=== PATIENT | female | born 1955 | race African-American/Black ===

== ENCOUNTER 2018-02-18 18:00 | Inpatient (IN) | payer MEDICARE ==
[~2018-02-18] VITALS: Ht 160 cm; Wt 59.5 kg
[~2018-02-18 18:00] MED LIST: ASPI-482 PO; CARV3.122 PO; FLUT1DIS3 IH; FURO20TA3 PO; LISI-338 PO; MAGN71.5 PO; METO25TA4 PO; POTA10TA12 PO; PROAIR HFA8.5 GM; PROAIR HFA8.5 GM IH; TAMS0.4C2 PO
--- NOTE | 2018-02-18 18:17 | PHYS DOC ---
Past Medical History Past Medical History: CHF, COPD, Hypertension, Other Additional Past Medical Histor: EMPHYSEMA, Past Surgical History: Tonsillectomy Alcohol Use: Occasionally Drug Use: None Adult General Chief Complaint Chief Complaint: WEAKNESS/GENERALIZED HPI HPI Patient is a 62 year old female who presents with generalized weakness. She is a poor historian. Patient has had progressive swelling or lower extremity is for the past 2 months limiting her ambulation. She states she's been confined to sitting in a wheelchair in a car last 2 days. She hasn't been mobile out of a car last 2 days has been sitting in her feces and urine. She denies any pain shortness breath or fevers. She drove herself to the ED. Review of Systems Review of Systems Constitutional: Denies fever or chills Eyes: Denies change in visual acuity, redness, or eye pain HENT: Denies nasal congestion or sore throat Respiratory: Denies cough or shortness of breath Cardiovascular: Denies CP or palpitations GI: Denies abdominal pain, nausea, vomiting, bloody stools or diarrhea : Denies dysuria or hematuria Musculoskeletal: Denies back pain or joint pain Integument: Denies rash, with complaints of sacral and perineal "sores" Neurologic: Denies headache, focal weakness or sensory changes. With generalized weakness Endocrine: Denies polyuria or polydipsia All other systems were reviewed and found to be within normal limits, except as documented in this note. Allergies Allergies Allergies Coded Allergies Type Severity Reaction Last Updated Verified naproxen Allergy Intermediate 05/11/15 Yes Physical Exam Physical Exam Constitutional: Well developed, well nourished, no acute distress, non-toxic appearance. Disheveled soiled with urine and feces. HENT: Normocephalic, atraumatic, bilateral external ears normal, oropharynx moist, no oral exudates, nose normal. Eyes: PERRLA, EOMI, conjunctiva normal, no discharge. Neck: Normal range of motion, no tenderness, supple, no stridor. Cardiovascular:Heart rate regular rhythm, no murmur Lungs & Thorax: Bilateral breath sounds with rales at the bases bilaterally Abdomen: Bowel sounds normal, soft, no tenderness, no masses, no pulsatile masses. Skin: Warm, dry, no erythema, no rash. [] Multiple stage III decubitus on her perineum and bilateral buttocks Back: No tenderness, no CVA tenderness. Extremities: No tenderness, no cyanosis, no clubbing, ROM intact, no edema. Neurologic: Alert and oriented X 3, normal motor function, normal sensory function, no focal deficits noted. Psychologic: Affect depressed, mood depressed. Current Patient Data Vital Signs Vital Signs Date Time Temp Pulse Resp B/P (MAP) Pulse Ox O2 Delivery O2 Flow Rate FiO2 02/18/18 21:30 96 18 91 02/18/18 18:00 98.7 124/58 (80) Room Air 98.7 Lab Values Laboratory Tests Test 02/18/18 18:30 02/18/18 20:20 02/18/18 21:30 Urine Collection Type U cath Urine Color Aspen Urine Clarity Clear Urine pH 7.0 Urine Specific [place] 1.015 Urine Protein Negative mg/dL (NEG-TRACE) Urine Glucose (UA) Negative mg/dL (NEG) Urine Ketones (Stick) Trace mg/dL (NEG) Urine Blood Negative (NEG) Urine Nitrite Negative (NEG) Urine Bilirubin Small (NEG) Urine Urobilinogen Dipstick >=8.0 mg/dL (0.2 mg/dL) Urine Leukocyte Esterase Negative (NEG) Urine RBC Occ /HPF (0-2) Urine WBC Occ /HPF (0-4) Urine Transitional Epithelial Cells Few /LPF Urine Bacteria 0 /HPF (0-FEW) Urine Hyaline Casts Occasional /HPF Urine Mucus Slight /LPF Urine Opiates Screen Neg (NEG) Urine Methadone Screen Neg (NEG) Urine Barbiturates Neg (NEG) Urine Phencyclidine Screen Neg (NEG) Urine Amphetamine/Methamphetamine Neg (NEG) Urine Benzodiazepines Screen Neg (NEG) Urine Cocaine Screen Neg (NEG) Urine Cannabinoids Screen Neg (NEG) Urine Ethyl Alcohol Pos (NEG) White Blood Count 5.9 x10^3/uL (4.0-11.0) Red Blood Count 2.55 x10^6/uL (3.50-5.40) L Hemoglobin 4.9 g/dL (12.0-15.5) *L Hematocrit 16.8 % (36.0-47.0) *L Mean Corpuscular Volume 66 fL (79-100) L Mean Corpuscular Hemoglobin 19 pg (25-35) L Mean Corpuscular Hemoglobin Concent 29 g/dL (31-37) L Red Cell Distribution Width 20.0 % (11.5-14.5) H Platelet Count 333 x10^3/uL (140-400) Neutrophils (%) (Auto) 80 % (31-73) H Lymphocytes (%) (Auto) 8 % (24-48) L Monocytes (%) (Auto) 11 % (0-9) H Eosinophils (%) (Auto) 1 % (0-3) Basophils (%) (Auto) 1 % (0-3) Neutrophils # (Auto) 4.7 x10^3uL (1.8-7.7) Lymphocytes # (Auto) 0.4 x10^3/uL (1.0-4.8) L Monocytes # (Auto) 0.7 x10^3/uL (0.0-1.1) Eosinophils # (Auto) 0.0 x10^3/uL (0.0-0.7) Basophils # (Auto) 0.0 x10^3/uL (0.0-0.2) Hypersegmented Neutrophils Present Platelet Estimate Adequate (ADEQUATE) Polychromasia Slight Hypochromasia Mod Poikilocytosis Slight Anisocytosis Mod Microcytosis Marked Macrocytosis Slight Spherocytes Occ Target Cells Few Ovalocytes Occ Stomatocytes Occ Rouleaux Present Prothrombin Time 16.6 SEC (11.7-14.0) H Prothrombin Time INR 1.4 (0.8-1.1) H PTT 34 SEC (24-38) D-Dimer (Reba) 1.92 ug/mlFEU (0.00-0.50) H Sodium Level 130 mmol/L (136-145) L Potassium Level 3.4 mmol/L (3.5-5.1) L Chloride Level 92 mmol/L (98-107) L Carbon Dioxide Level 31 mmol/L (21-32) Anion Gap 7 (6-14) Blood Urea Nitrogen 3 mg/dL (7-20) L Creatinine 0.5 mg/dL (0.6-1.0) L Estimated GFR (Cockcroft-Gault) 151.8 BUN/Creatinine Ratio 6 (6-20) Glucose Level 95 mg/dL (70-99) Lactic Acid Level 2.2 mmol/L (0.4-2.0) H Calcium Level 7.5 mg/dL (8.5-10.1) L Magnesium Level 1.6 mg/dL (1.8-2.4) L Total Bilirubin 1.7 mg/dL (0.2-1.0) H Aspartate Amino Transferase (AST) 22 U/L (15-37) Alanine Aminotransferase (ALT) 11 U/L (14-59) L Alkaline Phosphatase 92 U/L (46-116) Troponin I Quantitative < 0.017 ng/mL (0.000-0.055) AT-Bao-P-Type Natriuretic Peptide 446 pg/mL (0-124) H Total Protein 6.2 g/dL (6.4-8.2) L Albumin 1.6 g/dL (3.4-5.0) L Albumin/Globulin Ratio 0.3 (1.0-1.7) L Lipase 117 U/L (73-393) Ethyl Alcohol Level 16 mg/dL (0-10) H Stool Occult Blood Positive (NEG) Laboratory Tests 02/18/18 20:20 Laboratory Tests 02/18/18 20:20 EKG EKG ECG 19:13 NSR @ 98 with prolonged QT, low voltage in limb leads and non specific ST-T wave changes. Radiology/Procedures Radiology/Procedures [facility] [address] [place], [place] [id number] IMAGING REPORT Signed PATIENT: ALMA DELIA ARIAS ACCOUNT: [id number] : 1955 LOCATION: [address] [place] [address] AGE: 62 SEX: F EXAM STATUS: ADM IN ORD. PHYSICIAN: MARISABEL CHAUDHARY MD REASON: weakness PROCEDURE: CHEST AP ONLY EXAM: CHEST 1 VIEW. HISTORY: Weakness, hypoxia. COMPARISON: 09/18/2015. FINDINGS: A frontal view of the chest is obtained. Hyperinflation is consistent with chronic obstructive pulmonary disease. There are trace bilateral pleural effusions. There is no pneumothorax or pleural effusion. The heart is mildly enlarged. IMPRESSION: 1. Chronic obstructive pulmonary disease. Mild cardiomegaly. Trace bilateral pleural effusions. Electronically signed by: Francisco Chavez MD (02/18/2018 11:57 PM) [facility] DICTATED and SIGNED BY: DAVID CHAVEZ MD DATE: 02/18/18 3401 [facility] [address] [place] [address] IMAGING REPORT Signed PATIENT: ALMA DELIA ARIAS ACCOUNT: [id number] : 1955 LOCATION: [address] [place] [address] AGE: 62 SEX: F EXAM STATUS: ADM IN ORD. PHYSICIAN: MARISABEL CHAUDHARY MD REASON: hypoxemia PROCEDURE: CT ANGIOGRAPHY CHEST EXAM: CT ANGIOGRAPHY OF THE CHEST WITH AND WITHOUT INTRAVENOUS CONTRAST. HISTORY: Hypoxia. TECHNIQUE: Computed tomographic angiography of the chest was performed before and after the intravenous administration of 75 mL Omnipaque 300. 3-D maximum intensity projections were also performed. COMPARISON: None. FINDINGS: Images of the upper abdomen reveal no acute abnormality. Bone windows reveal no suspicious lesions. No pulmonary emboli are identified. There is no aortic dissection or aneurysm. There are no pathologically enlarged mediastinal or axillary lymph nodes. There are small bilateral pleural effusions with associated atelectasis. There is no pericardial effusion. The heart is at least mildly enlarged in a predominantly right-sided pattern. There is moderate centrilobular emphysema. The left lower lobe bronchi are mostly filled with debris. More diffuse bronchial wall thickening is consistent with acute or chronic bronchitis. IMPRESSION: 1. No pulmonary embolism. 2. Moderate centrilobular emphysema, possibly with superimposed mild pulmonary edema. Small bilateral pleural effusions. Body wall edema. 3. Debris throughout the left lower lobe bronchi. Correlate for aspiration or uncleared secretions. 4. Mild cardiomegaly in a predominantly right-sided pattern. *One or more of the following individualized dose reduction techniques were utilized for this examination: 1. Automated exposure control. 2. Adjustment of the mA and/or kV according to patient size. 3. Use of iterative reconstruction technique. Electronically signed by: Francisco Chavez MD (02/18/2018 11:56 PM) [facility] DICTATED and SIGNED BY: DAVID CHAVEZ MD DATE: 02/18/182346 [facility] [address] [place] [address] IMAGING REPORT Signed PATIENT: ALMA DELIA ARIAS ACCOUNT: [id number] : 1955 LOCATION: [address] [place] [address] AGE: 62 SEX: F EXAM STATUS: ADM IN ORD. PHYSICIAN: MARISABEL CHAUDHARY MD REASON: LE edema, positive D-dimer PROCEDURE: VENOUS LOWER EXT BILATERAL EXAM: Bilateral lower extremity venous Doppler. HISTORY: Bilateral lower extremity pain/swelling. Elevated d-dimer. COMPARISON: None. FINDINGS: Grayscale and Doppler analysis of the both lower extremity deep venous systems was performed with graded compression and augmentation. The common femoral, greater saphenous, superficial femoral, popliteal and calf veins were assessed. There is no evidence of deep venous thrombosis. A left inguinal lymph node measures 1.6 x 1.1 cm. Another measures 2.3 x 1.5 x 0.5 cm. Another on the right measures 2.0 x 1.4 cm. These have fatty derian. Subcutaneous edema is noted. IMPRESSION: 1. No evidence of deep venous thrombosis. 2. Prominent bilateral inguinal lymph nodes are likely reactive. Correlate for lower extremity inflammation. Electronically signed by: Francisco Chavez MD (02/18/2018 11:31 PM) [facility] DICTATED and SIGNED BY: DAVID CHAVEZ MD DATE: 02/18/18 9071 Course & Med Decision Making Course & Med Decision Making Pertinent Labs and Imaging studies reviewed. (See chart for details) Emergency Department Course Patient presents with bilateral LE edema and fatigue DDx- CHF, DVT, liver failure, renal failure, PE Patient was hypoxemic in the ED, necessitating NC O2 supplementation. ECG and troponin showed no evidence of ACS. D-dimer elevated. CTA chest showed no PE with bilateral effusions. Labs remarkable for severe anemia, hypokalemia, elevated BNP. Stool heme positive. Type and cross match sent. PRBC blood transfusion ordered. Patient given Lasix for probable CHF. Protonix given for heme positive stool with severe anemia. 21:[address] Garcia who agrees with admission 22:[address] Birch electroneurodiagnostic technician who will consult on the patient Dr. Varghese GI consultations [place] Disclaimer Dragon Disclaimer This electronic medical record was generated, in whole or in part, using a voice recognition dictation system. Departure Departure Impression: Primary Impression: Severe anemia Additional Impressions: Heme positive stool Hyponatremia Sacral decubitus ulcer, stage III Hypoxemia Edema CHF (congestive heart failure) Failure to thrive in adult Disposition: 09 ADMITTED INPATIENT Admitting Physician: Simona Garcia Condition: STABLE Referrals: FRANCISCO MANCIA MD (PCP) Critical Care Note Total Time (mins): 30 Comments Critical care time spent correcting the patient's severe anemia with packed RBC blood transfusion Problems: (1) Severe anemia (2) Sacral decubitus ulcer, stage III (3) Heme positive stool (4) Hyponatremia (5) Edema (6) Hypoxemia Critical Care Time Critical care time was 30 minutes exclusive of procedures. Problem Qualifiers (1) Edema: Edema type: unspecified Qualified Codes: R60.9 - Edema, unspecified Additional Impressions: Edema Edema type: unspecified Qualified Codes: R60.9 - Edema, unspecified MARISABEL CHAUDHARY MD Feb 18, 2018 18:17
[2018-02-18 18:49] LABS: BILIRUBIN,URINE SMALL (NEG); CLARITY,URINE CLEAR; COLOR,URINE AMBER; NITRITE,URINE NEGATIVE (NEG); PROTEIN,URINE NEGATIVE (NEG-TRACE); UROBILINOGEN,URINE >=8.0 mg/dL (0.2 mg/dL)
[2018-02-18 18:57] LABS: BARBITURATES NEG (NEG); BENZODIAZEPINES NEG (NEG); CANNABINOIDS NEG (NEG); COCAINE NEG (NEG); METHADONE NEG (NEG); OPIATES NEG (NEG); PHENCYCLIDINE NEG (NEG)
[2018-02-18 18:58] LABS: AMPHETAMINE/METHAMPHETAMINE NEG (NEG)
[2018-02-18 19:09] LABS: BACTERIA,URINE 0 /HPF (0-FEW); HYALINE CASTS, URINE OCCASIONAL /HPF; RBC,URINE OCC /HPF (0-2); WBC,URINE OCC /HPF (0-4)
[2018-02-18 20:35] LABS: BASO % 1 % (0-3); EOS % 1 % (0-3); LYMPH # 0.4 x10^3/uL (1.0-4.8); LYMPH % 8 % (24-48); MEAN CORPUSCULAR HEMOGLOBIN 19 pg (25-35); MEAN CORPUSCULAR HGB CONC 29 g/dL (31-37); MEAN CORPUSCULAR VOLUME 66 fL (79-100); MONO # 0.7 x10^3/uL (0.0-1.1); MONO % 11 % (0-9); NEUT # 4.7 x10^3uL (1.8-7.7); NEUT % 80 % (31-73); PLATELET COUNT 333 x10^3/uL (140-400); RED BLOOD COUNT 2.55 x10^6/uL (3.50-5.40); WHITE BLOOD COUNT 5.9 x10^3/uL (4.0-11.0)
[2018-02-18 20:45] LABS: HEMATOCRIT 16.8 % (36.0-47.0); HEMOGLOBIN 4.9 g/dL (12.0-15.5)
[2018-02-18 20:48] LABS: CALCIUM 7.5 mg/dL (8.5-10.1); CREATININE 0.5 mg/dL (0.6-1.0); GFR 151.8; POTASSIUM 3.4 mmol/L (3.5-5.1)
--- NOTE | 2018-02-18 20:49 | EKG ---
[facility] [address] [place] [address] Test Date: 2018-02-18 Test Time: 19:13:31 Pat Name: ALMA DELIA ARIAS Department: Room: Gender: F Commercial Collections Specialist: : 1955 Requested By: MARISABEL CHAUDHARY Order Number: [id number] Reading MD: Lamine Cartagena MD Measurements Intervals [place] Rate: 98 P: 14 CT: 106 QRS: 51 QRSD: 88 T: 127 QT: 380 QTc: 487 Interpretive Statements SINUS RHYTHM Electronically Signed On 02-23-2018 8:27:23 CDT by Lamine Cartagena MD
[2018-02-18 20:53] LABS: ALBUMIN 1.6 g/dL (3.4-5.0); ALBUMIN/GLOBULIN RATIO 0.3 (1.0-1.7); MAGNESIUM 1.6 mg/dL (1.8-2.4); TOTAL BILIRUBIN 1.7 mg/dL (0.2-1.0); TOTAL PROTEIN 6.2 g/dL (6.4-8.2)
[2018-02-18 20:56] LABS: PROTHROMBIN TIME PATIENT 16.6 SEC (11.7-14.0)
[2018-02-18 21:36] LABS: PLT ESTIMATE ADEQUATE (ADEQUATE)
[2018-02-18 21:37] LABS: MICROCYTOSIS MARKED; TARGET CELLS FEW
[2018-02-18 21:38] LABS: OVALOCYTES OCC; ROULEAUX PRESENT; STOMATOCYTES OCC
[2018-02-18 21:39] LABS: HYPERSEGS PRESENT; HYPOCHROMIA MOD; POLYCHROMASIA SLIGHT
[2018-02-18 21:40] LABS: ANISOCYTOSIS MOD; POIKILOCYTOSIS SLIGHT; SPHEROCYTES OCC
[2018-02-18 22:09] LABS: BASE EXCESS ABG 7 mmol/L (-3-3); HCO3 ABG 31 mmol/L (21-28); PCO2 ABG 45 mmHg (35-46); PO2 ABG 96 mmHg (65-108); SAT O2 ABG 97 % (92-99)
[2018-02-18 22:24] LABS: BASE EXCESS ABG 8 mmol/L (-3-3); HCO3 ABG 33 mmol/L (21-28); PCO2 ABG 49 mmHg (35-46); SAT O2 ABG 76 % (92-99)
[2018-02-18 22:28] LABS: PO2 ABG 43 mmHg (65-108)
[2018-02-18] MEDS ORDERED: CONTRAST GIVEN. MC PRN (22:30)
[2018-02-18] MEDS ORDERED: IOHEXOL 300 MG/ML 100ML VIAL. IV ONE (23:00)
--- NOTE | 2018-02-18 23:34 | RAD ---
EXAM: Bilateral lower extremity venous Doppler. HISTORY: Bilateral lower extremity pain/swelling. Elevated d-dimer. COMPARISON: None. FINDINGS: Grayscale and Doppler analysis of the both lower extremity deep venous systems was performed with graded compression and augmentation. The common femoral, greater saphenous, superficial femoral, popliteal and calf veins were assessed. There is no evidence of deep venous thrombosis. A left inguinal lymph node measures 1.6 x 1.1 cm. Another measures 2.3 x 1.5 x 0.5 cm. Another on the right measures 2.0 x 1.4 cm. These have fatty derian. Subcutaneous edema is noted. IMPRESSION: 1. No evidence of deep venous thrombosis. 2. Prominent bilateral inguinal lymph nodes are likely reactive. Correlate for lower extremity inflammation. Electronically signed by: Francisco Chavez MD (02/18/2018 11:31 PM) [facility]
--- NOTE | 2018-02-18 23:58 | RAD ---
EXAM: CT ANGIOGRAPHY OF THE CHEST WITH AND WITHOUT INTRAVENOUS CONTRAST. HISTORY: Hypoxia. TECHNIQUE: Computed tomographic angiography of the chest was performed before and after the intravenous administration of 75 mL Omnipaque 300. 3-D maximum intensity projections were also performed. COMPARISON: None. FINDINGS: Images of the upper abdomen reveal no acute abnormality. Bone windows reveal no suspicious lesions. No pulmonary emboli are identified. There is no aortic dissection or aneurysm. There are no pathologically enlarged mediastinal or axillary lymph nodes. There are small bilateral pleural effusions with associated atelectasis. There is no pericardial effusion. The heart is at least mildly enlarged in a predominantly right-sided pattern. There is moderate centrilobular emphysema. The left lower lobe bronchi are mostly filled with debris. More diffuse bronchial wall thickening is consistent with acute or chronic bronchitis. IMPRESSION: 1. No pulmonary embolism. 2. Moderate centrilobular emphysema, possibly with superimposed mild pulmonary edema. Small bilateral pleural effusions. Body wall edema. 3. Debris throughout the left lower lobe bronchi. Correlate for aspiration or uncleared secretions. 4. Mild cardiomegaly in a predominantly right-sided pattern. *One or more of the following individualized dose reduction techniques were utilized for this examination: 1. Automated exposure control. 2. Adjustment of the mA and/or kV according to patient size. 3. Use of iterative reconstruction technique. Electronically signed by: Francisco Chavez MD (02/18/2018 11:56 PM) [facility]
[2018-02-19] VITALS (21 sets, daily range): BP systolic 94–133; BP diastolic 44–69
--- NOTE | 2018-02-19 | RAD ---
EXAM: CHEST 1 VIEW. HISTORY: Weakness, hypoxia. COMPARISON: 09/18/2015. FINDINGS: A frontal view of the chest is obtained. Hyperinflation is consistent with chronic obstructive pulmonary disease. There are trace bilateral pleural effusions. There is no pneumothorax or pleural effusion. The heart is mildly enlarged. IMPRESSION: 1. Chronic obstructive pulmonary disease. Mild cardiomegaly. Trace bilateral pleural effusions. Electronically signed by: Francisco Chavez MD (02/18/2018 11:57 PM) [facility]
[2018-02-19] MEDS ORDERED: FUROSEMIDE 20 MG/2 ML VIAL. IVP ONE (01:30)
[2018-02-19] MEDS ORDERED: FUROSEMIDE 40 MG/4 ML VIAL. IVP ONE (01:30)
[2018-02-19 02:56] LABS: FECAL OB PT POSITIVE (NEG)
[2018-02-19] MEDS ORDERED: PANTOPRAZOLE IV PUSH 40 MG VIAL. IVP ONE (08:30)
[2018-02-19] MEDS ORDERED: IV NORMAL SALINE 1000ML BAG 1,000 ML IV SCH (08:45)
--- NOTE | 2018-02-19 08:49 | PDOC2 ---
GI CONSULT Reason For Consult: Anemia, heme positive stool HPI: HPI: 62 y/o female evaluated in ER for weakness. Apparently sat in her car for two days in urine in feces, then drove herself here. Labs significant for Hgb 4.9, MCV 66, fecal occult positive, INR 1.4, bili 1.7, +alcohol. Has transfused 1 unit pRBCs, has not had labs repeated. Received IV PPI x 1 and has been kept NPO. She denies obvious bleeding including hematemesis, hematochezia, or melena. Has had diarrhea x 2 weeks. RN says no stools here. She denies n/v, reflux, dysphagia, and abd pain. I asked if she had been eating - "it depends on what' s going on that day," but mentions she's very hungry now. Has probably lost weight. Denies use of NSAIDs or ASA (though ASA listed in chart). Thinks maybe had a colonoscopy long ago that was normal. No recollection of EGD. No GB, liver, or pancreas history. PMH: PMH: per chart - HTN, COPD, allergic rhinitis, tonsillectomy FH: Family History: Other (difficult to obtain) Social History: Smoke: <1 pack per day ALCOHOL: other (+ on screen, can't quantify) Drugs: None ROS: Difficult to obtain - per HPI. Vitals: Vitals: Vital Signs Date Time Temp Pulse Resp B/P (MAP) Pulse Ox O2 Delivery O2 Flow Rate FiO2 02/19/18 07:15 97.7 76 16 118/61 (80) 100 Nasal Cannula 4.0 97.7 Labs: Labs: Laboratory Tests Test 02/18/18 18:30 02/18/18 20:20 02/18/18 21:30 02/18/18 22:05 Urine Collection Type U cath Urine Color Aspen Urine Clarity Clear Urine pH 7.0 Urine Specific [place] 1.015 Urine Protein Negative mg/dL (NEG-TRACE) Urine Glucose (UA) Negative mg/dL (NEG) Urine Ketones (Stick) Trace mg/dL (NEG) Urine Blood Negative (NEG) Urine Nitrite Negative (NEG) Urine Bilirubin Small (NEG) Urine Urobilinogen Dipstick >=8.0 mg/dL (0.2 mg/dL) Urine Leukocyte Esterase Negative (NEG) Urine RBC Occ /HPF (0-2) Urine WBC Occ /HPF (0-4) Urine Transitional Epithelial Cells Few /LPF Urine Bacteria 0 /HPF (0-FEW) Urine Hyaline Casts Occasional /HPF Urine Mucus Slight /LPF Urine Opiates Screen Neg (NEG) Urine Methadone Screen Neg (NEG) Urine Barbiturates Neg (NEG) Urine Phencyclidine Screen Neg (NEG) Urine Amphetamine/Methamphetamine Neg (NEG) Urine Benzodiazepines Screen Neg (NEG) Urine Cocaine Screen Neg (NEG) Urine Cannabinoids Screen Neg (NEG) Urine Ethyl Alcohol Pos (NEG) White Blood Count 5.9 x10^3/uL (4.0-11.0) Red Blood Count 2.55 x10^6/uL (3.50-5.40) Hemoglobin 4.9 g/dL (12.0-15.5) Hematocrit 16.8 % (36.0-47.0) Mean Corpuscular Volume 66 fL (79-100) Mean Corpuscular Hemoglobin 19 pg (25-35) Mean Corpuscular Hemoglobin Concent 29 g/dL (31-37) Red Cell Distribution Width 20.0 % (11.5-14.5) Platelet Count 333 x10^3/uL (140-400) Neutrophils (%) (Auto) 80 % (31-73) Lymphocytes (%) (Auto) 8 % (24-48) Monocytes (%) (Auto) 11 % (0-9) Eosinophils (%) (Auto) 1 % (0-3) Basophils (%) (Auto) 1 % (0-3) Neutrophils # (Auto) 4.7 x10^3uL (1.8-7.7) Lymphocytes # (Auto) 0.4 x10^3/uL (1.0-4.8) Monocytes # (Auto) 0.7 x10^3/uL (0.0-1.1) Eosinophils # (Auto) 0.0 x10^3/uL (0.0-0.7) Basophils # (Auto) 0.0 x10^3/uL (0.0-0.2) Hypersegmented Neutrophils Present Platelet Estimate Adequate (ADEQUATE) Polychromasia Slight Hypochromasia Mod Poikilocytosis Slight Anisocytosis Mod Microcytosis Marked Macrocytosis Slight Spherocytes Occ Target Cells Few Ovalocytes Occ Stomatocytes Occ Rouleau Present Prothrombin Time 16.6 SEC (11.7-14.0) Prothromb Time International Ratio 1.4 (0.8-1.1) Activated Partial Thromboplast Time 34 SEC (24-38) D-Dimer (Reba) 1.92 ug/mlFEU (0.00-0.50) Sodium Level 130 mmol/L (136-145) Potassium Level 3.4 mmol/L (3.5-5.1) Chloride Level 92 mmol/L (98-107) Carbon Dioxide Level 31 mmol/L (21-32) Anion Gap 7 (6-14) Blood Urea Nitrogen 3 mg/dL (7-20) Creatinine 0.5 mg/dL (0.6-1.0) Estimated GFR (Cockcroft-Gault) 151.8 BUN/Creatinine Ratio 6 (6-20) Glucose Level 95 mg/dL (70-99) Lactic Acid Level 2.2 mmol/L (0.4-2.0) Calcium Level 7.5 mg/dL (8.5-10.1) Magnesium Level 1.6 mg/dL (1.8-2.4) Total Bilirubin 1.7 mg/dL (0.2-1.0) Aspartate Amino Transf (AST/SGOT) 22 U/L (15-37) Alanine Aminotransferase (ALT/SGPT) 11 U/L (14-59) Alkaline Phosphatase 92 U/L (46-116) Troponin I Quantitative < 0.017 ng/mL (0.000-0.055) JY-Wyf-T-Type Natriuretic Peptide 446 pg/mL (0-124) Total Protein 6.2 g/dL (6.4-8.2) Albumin 1.6 g/dL (3.4-5.0) Albumin/Globulin Ratio 0.3 (1.0-1.7) Lipase 117 U/L (73-393) Ethyl Alcohol Level 16 mg/dL (0-10) Stool Occult Blood Positive (NEG) O2 Saturation 97 % (92-99) Arterial Blood pH 7.46 (7.35-7.45) Arterial Blood pCO2 at Patient Temp 45 mmHg (35-46) Arterial Blood pO2 at Patient Temp 96 mmHg (65-108) Arterial Blood HCO3 31 mmol/L (21-28) Arterial Blood Base Excess 7 mmol/L (-3-3) FiO2 32.0 Test 02/18/18 22:22 O2 Saturation 76 % (92-99) Arterial Blood pH 7.45 (7.35-7.45) Arterial Blood pCO2 at Patient Temp 49 mmHg (35-46) Arterial Blood pO2 at Patient Temp 43 mmHg (65-108) Arterial Blood HCO3 33 mmol/L (21-28) Arterial Blood Base Excess 8 mmol/L (-3-3) FiO2 21.0 Allergies: Coded Allergies: naproxen (Verified Allergy, Intermediate, 05/11/15) Medications: Current Medications Medications (Trade) Dose Ordered Sig/Nu Route PRN Reason Start Time Stop Time Status Last Admin Dose Admin Iohexol (Omnipaque 300 Mg/ml) 75 ml 1X ONCE IV 02/18/18 23:00 02/18/18 23:01 DC 02/18/18 23:00 Furosemide (Lasix) 20 mg 1X ONCE IVP 02/19/18 01:30 02/19/18 01:31 DC 02/19/18 05:51 Imaging: Imaging: Chest CTA IMPRESSION: 1. No pulmonary embolism. 2. Moderate centrilobular emphysema, possibly with superimposed mild pulmonary edema. Small bilateral pleural effusions. Body wall edema. 3. Debris throughout the left lower lobe bronchi. Correlate for aspiration or uncleared secretions. 4. Mild cardiomegaly in a predominantly right-sided pattern. LE US IMPRESSION: 1. No evidence of deep venous thrombosis. 2. Prominent bilateral inguinal lymph nodes are likely reactive. Correlate for lower extremity inflammation. CXR IMPRESSION: 1. Chronic obstructive pulmonary disease. Mild cardiomegaly. Trace bilateral pleural effusions. PE: GEN: NAD - remains laying on left side making exam difficult HEENT: Atraumatic - keeps eyes closed LUNGS: diminished anteriorly, NC HEART: RRR ABD: NABS, S/ND/NT EXTREMITY: No edema SKIN: No rashes, no jaundice NEURO/PSYCH: awake and alert, answers questions appropriately A/P: A/P: Weakness, +alcohol Profound anemia - microcytic, fecal occult positive - new compared to past labs in [id number] Diarrhea - prior to admission CRC screen - unclear Sacral decub Hyponatremia, hypokalemia, hypomagnesemia, elevated D-dimer - no PE or DVT on imaging, defer these to primary -- Reviewed w/ Dr. Varghese: Continue NPO for EGD this afternoon - r/o UGI source. Suspect will need more blood - transfuse another unit and monitor. Recheck hemogram now - can't see this has been ordered to recheck after transfusion. Has no IV fluids - verbal order to RN to start NS 100/her, then defer management to primary. Received IV PPI this morning - would continue. BIANCA FONSECA Feb 19, 2018 08:49
[2018-02-19 09:00] LABS: CALCIUM 7.5 mg/dL (8.5-10.1); CREATININE 0.5 mg/dL (0.6-1.0); GFR 151.8; POTASSIUM 3.1 mmol/L (3.5-5.1)
[2018-02-19 09:18] LABS: HEMATOCRIT 21.4 % (36.0-47.0); RED BLOOD COUNT 2.97 x10^6/uL (3.50-5.40); RED CELL DISTRIBUTION WIDTH 22.5 % (11.5-14.5); WHITE BLOOD COUNT 5.3 x10^3/uL (4.0-11.0)
[2018-02-19 09:28] LABS: HEMOGLOBIN 6.3 g/dL (12.0-15.5)
[2018-02-19] MEDS: PANTOPRAZOLE IV PUSH 40 MG VIAL. IVP SCH (11:30)
--- NOTE | 2018-02-19 11:40 | HP ---
ADMIT DATE: 02/18/2018 CHIEF COMPLAINT: Weakness. HISTORY OF PRESENT ILLNESS: The patient is a pleasant 62-year-old female who apparently has been sitting in a car for the past couple of days. She is covered in feces and urine. Apparently, she could not get out of the car. She has been immobile, just too weak. I discussed the case with the ER physician. She has failure to thrive. She is also noted to be severe anemic with a hemoglobin of 4. She has decubitus ulcers. She is guaiac positive in her stool, hyponatremia, edematous and hypoxic. We are admitting the patient for extensive medical evaluation. PAST MEDICAL HISTORY: COPD, CHF, hypertension, tonsillectomy. ALLERGIES: NAPROXEN. FAMILY HISTORY: Coronary artery disease. SOCIAL HISTORY: She smokes and drinks. I think she has been living in her car. MEDICATIONS: Reviewed, please refer to the MRAD. REVIEW OF SYSTEMS: Unable to obtain. The patient is too weak. PHYSICAL EXAMINATION: VITAL SIGNS: Temperature afebrile, pulse 80, respirations 16, blood pressure 110/58.. GENERAL: She is sleeping on her left side. She barely awakens. HEART: Distant S1, S2. LUNGS: Diminished. ABDOMEN: Soft. EXTREMITIES: 1+ edema. ENDOCRINE: No thyromegaly. LYMPHATICS: No cervical nodes. HEMATOPOIETIC: No bruising. LABORATORY DATA: White count is 5, hemoglobin 4.9, platelets 333. Electrolytes: Sodium 130, potassium 3.4, chloride 92, bicarbonate 31, BUN is 3, creatinine is 0.5, glucose 89. Chest x-ray: COPD with cardiomegaly and trace effusions. Lower extremity Dopplers negative for DVTs. She does have some lymphadenopathy, likely reactive. CT of the chest, no pulmonary emboli were noted. She does have emphysema and pulmonary edema and effusions and body wall edema, probable aspiration pneumonia, cardiomegaly. ASSESSMENT AND PLAN: Failure to thrive with severe anemia, probable congestive heart failure, possible aspiration pneumonia, severe electrolyte disturbance, severe anemia. The patient has been admitted. We have transfused her. We have given her a total of 3 units. Consult Hematology/Oncology. Consult Pulmonary. Consult Cardiology and GI. Consult, Dr. Sridhar Mehta, Podiatry as her toenails are extremely infected and long. Frequent labs, home meds, IV procalamine. PROGNOSIS: Extremely guarded at best. CHADWICK COTTRELL DO DR: VANESSA/jaelyn JOB#: [id number] / [id number]
--- NOTE | 2018-02-19 17:20 | PDOC ---
PULMONARY PROGRESS NOTES Vitals Vital Signs Date Time Temp Pulse Resp B/P (MAP) Pulse Ox O2 Delivery O2 Flow Rate FiO2 02/19/18 17:10 98.9 98 16 125/69 98.9 02/19/18 10:53 99 Nasal Cannula 4.0 Labs Laboratory Tests Test 02/18/18 18:30 02/18/18 20:20 02/18/18 21:30 02/18/18 22:05 Urine Collection Type U cath Urine Color Aspen Urine Clarity Clear Urine pH 7.0 Urine Specific [place] 1.015 Urine Protein Negative mg/dL (NEG-TRACE) Urine Glucose (UA) Negative mg/dL (NEG) Urine Ketones (Stick) Trace mg/dL (NEG) Urine Blood Negative (NEG) Urine Nitrite Negative (NEG) Urine Bilirubin Small (NEG) Urine Urobilinogen Dipstick >=8.0 mg/dL (0.2 mg/dL) Urine Leukocyte Esterase Negative (NEG) Urine RBC Occ /HPF (0-2) Urine WBC Occ /HPF (0-4) Urine Transitional Epithelial Cells Few /LPF Urine Bacteria 0 /HPF (0-FEW) Urine Hyaline Casts Occasional /HPF Urine Mucus Slight /LPF Urine Opiates Screen Neg (NEG) Urine Methadone Screen Neg (NEG) Urine Barbiturates Neg (NEG) Urine Phencyclidine Screen Neg (NEG) Urine Amphetamine/Methamphetamine Neg (NEG) Urine Benzodiazepines Screen Neg (NEG) Urine Cocaine Screen Neg (NEG) Urine Cannabinoids Screen Neg (NEG) Urine Ethyl Alcohol Pos (NEG) White Blood Count 5.9 x10^3/uL (4.0-11.0) Red Blood Count 2.55 x10^6/uL (3.50-5.40) Hemoglobin 4.9 g/dL (12.0-15.5) Hematocrit 16.8 % (36.0-47.0) Mean Corpuscular Volume 66 fL (79-100) Mean Corpuscular Hemoglobin 19 pg (25-35) Mean Corpuscular Hemoglobin Concent 29 g/dL (31-37) Red Cell Distribution Width 20.0 % (11.5-14.5) Platelet Count 333 x10^3/uL (140-400) Neutrophils (%) (Auto) 80 % (31-73) Lymphocytes (%) (Auto) 8 % (24-48) Monocytes (%) (Auto) 11 % (0-9) Eosinophils (%) (Auto) 1 % (0-3) Basophils (%) (Auto) 1 % (0-3) Neutrophils # (Auto) 4.7 x10^3uL (1.8-7.7) Lymphocytes # (Auto) 0.4 x10^3/uL (1.0-4.8) Monocytes # (Auto) 0.7 x10^3/uL (0.0-1.1) Eosinophils # (Auto) 0.0 x10^3/uL (0.0-0.7) Basophils # (Auto) 0.0 x10^3/uL (0.0-0.2) Hypersegmented Neutrophils Present Platelet Estimate Adequate (ADEQUATE) Polychromasia Slight Hypochromasia Mod Poikilocytosis Slight Anisocytosis Mod Microcytosis Marked Macrocytosis Slight Spherocytes Occ Target Cells Few Ovalocytes Occ Stomatocytes Occ Rouleau Present Prothrombin Time 16.6 SEC (11.7-14.0) Prothromb Time International Ratio 1.4 (0.8-1.1) Activated Partial Thromboplast Time 34 SEC (24-38) D-Dimer (Reba) 1.92 ug/mlFEU (0.00-0.50) Sodium Level 130 mmol/L (136-145) Potassium Level 3.4 mmol/L (3.5-5.1) Chloride Level 92 mmol/L (98-107) Carbon Dioxide Level 31 mmol/L (21-32) Anion Gap 7 (6-14) Blood Urea Nitrogen 3 mg/dL (7-20) Creatinine 0.5 mg/dL (0.6-1.0) Estimated GFR (Cockcroft-Gault) 151.8 BUN/Creatinine Ratio 6 (6-20) Glucose Level 95 mg/dL (70-99) Lactic Acid Level 2.2 mmol/L (0.4-2.0) Calcium Level 7.5 mg/dL (8.5-10.1) Magnesium Level 1.6 mg/dL (1.8-2.4) Total Bilirubin 1.7 mg/dL (0.2-1.0) Aspartate Amino Transf (AST/SGOT) 22 U/L (15-37) Alanine Aminotransferase (ALT/SGPT) 11 U/L (14-59) Alkaline Phosphatase 92 U/L (46-116) Troponin I Quantitative < 0.017 ng/mL (0.000-0.055) MI-Voz-G-Type Natriuretic Peptide 446 pg/mL (0-124) Total Protein 6.2 g/dL (6.4-8.2) Albumin 1.6 g/dL (3.4-5.0) Albumin/Globulin Ratio 0.3 (1.0-1.7) Lipase 117 U/L (73-393) Ethyl Alcohol Level 16 mg/dL (0-10) Stool Occult Blood Positive (NEG) O2 Saturation 97 % (92-99) Arterial Blood pH 7.46 (7.35-7.45) Arterial Blood pCO2 at Patient Temp 45 mmHg (35-46) Arterial Blood pO2 at Patient Temp 96 mmHg (65-108) Arterial Blood HCO3 31 mmol/L (21-28) Arterial Blood Base Excess 7 mmol/L (-3-3) FiO2 32.0 Test 02/18/18 22:22 02/19/18 08:25 O2 Saturation 76 % (92-99) Arterial Blood pH 7.45 (7.35-7.45) Arterial Blood pCO2 at Patient Temp 49 mmHg (35-46) Arterial Blood pO2 at Patient Temp 43 mmHg (65-108) Arterial Blood HCO3 33 mmol/L (21-28) Arterial Blood Base Excess 8 mmol/L (-3-3) FiO2 21.0 White Blood Count 5.3 x10^3/uL (4.0-11.0) Red Blood Count 2.97 x10^6/uL (3.50-5.40) Hemoglobin 6.3 g/dL (12.0-15.5) Hematocrit 21.4 % (36.0-47.0) Mean Corpuscular Volume 72 fL (79-100) Mean Corpuscular Hemoglobin 21 pg (25-35) Mean Corpuscular Hemoglobin Concent 30 g/dL (31-37) Red Cell Distribution Width 22.5 % (11.5-14.5) Platelet Count 294 x10^3/uL (140-400) Sodium Level 132 mmol/L (136-145) Potassium Level 3.1 mmol/L (3.5-5.1) Chloride Level 93 mmol/L (98-107) Carbon Dioxide Level 34 mmol/L (21-32) Anion Gap 5 (6-14) Blood Urea Nitrogen 3 mg/dL (7-20) Creatinine 0.5 mg/dL (0.6-1.0) Estimated GFR (Cockcroft-Gault) 151.8 Glucose Level 89 mg/dL (70-99) Calcium Level 7.5 mg/dL (8.5-10.1) Laboratory Tests Test 02/18/18 18:30 02/18/18 20:20 02/18/18 21:30 02/18/18 22:05 Urine Collection Type U cath Urine Color Aspen Urine Clarity Clear Urine pH 7.0 Urine Specific [place] 1.015 Urine Protein Negative mg/dL (NEG-TRACE) Urine Glucose (UA) Negative mg/dL (NEG) Urine Ketones (Stick) Trace mg/dL (NEG) Urine Blood Negative (NEG) Urine Nitrite Negative (NEG) Urine Bilirubin Small (NEG) Urine Urobilinogen Dipstick >=8.0 mg/dL (0.2 mg/dL) Urine Leukocyte Esterase Negative (NEG) Urine RBC Occ /HPF (0-2) Urine WBC Occ /HPF (0-4) Urine Transitional Epithelial Cells Few /LPF Urine Bacteria 0 /HPF (0-FEW) Urine Hyaline Casts Occasional /HPF Urine Mucus Slight /LPF Urine Opiates Screen Neg (NEG) Urine Methadone Screen Neg (NEG) Urine Barbiturates Neg (NEG) Urine Phencyclidine Screen Neg (NEG) Urine Amphetamine/Methamphetamine Neg (NEG) Urine Benzodiazepines Screen Neg (NEG) Urine Cocaine Screen Neg (NEG) Urine Cannabinoids Screen Neg (NEG) Urine Ethyl Alcohol Pos (NEG) White Blood Count 5.9 x10^3/uL (4.0-11.0) Red Blood Count 2.55 x10^6/uL (3.50-5.40) Hemoglobin 4.9 g/dL (12.0-15.5) Hematocrit 16.8 % (36.0-47.0) Mean Corpuscular Volume 66 fL (79-100) Mean Corpuscular Hemoglobin 19 pg (25-35) Mean Corpuscular Hemoglobin Concent 29 g/dL (31-37) Red Cell Distribution Width 20.0 % (11.5-14.5) Platelet Count 333 x10^3/uL (140-400) Neutrophils (%) (Auto) 80 % (31-73) Lymphocytes (%) (Auto) 8 % (24-48) Monocytes (%) (Auto) 11 % (0-9) Eosinophils (%) (Auto) 1 % (0-3) Basophils (%) (Auto) 1 % (0-3) Neutrophils # (Auto) 4.7 x10^3uL (1.8-7.7) Lymphocytes # (Auto) 0.4 x10^3/uL (1.0-4.8) Monocytes # (Auto) 0.7 x10^3/uL (0.0-1.1) Eosinophils # (Auto) 0.0 x10^3/uL (0.0-0.7) Basophils # (Auto) 0.0 x10^3/uL (0.0-0.2) Hypersegmented Neutrophils Present Platelet Estimate Adequate (ADEQUATE) Polychromasia Slight Hypochromasia Mod Poikilocytosis Slight Anisocytosis Mod Microcytosis Marked Macrocytosis Slight Spherocytes Occ Target Cells Few Ovalocytes Occ Stomatocytes Occ Rouleau Present Prothrombin Time 16.6 SEC (11.7-14.0) Prothromb Time International Ratio 1.4 (0.8-1.1) Activated Partial Thromboplast Time 34 SEC (24-38) D-Dimer (Reba) 1.92 ug/mlFEU (0.00-0.50) Sodium Level 130 mmol/L (136-145) Potassium Level 3.4 mmol/L (3.5-5.1) Chloride Level 92 mmol/L (98-107) Carbon Dioxide Level 31 mmol/L (21-32) Anion Gap 7 (6-14) Blood Urea Nitrogen 3 mg/dL (7-20) Creatinine 0.5 mg/dL (0.6-1.0) Estimated GFR (Cockcroft-Gault) 151.8 BUN/Creatinine Ratio 6 (6-20) Glucose Level 95 mg/dL (70-99) Lactic Acid Level 2.2 mmol/L (0.4-2.0) Calcium Level 7.5 mg/dL (8.5-10.1) Magnesium Level 1.6 mg/dL (1.8-2.4) Total Bilirubin 1.7 mg/dL (0.2-1.0) Aspartate Amino Transf (AST/SGOT) 22 U/L (15-37) Alanine Aminotransferase (ALT/SGPT) 11 U/L (14-59) Alkaline Phosphatase 92 U/L (46-116) Troponin I Quantitative < 0.017 ng/mL (0.000-0.055) NW-Ylv-I-Type Natriuretic Peptide 446 pg/mL (0-124) Total Protein 6.2 g/dL (6.4-8.2) Albumin 1.6 g/dL (3.4-5.0) Albumin/Globulin Ratio 0.3 (1.0-1.7) Lipase 117 U/L (73-393) Ethyl Alcohol Level 16 mg/dL (0-10) Stool Occult Blood Positive (NEG) O2 Saturation 97 % (92-99) Arterial Blood pH 7.46 (7.35-7.45) Arterial Blood pCO2 at Patient Temp 45 mmHg (35-46) Arterial Blood pO2 at Patient Temp 96 mmHg (65-108) Arterial Blood HCO3 31 mmol/L (21-28) Arterial Blood Base Excess 7 mmol/L (-3-3) FiO2 32.0 Test 02/18/18 22:22 02/19/18 08:25 O2 Saturation 76 % (92-99) Arterial Blood pH 7.45 (7.35-7.45) Arterial Blood pCO2 at Patient Temp 49 mmHg (35-46) Arterial Blood pO2 at Patient Temp 43 mmHg (65-108) Arterial Blood HCO3 33 mmol/L (21-28) Arterial Blood Base Excess 8 mmol/L (-3-3) FiO2 21.0 White Blood Count 5.3 x10^3/uL (4.0-11.0) Red Blood Count 2.97 x10^6/uL (3.50-5.40) Hemoglobin 6.3 g/dL (12.0-15.5) Hematocrit 21.4 % (36.0-47.0) Mean Corpuscular Volume 72 fL (79-100) Mean Corpuscular Hemoglobin 21 pg (25-35) Mean Corpuscular Hemoglobin Concent 30 g/dL (31-37) Red Cell Distribution Width 22.5 % (11.5-14.5) Platelet Count 294 x10^3/uL (140-400) Sodium Level 132 mmol/L (136-145) Potassium Level 3.1 mmol/L (3.5-5.1) Chloride Level 93 mmol/L (98-107) Carbon Dioxide Level 34 mmol/L (21-32) Anion Gap 5 (6-14) Blood Urea Nitrogen 3 mg/dL (7-20) Creatinine 0.5 mg/dL (0.6-1.0) Estimated GFR (Cockcroft-Gault) 151.8 Glucose Level 89 mg/dL (70-99) Calcium Level 7.5 mg/dL (8.5-10.1) Medications Active Scripts Medications Dose Route/Sig Max Daily Dose Days Date Category Carvedilol 3.125 Mg Tablet 1 Tab PO BID 09/21/14 Reported Tamsulosin Hcl 0.4 Mg Cap.er.24h 1 Cap PO DAILY 09/21/14 Reported Advair 250-50 Diskus (Fluticasone/Salmeterol) 1 Each Disk.w.dev 1 Puff IH BID 09/13/14 Reported Potassium Chloride 10 Meq Capsule.er 1 Cap PO DAILY 09/13/14 Reported Furosemide 20 Mg Tablet 20 Mg PO DAILY 09/13/14 Reported Slow-Mag (Magnesium Chloride) 71.5 Mg Tablet. 71.5 Mg PO BID 09/13/14 Reported Proair Hfa Inhaler (Albuterol Sulfate) 8.5 Gm Hfa.aer.ad 8.5 Puff IH PRN Q4-6HRS 09/13/14 Reported Aspir 81 (Aspirin) 81 Mg Tablet. 1 Tab PO DAILY 09/13/14 Reported Lisinopril 5 Mg Tablet 5 Mg PO DAILY 09/13/14 Reported Impression . dictated not need for bronch at this time PING Melo MD Feb 19, 2018 17:20
[2018-02-19] MEDS ORDERED: ALBUTEROL SULFATE 2.5 MG/3 ML NEBU. NEB PRN (17:30)
[2018-02-19] MEDS: AMINO AC 3%/ELECTROLYTE/GLYCER 1,000 ML IV SCH ×2 (18:16→22:52)
[2018-02-19] MEDS: methylPREDNISolone SOD SUCC PF 125 MG/2 ML VIAL. IV SCH (18:16)
[2018-02-19] MEDS: ALBUTEROL SULFATE 2.5 MG/3 ML NEBU. NEB SCH (20:13)
[2018-02-19] MEDS ORDERED: ACETAMINOPHEN 325 MG TABLET. PO PRN (22:45)
--- NOTE | 2018-02-19 23:09 | CONS ---
DATE OF CONSULTATION: 02/19/2018 ATTENDING PHYSICIAN: Dr. Simona Garcia. REASON FOR CONSULTATION: The patient seen in pulmonary consultation at the request of Dr. Garcia for abnormal CT chest. HISTORY OF PRESENT ILLNESS: The patient was admitted through the Emergency Room. Apparently, she was found sitting in a chair in the car. She had some feces and urine all over her. She was a poor historian, was admitted. Part of her workup included CT angiogram. I reviewed the CT. There is no evidence of pulmonary emboli. There is emphysema, bilateral small effusions and there is some debris in the left lower lobe bronchus. The patient is currently awake, alert, following commands. Denies hemoptysis. No fever or chills. She did smoke. She normally sees Dr. Jake Rubi. I have not seen him for quite some time. He is retired. PAST MEDICAL HISTORY: CHF, COPD, emphysema, hypertension. PAST SURGICAL HISTORY: None. REVIEW OF SYSTEMS: As indicated above, otherwise, a 10-point system was reviewed and negative. No fever or chills. No hemoptysis. No headaches, diplopia or blurred vision. CURRENT MEDICATIONS: List was reviewed. SOCIAL HISTORY: She smokes, denies any excessive alcohol intake. PHYSICAL EXAMINATION: VITAL SIGNS: Stable. O2 saturation was greater than 92%, currently on 4 liters. HEENT: Eyes, the sclerae were nonicteric. NECK: Jugular venous distention was not elevated. No lymphadenopathy. CHEST: Full expansion. LUNGS: Adequate airway flow with no wheezes. CARDIOVASCULAR: Regular rate and rhythm with S1, S2, no S3. ABDOMEN: Soft, nontender, nondistended. EXTREMITIES: No clubbing, cyanosis or edema. LABORATORY DATA: White count was normal. Hemoglobin and hematocrit were markedly decreased at 4.9, repeat was 6.3. She is currently undergoing transfusion. Arterial blood gas; pH of 7.45, PaCO2 of 49, pO2 of 43 on room air. On 32%, pO2 was 96. Electrolytes were deranged. BUN was normal. Creatinine was normal. Albumin was markedly low at 1.6. Occult stool was positive. Alcohol was elevated at 16. UA was noted. IMPRESSION: 1. Progressive dyspnea, multifactorial secondary to underlying chronic obstructive pulmonary disease and severe anemia. 2. Acute exacerbation of chronic obstructive pulmonary disease. 3. Abnormal CT revealing debris. CT of the chest revealing debris in the left lower lobe. Suspect mucus. 4. Severe emphysema. 5. Severe protein malnutrition, present upon admission. 6. Positive occult stool. 7. Acute respiratory failure secondary to above. PLAN: 1. Continue current support with oxygen supplementation. 2. Nebulized treatments. 3. Steroids. 4. Follow GI input. 5. The patient instructed on the importance of discontinuing tobacco use. 6. Dietary consultation for severe protein malnutrition. 7. Transfuse to maintain hemoglobin close to 7 g/dL. 8. No need for bronchoscopy at this time. I do appreciate the privilege in sharing this patient's care. PING WALL MD DR: EWA/jaelyn JOB#: [id number] / [id number]
[2018-02-20] VITALS (10 sets, daily range): BP systolic 111–157; BP diastolic 62–91
[2018-02-20] MEDS: ALBUTEROL SULFATE 2.5 MG/3 ML NEBU. NEB SCH ×4 (08:00→19:44)
[2018-02-20 08:09] LABS: BASO % 0 % (0-3); EOS % 0 % (0-3); HEMATOCRIT 33.9 % (36.0-47.0); LYMPH # 0.5 x10^3/uL (1.0-4.8); LYMPH % 8 % (24-48); MEAN CORPUSCULAR HEMOGLOBIN 25 pg (25-35); MEAN CORPUSCULAR HGB CONC 32 g/dL (31-37); MEAN CORPUSCULAR VOLUME 79 fL (79-100); MONO # 0.6 x10^3/uL (0.0-1.1); MONO % 10 % (0-9); NEUT # 5.2 x10^3uL (1.8-7.7); NEUT % 82 % (31-73); PLATELET COUNT 239 x10^3/uL (140-400); RED BLOOD COUNT 4.31 x10^6/uL (3.50-5.40); RED CELL DISTRIBUTION WIDTH 22.7 % (11.5-14.5); WHITE BLOOD COUNT 6.4 x10^3/uL (4.0-11.0)
[2018-02-20 08:13] LABS: HEMOGLOBIN 10.8 g/dL (12.0-15.5)
[2018-02-20 08:34] LABS: CALCIUM 7.6 mg/dL (8.5-10.1); CREATININE 0.6 mg/dL (0.6-1.0); POTASSIUM 3.1 mmol/L (3.5-5.1)
[2018-02-20] MEDS: PANTOPRAZOLE IV PUSH 40 MG VIAL. IVP SCH (08:38)
[2018-02-20] MEDS: methylPREDNISolone SOD SUCC PF 125 MG/2 ML VIAL. IV SCH ×2 (08:40→20:32)
--- NOTE | 2018-02-20 11:07 | PDOC ---
PROGRESS NOTES Chief Complaint Chief Complaint B/L Small effusions Debris in LLL Bronchus Anemia CHF Failure to Thrive in adult History of Present Illness History of Present Illness PT seen and examine Pt states she does "not feel good", and that she admission story is incorrect, however she refused to clarify Dw/ RN Vitals Vitals Vital Signs Date Time Temp Pulse Resp B/P (MAP) Pulse Ox O2 Delivery O2 Flow Rate FiO2 02/20/18 09:28 74 Room Air 02/20/18 07:00 98.2 98 18 125/72 (89) 98.2 02/20/18 03:00 3.0 Physical Exam Physical Exam pt has dry skin B/L UE and LE General: Alert, Oriented X3 Heart: Regular rate, No murmurs Lungs: Crackles Abdomen: No tenderness, No masses Extremities: No clubbing, No cyanosis Skin: No significant lesion, Other Labs LABS Laboratory Tests Test 02/20/18 07:05 02/20/18 07:48 White Blood Count 6.4 x10^3/uL (4.0-11.0) Red Blood Count 4.31 x10^6/uL (3.50-5.40) Hemoglobin 10.8 g/dL (12.0-15.5) Hematocrit 33.9 % (36.0-47.0) Mean Corpuscular Volume 79 fL (79-100) Mean Corpuscular Hemoglobin 25 pg (25-35) Mean Corpuscular Hemoglobin Concent 32 g/dL (31-37) Red Cell Distribution Width 22.7 % (11.5-14.5) Platelet Count 239 x10^3/uL (140-400) Neutrophils (%) (Auto) 82 % (31-73) Lymphocytes (%) (Auto) 8 % (24-48) Monocytes (%) (Auto) 10 % (0-9) Eosinophils (%) (Auto) 0 % (0-3) Basophils (%) (Auto) 0 % (0-3) Neutrophils # (Auto) 5.2 x10^3uL (1.8-7.7) Lymphocytes # (Auto) 0.5 x10^3/uL (1.0-4.8) Monocytes # (Auto) 0.6 x10^3/uL (0.0-1.1) Eosinophils # (Auto) 0.0 x10^3/uL (0.0-0.7) Basophils # (Auto) 0.0 x10^3/uL (0.0-0.2) Sodium Level 133 mmol/L (136-145) Potassium Level 3.1 mmol/L (3.5-5.1) Chloride Level 94 mmol/L (98-107) Carbon Dioxide Level 33 mmol/L (21-32) Anion Gap 6 (6-14) Blood Urea Nitrogen 5 mg/dL (7-20) Creatinine 0.6 mg/dL (0.6-1.0) Estimated GFR (Cockcroft-Gault) 123.0 Glucose Level 160 mg/dL (70-99) Calcium Level 7.6 mg/dL (8.5-10.1) Review of Systems Review of Systems CO cold CO hunger Assessment and Plan Assessmemt and Plan Problems Medical Problems: (1) CHF (congestive heart failure) Status: Acute (2) Edema Status: Acute (3) Failure to thrive in adult Status: Acute (4) Heme positive stool Status: Acute (5) Hyponatremia Status: Acute (6) Hypoxemia Status: Acute (7) Sacral decubitus ulcer, stage III Status: Acute (8) Severe anemia Status: Acute B/L Small effusions Debris in LLL Bronchus Anemia CHF Failure to Thrive in adult PLan: ProcalAmine F/U podiatry appreciate GI input PT/OT Labs Home Meds Follow Hgb Comment Review of Relevant I have reviewed the following items yao (where applicable) has been applied. Labs Laboratory Tests Test 02/18/18 18:30 02/18/18 20:20 02/18/18 21:30 02/18/18 22:05 Urine Collection Type U cath Urine Color [place] Urine Clarity Clear Urine pH 7.0 Urine Specific [place] 1.015 Urine Protein Negative mg/dL (NEG-TRACE) Urine Glucose (UA) Negative mg/dL (NEG) Urine Ketones (Stick) Trace mg/dL (NEG) Urine Blood Negative (NEG) Urine Nitrite Negative (NEG) Urine Bilirubin Small (NEG) Urine Urobilinogen Dipstick >=8.0 mg/dL (0.2 mg/dL) Urine Leukocyte Esterase Negative (NEG) Urine RBC Occ /HPF (0-2) Urine WBC Occ /HPF (0-4) Urine Transitional Epithelial Cells Few /LPF Urine Bacteria 0 /HPF (0-FEW) Urine Hyaline Casts Occasional /HPF Urine Mucus Slight /LPF Urine Opiates Screen Neg (NEG) Urine Methadone Screen Neg (NEG) Urine Barbiturates Neg (NEG) Urine Phencyclidine Screen Neg (NEG) Urine Amphetamine/Methamphetamine Neg (NEG) Urine Benzodiazepines Screen Neg (NEG) Urine Cocaine Screen Neg (NEG) Urine Cannabinoids Screen Neg (NEG) Urine Ethyl Alcohol Pos (NEG) White Blood Count 5.9 x10^3/uL (4.0-11.0) Red Blood Count 2.55 x10^6/uL (3.50-5.40) Hemoglobin 4.9 g/dL (12.0-15.5) Hematocrit 16.8 % (36.0-47.0) Mean Corpuscular Volume 66 fL (79-100) Mean Corpuscular Hemoglobin 19 pg (25-35) Mean Corpuscular Hemoglobin Concent 29 g/dL (31-37) Red Cell Distribution Width 20.0 % (11.5-14.5) Platelet Count 333 x10^3/uL (140-400) Neutrophils (%) (Auto) 80 % (31-73) Lymphocytes (%) (Auto) 8 % (24-48) Monocytes (%) (Auto) 11 % (0-9) Eosinophils (%) (Auto) 1 % (0-3) Basophils (%) (Auto) 1 % (0-3) Neutrophils # (Auto) 4.7 x10^3uL (1.8-7.7) Lymphocytes # (Auto) 0.4 x10^3/uL (1.0-4.8) Monocytes # (Auto) 0.7 x10^3/uL (0.0-1.1) Eosinophils # (Auto) 0.0 x10^3/uL (0.0-0.7) Basophils # (Auto) 0.0 x10^3/uL (0.0-0.2) Hypersegmented Neutrophils Present Platelet Estimate Adequate (ADEQUATE) Polychromasia Slight Hypochromasia Mod Poikilocytosis Slight Anisocytosis Mod Microcytosis Marked Macrocytosis Slight Spherocytes Occ Target Cells Few Ovalocytes Occ Stomatocytes Occ Rouleau Present Prothrombin Time 16.6 SEC (11.7-14.0) Prothromb Time International Ratio 1.4 (0.8-1.1) Activated Partial Thromboplast Time 34 SEC (24-38) D-Dimer (Reba) 1.92 ug/mlFEU (0.00-0.50) Sodium Level 130 mmol/L (136-145) Potassium Level 3.4 mmol/L (3.5-5.1) Chloride Level 92 mmol/L (98-107) Carbon Dioxide Level 31 mmol/L (21-32) Anion Gap 7 (6-14) Blood Urea Nitrogen 3 mg/dL (7-20) Creatinine 0.5 mg/dL (0.6-1.0) Estimated GFR (Cockcroft-Gault) 151.8 BUN/Creatinine Ratio 6 (6-20) Glucose Level 95 mg/dL (70-99) Lactic Acid Level 2.2 mmol/L (0.4-2.0) Calcium Level 7.5 mg/dL (8.5-10.1) Magnesium Level 1.6 mg/dL (1.8-2.4) Total Bilirubin 1.7 mg/dL (0.2-1.0) Aspartate Amino Transf (AST/SGOT) 22 U/L (15-37) Alanine Aminotransferase (ALT/SGPT) 11 U/L (14-59) Alkaline Phosphatase 92 U/L (46-116) Troponin I Quantitative < 0.017 ng/mL (0.000-0.055) NV-Seh-Q-Type Natriuretic Peptide 446 pg/mL (0-124) Total Protein 6.2 g/dL (6.4-8.2) Albumin 1.6 g/dL (3.4-5.0) Albumin/Globulin Ratio 0.3 (1.0-1.7) Lipase 117 U/L (73-393) Ethyl Alcohol Level 16 mg/dL (0-10) Stool Occult Blood Positive (NEG) O2 Saturation 97 % (92-99) Arterial Blood pH 7.46 (7.35-7.45) Arterial Blood pCO2 at Patient Temp 45 mmHg (35-46) Arterial Blood pO2 at Patient Temp 96 mmHg (65-108) Arterial Blood HCO3 31 mmol/L (21-28) Arterial Blood Base Excess 7 mmol/L (-3-3) FiO2 32.0 Test 02/18/18 22:22 02/19/18 08:25 02/20/18 07:05 02/20/18 07:48 O2 Saturation 76 % (92-99) Arterial Blood pH 7.45 (7.35-7.45) Arterial Blood pCO2 at Patient Temp 49 mmHg (35-46) Arterial Blood pO2 at Patient Temp 43 mmHg (65-108) Arterial Blood HCO3 33 mmol/L (21-28) Arterial Blood Base Excess 8 mmol/L (-3-3) FiO2 21.0 White Blood Count 5.3 x10^3/uL (4.0-11.0) 6.4 x10^3/uL (4.0-11.0) Red Blood Count 2.97 x10^6/uL (3.50-5.40) 4.31 x10^6/uL (3.50-5.40) Hemoglobin 6.3 g/dL (12.0-15.5) 10.8 g/dL (12.0-15.5) Hematocrit 21.4 % (36.0-47.0) 33.9 % (36.0-47.0) Mean Corpuscular Volume 72 fL (79-100) 79 fL (79-100) Mean Corpuscular Hemoglobin 21 pg (25-35) 25 pg (25-35) Mean Corpuscular Hemoglobin Concent 30 g/dL (31-37) 32 g/dL (31-37) Red Cell Distribution Width 22.5 % (11.5-14.5) 22.7 % (11.5-14.5) Platelet Count 294 x10^3/uL (140-400) 239 x10^3/uL (140-400) Sodium Level 132 mmol/L (136-145) 133 mmol/L (136-145) Potassium Level 3.1 mmol/L (3.5-5.1) 3.1 mmol/L (3.5-5.1) Chloride Level 93 mmol/L (98-107) 94 mmol/L (98-107) Carbon Dioxide Level 34 mmol/L (21-32) 33 mmol/L (21-32) Anion Gap 5 (6-14) 6 (6-14) Blood Urea Nitrogen 3 mg/dL (7-20) 5 mg/dL (7-20) Creatinine 0.5 mg/dL (0.6-1.0) 0.6 mg/dL (0.6-1.0) Estimated GFR (Cockcroft-Gault) 151.8 123.0 Glucose Level 89 mg/dL (70-99) 160 mg/dL (70-99) Calcium Level 7.5 mg/dL (8.5-10.1) 7.6 mg/dL (8.5-10.1) Neutrophils (%) (Auto) 82 % (31-73) Lymphocytes (%) (Auto) 8 % (24-48) Monocytes (%) (Auto) 10 % (0-9) Eosinophils (%) (Auto) 0 % (0-3) Basophils (%) (Auto) 0 % (0-3) Neutrophils # (Auto) 5.2 x10^3uL (1.8-7.7) Lymphocytes # (Auto) 0.5 x10^3/uL (1.0-4.8) Monocytes # (Auto) 0.6 x10^3/uL (0.0-1.1) Eosinophils # (Auto) 0.0 x10^3/uL (0.0-0.7) Basophils # (Auto) 0.0 x10^3/uL (0.0-0.2) Laboratory Tests Test 02/20/18 07:05 02/20/18 07:48 White Blood Count 6.4 x10^3/uL (4.0-11.0) Red Blood Count 4.31 x10^6/uL (3.50-5.40) Hemoglobin 10.8 g/dL (12.0-15.5) Hematocrit 33.9 % (36.0-47.0) Mean Corpuscular Volume 79 fL (79-100) Mean Corpuscular Hemoglobin 25 pg (25-35) Mean Corpuscular Hemoglobin Concent 32 g/dL (31-37) Red Cell Distribution Width 22.7 % (11.5-14.5) Platelet Count 239 x10^3/uL (140-400) Neutrophils (%) (Auto) 82 % (31-73) Lymphocytes (%) (Auto) 8 % (24-48) Monocytes (%) (Auto) 10 % (0-9) Eosinophils (%) (Auto) 0 % (0-3) Basophils (%) (Auto) 0 % (0-3) Neutrophils # (Auto) 5.2 x10^3uL (1.8-7.7) Lymphocytes # (Auto) 0.5 x10^3/uL (1.0-4.8) Monocytes # (Auto) 0.6 x10^3/uL (0.0-1.1) Eosinophils # (Auto) 0.0 x10^3/uL (0.0-0.7) Basophils # (Auto) 0.0 x10^3/uL (0.0-0.2) Sodium Level 133 mmol/L (136-145) Potassium Level 3.1 mmol/L (3.5-5.1) Chloride Level 94 mmol/L (98-107) Carbon Dioxide Level 33 mmol/L (21-32) Anion Gap 6 (6-14) Blood Urea Nitrogen 5 mg/dL (7-20) Creatinine 0.6 mg/dL (0.6-1.0) Estimated GFR (Cockcroft-Gault) 123.0 Glucose Level 160 mg/dL (70-99) Calcium Level 7.6 mg/dL (8.5-10.1) Microbiology 02/18/18 Blood Culture - Preliminary, Resulted NO GROWTH AFTER 1 DAY Medications Current Medications Iohexol (Omnipaque 300 Mg/ml) 75 ml 1X ONCE IV Last administered on at 23:00; Start 02/18/18 at 23:00; Stop 02/18/18 at 23:01; Status DC Info (CONTRAST GIVEN -- Rx MONITORING) 1 each PRN DAILY PRN MC SEE COMMENTS; Start 02/18/18 at 22:30; Stop 02/20/18 at 22:29 Furosemide (Lasix) 20 mg 1X ONCE IVP ; Start 02/19/18 at 01:30; Stop at 01:30; Status DC Furosemide (Lasix) 20 mg 1X ONCE IVP Last administered on 02/19/18at 05:51; Start 02/19/18 at 01:30; Stop 02/19/18 at 01:31; Status DC Influenza Virus Vaccine (Afluria Trivalent [id number] Syringe) 0.5 ml ONCE ONCE VAX IM Last administered on 02/19/18at 09:35; Start 02/19/18 at 09:00; Stop 02/19/18 at 09:01; Status DC Pantoprazole Sodium (PROTONIX VIAL for IV PUSH) 40 mg 1X ONCE IVP Last administered on 02/19/18 09:33; Start 02/19/18 at 08:30; Stop 02/19/18 at 08 :32; Status DC Sodium Chloride 1,000 ml @ 100 mls/hr Q10H IV ; Start 02/19/18 at 08:45; Stop 02/19/18 at 09:41; Status DC Pantoprazole Sodium (PROTONIX VIAL for IV PUSH) 40 mg DAILYAC IVP Last administered on 02/20/18 08:38; Start 02/19/18 at 11:30 Amino Acids/ Glycerin/ Electrolytes 1,000 ml @ 75 mls/hr [id number] IV Last administered on 02/19/18 22:52; Start 02/19/18 at 09:45 Albuterol Sulfate (Ventolin Neb Soln) 2.5 mg RTQID NEB Last administered on 04/28at 08:00; Start 02/19/18 at 20:00 Albuterol Sulfate (Ventolin Neb Soln) 2.5 mg PRN Q2HR PRN NEB DYSPNEA; Start 02/19/18 at 17:30 Methylprednisolone Sodium Succinate (SOLU-Medrol 125MG VIAL) 60 mg BID IV Last administered on 02/20/18at 08:40; Start 02/19/18 at 18:00 Acetaminophen (Tylenol) 650 mg PRN Q6HRS PRN PO FEVER Last administered on 22:52; Start 02/19/18 at 22:45 Active Scripts Active Reported Carvedilol 3.125 Mg Tablet 1 Tab PO BID Tamsulosin Hcl 0.4 Mg Cap.er.24h 1 Cap PO DAILY Advair 250-50 Diskus (Fluticasone/Salmeterol) 1 Each Disk.w.dev 1 Puff IH BID Potassium Chloride 10 Meq Capsule.er 1 Cap PO DAILY Furosemide 20 Mg Tablet 20 Mg PO DAILY Slow-Mag (Magnesium Chloride) 71.5 Mg Tablet. 71.5 Mg PO BID Proair Hfa Inhaler (Albuterol Sulfate) 8.5 Gm Hfa.aer.ad 8.5 Puff IH PRN Q4- 6HRS Aspir 81 (Aspirin) 81 Mg Tablet. 1 Tab PO DAILY Lisinopril 5 Mg Tablet 5 Mg PO DAILY Vitals/I & O Vital Sign - Last 24 Hours 02/19/18 02/19/18 02/19/18 02/19/18 11:50 12:50 13:50 14:15 Temp 98.2 98.0 98.6 98.4 98.2 98.0 98.6 98.4 Pulse 94 91 91 91 Resp 12 16 18 B/P (MAP) 121/60 121/65 119/64 118/65 02/19/18 02/19/18 02/19/18 02/19/18 14:53 15:10 15:10 16:10 Temp 98.7 98.7 98.7 98.5 98.7 98.7 98.7 98.5 Pulse 84 88 88 94 Resp 16 18 B/P (MAP) 124/57 120/63 120/63 (82) 117/60 Pulse Ox 96 O2 Delivery Nasal Cannula O2 Flow Rate 3.0 02/19/18 02/19/18 02/19/18 02/19/18 17:10 18:10 19:00 20:00 Temp 98.9 98.8 98.1 98.9 98.8 98.1 Pulse 98 101 103 Resp 17 B/P (MAP) 125/69 115/62 110/56 (74) Pulse Ox 93 O2 Delivery Nasal Cannula Nasal Cannula O2 Flow Rate 3.0 4.0 02/19/18 02/19/18 02/20/18 02/20/18 20:17 23:00 00:56 01:16 Temp 101.5 97.7 97.9 101.5 97.7 97.9 Pulse 89 87 86 Resp 16 B/P (MAP) 133/68 (89) 137/71 129/68 Pulse Ox 94 95 O2 Delivery Nasal Cannula Nasal Cannula O2 Flow Rate 4.0 3.0 02/20/18 02/20/18 02/20/18 02/20/18 02:14 03:00 03:15 04:46 Temp 98.1 98.1 97.7 98.1 98.1 98.1 97.7 98.1 Pulse 80 80 95 94 Resp 18 17 B/P (MAP) 120/66 120/66 (84) 131/68 130/70 Pulse Ox 96 O2 Delivery Nasal Cannula O2 Flow Rate 3.0 02/20/18 02/20/18 02/20/18 07:00 08:00 09:28 Temp 98.2 98.2 Pulse 98 Resp 18 B/P (MAP) 125/72 (89) Pulse Ox 69 74 O2 Delivery 3L Room Air Room Air Intake and Output 02/19/18 02/19/18 02/20/18 15:00 23:00 07:00 Intake Total 1050 ml 1135 ml 986 ml Output Total 1000 ml Balance 50 ml 1135 ml 986 ml CHADWICK COTTRELL III DO Feb 20, 2018 11:07
--- NOTE | 2018-02-20 11:10 | PDOC ---
PULMONARY PROGRESS NOTES Subjective PT MORE AWAKE STATES SHE HAS A HOME TO GO BACK TO Vitals Vital Signs Date Time Temp Pulse Resp B/P (MAP) Pulse Ox O2 Delivery O2 Flow Rate FiO2 02/20/18 09:28 74 Room Air 02/20/18 07:00 98.2 98 18 125/72 (89) 98.2 02/20/18 03:00 3.0 ROS: No Nausea, No Chest Pain, No Increase Cough Lungs: Crackles Cardiovascular: S1, S2 Abdomen: Soft, Non-tender Neuro Exam: Alert Extremities: No Edema Skin: Warm Labs Laboratory Tests Test 02/18/18 18:30 02/18/18 20:20 02/18/18 21:30 02/18/18 22:05 Urine Collection Type U cath Urine Color [place] Urine Clarity Clear Urine pH 7.0 Urine Specific [place] 1.015 Urine Protein Negative mg/dL (NEG-TRACE) Urine Glucose (UA) Negative mg/dL (NEG) Urine Ketones (Stick) Trace mg/dL (NEG) Urine Blood Negative (NEG) Urine Nitrite Negative (NEG) Urine Bilirubin Small (NEG) Urine Urobilinogen Dipstick >=8.0 mg/dL (0.2 mg/dL) Urine Leukocyte Esterase Negative (NEG) Urine RBC Occ /HPF (0-2) Urine WBC Occ /HPF (0-4) Urine Transitional Epithelial Cells Few /LPF Urine Bacteria 0 /HPF (0-FEW) Urine Hyaline Casts Occasional /HPF Urine Mucus Slight /LPF Urine Opiates Screen Neg (NEG) Urine Methadone Screen Neg (NEG) Urine Barbiturates Neg (NEG) Urine Phencyclidine Screen Neg (NEG) Urine Amphetamine/Methamphetamine Neg (NEG) Urine Benzodiazepines Screen Neg (NEG) Urine Cocaine Screen Neg (NEG) Urine Cannabinoids Screen Neg (NEG) Urine Ethyl Alcohol Pos (NEG) White Blood Count 5.9 x10^3/uL (4.0-11.0) Red Blood Count 2.55 x10^6/uL (3.50-5.40) Hemoglobin 4.9 g/dL (12.0-15.5) Hematocrit 16.8 % (36.0-47.0) Mean Corpuscular Volume 66 fL (79-100) Mean Corpuscular Hemoglobin 19 pg (25-35) Mean Corpuscular Hemoglobin Concent 29 g/dL (31-37) Red Cell Distribution Width 20.0 % (11.5-14.5) Platelet Count 333 x10^3/uL (140-400) Neutrophils (%) (Auto) 80 % (31-73) Lymphocytes (%) (Auto) 8 % (24-48) Monocytes (%) (Auto) 11 % (0-9) Eosinophils (%) (Auto) 1 % (0-3) Basophils (%) (Auto) 1 % (0-3) Neutrophils # (Auto) 4.7 x10^3uL (1.8-7.7) Lymphocytes # (Auto) 0.4 x10^3/uL (1.0-4.8) Monocytes # (Auto) 0.7 x10^3/uL (0.0-1.1) Eosinophils # (Auto) 0.0 x10^3/uL (0.0-0.7) Basophils # (Auto) 0.0 x10^3/uL (0.0-0.2) Hypersegmented Neutrophils Present Platelet Estimate Adequate (ADEQUATE) Polychromasia Slight Hypochromasia Mod Poikilocytosis Slight Anisocytosis Mod Microcytosis Marked Macrocytosis Slight Spherocytes Occ Target Cells Few Ovalocytes Occ Stomatocytes Occ Rouleau Present Prothrombin Time 16.6 SEC (11.7-14.0) Prothromb Time International Ratio 1.4 (0.8-1.1) Activated Partial Thromboplast Time 34 SEC (24-38) D-Dimer (Reba) 1.92 ug/mlFEU (0.00-0.50) Sodium Level 130 mmol/L (136-145) Potassium Level 3.4 mmol/L (3.5-5.1) Chloride Level 92 mmol/L (98-107) Carbon Dioxide Level 31 mmol/L (21-32) Anion Gap 7 (6-14) Blood Urea Nitrogen 3 mg/dL (7-20) Creatinine 0.5 mg/dL (0.6-1.0) Estimated GFR (Cockcroft-Gault) 151.8 BUN/Creatinine Ratio 6 (6-20) Glucose Level 95 mg/dL (70-99) Lactic Acid Level 2.2 mmol/L (0.4-2.0) Calcium Level 7.5 mg/dL (8.5-10.1) Magnesium Level 1.6 mg/dL (1.8-2.4) Total Bilirubin 1.7 mg/dL (0.2-1.0) Aspartate Amino Transf (AST/SGOT) 22 U/L (15-37) Alanine Aminotransferase (ALT/SGPT) 11 U/L (14-59) Alkaline Phosphatase 92 U/L (46-116) Troponin I Quantitative < 0.017 ng/mL (0.000-0.055) PJ-Vlf-W-Type Natriuretic Peptide 446 pg/mL (0-124) Total Protein 6.2 g/dL (6.4-8.2) Albumin 1.6 g/dL (3.4-5.0) Albumin/Globulin Ratio 0.3 (1.0-1.7) Lipase 117 U/L (73-393) Ethyl Alcohol Level 16 mg/dL (0-10) Stool Occult Blood Positive (NEG) O2 Saturation 97 % (92-99) Arterial Blood pH 7.46 (7.35-7.45) Arterial Blood pCO2 at Patient Temp 45 mmHg (35-46) Arterial Blood pO2 at Patient Temp 96 mmHg (65-108) Arterial Blood HCO3 31 mmol/L (21-28) Arterial Blood Base Excess 7 mmol/L (-3-3) FiO2 32.0 Test 02/18/18 22:22 02/19/18 08:25 02/20/18 07:05 02/20/18 07:48 O2 Saturation 76 % (92-99) Arterial Blood pH 7.45 (7.35-7.45) Arterial Blood pCO2 at Patient Temp 49 mmHg (35-46) Arterial Blood pO2 at Patient Temp 43 mmHg (65-108) Arterial Blood HCO3 33 mmol/L (21-28) Arterial Blood Base Excess 8 mmol/L (-3-3) FiO2 21.0 White Blood Count 5.3 x10^3/uL (4.0-11.0) 6.4 x10^3/uL (4.0-11.0) Red Blood Count 2.97 x10^6/uL (3.50-5.40) 4.31 x10^6/uL (3.50-5.40) Hemoglobin 6.3 g/dL (12.0-15.5) 10.8 g/dL (12.0-15.5) Hematocrit 21.4 % (36.0-47.0) 33.9 % (36.0-47.0) Mean Corpuscular Volume 72 fL (79-100) 79 fL (79-100) Mean Corpuscular Hemoglobin 21 pg (25-35) 25 pg (25-35) Mean Corpuscular Hemoglobin Concent 30 g/dL (31-37) 32 g/dL (31-37) Red Cell Distribution Width 22.5 % (11.5-14.5) 22.7 % (11.5-14.5) Platelet Count 294 x10^3/uL (140-400) 239 x10^3/uL (140-400) Sodium Level 132 mmol/L (136-145) 133 mmol/L (136-145) Potassium Level 3.1 mmol/L (3.5-5.1) 3.1 mmol/L (3.5-5.1) Chloride Level 93 mmol/L (98-107) 94 mmol/L (98-107) Carbon Dioxide Level 34 mmol/L (21-32) 33 mmol/L (21-32) Anion Gap 5 (6-14) 6 (6-14) Blood Urea Nitrogen 3 mg/dL (7-20) 5 mg/dL (7-20) Creatinine 0.5 mg/dL (0.6-1.0) 0.6 mg/dL (0.6-1.0) Estimated GFR (Cockcroft-Gault) 151.8 123.0 Glucose Level 89 mg/dL (70-99) 160 mg/dL (70-99) Calcium Level 7.5 mg/dL (8.5-10.1) 7.6 mg/dL (8.5-10.1) Neutrophils (%) (Auto) 82 % (31-73) Lymphocytes (%) (Auto) 8 % (24-48) Monocytes (%) (Auto) 10 % (0-9) Eosinophils (%) (Auto) 0 % (0-3) Basophils (%) (Auto) 0 % (0-3) Neutrophils # (Auto) 5.2 x10^3uL (1.8-7.7) Lymphocytes # (Auto) 0.5 x10^3/uL (1.0-4.8) Monocytes # (Auto) 0.6 x10^3/uL (0.0-1.1) Eosinophils # (Auto) 0.0 x10^3/uL (0.0-0.7) Basophils # (Auto) 0.0 x10^3/uL (0.0-0.2) Laboratory Tests Test 02/20/18 07:05 02/20/18 07:48 White Blood Count 6.4 x10^3/uL (4.0-11.0) Red Blood Count 4.31 x10^6/uL (3.50-5.40) Hemoglobin 10.8 g/dL (12.0-15.5) Hematocrit 33.9 % (36.0-47.0) Mean Corpuscular Volume 79 fL (79-100) Mean Corpuscular Hemoglobin 25 pg (25-35) Mean Corpuscular Hemoglobin Concent 32 g/dL (31-37) Red Cell Distribution Width 22.7 % (11.5-14.5) Platelet Count 239 x10^3/uL (140-400) Neutrophils (%) (Auto) 82 % (31-73) Lymphocytes (%) (Auto) 8 % (24-48) Monocytes (%) (Auto) 10 % (0-9) Eosinophils (%) (Auto) 0 % (0-3) Basophils (%) (Auto) 0 % (0-3) Neutrophils # (Auto) 5.2 x10^3uL (1.8-7.7) Lymphocytes # (Auto) 0.5 x10^3/uL (1.0-4.8) Monocytes # (Auto) 0.6 x10^3/uL (0.0-1.1) Eosinophils # (Auto) 0.0 x10^3/uL (0.0-0.7) Basophils # (Auto) 0.0 x10^3/uL (0.0-0.2) Sodium Level 133 mmol/L (136-145) Potassium Level 3.1 mmol/L (3.5-5.1) Chloride Level 94 mmol/L (98-107) Carbon Dioxide Level 33 mmol/L (21-32) Anion Gap 6 (6-14) Blood Urea Nitrogen 5 mg/dL (7-20) Creatinine 0.6 mg/dL (0.6-1.0) Estimated GFR (Cockcroft-Gault) 123.0 Glucose Level 160 mg/dL (70-99) Calcium Level 7.6 mg/dL (8.5-10.1) Medications Active Scripts Medications Dose Route/Sig Max Daily Dose Days Date Category Carvedilol 3.125 Mg Tablet 1 Tab PO BID 09/21/14 Reported Tamsulosin Hcl 0.4 Mg Cap.er.24h 1 Cap PO DAILY 09/21/14 Reported Advair 250-50 Diskus (Fluticasone/Salmeterol) 1 Each Disk.w.dev 1 Puff IH BID 09/13/14 Reported Potassium Chloride 10 Meq Capsule.er 1 Cap PO DAILY 09/13/14 Reported Furosemide 20 Mg Tablet 20 Mg PO DAILY 09/13/14 Reported Slow-Mag (Magnesium Chloride) 71.5 Mg Tablet. 71.5 Mg PO BID 09/13/14 Reported Proair Hfa Inhaler (Albuterol Sulfate) 8.5 Gm Hfa.aer.ad 8.5 Puff IH PRN Q4-6HRS 09/13/14 Reported Aspir 81 (Aspirin) 81 Mg Tablet. 1 Tab PO DAILY 09/13/14 Reported Lisinopril 5 Mg Tablet 5 Mg PO DAILY 09/13/14 Reported Impression . IMPRESSION: 1. Progressive dyspnea, multifactorial secondary to underlying chronic obstructive pulmonary disease and severe anemia. 2. Acute exacerbation of chronic obstructive pulmonary disease. 3. Abnormal CT revealing debris. CT of the chest revealing debris in the left lower lobe. Suspect mucus. 4. Severe emphysema. 5. Severe protein malnutrition, present upon admission. 6. Positive occult stool. 7. Acute respiratory failure secondary to above. Plan . WILL CONTINUE THE SAME RESP STATUS IS COMPENSATED 1. Continue current support with oxygen supplementation. 2. Nebulized treatments. 3. Steroids. 4. Follow GI input. 5. The patient instructed on the importance of discontinuing tobacco use. 6. Dietary consultation for severe protein malnutrition. 7. Transfuse to maintain hemoglobin close to 7 g/dL. 8. No need for bronchoscopy at this time. PING WALL MD Feb 20, 2018 11:10
[2018-02-20] MEDS ORDERED: IV RINGERS,LACTATED 1000ML 1,000 ML IV SCH (11:15)
[2018-02-20] MEDS ORDERED: POTASSIUM CHLORIDE 20 MEQ TABLET.ER. PO ONE (11:15)
[2018-02-20] MEDS ORDERED: PROPOFOL 20 ML IV ONE (11:51)
[2018-02-20] MEDS ORDERED: LIDOCAINE 2% PF 2ML VIAL. ONE (11:52)
--- NOTE | 2018-02-20 12:02 | PDOC4 ---
Operative Note Operative Note EGD Meds propofol per anesthesia Pre-op dx chronic blood loss anemia Post-op dx non-erosive gastritis Imp Anemia- most likely secondary to Sb/Colon source Rec O/P colonoscopy advance diet ROCHELLE BOYD MD Feb 20, 2018 12:02
[2018-02-20] MEDS: AMINO AC 3%/ELECTROLYTE/GLYCER 1,000 ML IV SCH (12:25)
[2018-02-20] MEDS ORDERED: ALBUTEROL SULFATE IH SCH (15:30)
[2018-02-20] MEDS: FUROSEMIDE 20 MG TABLET PO SCH (16:55)
[2018-02-20] MEDS: CARVEDILOL 3.125 MG TABLET. PO SCH (16:55)
[2018-02-20] MEDS: TAMSULOSIN 0.4 MG CAP.ER.24H. PO SCH (16:55)
[2018-02-20] MEDS: ASPIRIN ENTERIC COATED 81 MG TABLET.DR. PO SCH (16:55)
[2018-02-20] MEDS: LISINOPRIL 5 MG TABLET. PO SCH (16:56)
[2018-02-20] MEDS: BUDESONIDE 0.5 MG/2 ML NEBU. NEB SCH (19:44)
[2018-02-20] MEDS: MAGNESIUM CHLORIDE ER 64 MG TABLET.ER PO SCH (20:31)
[2018-02-21] MEDS: AMINO AC 3%/ELECTROLYTE/GLYCER 1,000 ML IV SCH ×2 (02:54→15:32)
[2018-02-21 03:00] VITALS: BP 125/82
[2018-02-21 07:00] VITALS: BP 125/88
[2018-02-21] MEDS: BUDESONIDE 0.5 MG/2 ML NEBU. NEB SCH ×2 (07:33→18:32)
[2018-02-21] MEDS: ALBUTEROL SULFATE 2.5 MG/3 ML NEBU. NEB SCH ×4 (07:33→18:32)
[2018-02-21 07:49] LABS: BASO % 0 % (0-3); EOS % 0 % (0-3); HEMATOCRIT 37.4 % (36.0-47.0); LYMPH # 0.3 x10^3/uL (1.0-4.8); LYMPH % 3 % (24-48); MEAN CORPUSCULAR HEMOGLOBIN 26 pg (25-35); MEAN CORPUSCULAR HGB CONC 32 g/dL (31-37); MEAN CORPUSCULAR VOLUME 80 fL (79-100); MONO # 0.6 x10^3/uL (0.0-1.1); MONO % 6 % (0-9); NEUT # 9.3 x10^3uL (1.8-7.7); NEUT % 91 % (31-73); PLATELET COUNT 260 x10^3/uL (140-400); RED BLOOD COUNT 4.67 x10^6/uL (3.50-5.40); RED CELL DISTRIBUTION WIDTH 22.7 % (11.5-14.5); WHITE BLOOD COUNT 10.3 x10^3/uL (4.0-11.0)
[2018-02-21] MEDS: POTASSIUM CHLORIDE 10 MEQ TABLET.ER. PO SCH (09:20)
[2018-02-21] MEDS: PANTOPRAZOLE IV PUSH 40 MG VIAL. IVP SCH (09:20)
[2018-02-21] MEDS: methylPREDNISolone SOD SUCC PF 125 MG/2 ML VIAL. IV SCH (09:20)
[2018-02-21] MEDS: CARVEDILOL 3.125 MG TABLET. PO SCH ×2 (09:21→17:25)
[2018-02-21] MEDS: LISINOPRIL 5 MG TABLET. PO SCH (09:21)
[2018-02-21] MEDS: ASPIRIN ENTERIC COATED 81 MG TABLET.DR. PO SCH (09:21)
[2018-02-21] MEDS: FUROSEMIDE 20 MG TABLET PO SCH (09:21)
[2018-02-21] MEDS: TAMSULOSIN 0.4 MG CAP.ER.24H. PO SCH (09:21)
--- NOTE | 2018-02-21 09:27 | PDOC ---
PULMONARY PROGRESS NOTES Subjective feels better, sob better, has cough, no pain Vitals Vital Signs Date Time Temp Pulse Resp B/P (MAP) Pulse Ox O2 Delivery O2 Flow Rate FiO2 02/21/18 09:21 99 125/88 02/21/18 07:35 96 Nasal Cannula 2.0 02/21/18 07:00 98.6 18 98.6 ROS: No Nausea, No Chest Pain, No Increase Cough General: Alert HEENT: Other (nc at perrl ) Lungs: Crackles Cardiovascular: S1, S2 Abdomen: Soft, Non-tender Neuro Exam: Alert Extremities: No Edema Skin: Warm Labs Laboratory Tests Test 02/20/18 07:05 02/20/18 07:48 02/21/18 06:25 White Blood Count 6.4 x10^3/uL (4.0-11.0) 10.3 x10^3/uL (4.0-11.0) Red Blood Count 4.31 x10^6/uL (3.50-5.40) 4.67 x10^6/uL (3.50-5.40) Hemoglobin 10.8 g/dL (12.0-15.5) 12.0 g/dL (12.0-15.5) Hematocrit 33.9 % (36.0-47.0) 37.4 % (36.0-47.0) Mean Corpuscular Volume 79 fL (79-100) 80 fL (79-100) Mean Corpuscular Hemoglobin 25 pg (25-35) 26 pg (25-35) Mean Corpuscular Hemoglobin Concent 32 g/dL (31-37) 32 g/dL (31-37) Red Cell Distribution Width 22.7 % (11.5-14.5) 22.7 % (11.5-14.5) Platelet Count 239 x10^3/uL (140-400) 260 x10^3/uL (140-400) Neutrophils (%) (Auto) 82 % (31-73) 91 % (31-73) Lymphocytes (%) (Auto) 8 % (24-48) 3 % (24-48) Monocytes (%) (Auto) 10 % (0-9) 6 % (0-9) Eosinophils (%) (Auto) 0 % (0-3) 0 % (0-3) Basophils (%) (Auto) 0 % (0-3) 0 % (0-3) Neutrophils # (Auto) 5.2 x10^3uL (1.8-7.7) 9.3 x10^3uL (1.8-7.7) Lymphocytes # (Auto) 0.5 x10^3/uL (1.0-4.8) 0.3 x10^3/uL (1.0-4.8) Monocytes # (Auto) 0.6 x10^3/uL (0.0-1.1) 0.6 x10^3/uL (0.0-1.1) Eosinophils # (Auto) 0.0 x10^3/uL (0.0-0.7) 0.0 x10^3/uL (0.0-0.7) Basophils # (Auto) 0.0 x10^3/uL (0.0-0.2) 0.0 x10^3/uL (0.0-0.2) Sodium Level 133 mmol/L (136-145) Potassium Level 3.1 mmol/L (3.5-5.1) Chloride Level 94 mmol/L (98-107) Carbon Dioxide Level 33 mmol/L (21-32) Anion Gap 6 (6-14) Blood Urea Nitrogen 5 mg/dL (7-20) Creatinine 0.6 mg/dL (0.6-1.0) Estimated GFR (Cockcroft-Gault) 123.0 Glucose Level 160 mg/dL (70-99) Calcium Level 7.6 mg/dL (8.5-10.1) Laboratory Tests Test 02/21/18 06:25 White Blood Count 10.3 x10^3/uL (4.0-11.0) Red Blood Count 4.67 x10^6/uL (3.50-5.40) Hemoglobin 12.0 g/dL (12.0-15.5) Hematocrit 37.4 % (36.0-47.0) Mean Corpuscular Volume 80 fL (79-100) Mean Corpuscular Hemoglobin 26 pg (25-35) Mean Corpuscular Hemoglobin Concent 32 g/dL (31-37) Red Cell Distribution Width 22.7 % (11.5-14.5) Platelet Count 260 x10^3/uL (140-400) Neutrophils (%) (Auto) 91 % (31-73) Lymphocytes (%) (Auto) 3 % (24-48) Monocytes (%) (Auto) 6 % (0-9) Eosinophils (%) (Auto) 0 % (0-3) Basophils (%) (Auto) 0 % (0-3) Neutrophils # (Auto) 9.3 x10^3uL (1.8-7.7) Lymphocytes # (Auto) 0.3 x10^3/uL (1.0-4.8) Monocytes # (Auto) 0.6 x10^3/uL (0.0-1.1) Eosinophils # (Auto) 0.0 x10^3/uL (0.0-0.7) Basophils # (Auto) 0.0 x10^3/uL (0.0-0.2) Medications Active Scripts Medications Dose Route/Sig Max Daily Dose Days Date Category Carvedilol 3.125 Mg Tablet 1 Tab PO BID 09/21/14 Reported Tamsulosin Hcl 0.4 Mg Cap.er.24h 1 Cap PO DAILY 09/21/14 Reported Advair 250-50 Diskus (Fluticasone/Salmeterol) 1 Each Disk.w.dev 1 Puff IH BID 09/13/14 Reported Potassium Chloride 10 Meq Capsule.er 1 Cap PO DAILY 09/13/14 Reported Furosemide 20 Mg Tablet 20 Mg PO DAILY 09/13/14 Reported Slow-Mag (Magnesium Chloride) 71.5 Mg Tablet.dr 71.5 Mg PO BID 09/13/14 Reported Proair Hfa Inhaler (Albuterol Sulfate) 8.5 Gm Hfa.aer.ad 8.5 Puff IH PRN Q4-6HRS 09/13/14 Reported Aspir 81 (Aspirin) 81 Mg Tablet.dr 1 Tab PO DAILY 09/13/14 Reported Lisinopril 5 Mg Tablet 5 Mg PO DAILY 09/13/14 Reported Impression . IMPRESSION: 1. Progressive dyspnea, multifactorial secondary to underlying chronic obstructive pulmonary disease w ae and severe anemia. 2. Acute exacerbation of chronic obstructive pulmonary disease. 3. Abnormal CT revealing debris. CT of the chest revealing debris in the left lower lobe. Suspect mucus. 4. Severe emphysema. 5. Severe protein malnutrition, present upon admission. 6. Positive occult stool. 7. Acute respiratory failure secondary to above. Plan . 1. Continue current support with oxygen supplementation. 2. Nebulized treatments. 3. change solumedrol to 40 bid. 4. Follow GI input. 5. The patient instructed on the importance of discontinuing tobacco use. 6. Dietary consultation for severe protein malnutrition. 7. Transfuse to maintain hemoglobin close to 7 g/dL. 8. No need for bronchoscopy at this time. discussed w pt AUSTEN MARQUEZ MD Feb 21, 2018 09:27
[2018-02-21] MEDS: MAGNESIUM CHLORIDE ER 64 MG TABLET.ER PO SCH ×2 (09:42→20:54)
[2018-02-21 10:42] VITALS: BP 126/79
[2018-02-21 10:51] LABS: % BANDS 5 % (0-9); % LYMPHS 4 % (24-48); % MONOS 5 % (0-10); % SEGS 86 % (35-66)
[2018-02-21 10:53] LABS: ANISOCYTOSIS MOD; HYPOCHROMIA SLIGHT; PLT ESTIMATE ADEQUATE (ADEQUATE); POIKILOCYTOSIS SLIGHT
--- NOTE | 2018-02-21 11:51 | PDOC ---
PROGRESS NOTES Chief Complaint Chief Complaint B/L Small effusions Debris in LLL Bronchus Anemia CHF Failure to Thrive in adult History of Present Illness History of Present Illness PT seen and examine Dw/ RN Diet advanced Vitals Vitals Vital Signs Date Time Temp Pulse Resp B/P (MAP) Pulse Ox O2 Delivery O2 Flow Rate FiO2 02/21/18 10:42 98.1 100 18 126/79 (95) 94 Nasal Cannula 3.0 98.1 Physical Exam Physical Exam pt has dry skin B/L UE and LE General: Alert, Oriented X3 Heart: Regular rate, No murmurs Lungs: Crackles Abdomen: No tenderness, No masses Extremities: No clubbing, No cyanosis Skin: No significant lesion, Other Labs LABS Laboratory Tests Test 02/21/18 06:25 White Blood Count 10.3 x10^3/uL (4.0-11.0) Red Blood Count 4.67 x10^6/uL (3.50-5.40) Hemoglobin 12.0 g/dL (12.0-15.5) Hematocrit 37.4 % (36.0-47.0) Mean Corpuscular Volume 80 fL (79-100) Mean Corpuscular Hemoglobin 26 pg (25-35) Mean Corpuscular Hemoglobin Concent 32 g/dL (31-37) Red Cell Distribution Width 22.7 % (11.5-14.5) Platelet Count 260 x10^3/uL (140-400) Neutrophils (%) (Auto) 91 % (31-73) Lymphocytes (%) (Auto) 3 % (24-48) Monocytes (%) (Auto) 6 % (0-9) Eosinophils (%) (Auto) 0 % (0-3) Basophils (%) (Auto) 0 % (0-3) Neutrophils # (Auto) 9.3 x10^3uL (1.8-7.7) Lymphocytes # (Auto) 0.3 x10^3/uL (1.0-4.8) Monocytes # (Auto) 0.6 x10^3/uL (0.0-1.1) Eosinophils # (Auto) 0.0 x10^3/uL (0.0-0.7) Basophils # (Auto) 0.0 x10^3/uL (0.0-0.2) Segmented Neutrophils % 86 % (35-66) Band Neutrophils % 5 % (0-9) Lymphocytes % 4 % (24-48) Monocytes % 5 % (0-10) Platelet Estimate Adequate (ADEQUATE) Hypochromasia Slight Poikilocytosis Slight Anisocytosis Mod Review of Systems Review of Systems Chills Drowsy Assessment and Plan Assessmemt and Plan Assessment: B/L Small effusions Debris in LLL Bronchus Anemia 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 Labs Laboratory Tests Test 02/20/18 07:05 02/20/18 07:48 02/21/18 06:25 White Blood Count 6.4 x10^3/uL (4.0-11.0) 10.3 x10^3/uL (4.0-11.0) Red Blood Count 4.31 x10^6/uL (3.50-5.40) 4.67 x10^6/uL (3.50-5.40) Hemoglobin 10.8 g/dL (12.0-15.5) 12.0 g/dL (12.0-15.5) Hematocrit 33.9 % (36.0-47.0) 37.4 % (36.0-47.0) Mean Corpuscular Volume 79 fL (79-100) 80 fL (79-100) Mean Corpuscular Hemoglobin 25 pg (25-35) 26 pg (25-35) Mean Corpuscular Hemoglobin Concent 32 g/dL (31-37) 32 g/dL (31-37) Red Cell Distribution Width 22.7 % (11.5-14.5) 22.7 % (11.5-14.5) Platelet Count 239 x10^3/uL (140-400) 260 x10^3/uL (140-400) Neutrophils (%) (Auto) 82 % (31-73) 91 % (31-73) Lymphocytes (%) (Auto) 8 % (24-48) 3 % (24-48) Monocytes (%) (Auto) 10 % (0-9) 6 % (0-9) Eosinophils (%) (Auto) 0 % (0-3) 0 % (0-3) Basophils (%) (Auto) 0 % (0-3) 0 % (0-3) Neutrophils # (Auto) 5.2 x10^3uL (1.8-7.7) 9.3 x10^3uL (1.8-7.7) Lymphocytes # (Auto) 0.5 x10^3/uL (1.0-4.8) 0.3 x10^3/uL (1.0-4.8) Monocytes # (Auto) 0.6 x10^3/uL (0.0-1.1) 0.6 x10^3/uL (0.0-1.1) Eosinophils # (Auto) 0.0 x10^3/uL (0.0-0.7) 0.0 x10^3/uL (0.0-0.7) Basophils # (Auto) 0.0 x10^3/uL (0.0-0.2) 0.0 x10^3/uL (0.0-0.2) Sodium Level 133 mmol/L (136-145) Potassium Level 3.1 mmol/L (3.5-5.1) Chloride Level 94 mmol/L (98-107) Carbon Dioxide Level 33 mmol/L (21-32) Anion Gap 6 (6-14) Blood Urea Nitrogen 5 mg/dL (7-20) Creatinine 0.6 mg/dL (0.6-1.0) Estimated GFR (Cockcroft-Gault) 123.0 Glucose Level 160 mg/dL (70-99) Calcium Level 7.6 mg/dL (8.5-10.1) Segmented Neutrophils % 86 % (35-66) Band Neutrophils % 5 % (0-9) Lymphocytes % 4 % (24-48) Monocytes % 5 % (0-10) Platelet Estimate Adequate (ADEQUATE) Hypochromasia Slight Poikilocytosis Slight Anisocytosis Mod Laboratory Tests Test 02/21/18 06:25 White Blood Count 10.3 x10^3/uL (4.0-11.0) Red Blood Count 4.67 x10^6/uL (3.50-5.40) Hemoglobin 12.0 g/dL (12.0-15.5) Hematocrit 37.4 % (36.0-47.0) Mean Corpuscular Volume 80 fL (79-100) Mean Corpuscular Hemoglobin 26 pg (25-35) Mean Corpuscular Hemoglobin Concent 32 g/dL (31-37) Red Cell Distribution Width 22.7 % (11.5-14.5) Platelet Count 260 x10^3/uL (140-400) Neutrophils (%) (Auto) 91 % (31-73) Lymphocytes (%) (Auto) 3 % (24-48) Monocytes (%) (Auto) 6 % (0-9) Eosinophils (%) (Auto) 0 % (0-3) Basophils (%) (Auto) 0 % (0-3) Neutrophils # (Auto) 9.3 x10^3uL (1.8-7.7) Lymphocytes # (Auto) 0.3 x10^3/uL (1.0-4.8) Monocytes # (Auto) 0.6 x10^3/uL (0.0-1.1) Eosinophils # (Auto) 0.0 x10^3/uL (0.0-0.7) Basophils # (Auto) 0.0 x10^3/uL (0.0-0.2) Segmented Neutrophils % 86 % (35-66) Band Neutrophils % 5 % (0-9) Lymphocytes % 4 % (24-48) Monocytes % 5 % (0-10) Platelet Estimate Adequate (ADEQUATE) Hypochromasia Slight Poikilocytosis Slight Anisocytosis Mod Microbiology 02/18/18 Blood Culture - Preliminary, Resulted NO GROWTH AFTER 2 DAYS Medications Current Medications Iohexol (Omnipaque 300 Mg/ml) 75 ml 1X ONCE IV Last administered on at 23:00; Start 02/18/18 at 23:00; Stop 02/18/18 at 23:01; Status DC Info (CONTRAST GIVEN -- Rx MONITORING) 1 each PRN DAILY PRN MC SEE COMMENTS; Start 02/18/18 at 22:30; Stop 02/20/18 at 22:29; Status DC Furosemide (Lasix) 20 mg 1X ONCE IVP ; Start 02/19/18 at 01:30; Stop at 01:30; Status DC Furosemide (Lasix) 20 mg 1X ONCE IVP Last administered on 02/19/18at 05:51; Start 02/19/18 at 01:30; Stop 02/19/18 at 01:31; Status DC Influenza Virus Vaccine (Afluria Trivalent [id number] Syringe) 0.5 ml ONCE ONCE VAX IM Last administered on 02/19/18at 09:35; Start 02/19/18 at 09:00; Stop 02/19/18 at 09:01; Status DC Pantoprazole Sodium (PROTONIX VIAL for IV PUSH) 40 mg 1X ONCE IVP Last administered on 02/19/18at 09:33; Start 02/19/18 at 08:30; Stop 02/19/18 at 08 :32; Status DC Sodium Chloride 1,000 ml @ 100 mls/hr Q10H IV ; Start 02/19/18 at 08:45; Stop 02/19/18 at 09:41; Status DC Pantoprazole Sodium (PROTONIX VIAL for IV PUSH) 40 mg DAILYAC IVP Last administered on 02/21/18at 09:20; Start 02/19/18 at 11:30 Amino Acids/ Glycerin/ Electrolytes 1,000 ml @ 75 mls/hr [id number] IV Last administered on 02/21/18at 02:54; Start 02/19/18 at 09:45 Albuterol Sulfate (Ventolin Neb Soln) 2.5 mg RTQID NEB Last administered on at 07:33; Start 02/19/18 at 20:00 Albuterol Sulfate (Ventolin Neb Soln) 2.5 mg PRN Q2HR PRN NEB [id number]; Start 02/19/18 at 17:30 Methylprednisolone Sodium Succinate (SOLU-Medrol 125MG VIAL) 60 mg BID IV Last administered on 02/21/18at 09:20; Start 02/19/18 at 18:00; Stop 02/21/18 at 09 :29; Status DC Acetaminophen (Tylenol) 650 mg PRN Q6HRS PRN PO FEVER Last administered on 03/29at 22:52; Start 02/19/18 at 22:45 Potassium Chloride (Klor-Con) 40 meq 1X ONCE PO Last administered on at 11:15; Start 02/20/18 at 11:15; Stop 02/20/18 at 11:16; Status DC Ringer's Solution 1,000 ml @ 75 mls/hr [id number] IV ; Start 02/20/18 at 11:15; Stop 02/20/18 at 19:54; Status DC Propofol 20 ml @ As Directed STK-MED ONCE IV ; Start 02/20/18 at 11:51; Stop 02/20/18 at 11:52; Status DC Lidocaine HCl (Xylocaine-Mpf 2% Vial) 2 ml STK-MED ONCE .ROUTE ; Start at 11:52; Stop 02/20/18 at 11:53; Status DC Vitamin A/Vitamin D (Vitamin A & D Ointment) 1 sarah PRN Q1HR PRN TP SKIN PROTECTION; Start 02/20/18 at 15:00 Aspirin (Ecotrin) 81 mg DAILY PO Last administered on 02/21/18 09:21; Start 02/20/18 at 16:00 Carvedilol (Coreg) 3.125 mg BIDWMEALS PO Last administered on 02/21/18 09:21 ; Start 02/20/18 at 17:00 Furosemide (Lasix) 20 mg DAILY PO Last administered on 02/21/18 09:21; Start 02/20/18 at 16:00 Potassium Chloride (Klor-Con) 10 meq [id number] PO Last administered on at 09:20; Start 02/21/18 at 08:00 Tamsulosin HCl (Flomax) 0.4 mg DAILY PO Last administered on 02/21/18 09:21; Start 02/20/18 at 16:00 Non-Formulary Medication (Albuterol Sulfate (Proair Hfa Inhaler)) 8.5 puff PRN Q4-6HRS IH ; Start 02/20/18 at 15:30; Status UNV Budesonide (Pulmicort) 0.5 mg RTBID NEB Last administered on 02/21/18at 07:33; Start 02/20/18 at 20:00 Lisinopril (Prinivil) 5 mg DAILY PO Last administered on 02/21/18 09:21; Start 02/20/18 at 16:00 Magnesium Chloride (Mag Delay) 64 mg BID PO Last administered on 02/21/18at 09: 42; Start 02/20/18 at 21:00 Methylprednisolone Sodium Succinate (SOLU-Medrol 40MG VIAL) 40 mg BID IV ; Start 02/21/18 at 21:00 Active Scripts Active Reported Carvedilol 3.125 Mg Tablet 1 Tab PO BID Tamsulosin Hcl 0.4 Mg Cap.er.24h 1 Cap PO DAILY Advair 250-50 Diskus (Fluticasone/Salmeterol) 1 Each Disk.w.dev 1 Puff IH BID Potassium Chloride 10 Meq Capsule.er 1 Cap PO DAILY Furosemide 20 Mg Tablet 20 Mg PO DAILY Slow-Mag (Magnesium Chloride) 71.5 Mg Tablet. 71.5 Mg PO BID Proair Hfa Inhaler (Albuterol Sulfate) 8.5 Gm Hfa.aer.ad 8.5 Puff IH PRN Q4- 6HRS Aspir 81 (Aspirin) 81 Mg Tablet. 1 Tab PO DAILY Lisinopril 5 Mg Tablet 5 Mg PO DAILY Vitals/I & O Vital Sign - Last 24 Hours 02/20/18 02/20/18 02/20/18 02/20/18 12:04 12:19 12:34 15:00 Temp 99.0 99.0 99.2 99.0 99.0 99.2 Pulse 95 93 88 101 Resp 16 16 18 B/P (MAP) 139/70 130/69 137/70 111/62 (78) Pulse Ox 93 95 95 94 O2 Delivery Nasal Cannula Nasal Cannula Nasal Cannula Nasal Cannula O2 Flow Rate 4 4 3.0 02/20/18 02/20/18 02/20/18 02/20/18 16:02 16:55 16:56 19:00 Temp 98.1 98.1 Pulse 101 101 104 Resp 18 B/P (MAP) 111/62 111/62 128/75 (92) Pulse Ox 95 91 O2 Delivery Nasal Cannula Nasal Cannula O2 Flow Rate 3.0 3.0 02/20/18 02/20/18 02/20/18 02/21/18 19:46 20:00 23:00 03:00 Temp 98.1 98.8 98.1 98.8 Pulse 104 87 Resp 18 18 B/P (MAP) 157/91 (113) 125/82 (96) Pulse Ox 87 98 96 O2 Delivery Room Air Nasal Cannula Nasal Cannula Nasal Cannula O2 Flow Rate 3.0 3.0 3.0 02/21/18 02/21/18 02/21/18 02/21/18 07:00 07:35 08:00 09:21 Temp 98.6 98.6 Pulse 99 99 Resp 18 B/P (MAP) 125/88 (100) 125/88 Pulse Ox 94 96 O2 Delivery Nasal Cannula Nasal Cannula Nasal Cannula O2 Flow Rate 3.0 2.0 3.0 02/21/18 02/21/18 09:21 10:42 Temp 98.1 98.1 Pulse 99 100 Resp 18 B/P (MAP) 125/88 126/79 (95) Pulse Ox 94 O2 Delivery Nasal Cannula O2 Flow Rate 3.0 Intake and Output 02/20/18 02/20/18 02/21/18 15:00 23:00 07:00 Intake Total 300 ml 300 ml 200 ml Balance 300 ml 300 ml 200 ml CHADWICK COTTRELL III DO Feb 21, 2018 11:51
[2018-02-21 15:15] VITALS: BP 126/79
[2018-02-21] MEDS: VITS A & D/LANOLIN TOPICAL OINTMENT 56GM TUBE. TP PRN (17:58)
[2018-02-21 19:00] VITALS: BP 125/98
[2018-02-21] MEDS: methylPREDNISolone SOD SUCC PF 40 MG/ML VIAL. IV SCH (20:58)
[2018-02-21 22:51] VITALS: BP 129/90
[2018-02-22 03:10] VITALS: BP 133/96
[2018-02-22 07:50] VITALS: BP 145/109
[2018-02-22] MEDS: ALBUTEROL SULFATE 2.5 MG/3 ML NEBU. NEB SCH ×4 (07:59→20:13)
[2018-02-22] MEDS: BUDESONIDE 0.5 MG/2 ML NEBU. NEB SCH ×2 (07:59→20:13)
[2018-02-22] MEDS: POTASSIUM CHLORIDE 10 MEQ TABLET.ER. PO SCH ×2 (08:00→08:06)
[2018-02-22] MEDS: CARVEDILOL 3.125 MG TABLET. PO SCH ×3 (08:00→17:00)
[2018-02-22] MEDS: PANTOPRAZOLE IV PUSH 40 MG VIAL. IVP SCH (08:04)
[2018-02-22] MEDS: MAGNESIUM CHLORIDE ER 64 MG TABLET.ER PO SCH ×3 (08:04→21:00)
[2018-02-22] MEDS: methylPREDNISolone SOD SUCC PF 40 MG/ML VIAL. IV SCH ×2 (08:04→21:24)
[2018-02-22] MEDS: LISINOPRIL 5 MG TABLET. PO SCH ×2 (08:05→09:00)
[2018-02-22] MEDS: FUROSEMIDE 20 MG TABLET PO SCH ×2 (08:06→09:00)
[2018-02-22] MEDS: TAMSULOSIN 0.4 MG CAP.ER.24H. PO SCH ×2 (08:06→09:00)
[2018-02-22] MEDS: AMINO AC 3%/ELECTROLYTE/GLYCER 1,000 ML IV SCH (08:06)
[2018-02-22] MEDS: ASPIRIN ENTERIC COATED 81 MG TABLET.DR. PO SCH ×2 (08:06→09:00)
--- NOTE | 2018-02-22 08:45 | PDOC ---
PULMONARY PROGRESS NOTES Subjective had Ativan, difficult to arise, but says she is ok Vitals Vital Signs Date Time Temp Pulse Resp B/P (MAP) Pulse Ox O2 Delivery O2 Flow Rate FiO2 02/22/18 08:29 Nasal Cannula 2.0 02/22/18 08:06 114 145/109 02/22/18 03:10 98.3 15 93 98.3 ROS: No Nausea, No Chest Pain, No Increase Cough General: Alert, Oriented X4 HEENT: Other (nc at perrl ) Lungs: Crackles Cardiovascular: S1, S2 Abdomen: Soft, Non-tender Neuro Exam: Alert Extremities: No Edema Skin: Warm Labs Laboratory Tests Test 02/21/18 06:25 White Blood Count 10.3 x10^3/uL (4.0-11.0) Red Blood Count 4.67 x10^6/uL (3.50-5.40) Hemoglobin 12.0 g/dL (12.0-15.5) Hematocrit 37.4 % (36.0-47.0) Mean Corpuscular Volume 80 fL (79-100) Mean Corpuscular Hemoglobin 26 pg (25-35) Mean Corpuscular Hemoglobin Concent 32 g/dL (31-37) Red Cell Distribution Width 22.7 % (11.5-14.5) Platelet Count 260 x10^3/uL (140-400) Neutrophils (%) (Auto) 91 % (31-73) Lymphocytes (%) (Auto) 3 % (24-48) Monocytes (%) (Auto) 6 % (0-9) Eosinophils (%) (Auto) 0 % (0-3) Basophils (%) (Auto) 0 % (0-3) Neutrophils # (Auto) 9.3 x10^3uL (1.8-7.7) Lymphocytes # (Auto) 0.3 x10^3/uL (1.0-4.8) Monocytes # (Auto) 0.6 x10^3/uL (0.0-1.1) Eosinophils # (Auto) 0.0 x10^3/uL (0.0-0.7) Basophils # (Auto) 0.0 x10^3/uL (0.0-0.2) Segmented Neutrophils % 86 % (35-66) Band Neutrophils % 5 % (0-9) Lymphocytes % 4 % (24-48) Monocytes % 5 % (0-10) Platelet Estimate Adequate (ADEQUATE) Hypochromasia Slight Poikilocytosis Slight Anisocytosis Mod Medications Active Scripts Medications Dose Route/Sig Max Daily Dose Days Date Category Carvedilol 3.125 Mg Tablet 1 Tab PO BID 09/21/14 Reported Tamsulosin Hcl 0.4 Mg Cap.er.24h 1 Cap PO DAILY 09/21/14 Reported Advair 250-50 Diskus (Fluticasone/Salmeterol) 1 Each Disk.w.dev 1 Puff IH BID 09/13/14 Reported Potassium Chloride 10 Meq Capsule.er 1 Cap PO DAILY 09/13/14 Reported Furosemide 20 Mg Tablet 20 Mg PO DAILY 09/13/14 Reported Slow-Mag (Magnesium Chloride) 71.5 Mg Tablet.dr 71.5 Mg PO BID 09/13/14 Reported Proair Hfa Inhaler (Albuterol Sulfate) 8.5 Gm Hfa.aer.ad 8.5 Puff IH PRN Q4-6HRS 09/13/14 Reported Aspir 81 (Aspirin) 81 Mg Tablet.dr 1 Tab PO DAILY 09/13/14 Reported Lisinopril 5 Mg Tablet 5 Mg PO DAILY 09/13/14 Reported Impression . IMPRESSION: 1. Progressive dyspnea, multifactorial secondary to underlying chronic obstructive pulmonary disease w ae and severe anemia. 2. Acute exacerbation of chronic obstructive pulmonary disease. 3. Abnormal CT revealing debris. CT of the chest revealing debris in the left lower lobe. Suspect mucus. 4. Severe emphysema. 5. Severe protein malnutrition, present upon admission. 6. Positive occult stool. 7. Acute respiratory failure secondary to above. Plan . 1. Continue 02 titration. 2. Nebulized treatments. 3. cont solumedrol 40 bid. 4. Follow GI input. 5. The patient instructed on the importance of discontinuing tobacco use. 6. Dietary consultation for severe protein malnutrition. 7. Transfuse to maintain hemoglobin close to 7 g/dL. 8. No need for bronchoscopy at this time. 9. AVOID OVER SEDATION, discussed w rn discussed w pt AUSTEN MARQUEZ MD Feb 22, 2018 08:45
[2018-02-22 09:32] LABS: BASO % 0 % (0-3); EOS % 0 % (0-3); HEMATOCRIT 36.3 % (36.0-47.0); HEMOGLOBIN 11.7 g/dL (12.0-15.5); LYMPH # 0.3 x10^3/uL (1.0-4.8); LYMPH % 3 % (24-48); MEAN CORPUSCULAR HEMOGLOBIN 26 pg (25-35); MEAN CORPUSCULAR HGB CONC 32 g/dL (31-37); MEAN CORPUSCULAR VOLUME 80 fL (79-100); MONO # 1.5 x10^3/uL (0.0-1.1); MONO % 15 % (0-9); NEUT # 8.1 x10^3uL (1.8-7.7); NEUT % 81 % (31-73); PLATELET COUNT 227 x10^3/uL (140-400); RED BLOOD COUNT 4.52 x10^6/uL (3.50-5.40); RED CELL DISTRIBUTION WIDTH 23.3 % (11.5-14.5)
[2018-02-22 09:47] LABS: ALBUMIN 1.9 g/dL (3.4-5.0); ALBUMIN/GLOBULIN RATIO 0.4 (1.0-1.7); CALCIUM 8.4 mg/dL (8.5-10.1); CREATININE 0.5 mg/dL (0.6-1.0); GFR 151.8; POTASSIUM 4.5 mmol/L (3.5-5.1); TOTAL BILIRUBIN 1.6 mg/dL (0.2-1.0); TOTAL PROTEIN 6.8 g/dL (6.4-8.2)
[2018-02-22 11:23] VITALS: BP 119/74
--- NOTE | 2018-02-22 13:46 | PDOC ---
PROGRESS NOTES Chief Complaint Chief Complaint B/L Small effusions Debris in LLL Bronchus probable aspiration Anemia CHF Failure to Thrive in adult History of Present Illness History of Present Illness PT seen and examine Dw RN Resting w/NAD Vitals Vitals Vital Signs Date Time Temp Pulse Resp B/P (MAP) Pulse Ox O2 Delivery O2 Flow Rate FiO2 02/22/18 12:07 94 Nasal Cannula 4.0 02/22/18 11:23 98.1 85 16 119/74 (89) 98.1 Physical Exam Physical Exam pt has dry skin B/L UE and LE General: Alert, Oriented X3 Heart: Regular rate, No murmurs Lungs: Crackles Abdomen: No tenderness, No masses Extremities: No clubbing, No cyanosis Skin: No significant lesion, Other Labs LABS Laboratory Tests Test 02/22/18 08:50 White Blood Count 10.0 x10^3/uL (4.0-11.0) Red Blood Count 4.52 x10^6/uL (3.50-5.40) Hemoglobin 11.7 g/dL (12.0-15.5) Hematocrit 36.3 % (36.0-47.0) Mean Corpuscular Volume 80 fL (79-100) Mean Corpuscular Hemoglobin 26 pg (25-35) Mean Corpuscular Hemoglobin Concent 32 g/dL (31-37) Red Cell Distribution Width 23.3 % (11.5-14.5) Platelet Count 227 x10^3/uL (140-400) Neutrophils (%) (Auto) 81 % (31-73) Lymphocytes (%) (Auto) 3 % (24-48) Monocytes (%) (Auto) 15 % (0-9) Eosinophils (%) (Auto) 0 % (0-3) Basophils (%) (Auto) 0 % (0-3) Neutrophils # (Auto) 8.1 x10^3uL (1.8-7.7) Lymphocytes # (Auto) 0.3 x10^3/uL (1.0-4.8) Monocytes # (Auto) 1.5 x10^3/uL (0.0-1.1) Eosinophils # (Auto) 0.0 x10^3/uL (0.0-0.7) Basophils # (Auto) 0.0 x10^3/uL (0.0-0.2) Sodium Level 128 mmol/L (136-145) Potassium Level 4.5 mmol/L (3.5-5.1) Chloride Level 91 mmol/L (98-107) Carbon Dioxide Level 35 mmol/L (21-32) Anion Gap 2 (6-14) Blood Urea Nitrogen 12 mg/dL (7-20) Creatinine 0.5 mg/dL (0.6-1.0) Estimated GFR (Cockcroft-Gault) 151.8 BUN/Creatinine Ratio 24 (6-20) Glucose Level 130 mg/dL (70-99) Calcium Level 8.4 mg/dL (8.5-10.1) Total Bilirubin 1.6 mg/dL (0.2-1.0) Aspartate Amino Transf (AST/SGOT) 28 U/L (15-37) Alanine Aminotransferase (ALT/SGPT) 14 U/L (14-59) Alkaline Phosphatase 87 U/L (46-116) Total Protein 6.8 g/dL (6.4-8.2) Albumin 1.9 g/dL (3.4-5.0) Albumin/Globulin Ratio 0.4 (1.0-1.7) Review of Systems Review of Systems Resting NAd Assessment and Plan Assessmemt and Plan Assessment: B/L Small effusions Debris in LLL Bronchus probable aspiration Anemia CHF Failure to Thrive in adult Plan: O2 Duo nebs steroids PT/OT PPN Labs Home meds Comment Review of Relevant I have reviewed the following items yao (where applicable) has been applied. Labs Laboratory Tests Test 02/21/18 06:25 02/22/18 08:50 White Blood Count 10.3 x10^3/uL (4.0-11.0) 10.0 x10^3/uL (4.0-11.0) Red Blood Count 4.67 x10^6/uL (3.50-5.40) 4.52 x10^6/uL (3.50-5.40) Hemoglobin 12.0 g/dL (12.0-15.5) 11.7 g/dL (12.0-15.5) Hematocrit 37.4 % (36.0-47.0) 36.3 % (36.0-47.0) Mean Corpuscular Volume 80 fL (79-100) 80 fL (79-100) Mean Corpuscular Hemoglobin 26 pg (25-35) 26 pg (25-35) Mean Corpuscular Hemoglobin Concent 32 g/dL (31-37) 32 g/dL (31-37) Red Cell Distribution Width 22.7 % (11.5-14.5) 23.3 % (11.5-14.5) Platelet Count 260 x10^3/uL (140-400) 227 x10^3/uL (140-400) Neutrophils (%) (Auto) 91 % (31-73) 81 % (31-73) Lymphocytes (%) (Auto) 3 % (24-48) 3 % (24-48) Monocytes (%) (Auto) 6 % (0-9) 15 % (0-9) Eosinophils (%) (Auto) 0 % (0-3) 0 % (0-3) Basophils (%) (Auto) 0 % (0-3) 0 % (0-3) Neutrophils # (Auto) 9.3 x10^3uL (1.8-7.7) 8.1 x10^3uL (1.8-7.7) Lymphocytes # (Auto) 0.3 x10^3/uL (1.0-4.8) 0.3 x10^3/uL (1.0-4.8) Monocytes # (Auto) 0.6 x10^3/uL (0.0-1.1) 1.5 x10^3/uL (0.0-1.1) Eosinophils # (Auto) 0.0 x10^3/uL (0.0-0.7) 0.0 x10^3/uL (0.0-0.7) Basophils # (Auto) 0.0 x10^3/uL (0.0-0.2) 0.0 x10^3/uL (0.0-0.2) Segmented Neutrophils % 86 % (35-66) Band Neutrophils % 5 % (0-9) Lymphocytes % 4 % (24-48) Monocytes % 5 % (0-10) Platelet Estimate Adequate (ADEQUATE) Hypochromasia Slight Poikilocytosis Slight Anisocytosis Mod Sodium Level 128 mmol/L (136-145) Potassium Level 4.5 mmol/L (3.5-5.1) Chloride Level 91 mmol/L (98-107) Carbon Dioxide Level 35 mmol/L (21-32) Anion Gap 2 (6-14) Blood Urea Nitrogen 12 mg/dL (7-20) Creatinine 0.5 mg/dL (0.6-1.0) Estimated GFR (Cockcroft-Gault) 151.8 BUN/Creatinine Ratio 24 (6-20) Glucose Level 130 mg/dL (70-99) Calcium Level 8.4 mg/dL (8.5-10.1) Total Bilirubin 1.6 mg/dL (0.2-1.0) Aspartate Amino Transf (AST/SGOT) 28 U/L (15-37) Alanine Aminotransferase (ALT/SGPT) 14 U/L (14-59) Alkaline Phosphatase 87 U/L (46-116) Total Protein 6.8 g/dL (6.4-8.2) Albumin 1.9 g/dL (3.4-5.0) Albumin/Globulin Ratio 0.4 (1.0-1.7) Laboratory Tests Test 02/22/18 08:50 White Blood Count 10.0 x10^3/uL (4.0-11.0) Red Blood Count 4.52 x10^6/uL (3.50-5.40) Hemoglobin 11.7 g/dL (12.0-15.5) Hematocrit 36.3 % (36.0-47.0) Mean Corpuscular Volume 80 fL (79-100) Mean Corpuscular Hemoglobin 26 pg (25-35) Mean Corpuscular Hemoglobin Concent 32 g/dL (31-37) Red Cell Distribution Width 23.3 % (11.5-14.5) Platelet Count 227 x10^3/uL (140-400) Neutrophils (%) (Auto) 81 % (31-73) Lymphocytes (%) (Auto) 3 % (24-48) Monocytes (%) (Auto) 15 % (0-9) Eosinophils (%) (Auto) 0 % (0-3) Basophils (%) (Auto) 0 % (0-3) Neutrophils # (Auto) 8.1 x10^3uL (1.8-7.7) Lymphocytes # (Auto) 0.3 x10^3/uL (1.0-4.8) Monocytes # (Auto) 1.5 x10^3/uL (0.0-1.1) Eosinophils # (Auto) 0.0 x10^3/uL (0.0-0.7) Basophils # (Auto) 0.0 x10^3/uL (0.0-0.2) Sodium Level 128 mmol/L (136-145) Potassium Level 4.5 mmol/L (3.5-5.1) Chloride Level 91 mmol/L (98-107) Carbon Dioxide Level 35 mmol/L (21-32) Anion Gap 2 (6-14) Blood Urea Nitrogen 12 mg/dL (7-20) Creatinine 0.5 mg/dL (0.6-1.0) Estimated GFR (Cockcroft-Gault) 151.8 BUN/Creatinine Ratio 24 (6-20) Glucose Level 130 mg/dL (70-99) Calcium Level 8.4 mg/dL (8.5-10.1) Total Bilirubin 1.6 mg/dL (0.2-1.0) Aspartate Amino Transf (AST/SGOT) 28 U/L (15-37) Alanine Aminotransferase (ALT/SGPT) 14 U/L (14-59) Alkaline Phosphatase 87 U/L (46-116) Total Protein 6.8 g/dL (6.4-8.2) Albumin 1.9 g/dL (3.4-5.0) Albumin/Globulin Ratio 0.4 (1.0-1.7) Microbiology 02/18/18 Blood Culture - Preliminary, Resulted NO GROWTH AFTER 3 DAYS Medications Current Medications Iohexol (Omnipaque 300 Mg/ml) 75 ml 1X ONCE IV Last administered on at 23:00; Start 02/18/18 at 23:00; Stop 02/18/18 at 23:01; Status DC Info (CONTRAST GIVEN -- Rx MONITORING) 1 each PRN DAILY PRN MC SEE COMMENTS; Start 02/18/18 at 22:30; Stop 02/20/18 at 22:29; Status DC Furosemide (Lasix) 20 mg 1X ONCE IVP ; Start 02/19/18 at 01:30; Stop at 01:30; Status DC Furosemide (Lasix) 20 mg 1X ONCE IVP Last administered on 02/19/18at 05:51; Start 02/19/18 at 01:30; Stop 02/19/18 at 01:31; Status DC Influenza Virus Vaccine (Afluria Trivalent 3717-2315 Syringe) 0.5 ml ONCE ONCE VAX IM Last administered on 02/19/18at 09:35; Start 02/19/18 at 09:00; Stop 02/19/18 at 09:01; Status DC Pantoprazole Sodium (PROTONIX VIAL for IV PUSH) 40 mg 1X ONCE IVP Last administered on 02/19/18at 09:33; Start 02/19/18 at 08:30; Stop 02/19/18 at 08 :32; Status DC Sodium Chloride 1,000 ml @ 100 mls/hr Q10H IV ; Start 02/19/18 at 08:45; Stop 02/19/18 at 09:41; Status DC Pantoprazole Sodium (PROTONIX VIAL for IV PUSH) 40 mg DAILYAC IVP Last administered on 02/22/18at 08:04; Start 02/19/18 at 11:30 Amino Acids/ Glycerin/ Electrolytes 1,000 ml @ 75 mls/hr [id number] IV Last administered on 02/22/18at 08:06; Start 02/19/18 at 09:45 Albuterol Sulfate (Ventolin Neb Soln) 2.5 mg RTQID NEB Last administered on at 12:00; Start 02/19/18 at 20:00 Albuterol Sulfate (Ventolin Neb Soln) 2.5 mg PRN Q2HR PRN NEB DYSPNEA; Start 02/19/18 at 17:30 Methylprednisolone Sodium Succinate (SOLU-Medrol 125MG VIAL) 60 mg BID IV Last administered on 02/21/18at 09:20; Start 02/19/18 at 18:00; Stop 02/21/18 at 09 :29; Status DC Acetaminophen (Tylenol) 650 mg PRN Q6HRS PRN PO FEVER Last administered on 03/29at 22:52; Start 02/19/18 at 22:45 Potassium Chloride (Klor-Con) 40 meq 1X ONCE PO Last administered on at 11:15; Start 02/20/18 at 11:15; Stop 02/20/18 at 11:16; Status DC Ringer's Solution 1,000 ml @ 75 mls/hr [id number] IV ; Start 02/20/18 at 11:15; Stop 02/20/18 at 19:54; Status DC Propofol 20 ml @ As Directed STK-MED ONCE IV ; Start 02/20/18 at 11:51; Stop 02/20/18 at 11:52; Status DC Lidocaine HCl (Xylocaine-Mpf 2% Vial) 2 ml STK-MED ONCE .ROUTE ; Start at 11:52; Stop 02/20/18 at 11:53; Status DC Vitamin A/Vitamin D (Vitamin A & D Ointment) 1 sarah PRN Q1HR PRN TP SKIN PROTECTION Last administered on 02/21/18 17:58; Start 02/20/18 at 15:00 Aspirin (Ecotrin) 81 mg DAILY PO Last administered on 02/21/18 09:21; Start 02/20/18 at 16:00 Carvedilol (Coreg) 3.125 mg BIDWMEALS PO Last administered on 02/21/18 17:25 ; Start 02/20/18 at 17:00 Furosemide (Lasix) 20 mg DAILY PO Last administered on 02/21/18 09:21; Start 02/20/18 at 16:00 Potassium Chloride (Klor-Con) 10 meq [id number] PO Last administered on 09:20; Start 02/21/18 at 08:00 Tamsulosin HCl (Flomax) 0.4 mg DAILY PO Last administered on 02/21/18at 09:21; Start 02/20/18 at 16:00 Non-Formulary Medication (Albuterol Sulfate (Proair Hfa Inhaler)) 8.5 puff PRN Q4-6HRS IH ; Start 02/20/18 at 15:30; Status UNV Budesonide (Pulmicort) 0.5 mg RTBID NEB Last administered on 02/22/18at 07:59; Start 02/20/18 at 20:00 Lisinopril (Prinivil) 5 mg DAILY PO Last administered on 02/21/18 09:21; Start 02/20/18 at 16:00 Magnesium Chloride (Mag Delay) 64 mg BID PO Last administered on 02/21/18at 20: 54; Start 02/20/18 at 21:00 Methylprednisolone Sodium Succinate (SOLU-Medrol 40MG VIAL) 40 mg BID IV Last administered on 02/22/18at 08:04; Start 02/21/18 at 21:00 Lorazepam (Ativan) 1 mg Q4HRS PRN IV Anxiety Last administered on 02/22/18at 08 :03; Start 02/22/18 at 07:45 Active Scripts Active Reported Carvedilol 3.125 Mg Tablet 1 Tab PO BID Tamsulosin Hcl 0.4 Mg Cap.er.24h 1 Cap PO DAILY Advair 250-50 Diskus (Fluticasone/Salmeterol) 1 Each Disk.w.dev 1 Puff IH BID Potassium Chloride 10 Meq Capsule.er 1 Cap PO DAILY Furosemide 20 Mg Tablet 20 Mg PO DAILY Slow-Mag (Magnesium Chloride) 71.5 Mg Tablet. 71.5 Mg PO BID Proair Hfa Inhaler (Albuterol Sulfate) 8.5 Gm Hfa.aer.ad 8.5 Puff IH PRN Q4- 6HRS Aspir 81 (Aspirin) 81 Mg Tablet. 1 Tab PO DAILY Lisinopril 5 Mg Tablet 5 Mg PO DAILY Vitals/I & O Vital Sign - Last 24 Hours 02/21/18 02/21/18 02/21/18 02/21/18 15:15 15:47 17:25 18:33 Temp 98.4 98.4 Pulse 104 104 Resp 18 B/P (MAP) 126/79 (95) 126/79 Pulse Ox 91 O2 Delivery Nasal Cannula Nasal Cannula Nasal Cannula O2 Flow Rate 3.0 2.0 2.0 02/21/18 02/21/18 02/21/18 02/21/18 18:36 19:00 20:00 22:51 Temp 98.2 98.3 98.2 98.3 Pulse 108 97 Resp 16 16 B/P (MAP) 125/98 (107) 129/90 (103) Pulse Ox 94 91 O2 Delivery Nasal Cannula Nasal Cannula Nasal Cannula Nasal Cannula O2 Flow Rate 2.0 3.0 3.0 3.0 02/22/18 02/22/18 02/22/18 02/22/18 03:10 07:50 08:00 08:28 Temp 98.3 98.1 98.3 98.1 Pulse 99 114 Resp 15 16 B/P (MAP) 133/96 (108) 145/109 (121) Pulse Ox 93 87 O2 Delivery Nasal Cannula Nasal Cannula Nasal Cannula Nasal Cannula O2 Flow Rate 3.0 3.0 4.0 2.0 02/22/18 02/22/18 02/22/18 08:29 11:23 12:07 Temp 98.1 98.1 Pulse 85 Resp 16 B/P (MAP) 119/74 (89) Pulse Ox 97 94 O2 Delivery Nasal Cannula Nasal Cannula Nasal Cannula O2 Flow Rate 2.0 3.0 4.0 Intake and Output 02/21/18 02/21/18 02/22/18 15:00 23:00 07:00 Intake Total 450 ml 50 ml Output Total 550 ml 550 ml Balance -100 ml -500 ml CHADWICK COTTRELL III DO Feb 22, 2018 13:46
[2018-02-22 15:49] VITALS: BP 142/95
[2018-02-22 19:00] VITALS: BP 136/87
--- NOTE | 2018-02-22 21:35 | RAD ---
EXAM: CHEST 1 VIEW History: Line placement COMPARISON: 02/18/2018 TECHNIQUE: Single portable radiograph of the chest FINDINGS: Moderate cardiomegaly. Left-sided cardiac pacer is identified with tip projecting in the SVC/RA junction. Moderate left-sided pleural effusion. Mild small right pleural effusion. Diffuse prominent appearing bilateral interstitial lung markings likely congestive changes similar to prior exam. Bibasilar lung airspace opacities likely atelectasis or consolidation. 1. Left-sided PICC line in place. 2. Moderate congestive changes with bilateral pleural effusions, left greater than right. Bibasilar lung airspace opacities likely atelectasis or consolidation. Electronically signed by: Nino Riggs MD (02/22/2018 9:32 PM) [facility] [place]
[2018-02-22 23:00] VITALS: BP 142/91
[2018-02-23 03:36] VITALS: BP 135/88
[2018-02-23] MEDS: AMINO AC 3%/ELECTROLYTE/GLYCER 1,000 ML IV SCH ×2 (05:02→07:05)
[2018-02-23 05:50] LABS: BASO % 0 % (0-3); EOS % 0 % (0-3); HEMOGLOBIN 10.5 g/dL (12.0-15.5); LYMPH # 0.3 x10^3/uL (1.0-4.8); LYMPH % 4 % (24-48); MEAN CORPUSCULAR HEMOGLOBIN 25 pg (25-35); MEAN CORPUSCULAR HGB CONC 32 g/dL (31-37); MEAN CORPUSCULAR VOLUME 79 fL (79-100); MONO # 0.8 x10^3/uL (0.0-1.1); MONO % 12 % (0-9); NEUT # 5.9 x10^3uL (1.8-7.7); NEUT % 85 % (31-73); PLATELET COUNT 193 x10^3/uL (140-400); RED BLOOD COUNT 4.16 x10^6/uL (3.50-5.40); RED CELL DISTRIBUTION WIDTH 24.9 % (11.5-14.5)
[2018-02-23 06:42] LABS: ALBUMIN 1.6 g/dL (3.4-5.0); ALBUMIN/GLOBULIN RATIO 0.4 (1.0-1.7); CALCIUM 8.1 mg/dL (8.5-10.1); CREATININE 0.5 mg/dL (0.6-1.0); GFR 151.8; POTASSIUM 4.8 mmol/L (3.5-5.1); TOTAL BILIRUBIN 1.3 mg/dL (0.2-1.0); TOTAL PROTEIN 5.9 g/dL (6.4-8.2)
[2018-02-23 07:00] VITALS: BP 147/84
[2018-02-23] MEDS: ALBUTEROL SULFATE 2.5 MG/3 ML NEBU. NEB SCH ×4 (08:00→19:48)
[2018-02-23] MEDS: BUDESONIDE 0.5 MG/2 ML NEBU. NEB SCH ×2 (08:00→19:48)
[2018-02-23] MEDS: LISINOPRIL 5 MG TABLET. PO SCH (09:25)
[2018-02-23] MEDS: PANTOPRAZOLE IV PUSH 40 MG VIAL. IVP SCH (09:25)
[2018-02-23] MEDS: methylPREDNISolone SOD SUCC PF 40 MG/ML VIAL. IV SCH ×2 (09:25→20:20)
[2018-02-23] MEDS: ASPIRIN ENTERIC COATED 81 MG TABLET.DR. PO SCH (09:26)
[2018-02-23] MEDS: POTASSIUM CHLORIDE 10 MEQ TABLET.ER. PO SCH (09:26)
[2018-02-23] MEDS: MAGNESIUM CHLORIDE ER 64 MG TABLET.ER PO SCH ×2 (09:28→20:19)
[2018-02-23] MEDS: FUROSEMIDE 20 MG TABLET PO SCH (09:28)
[2018-02-23] MEDS: TAMSULOSIN 0.4 MG CAP.ER.24H. PO SCH (09:28)
[2018-02-23] MEDS: CARVEDILOL 3.125 MG TABLET. PO SCH ×2 (09:33→17:29)
--- NOTE | 2018-02-23 10:41 | CONS ---
DATE OF CONSULTATION: REASON FOR CONSULTATION: Severe onychomycosis of all nails. REVIEW OF RECORD: This 62-year-old female who was found in a car in very poor hygienic condition. She was too weak. She was anemic and had decubitus ulcers. PAST MEDICAL HISTORY: COPD, congestive heart failure, hypertension, tonsillectomy. ALLERGIES: NAPROXEN. SOCIAL HISTORY: Smokes and drinks, possibly living in a car. PHYSICAL EXAMINATION: DERMAL: Elongated mycotic nails of essentially all toenails except for the left hallux nail which apparently had been traumatically removed, but does not appear to be problematic. Decreased turgor, absence of hair growth. Pedal pulses are diminished. Absent posterior tibial and dorsalis pedis. The only really good one is her left dorsalis pedis is easily defined. NEUROLOGIC: The patient was not responsive to testing, but appears to not respond to sharp instrumentation. MUSCULOSKELETAL: Negative for significant bunion or hammertoe deformities or ulcerations. ASSESSMENT: 1. Clinical evidence of onychomycosis, onychocryptosis, onycholysis. 2. Evidence of diminished vascularity, bilateral lower extremities. PLAN: Debridement of all mycotic nails performed. No hemorrhage incurred. The patient tolerated procedure at bedside. Thank you very much, Dr. Garcia. ANYI DARLING DPM DR: HERMINIO/jaelyn JOB#: [id number] / [id number]
--- NOTE | 2018-02-23 10:46 | PDOC ---
PULMONARY PROGRESS NOTES Subjective pt noted to be coughing with food Vitals Vital Signs Date Time Temp Pulse Resp B/P (MAP) Pulse Ox O2 Delivery O2 Flow Rate FiO2 02/23/18 09:33 97 147/84 02/23/18 08:01 Nasal Cannula 3.0 02/23/18 07:00 98.7 20 95 98.7 ROS: No Nausea, No Chest Pain, No Increase Cough General: Alert, Oriented X4 HEENT: Other (nc at perrl ) Lungs: Other (decrease bs) Cardiovascular: S1, S2 Abdomen: Soft, Non-tender Neuro Exam: Alert Extremities: No Edema Skin: Warm Labs Laboratory Tests Test 02/22/18 08:50 02/23/18 05:39 White Blood Count 10.0 x10^3/uL (4.0-11.0) 7.0 x10^3/uL (4.0-11.0) Red Blood Count 4.52 x10^6/uL (3.50-5.40) 4.16 x10^6/uL (3.50-5.40) Hemoglobin 11.7 g/dL (12.0-15.5) 10.5 g/dL (12.0-15.5) Hematocrit 36.3 % (36.0-47.0) 33.0 % (36.0-47.0) Mean Corpuscular Volume 80 fL (79-100) 79 fL (79-100) Mean Corpuscular Hemoglobin 26 pg (25-35) 25 pg (25-35) Mean Corpuscular Hemoglobin Concent 32 g/dL (31-37) 32 g/dL (31-37) Red Cell Distribution Width 23.3 % (11.5-14.5) 24.9 % (11.5-14.5) Platelet Count 227 x10^3/uL (140-400) 193 x10^3/uL (140-400) Neutrophils (%) (Auto) 81 % (31-73) 85 % (31-73) Lymphocytes (%) (Auto) 3 % (24-48) 4 % (24-48) Monocytes (%) (Auto) 15 % (0-9) 12 % (0-9) Eosinophils (%) (Auto) 0 % (0-3) 0 % (0-3) Basophils (%) (Auto) 0 % (0-3) 0 % (0-3) Neutrophils # (Auto) 8.1 x10^3uL (1.8-7.7) 5.9 x10^3uL (1.8-7.7) Lymphocytes # (Auto) 0.3 x10^3/uL (1.0-4.8) 0.3 x10^3/uL (1.0-4.8) Monocytes # (Auto) 1.5 x10^3/uL (0.0-1.1) 0.8 x10^3/uL (0.0-1.1) Eosinophils # (Auto) 0.0 x10^3/uL (0.0-0.7) 0.0 x10^3/uL (0.0-0.7) Basophils # (Auto) 0.0 x10^3/uL (0.0-0.2) 0.0 x10^3/uL (0.0-0.2) Sodium Level 128 mmol/L (136-145) 129 mmol/L (136-145) Potassium Level 4.5 mmol/L (3.5-5.1) 4.8 mmol/L (3.5-5.1) Chloride Level 91 mmol/L (98-107) 92 mmol/L (98-107) Carbon Dioxide Level 35 mmol/L (21-32) 36 mmol/L (21-32) Anion Gap 2 (6-14) 1 (6-14) Blood Urea Nitrogen 12 mg/dL (7-20) 11 mg/dL (7-20) Creatinine 0.5 mg/dL (0.6-1.0) 0.5 mg/dL (0.6-1.0) Estimated GFR (Cockcroft-Gault) 151.8 151.8 BUN/Creatinine Ratio 24 (6-20) 22 (6-20) Glucose Level 130 mg/dL (70-99) 122 mg/dL (70-99) Calcium Level 8.4 mg/dL (8.5-10.1) 8.1 mg/dL (8.5-10.1) Total Bilirubin 1.6 mg/dL (0.2-1.0) 1.3 mg/dL (0.2-1.0) Aspartate Amino Transf (AST/SGOT) 28 U/L (15-37) 24 U/L (15-37) Alanine Aminotransferase (ALT/SGPT) 14 U/L (14-59) 16 U/L (14-59) Alkaline Phosphatase 87 U/L (46-116) 70 U/L (46-116) Total Protein 6.8 g/dL (6.4-8.2) 5.9 g/dL (6.4-8.2) Albumin 1.9 g/dL (3.4-5.0) 1.6 g/dL (3.4-5.0) Albumin/Globulin Ratio 0.4 (1.0-1.7) 0.4 (1.0-1.7) Laboratory Tests Test 02/23/18 05:39 White Blood Count 7.0 x10^3/uL (4.0-11.0) Red Blood Count 4.16 x10^6/uL (3.50-5.40) Hemoglobin 10.5 g/dL (12.0-15.5) Hematocrit 33.0 % (36.0-47.0) Mean Corpuscular Volume 79 fL (79-100) Mean Corpuscular Hemoglobin 25 pg (25-35) Mean Corpuscular Hemoglobin Concent 32 g/dL (31-37) Red Cell Distribution Width 24.9 % (11.5-14.5) Platelet Count 193 x10^3/uL (140-400) Neutrophils (%) (Auto) 85 % (31-73) Lymphocytes (%) (Auto) 4 % (24-48) Monocytes (%) (Auto) 12 % (0-9) Eosinophils (%) (Auto) 0 % (0-3) Basophils (%) (Auto) 0 % (0-3) Neutrophils # (Auto) 5.9 x10^3uL (1.8-7.7) Lymphocytes # (Auto) 0.3 x10^3/uL (1.0-4.8) Monocytes # (Auto) 0.8 x10^3/uL (0.0-1.1) Eosinophils # (Auto) 0.0 x10^3/uL (0.0-0.7) Basophils # (Auto) 0.0 x10^3/uL (0.0-0.2) Sodium Level 129 mmol/L (136-145) Potassium Level 4.8 mmol/L (3.5-5.1) Chloride Level 92 mmol/L (98-107) Carbon Dioxide Level 36 mmol/L (21-32) Anion Gap 1 (6-14) Blood Urea Nitrogen 11 mg/dL (7-20) Creatinine 0.5 mg/dL (0.6-1.0) Estimated GFR (Cockcroft-Gault) 151.8 BUN/Creatinine Ratio 22 (6-20) Glucose Level 122 mg/dL (70-99) Calcium Level 8.1 mg/dL (8.5-10.1) Total Bilirubin 1.3 mg/dL (0.2-1.0) Aspartate Amino Transf (AST/SGOT) 24 U/L (15-37) Alanine Aminotransferase (ALT/SGPT) 16 U/L (14-59) Alkaline Phosphatase 70 U/L (46-116) Total Protein 5.9 g/dL (6.4-8.2) Albumin 1.6 g/dL (3.4-5.0) Albumin/Globulin Ratio 0.4 (1.0-1.7) Medications Active Scripts Medications Dose Route/Sig Max Daily Dose Days Date Category Carvedilol 3.125 Mg Tablet 1 Tab PO BID 09/21/14 Reported Tamsulosin Hcl 0.4 Mg Cap.er.24h 1 Cap PO DAILY 09/21/14 Reported Advair 250-50 Diskus (Fluticasone/Salmeterol) 1 Each Disk.w.dev 1 Puff IH BID 09/13/14 Reported Potassium Chloride 10 Meq Capsule.er 1 Cap PO DAILY 09/13/14 Reported Furosemide 20 Mg Tablet 20 Mg PO DAILY 09/13/14 Reported Slow-Mag (Magnesium Chloride) 71.5 Mg Tablet.dr 71.5 Mg PO BID 09/13/14 Reported Proair Hfa Inhaler (Albuterol Sulfate) 8.5 Gm Hfa.aer.ad 8.5 Puff IH PRN Q4-6HRS 09/13/14 Reported Aspir 81 (Aspirin) 81 Mg Tablet.dr 1 Tab PO DAILY 09/13/14 Reported Lisinopril 5 Mg Tablet 5 Mg PO DAILY 09/13/14 Reported Impression . IMPRESSION: 1. Progressive dyspnea, multifactorial secondary to underlying chronic obstructive pulmonary disease w ae and severe anemia. 2. Acute exacerbation of chronic obstructive pulmonary disease. 3. Abnormal CT revealing debris. CT of the chest revealing debris in the left lower lobe. Suspect mucus./ LLL pneumonia 4. Severe emphysema. 5. Severe protein malnutrition, present upon admission. 6. Positive occult stool. 7. Acute respiratory failure secondary to above. Plan . 1. Continue 02 titration. 2. Nebulized treatments. 3. taper steroids 4. Follow GI input. 5. speech eval 6. Dietary consultation for severe protein malnutrition. 7. Transfuse prn to maintain hemoglobin close to 7 g/dL. 8. No need for bronchoscopy at this time. 9. AVOID OVER SEDATION 10. add PO abx , christiano w rn/ discussed w RAFAT Kendall MD Feb 23, 2018 10:46
[2018-02-23 11:00] VITALS: BP 127/73
--- NOTE | 2018-02-23 11:55 | PDOC ---
Subjective: Subjective: Says she feels better since admission but "just wants to sleep." Objective: Objective: Reviewed w/ RN - still "out of it," declined to get up with therapy, coughed when eating this morning so ordered swallow eval. Still on IV PPI. 1 stool charted. Vital Signs: Vital Signs Date Time Temp Pulse Resp B/P (MAP) Pulse Ox O2 Delivery O2 Flow Rate FiO2 02/23/18 11:23 98 Nasal Cannula 3.0 02/23/18 09:33 97 147/84 02/23/18 07:00 98.7 20 98.7 Labs: Laboratory Tests Test 02/23/18 05:39 White Blood Count 7.0 x10^3/uL Red Blood Count 4.16 x10^6/uL Hemoglobin 10.5 g/dL Hematocrit 33.0 % Mean Corpuscular Volume 79 fL Mean Corpuscular Hemoglobin 25 pg Mean Corpuscular Hemoglobin Concent 32 g/dL Red Cell Distribution Width 24.9 % Platelet Count 193 x10^3/uL Neutrophils (%) (Auto) 85 % Lymphocytes (%) (Auto) 4 % Monocytes (%) (Auto) 12 % Eosinophils (%) (Auto) 0 % Basophils (%) (Auto) 0 % Neutrophils # (Auto) 5.9 x10^3uL Lymphocytes # (Auto) 0.3 x10^3/uL Monocytes # (Auto) 0.8 x10^3/uL Eosinophils # (Auto) 0.0 x10^3/uL Basophils # (Auto) 0.0 x10^3/uL Sodium Level 129 mmol/L Potassium Level 4.8 mmol/L Chloride Level 92 mmol/L Carbon Dioxide Level 36 mmol/L Anion Gap 1 Blood Urea Nitrogen 11 mg/dL Creatinine 0.5 mg/dL Estimated GFR (Cockcroft-Gault) 151.8 BUN/Creatinine Ratio 22 Glucose Level 122 mg/dL Calcium Level 8.1 mg/dL Total Bilirubin 1.3 mg/dL Aspartate Amino Transf (AST/SGOT) 24 U/L Alanine Aminotransferase (ALT/SGPT) 16 U/L Alkaline Phosphatase 70 U/L Total Protein 5.9 g/dL Albumin 1.6 g/dL Albumin/Globulin Ratio 0.4 Imaging: CXR 02/22 1. Left-sided PICC line in place. 2. Moderate congestive changes with bilateral pleural effusions, left greater than right. Bibasilar lung airspace opacities likely atelectasis or consolidation. EGD 02/20 non-erosive gastritis PE: GEN: NAD, was asleep - breakfast tray ~75% consumed HEENT: briefly opens eyes then closes LUNGS: decreased, NC HEART: RRR ABD: S/ND/NT NEURO/PSYCH: A & O 3, flat, not forthcoming though more talkative compared to when first admitted A/P: Anemia, +fecal occult - Hgb better/stable w/o obvious bleeding, no UGI source on EGD last week Dyspnea/COPD, abnormal chest imaging - pulm following, suspects mucus/pneumonia Hyponatremia +alcohol on admission -- Can stop IV PPI - continue PO as on steroids, etc. Plans for swallow eval. Outpt colonoscopy. BIANCA FONSECA Feb 23, 2018 11:55
[2018-02-23] MEDS: DOXYCYCLINE HYCLATE 100 MG TABLET PO SCH ×2 (13:09→20:19)
[2018-02-23 15:00] VITALS: BP 121/71
[2018-02-23] MEDS ORDERED: IV NORMAL SALINE 1000ML BAG 1,000 ML IV SCH (15:15)
[2018-02-23] MEDS ORDERED: HALOPERIDOL LACTATE 5 MG/ML VIAL. IVP PRN (15:15)
--- NOTE | 2018-02-23 15:15 | PDOC ---
PROGRESS NOTES Chief Complaint Chief Complaint generalized weakness with severe anemia B/L Small effusions Debris in LLL Bronchus probable aspiration Anemia, severe, 2/2 possible lower gib diastolic CHF Failure to Thrive in adult hypomagnesemia severe malnutrition hyponatremia confusion bl leg neurophathy plan: fu with gi, pulm on doxy, duoneb, did EGD non erosive gastritis got 4u PRBC transfusion check anemia level, tsh, vitb12, vitd nutrition consult swallow eval, on dysphagia 2 diet check echo on lasix 20mg daily left pleural effusion dvt, gi xxp PTOT sw check Head CT , neuro consult change PPN to NS History of Present Illness History of Present Illness PT seen and examine Dw RN Resting w/NAD pt looks confused, knows in hosp, but cannot tell me the name and not know the days c/o bl leg pain Vitals Vitals Vital Signs Date Time Temp Pulse Resp B/P (MAP) Pulse Ox O2 Delivery O2 Flow Rate FiO2 02/23/18 11:23 98 Nasal Cannula 3.0 02/23/18 11:00 99.4 80 20 127/73 (91) 99.4 Physical Exam Physical Exam pt has dry skin B/L UE and LE confused bl hands symmetric weak General: Alert, Oriented X3 Heart: Regular rate, No murmurs Lungs: Other (decrease bs) Abdomen: No tenderness, No masses Extremities: No clubbing, No cyanosis Skin: No significant lesion, Other Labs LABS Laboratory Tests Test 02/23/18 05:39 White Blood Count 7.0 x10^3/uL (4.0-11.0) Red Blood Count 4.16 x10^6/uL (3.50-5.40) Hemoglobin 10.5 g/dL (12.0-15.5) Hematocrit 33.0 % (36.0-47.0) Mean Corpuscular Volume 79 fL (79-100) Mean Corpuscular Hemoglobin 25 pg (25-35) Mean Corpuscular Hemoglobin Concent 32 g/dL (31-37) Red Cell Distribution Width 24.9 % (11.5-14.5) Platelet Count 193 x10^3/uL (140-400) Neutrophils (%) (Auto) 85 % (31-73) Lymphocytes (%) (Auto) 4 % (24-48) Monocytes (%) (Auto) 12 % (0-9) Eosinophils (%) (Auto) 0 % (0-3) Basophils (%) (Auto) 0 % (0-3) Neutrophils # (Auto) 5.9 x10^3uL (1.8-7.7) Lymphocytes # (Auto) 0.3 x10^3/uL (1.0-4.8) Monocytes # (Auto) 0.8 x10^3/uL (0.0-1.1) Eosinophils # (Auto) 0.0 x10^3/uL (0.0-0.7) Basophils # (Auto) 0.0 x10^3/uL (0.0-0.2) Sodium Level 129 mmol/L (136-145) Potassium Level 4.8 mmol/L (3.5-5.1) Chloride Level 92 mmol/L (98-107) Carbon Dioxide Level 36 mmol/L (21-32) Anion Gap 1 (6-14) Blood Urea Nitrogen 11 mg/dL (7-20) Creatinine 0.5 mg/dL (0.6-1.0) Estimated GFR (Cockcroft-Gault) 151.8 BUN/Creatinine Ratio 22 (6-20) Glucose Level 122 mg/dL (70-99) Calcium Level 8.1 mg/dL (8.5-10.1) Total Bilirubin 1.3 mg/dL (0.2-1.0) Aspartate Amino Transf (AST/SGOT) 24 U/L (15-37) Alanine Aminotransferase (ALT/SGPT) 16 U/L (14-59) Alkaline Phosphatase 70 U/L (46-116) Total Protein 5.9 g/dL (6.4-8.2) Albumin 1.6 g/dL (3.4-5.0) Albumin/Globulin Ratio 0.4 (1.0-1.7) Assessment and Plan Assessmemt and Plan Problems Medical Problems: (1) CHF (congestive heart failure) Status: Acute (2) Edema Status: Acute (3) Failure to thrive in adult Status: Acute (4) Heme positive stool Status: Acute (5) Hyponatremia Status: Acute (6) Hypoxemia Status: Acute (7) Sacral decubitus ulcer, stage III Status: Acute (8) Severe anemia Status: Acute Comment Review of Relevant I have reviewed the following items yao (where applicable) has been applied. Labs Laboratory Tests Test 02/22/18 08:50 02/23/18 05:39 White Blood Count 10.0 x10^3/uL (4.0-11.0) 7.0 x10^3/uL (4.0-11.0) Red Blood Count 4.52 x10^6/uL (3.50-5.40) 4.16 x10^6/uL (3.50-5.40) Hemoglobin 11.7 g/dL (12.0-15.5) 10.5 g/dL (12.0-15.5) Hematocrit 36.3 % (36.0-47.0) 33.0 % (36.0-47.0) Mean Corpuscular Volume 80 fL (79-100) 79 fL (79-100) Mean Corpuscular Hemoglobin 26 pg (25-35) 25 pg (25-35) Mean Corpuscular Hemoglobin Concent 32 g/dL (31-37) 32 g/dL (31-37) Red Cell Distribution Width 23.3 % (11.5-14.5) 24.9 % (11.5-14.5) Platelet Count 227 x10^3/uL (140-400) 193 x10^3/uL (140-400) Neutrophils (%) (Auto) 81 % (31-73) 85 % (31-73) Lymphocytes (%) (Auto) 3 % (24-48) 4 % (24-48) Monocytes (%) (Auto) 15 % (0-9) 12 % (0-9) Eosinophils (%) (Auto) 0 % (0-3) 0 % (0-3) Basophils (%) (Auto) 0 % (0-3) 0 % (0-3) Neutrophils # (Auto) 8.1 x10^3uL (1.8-7.7) 5.9 x10^3uL (1.8-7.7) Lymphocytes # (Auto) 0.3 x10^3/uL (1.0-4.8) 0.3 x10^3/uL (1.0-4.8) Monocytes # (Auto) 1.5 x10^3/uL (0.0-1.1) 0.8 x10^3/uL (0.0-1.1) Eosinophils # (Auto) 0.0 x10^3/uL (0.0-0.7) 0.0 x10^3/uL (0.0-0.7) Basophils # (Auto) 0.0 x10^3/uL (0.0-0.2) 0.0 x10^3/uL (0.0-0.2) Sodium Level 128 mmol/L (136-145) 129 mmol/L (136-145) Potassium Level 4.5 mmol/L (3.5-5.1) 4.8 mmol/L (3.5-5.1) Chloride Level 91 mmol/L (98-107) 92 mmol/L (98-107) Carbon Dioxide Level 35 mmol/L (21-32) 36 mmol/L (21-32) Anion Gap 2 (6-14) 1 (6-14) Blood Urea Nitrogen 12 mg/dL (7-20) 11 mg/dL (7-20) Creatinine 0.5 mg/dL (0.6-1.0) 0.5 mg/dL (0.6-1.0) Estimated GFR (Cockcroft-Gault) 151.8 151.8 BUN/Creatinine Ratio 24 (6-20) 22 (6-20) Glucose Level 130 mg/dL (70-99) 122 mg/dL (70-99) Calcium Level 8.4 mg/dL (8.5-10.1) 8.1 mg/dL (8.5-10.1) Total Bilirubin 1.6 mg/dL (0.2-1.0) 1.3 mg/dL (0.2-1.0) Aspartate Amino Transf (AST/SGOT) 28 U/L (15-37) 24 U/L (15-37) Alanine Aminotransferase (ALT/SGPT) 14 U/L (14-59) 16 U/L (14-59) Alkaline Phosphatase 87 U/L (46-116) 70 U/L (46-116) Total Protein 6.8 g/dL (6.4-8.2) 5.9 g/dL (6.4-8.2) Albumin 1.9 g/dL (3.4-5.0) 1.6 g/dL (3.4-5.0) Albumin/Globulin Ratio 0.4 (1.0-1.7) 0.4 (1.0-1.7) Laboratory Tests Test 02/23/18 05:39 White Blood Count 7.0 x10^3/uL (4.0-11.0) Red Blood Count 4.16 x10^6/uL (3.50-5.40) Hemoglobin 10.5 g/dL (12.0-15.5) Hematocrit 33.0 % (36.0-47.0) Mean Corpuscular Volume 79 fL (79-100) Mean Corpuscular Hemoglobin 25 pg (25-35) Mean Corpuscular Hemoglobin Concent 32 g/dL (31-37) Red Cell Distribution Width 24.9 % (11.5-14.5) Platelet Count 193 x10^3/uL (140-400) Neutrophils (%) (Auto) 85 % (31-73) Lymphocytes (%) (Auto) 4 % (24-48) Monocytes (%) (Auto) 12 % (0-9) Eosinophils (%) (Auto) 0 % (0-3) Basophils (%) (Auto) 0 % (0-3) Neutrophils # (Auto) 5.9 x10^3uL (1.8-7.7) Lymphocytes # (Auto) 0.3 x10^3/uL (1.0-4.8) Monocytes # (Auto) 0.8 x10^3/uL (0.0-1.1) Eosinophils # (Auto) 0.0 x10^3/uL (0.0-0.7) Basophils # (Auto) 0.0 x10^3/uL (0.0-0.2) Sodium Level 129 mmol/L (136-145) Potassium Level 4.8 mmol/L (3.5-5.1) Chloride Level 92 mmol/L (98-107) Carbon Dioxide Level 36 mmol/L (21-32) Anion Gap 1 (6-14) Blood Urea Nitrogen 11 mg/dL (7-20) Creatinine 0.5 mg/dL (0.6-1.0) Estimated GFR (Cockcroft-Gault) 151.8 BUN/Creatinine Ratio 22 (6-20) Glucose Level 122 mg/dL (70-99) Calcium Level 8.1 mg/dL (8.5-10.1) Total Bilirubin 1.3 mg/dL (0.2-1.0) Aspartate Amino Transf (AST/SGOT) 24 U/L (15-37) Alanine Aminotransferase (ALT/SGPT) 16 U/L (14-59) Alkaline Phosphatase 70 U/L (46-116) Total Protein 5.9 g/dL (6.4-8.2) Albumin 1.6 g/dL (3.4-5.0) Albumin/Globulin Ratio 0.4 (1.0-1.7) Microbiology 02/18/18 Blood Culture - Preliminary, Resulted NO GROWTH AFTER 4 DAYS Medications Current Medications Iohexol (Omnipaque 300 Mg/ml) 75 ml 1X ONCE IV Last administered on at 23:00; Start 02/18/18 at 23:00; Stop 02/18/18 at 23:01; Status DC Info (CONTRAST GIVEN -- Rx MONITORING) 1 each PRN DAILY PRN MC SEE COMMENTS; Start 02/18/18 at 22:30; Stop 02/20/18 at 22:29; Status DC Furosemide (Lasix) 20 mg 1X ONCE IVP ; Start 02/19/18 at 01:30; Stop at 01:30; Status DC Furosemide (Lasix) 20 mg 1X ONCE IVP Last administered on 02/19/18at 05:51; Start 02/19/18 at 01:30; Stop 02/19/18 at 01:31; Status DC Influenza Virus Vaccine (Afluria Trivalent [id number] Syringe) 0.5 ml ONCE ONCE VAX IM Last administered on 02/19/18at 09:35; Start 02/19/18 at 09:00; Stop 02/19/18 at 09:01; Status DC Pantoprazole Sodium (PROTONIX VIAL for IV PUSH) 40 mg 1X ONCE IVP Last administered on 02/19/18at 09:33; Start 02/19/18 at 08:30; Stop 02/19/18 at 08 :32; Status DC Sodium Chloride 1,000 ml @ 100 mls/hr Q10H IV ; Start 02/19/18 at 08:45; Stop 02/19/18 at 09:41; Status DC Pantoprazole Sodium (PROTONIX VIAL for IV PUSH) 40 mg DAILYAC IVP Last administered on 02/23/18 09:25; Start 02/19/18 at 11:30; Stop 02/23/18 at 11 :57; Status DC Amino Acids/ Glycerin/ Electrolytes 1,000 ml @ 75 mls/hr [id number] IV Last administered on 02/23/18at 05:02; Start 02/19/18 at 09:45 Albuterol Sulfate (Ventolin Neb Soln) 2.5 mg RTQID NEB Last administered on at 11:23; Start 02/19/18 at 20:00 Albuterol Sulfate (Ventolin Neb Soln) 2.5 mg PRN Q2HR PRN NEB [id number]; Start 02/19/18 at 17:30 Methylprednisolone Sodium Succinate (SOLU-Medrol 125MG VIAL) 60 mg BID IV Last administered on 02/21/18at 09:20; Start 02/19/18 at 18:00; Stop 02/21/18 at 09 :29; Status DC Acetaminophen (Tylenol) 650 mg PRN Q6HRS PRN PO FEVER Last administered on 03/29at 22:52; Start 02/19/18 at 22:45 Potassium Chloride (Klor-Con) 40 meq 1X ONCE PO Last administered on at 11:15; Start 02/20/18 at 11:15; Stop 02/20/18 at 11:16; Status DC Ringer's Solution 1,000 ml @ 75 mls/hr [id number] IV ; Start 02/20/18 at 11:15; Stop 02/20/18 at 19:54; Status DC Propofol 20 ml @ As Directed STK-MED ONCE IV ; Start 02/20/18 at 11:51; Stop 02/20/18 at 11:52; Status DC Lidocaine HCl (Xylocaine-Mpf 2% Vial) 2 ml STK-MED ONCE .ROUTE ; Start at 11:52; Stop 02/20/18 at 11:53; Status DC Vitamin A/Vitamin D (Vitamin A & D Ointment) 1 sarah PRN Q1HR PRN TP SKIN PROTECTION Last administered on 02/21/18at 17:58; Start 02/20/18 at 15:00 Aspirin (Ecotrin) 81 mg DAILY PO Last administered on 02/23/18at 09:26; Start 02/20/18 at 16:00 Carvedilol (Coreg) 3.125 mg BIDWMEALS PO Last administered on 02/23/18 09:33 ; Start 02/20/18 at 17:00 Furosemide (Lasix) 20 mg DAILY PO Last administered on 02/23/18 09:28; Start 02/20/18 at 16:00 Potassium Chloride (Klor-Con) 10 meq [id number] PO Last administered on 09:26; Start 02/21/18 at 08:00 Tamsulosin HCl (Flomax) 0.4 mg DAILY PO Last administered on 02/23/18 09:28; Start 02/20/18 at 16:00 Non-Formulary Medication (Albuterol Sulfate (Proair Hfa Inhaler)) 8.5 puff PRN Q4-6HRS IH ; Start 02/20/18 at 15:30; Status UNV Budesonide (Pulmicort) 0.5 mg RTBID NEB Last administered on 02/23/18 08:00; Start 02/20/18 at 20:00 Lisinopril (Prinivil) 5 mg DAILY PO Last administered on 02/23/18 09:25; Start 02/20/18 at 16:00 Magnesium Chloride (Mag Delay) 64 mg BID PO Last administered on 02/23/18 09: 28; Start 02/20/18 at 21:00 Methylprednisolone Sodium Succinate (SOLU-Medrol 40MG VIAL) 40 mg BID IV Last administered on 02/23/18 09:25; Start 02/21/18 at 21:00 Lorazepam (Ativan) 1 mg Q4HRS PRN IV Anxiety Last administered on 02/22/18at 08 :03; Start 02/22/18 at 07:45; Stop 02/22/18 at 13:46; Status DC Lorazepam (Ativan) 0.5 mg Q8HRS PRN IV Anxiety; Start 02/22/18 at 14:00 Doxycycline Hyclate (Vibra-Tab) 100 mg BID PO Last administered on 02/23/18at 13:09; Start 02/23/18 at 11:00 Lactobacillus Rhamnosus (Culturelle) 1 cap BID PO ; Start 02/23/18 at 21:00 Pantoprazole Sodium (Protonix) 40 mg DAILYAC PO ; Start 02/24/18 at 07:30 Active Scripts Active Reported Carvedilol 3.125 Mg Tablet 1 Tab PO BID Tamsulosin Hcl 0.4 Mg Cap.er.24h 1 Cap PO DAILY Advair 250-50 Diskus (Fluticasone/Salmeterol) 1 Each Disk.w.dev 1 Puff IH BID Potassium Chloride 10 Meq Capsule.er 1 Cap PO DAILY Furosemide 20 Mg Tablet 20 Mg PO DAILY Slow-Mag (Magnesium Chloride) 71.5 Mg Tablet. 71.5 Mg PO BID Proair Hfa Inhaler (Albuterol Sulfate) 8.5 Gm Hfa.aer.ad 8.5 Puff IH PRN Q4- 6HRS Aspir 81 (Aspirin) 81 Mg Tablet. 1 Tab PO DAILY Lisinopril 5 Mg Tablet 5 Mg PO DAILY Vitals/I & O Vital Sign - Last 24 Hours 02/22/18 02/22/18 02/22/18 02/22/18 15:49 19:00 20:00 20:13 Temp 98.0 98.7 98.0 98.7 Pulse 105 88 Resp 14 15 B/P (MAP) 142/95 (111) 136/87 (103) Pulse Ox 99 92 93 O2 Delivery Nasal Cannula Room Air Nasal Cannula Nasal Cannula O2 Flow Rate 3.0 4.0 4.0 02/22/18 02/23/18 02/23/18 02/23/18 23:00 03:36 07:00 08:00 Temp 98.6 98.6 98.7 98.6 98.6 98.7 Pulse 89 98 97 Resp 17 16 20 B/P (MAP) 142/91 (108) 135/88 (104) 147/84 (105) Pulse Ox 94 95 95 O2 Delivery Room Air Nasal Cannula Nasal Cannula Room Air O2 Flow Rate 3.0 3.0 02/23/18 02/23/18 02/23/18 02/23/18 08:01 09:25 09:33 11:00 Temp 99.4 99.4 Pulse 97 97 80 Resp 20 B/P (MAP) 147/84 147/84 127/73 (91) Pulse Ox 98 O2 Delivery Nasal Cannula Nasal Cannula O2 Flow Rate 3.0 3.0 02/23/18 11:23 Pulse Ox 98 O2 Delivery Nasal Cannula O2 Flow Rate 3.0 Intake and Output 02/22/18 02/22/18 02/23/18 15:00 23:00 07:00 Intake Total 0 ml 1000 ml Output Total 450 ml 375 ml Balance -450 ml 625 ml CANDACE VALENTINE MD Feb 23, 2018 15:15
[2018-02-23] MEDS ORDERED: ENOXAPARIN 40 MG/0.4 ML SYRINGE. SQ SCH (16:00)
--- NOTE | 2018-02-23 16:29 | RAD ---
EXAM: Head CT without contrast. HISTORY: Confusion. TECHNIQUE: Computed tomographic images of the head were obtained without contrast. *One or more of the following individualized dose reduction techniques were utilized for this examination: 1. Automated exposure control. 2. Adjustment of the mA and/or kV according to patient size. 3. Use of iterative reconstruction technique. COMPARISON: None. FINDINGS: There is no acute or subacute extra-axial or intraparenchymal hemorrhage. There is no mass effect or midline shift. There is no hydrocephalus. There are areas of decreased attenuation within the cerebral white matter, nonspecific and likely related to chronic small vessel disease. There is cerebral volume loss. The visualized portions of the orbits, paranasal sinuses and mastoid air cells are unremarkable. No suspicious calvarial lesion is seen. IMPRESSION: 1. No acute intracranial finding. Note is made that MRI is more sensitive for acute infarction. 2. Subtle areas of decreased attenuation within the cerebral white matter, a nonspecific finding likely due to chronic small vessel disease. Electronically signed by: Rosalinda Delarosa MD (02/23/2018 4:26 PM) [id number]
--- NOTE | 2018-02-23 19:27 | PDOC2 ---
NEUROLOGY CONSULT Date of Admission Date of Admission DATE: 02/23/18 TIME: 19:18 Reason for Consult Reason for Consult: IMPRESSION: Confusion. Metabolic encephalopathy. Toxic encephalopathy. Alcohol intoxication, ETOH 16. CHF. Anemia. GI bleeding. LE peripheral neuropathy. RECOMMENDATIONS/PLAN: Vit B1 100 mg daily. Treat medical diseases. EEG. Lab: see orders. Alcohol abstinence. HISTORY OF THE PRESENT ILLNESS: 62-y-old female patient with above medical diseases and alcohol intoxication for admission. She has mental status changes and confusion, so neurology was requested for consultation. PMH: HTN, COPD, allergic rhinitis, tonsillectomy FH: Unknown. Social History: Smoke: <1 pack per day ALCOHOL: other (+ on screen, can't quantify) PAST SURGERY HISTORY: No major surgery recently. ALLERGY: Unknown MEDICATIONS: Refer to MAR REVIEW OF SYSTEMS: Constitutional: No malnutrition, weight loss, cachexia. Head: No traumatic brain or head injury. Skin: No edema, or rash. Ear: No infection. Eyes: No vision loss or color blindness. Nose: No bleeding or purulent discharges. Hearing: No hearing decrease. Neck: No injury. Breast: No history of cancer, masses,or discharges. Cardiac: CHF.. Pulmonary: COPD. GI:GI bleeding. Urinary/genital: UTI. Endocrinologic: No cousin face, craniofacial dysmorphism, polydactyly, goiter. Skeletomuscular: No muscular atrophy, deformity. Neurological: see HP. Psychiatric: Denies drug use/abuse. Otherwise, not [id number] review of systems. PHYSICAL EXAMINATION: General appearance is in subacute distress. HEENT: Normocephalic and nontraumatic. Eyes, nose, ears, and throat are unremarkable. Neck is supple. No lymphadenopathy. No crepitus. Cardiovascular: S1, S2, regular rate and rhythm. Pulmonary: Clear to auscultation bilaterally. Abdomen: Bowel sounds are positive. Abdomen is soft, nontender, and nondistended. Extremities: No rash, lesions, or edema. No restriction of range of motion NEUROLOGICAL EXAMINATION: Awake. Not oriented to time, but knew place and person. PERRL. EOMI. CN: no focal findings. Muscle tone: within normal. Muscle strength: 5- DTR: 2 Plantar reflex: Flexor response bilaterally Gait: not examined in bed. Sensory exam: no abnormal findings. No cerebellar signs elicited. F-T-N test fine. Current Medications Current Medications Current Medications Iohexol (Omnipaque 300 Mg/ml) 75 ml 1X ONCE IV Last administered on at 23:00; Start 02/18/18 at 23:00; Stop 02/18/18 at 23:01; Status DC Info (CONTRAST GIVEN -- Rx MONITORING) 1 each PRN DAILY PRN MC SEE COMMENTS; Start 02/18/18 at 22:30; Stop 02/20/18 at 22:29; Status DC Furosemide (Lasix) 20 mg 1X ONCE IVP ; Start 02/19/18 at 01:30; Stop at 01:30; Status DC Furosemide (Lasix) 20 mg 1X ONCE IVP Last administered on 02/19/18at 05:51; Start 02/19/18 at 01:30; Stop 02/19/18 at 01:31; Status DC Influenza Virus Vaccine (Afluria Trivalent [id number] Syringe) 0.5 ml ONCE ONCE VAX IM Last administered on 02/19/18at 09:35; Start 02/19/18 at 09:00; Stop 02/19/18 at 09:01; Status DC Pantoprazole Sodium (PROTONIX VIAL for IV PUSH) 40 mg 1X ONCE IVP Last administered on 02/19/18at 09:33; Start 02/19/18 at 08:30; Stop 02/19/18 at 08 :32; Status DC Sodium Chloride 1,000 ml @ 100 mls/hr Q10H IV ; Start 02/19/18 at 08:45; Stop 02/19/18 at 09:41; Status DC Pantoprazole Sodium (PROTONIX VIAL for IV PUSH) 40 mg DAILYAC IVP Last administered on 02/23/18at 09:25; Start 02/19/18 at 11:30; Stop 02/23/18 at 11 :57; Status DC Amino Acids/ Glycerin/ Electrolytes 1,000 ml @ 75 mls/hr [id number] IV Last administered on 02/23/18at 05:02; Start 02/19/18 at 09:45; Stop 02/23/18 at 15 :11; Status DC Albuterol Sulfate (Ventolin Neb Soln) 2.5 mg RTQID NEB Last administered on at 15:15; Start 02/19/18 at 20:00 Albuterol Sulfate (Ventolin Neb Soln) 2.5 mg PRN Q2HR PRN NEB [id number]; Start 02/19/18 at 17:30 Methylprednisolone Sodium Succinate (SOLU-Medrol 125MG VIAL) 60 mg BID IV Last administered on 02/21/18at 09:20; Start 02/19/18 at 18:00; Stop 02/21/18 at 09 :29; Status DC Acetaminophen (Tylenol) 650 mg PRN Q6HRS PRN PO FEVER Last administered on 03/29at 22:52; Start 02/19/18 at 22:45 Potassium Chloride (Klor-Con) 40 meq 1X ONCE PO Last administered on at 11:15; Start 02/20/18 at 11:15; Stop 02/20/18 at 11:16; Status DC Ringer's Solution 1,000 ml @ 75 mls/hr [id number] IV ; Start 02/20/18 at 11:15; Stop 02/20/18 at 19:54; Status DC Propofol 20 ml @ As Directed STK-MED ONCE IV ; Start 02/20/18 at 11:51; Stop 02/20/18 at 11:52; Status DC Lidocaine HCl (Xylocaine-Mpf 2% Vial) 2 ml STK-MED ONCE .ROUTE ; Start at 11:52; Stop 02/20/18 at 11:53; Status DC Vitamin A/Vitamin D (Vitamin A & D Ointment) 1 sarah PRN Q1HR PRN TP SKIN PROTECTION Last administered on 02/21/18at 17:58; Start 02/20/18 at 15:00 Aspirin (Ecotrin) 81 mg DAILY PO Last administered on 02/23/18at 09:26; Start 02/20/18 at 16:00 Carvedilol (Coreg) 3.125 mg BIDWMEALS PO Last administered on 02/23/18at 17:29 ; Start 02/20/18 at 17:00 Furosemide (Lasix) 20 mg DAILY PO Last administered on 02/23/18at 09:28; Start 02/20/18 at 16:00 Potassium Chloride (Klor-Con) 10 meq [id number] PO Last administered on at 09:26; Start 02/21/18 at 08:00 Tamsulosin HCl (Flomax) 0.4 mg DAILY PO Last administered on 02/23/18at 09:28; Start 02/20/18 at 16:00 Non-Formulary Medication (Albuterol Sulfate (Proair Hfa Inhaler)) 8.5 puff PRN Q4-6HRS IH ; Start 02/20/18 at 15:30; Status UNV Budesonide (Pulmicort) 0.5 mg RTBID NEB Last administered on 02/23/18at 08:00; Start 02/20/18 at 20:00 Lisinopril (Prinivil) 5 mg DAILY PO Last administered on 02/23/18at 09:25; Start 02/20/18 at 16:00 Magnesium Chloride (Mag Delay) 64 mg BID PO Last administered on 02/23/18at 09: 28; Start 02/20/18 at 21:00 Methylprednisolone Sodium Succinate (SOLU-Medrol 40MG VIAL) 40 mg BID IV Last administered on 02/23/18at 09:25; Start 02/21/18 at 21:00 Lorazepam (Ativan) 1 mg Q4HRS PRN IV Anxiety Last administered on 02/22/18at 08 :03; Start 02/22/18 at 07:45; Stop 02/22/18 at 13:46; Status DC Lorazepam (Ativan) 0.5 mg Q8HRS PRN IV Anxiety; Start 02/22/18 at 14:00; Stop 02/23/18 at 15:11; Status DC Doxycycline Hyclate (Vibra-Tab) 100 mg BID PO Last administered on 02/23/18at 13:09; Start 02/23/18 at 11:00 Lactobacillus Rhamnosus (Culturelle) 1 cap BID PO ; Start 02/23/18 at 21:00 Pantoprazole Sodium (Protonix) 40 mg DAILYAC PO ; Start 02/24/18 at 07:30 Sodium Chloride 1,000 ml @ 60 mls/hr [id number] IV Last administered on at 17:30; Start 02/23/18 at 15:15 Haloperidol Lactate (Haldol Inj) 1 mg PRN Q6HRS PRN IVP AGITATION; Start 02/23 at 15:15 Enoxaparin Sodium (Lovenox 40mg Syringe) 40 mg Q24H SQ ; Start 02/23/18 at 16: 00 Active Scripts Active Reported Carvedilol 3.125 Mg Tablet 1 Tab PO BID Tamsulosin Hcl 0.4 Mg Cap.er.24h 1 Cap PO DAILY Advair 250-50 Diskus (Fluticasone/Salmeterol) 1 Each Disk.w.dev 1 Puff IH BID Potassium Chloride 10 Meq Capsule.er 1 Cap PO DAILY Furosemide 20 Mg Tablet 20 Mg PO DAILY Slow-Mag (Magnesium Chloride) 71.5 Mg Tablet. 71.5 Mg PO BID Proair Hfa Inhaler (Albuterol Sulfate) 8.5 Gm Hfa.aer.ad 8.5 Puff IH PRN Q4- 6HRS Aspir 81 (Aspirin) 81 Mg Tablet. 1 Tab PO DAILY Lisinopril 5 Mg Tablet 5 Mg PO DAILY Allergies Allergies: Allergies Coded Allergies Type Severity Reaction Last Updated Verified naproxen Allergy Intermediate 02/20/18 Yes ROS Review of System The patient denies any associated fevers, chills, headache, ear pain, rhinorrhea , sore throat, stiff neck, productive cough, chest pain, shortness of breath, back or flank pain, abdominal pain, nausea, vomiting, diarrhea, constipation, dysuria, rash, numbness, weakness, tingling, incontinence, difficulty ambulating, or diaphoresis. Physical Exam Physical Exam General: Well developed, well nourished, no acute distress, well appearing HEENT: Pupils equally round and reactive to light, EOMI, no discharge, normal conjunctiva Neck: Supple, no nuchal rigidity, no JVD, trachea midline, no tenderness Cardiac: RRR, no murmurs, no gallops, no rubs Chest/Lungs: CTAB, no wheeze, no rhonchi, no crackles Abdomen: soft, non-distended, no guarding, no peritoneal signs, non-tender Back: No tenderness Extremities: no edema, pulses intact, non-tender,capillary refill <3 sec bilateral upper and lower extremities, Neuro: Alert and oriented x 4, no focal deficits, normal speech Vitals Vitals: Vital Signs Date Time Temp Pulse Resp B/P (MAP) Pulse Ox O2 Delivery O2 Flow Rate FiO2 02/23/18 17:29 96 121/71 02/23/18 15:15 94 Nasal Cannula 2.0 02/23/18 15:00 98.9 18 98.9 Labs Labs Laboratory Tests Test 02/22/18 08:50 02/23/18 05:39 White Blood Count 10.0 x10^3/uL (4.0-11.0) 7.0 x10^3/uL (4.0-11.0) Red Blood Count 4.52 x10^6/uL (3.50-5.40) 4.16 x10^6/uL (3.50-5.40) Hemoglobin 11.7 g/dL (12.0-15.5) 10.5 g/dL (12.0-15.5) Hematocrit 36.3 % (36.0-47.0) 33.0 % (36.0-47.0) Mean Corpuscular Volume 80 fL (79-100) 79 fL (79-100) Mean Corpuscular Hemoglobin 26 pg (25-35) 25 pg (25-35) Mean Corpuscular Hemoglobin Concent 32 g/dL (31-37) 32 g/dL (31-37) Red Cell Distribution Width 23.3 % (11.5-14.5) 24.9 % (11.5-14.5) Platelet Count 227 x10^3/uL (140-400) 193 x10^3/uL (140-400) Neutrophils (%) (Auto) 81 % (31-73) 85 % (31-73) Lymphocytes (%) (Auto) 3 % (24-48) 4 % (24-48) Monocytes (%) (Auto) 15 % (0-9) 12 % (0-9) Eosinophils (%) (Auto) 0 % (0-3) 0 % (0-3) Basophils (%) (Auto) 0 % (0-3) 0 % (0-3) Neutrophils # (Auto) 8.1 x10^3uL (1.8-7.7) 5.9 x10^3uL (1.8-7.7) Lymphocytes # (Auto) 0.3 x10^3/uL (1.0-4.8) 0.3 x10^3/uL (1.0-4.8) Monocytes # (Auto) 1.5 x10^3/uL (0.0-1.1) 0.8 x10^3/uL (0.0-1.1) Eosinophils # (Auto) 0.0 x10^3/uL (0.0-0.7) 0.0 x10^3/uL (0.0-0.7) Basophils # (Auto) 0.0 x10^3/uL (0.0-0.2) 0.0 x10^3/uL (0.0-0.2) Sodium Level 128 mmol/L (136-145) 129 mmol/L (136-145) Potassium Level 4.5 mmol/L (3.5-5.1) 4.8 mmol/L (3.5-5.1) Chloride Level 91 mmol/L (98-107) 92 mmol/L (98-107) Carbon Dioxide Level 35 mmol/L (21-32) 36 mmol/L (21-32) Anion Gap 2 (6-14) 1 (6-14) Blood Urea Nitrogen 12 mg/dL (7-20) 11 mg/dL (7-20) Creatinine 0.5 mg/dL (0.6-1.0) 0.5 mg/dL (0.6-1.0) Estimated GFR (Cockcroft-Gault) 151.8 151.8 BUN/Creatinine Ratio 24 (6-20) 22 (6-20) Glucose Level 130 mg/dL (70-99) 122 mg/dL (70-99) Calcium Level 8.4 mg/dL (8.5-10.1) 8.1 mg/dL (8.5-10.1) Total Bilirubin 1.6 mg/dL (0.2-1.0) 1.3 mg/dL (0.2-1.0) Aspartate Amino Transf (AST/SGOT) 28 U/L (15-37) 24 U/L (15-37) Alanine Aminotransferase (ALT/SGPT) 14 U/L (14-59) 16 U/L (14-59) Alkaline Phosphatase 87 U/L (46-116) 70 U/L (46-116) Total Protein 6.8 g/dL (6.4-8.2) 5.9 g/dL (6.4-8.2) Albumin 1.9 g/dL (3.4-5.0) 1.6 g/dL (3.4-5.0) Albumin/Globulin Ratio 0.4 (1.0-1.7) 0.4 (1.0-1.7) Vitamin B12 Level 496 pg/mL (247-911) Laboratory Tests Test 02/23/18 05:39 White Blood Count 7.0 x10^3/uL (4.0-11.0) Red Blood Count 4.16 x10^6/uL (3.50-5.40) Hemoglobin 10.5 g/dL (12.0-15.5) Hematocrit 33.0 % (36.0-47.0) Mean Corpuscular Volume 79 fL (79-100) Mean Corpuscular Hemoglobin 25 pg (25-35) Mean Corpuscular Hemoglobin Concent 32 g/dL (31-37) Red Cell Distribution Width 24.9 % (11.5-14.5) Platelet Count 193 x10^3/uL (140-400) Neutrophils (%) (Auto) 85 % (31-73) Lymphocytes (%) (Auto) 4 % (24-48) Monocytes (%) (Auto) 12 % (0-9) Eosinophils (%) (Auto) 0 % (0-3) Basophils (%) (Auto) 0 % (0-3) Neutrophils # (Auto) 5.9 x10^3uL (1.8-7.7) Lymphocytes # (Auto) 0.3 x10^3/uL (1.0-4.8) Monocytes # (Auto) 0.8 x10^3/uL (0.0-1.1) Eosinophils # (Auto) 0.0 x10^3/uL (0.0-0.7) Basophils # (Auto) 0.0 x10^3/uL (0.0-0.2) Sodium Level 129 mmol/L (136-145) Potassium Level 4.8 mmol/L (3.5-5.1) Chloride Level 92 mmol/L (98-107) Carbon Dioxide Level 36 mmol/L (21-32) Anion Gap 1 (6-14) Blood Urea Nitrogen 11 mg/dL (7-20) Creatinine 0.5 mg/dL (0.6-1.0) Estimated GFR (Cockcroft-Gault) 151.8 BUN/Creatinine Ratio 22 (6-20) Glucose Level 122 mg/dL (70-99) Calcium Level 8.1 mg/dL (8.5-10.1) Total Bilirubin 1.3 mg/dL (0.2-1.0) Aspartate Amino Transf (AST/SGOT) 24 U/L (15-37) Alanine Aminotransferase (ALT/SGPT) 16 U/L (14-59) Alkaline Phosphatase 70 U/L (46-116) Total Protein 5.9 g/dL (6.4-8.2) Albumin 1.6 g/dL (3.4-5.0) Albumin/Globulin Ratio 0.4 (1.0-1.7) Vitamin B12 Level 496 pg/mL (247-911) KAE QUARLES MD Feb 23, 2018 19:27
[2018-02-23 19:41] VITALS: BP 108/69
[2018-02-23] MEDS: LACTOBACILLUS RHAMNOSUS GG 1 CAPSULE. PO SCH (20:19)
[2018-02-23] MEDS: THIAMINE 100 MG TABLET. PO SCH (20:19)
[2018-02-23 23:16] VITALS: BP 109/68
[2018-02-24 03:52] VITALS: BP 139/88
[2018-02-24 05:17] LABS: BASO % 1 % (0-3); EOS % 0 % (0-3); HEMATOCRIT 32.9 % (36.0-47.0); HEMOGLOBIN 10.5 g/dL (12.0-15.5); LYMPH # 0.3 x10^3/uL (1.0-4.8); LYMPH % 3 % (24-48); MEAN CORPUSCULAR HEMOGLOBIN 26 pg (25-35); MEAN CORPUSCULAR HGB CONC 32 g/dL (31-37); MEAN CORPUSCULAR VOLUME 80 fL (79-100); MONO % 12 % (0-9); NEUT # 7.1 x10^3uL (1.8-7.7); NEUT % 84 % (31-73); PLATELET COUNT 175 x10^3/uL (140-400); RED BLOOD COUNT 4.12 x10^6/uL (3.50-5.40); RED CELL DISTRIBUTION WIDTH 24.5 % (11.5-14.5); WHITE BLOOD COUNT 8.5 x10^3/uL (4.0-11.0)
[2018-02-24 05:56] LABS: ALBUMIN 1.6 g/dL (3.4-5.0); ALBUMIN/GLOBULIN RATIO 0.4 (1.0-1.7); CALCIUM 8.2 mg/dL (8.5-10.1); CREATININE 0.4 mg/dL (0.6-1.0); GFR 196.3; MAGNESIUM 1.7 mg/dL (1.8-2.4); PHOSPHORUS 5.1 mg/dL (2.6-4.7); POTASSIUM 4.7 mmol/L (3.5-5.1); TOTAL BILIRUBIN 1.1 mg/dL (0.2-1.0); TOTAL PROTEIN 5.8 g/dL (6.4-8.2)
[2018-02-24 07:00] VITALS: BP 147/107
[2018-02-24] MEDS: ALBUTEROL SULFATE 2.5 MG/3 ML NEBU. NEB SCH ×4 (08:00→20:10)
[2018-02-24] MEDS: BUDESONIDE 0.5 MG/2 ML NEBU. NEB SCH ×2 (08:00→20:10)
[2018-02-24] MEDS: TAMSULOSIN 0.4 MG CAP.ER.24H. PO SCH (08:46)
[2018-02-24] MEDS: ASPIRIN ENTERIC COATED 81 MG TABLET.DR. PO SCH (08:47)
[2018-02-24] MEDS: DOXYCYCLINE HYCLATE 100 MG TABLET PO SCH ×2 (08:47→22:06)
[2018-02-24] MEDS: LISINOPRIL 5 MG TABLET. PO SCH (08:47)
[2018-02-24] MEDS: MAGNESIUM CHLORIDE ER 64 MG TABLET.ER PO SCH ×2 (08:47→22:06)
[2018-02-24] MEDS: THIAMINE 100 MG TABLET. PO SCH (08:47)
[2018-02-24] MEDS: CARVEDILOL 3.125 MG TABLET. PO SCH (08:48)
[2018-02-24] MEDS: PANTOPRAZOLE 40 MG TABLET.DR. PO SCH (08:48)
[2018-02-24] MEDS: POTASSIUM CHLORIDE 10 MEQ TABLET.ER. PO SCH (08:48)
[2018-02-24] MEDS: LACTOBACILLUS RHAMNOSUS GG 1 CAPSULE. PO SCH ×2 (08:48→22:06)
[2018-02-24] MEDS: methylPREDNISolone SOD SUCC PF 40 MG/ML VIAL. IV SCH (08:48)
[2018-02-24] MEDS: FUROSEMIDE 20 MG TABLET PO SCH (08:48)
[2018-02-24 08:51] LABS: FREE T4 0.75 ng/dL (0.76-1.46)
--- NOTE | 2018-02-24 09:43 | PDOC ---
PULMONARY PROGRESS NOTES Subjective less coughing still does not feel well Vitals Vital Signs Date Time Temp Pulse Resp B/P (MAP) Pulse Ox O2 Delivery O2 Flow Rate FiO2 02/24/18 08:48 116 147/107 02/24/18 08:01 96 Nasal Cannula 4.0 02/24/18 07:00 98.0 18 98.0 ROS: No Nausea, No Chest Pain, No Increase Cough General: Alert HEENT: Other (nc at perrl ) Lungs: Other (decrease bs) Cardiovascular: S1, S2 Abdomen: Soft, Non-tender Neuro Exam: Alert Extremities: No Edema Skin: Warm Labs Laboratory Tests Test 02/23/18 05:39 02/24/18 05:00 White Blood Count 7.0 x10^3/uL (4.0-11.0) 8.5 x10^3/uL (4.0-11.0) Red Blood Count 4.16 x10^6/uL (3.50-5.40) 4.12 x10^6/uL (3.50-5.40) Hemoglobin 10.5 g/dL (12.0-15.5) 10.5 g/dL (12.0-15.5) Hematocrit 33.0 % (36.0-47.0) 32.9 % (36.0-47.0) Mean Corpuscular Volume 79 fL (79-100) 80 fL (79-100) Mean Corpuscular Hemoglobin 25 pg (25-35) 26 pg (25-35) Mean Corpuscular Hemoglobin Concent 32 g/dL (31-37) 32 g/dL (31-37) Red Cell Distribution Width 24.9 % (11.5-14.5) 24.5 % (11.5-14.5) Platelet Count 193 x10^3/uL (140-400) 175 x10^3/uL (140-400) Neutrophils (%) (Auto) 85 % (31-73) 84 % (31-73) Lymphocytes (%) (Auto) 4 % (24-48) 3 % (24-48) Monocytes (%) (Auto) 12 % (0-9) 12 % (0-9) Eosinophils (%) (Auto) 0 % (0-3) 0 % (0-3) Basophils (%) (Auto) 0 % (0-3) 1 % (0-3) Neutrophils # (Auto) 5.9 x10^3uL (1.8-7.7) 7.1 x10^3uL (1.8-7.7) Lymphocytes # (Auto) 0.3 x10^3/uL (1.0-4.8) 0.3 x10^3/uL (1.0-4.8) Monocytes # (Auto) 0.8 x10^3/uL (0.0-1.1) 1.0 x10^3/uL (0.0-1.1) Eosinophils # (Auto) 0.0 x10^3/uL (0.0-0.7) 0.0 x10^3/uL (0.0-0.7) Basophils # (Auto) 0.0 x10^3/uL (0.0-0.2) 0.0 x10^3/uL (0.0-0.2) Sodium Level 129 mmol/L (136-145) 131 mmol/L (136-145) Potassium Level 4.8 mmol/L (3.5-5.1) 4.7 mmol/L (3.5-5.1) Chloride Level 92 mmol/L (98-107) 94 mmol/L (98-107) Carbon Dioxide Level 36 mmol/L (21-32) 37 mmol/L (21-32) Anion Gap 1 (6-14) 0 (6-14) Blood Urea Nitrogen 11 mg/dL (7-20) 12 mg/dL (7-20) Creatinine 0.5 mg/dL (0.6-1.0) 0.4 mg/dL (0.6-1.0) Estimated GFR (Cockcroft-Gault) 151.8 196.3 BUN/Creatinine Ratio 22 (6-20) 30 (6-20) Glucose Level 122 mg/dL (70-99) 124 mg/dL (70-99) Calcium Level 8.1 mg/dL (8.5-10.1) 8.2 mg/dL (8.5-10.1) Total Bilirubin 1.3 mg/dL (0.2-1.0) 1.1 mg/dL (0.2-1.0) Aspartate Amino Transf (AST/SGOT) 24 U/L (15-37) 48 U/L (15-37) Alanine Aminotransferase (ALT/SGPT) 16 U/L (14-59) 29 U/L (14-59) Alkaline Phosphatase 70 U/L (46-116) 78 U/L (46-116) Total Protein 5.9 g/dL (6.4-8.2) 5.8 g/dL (6.4-8.2) Albumin 1.6 g/dL (3.4-5.0) 1.6 g/dL (3.4-5.0) Albumin/Globulin Ratio 0.4 (1.0-1.7) 0.4 (1.0-1.7) Vitamin B12 Level 496 pg/mL (247-911) 464 pg/mL (247-911) Phosphorus Level 5.1 mg/dL (2.6-4.7) Magnesium Level 1.7 mg/dL (1.8-2.4) Iron Level 8 ug/dL (50-170) Total Iron Binding Capacity 324 ug/dL (250-450) Iron Saturation 2 % (15-34) Ferritin 30 ng/mL (8-252) 25-Hydroxy Vitamin D Total 5.3 ng/mL (30-100) Thyroid Stimulating Hormone (TSH) 4.228 uIU/mL (0.358-3.74) Free Thyroxine 0.75 ng/dL (0.76-1.46) Free Triiodothyronine (T3) pg/mL 0.94 pg/mL (2.18-3.98) Laboratory Tests Test 02/24/18 05:00 White Blood Count 8.5 x10^3/uL (4.0-11.0) Red Blood Count 4.12 x10^6/uL (3.50-5.40) Hemoglobin 10.5 g/dL (12.0-15.5) Hematocrit 32.9 % (36.0-47.0) Mean Corpuscular Volume 80 fL (79-100) Mean Corpuscular Hemoglobin 26 pg (25-35) Mean Corpuscular Hemoglobin Concent 32 g/dL (31-37) Red Cell Distribution Width 24.5 % (11.5-14.5) Platelet Count 175 x10^3/uL (140-400) Neutrophils (%) (Auto) 84 % (31-73) Lymphocytes (%) (Auto) 3 % (24-48) Monocytes (%) (Auto) 12 % (0-9) Eosinophils (%) (Auto) 0 % (0-3) Basophils (%) (Auto) 1 % (0-3) Neutrophils # (Auto) 7.1 x10^3uL (1.8-7.7) Lymphocytes # (Auto) 0.3 x10^3/uL (1.0-4.8) Monocytes # (Auto) 1.0 x10^3/uL (0.0-1.1) Eosinophils # (Auto) 0.0 x10^3/uL (0.0-0.7) Basophils # (Auto) 0.0 x10^3/uL (0.0-0.2) Sodium Level 131 mmol/L (136-145) Potassium Level 4.7 mmol/L (3.5-5.1) Chloride Level 94 mmol/L (98-107) Carbon Dioxide Level 37 mmol/L (21-32) Anion Gap 0 (6-14) Blood Urea Nitrogen 12 mg/dL (7-20) Creatinine 0.4 mg/dL (0.6-1.0) Estimated GFR (Cockcroft-Gault) 196.3 BUN/Creatinine Ratio 30 (6-20) Glucose Level 124 mg/dL (70-99) Calcium Level 8.2 mg/dL (8.5-10.1) Phosphorus Level 5.1 mg/dL (2.6-4.7) Magnesium Level 1.7 mg/dL (1.8-2.4) Iron Level 8 ug/dL (50-170) Total Iron Binding Capacity 324 ug/dL (250-450) Iron Saturation 2 % (15-34) Ferritin 30 ng/mL (8-252) Total Bilirubin 1.1 mg/dL (0.2-1.0) Aspartate Amino Transf (AST/SGOT) 48 U/L (15-37) Alanine Aminotransferase (ALT/SGPT) 29 U/L (14-59) Alkaline Phosphatase 78 U/L (46-116) Total Protein 5.8 g/dL (6.4-8.2) Albumin 1.6 g/dL (3.4-5.0) Albumin/Globulin Ratio 0.4 (1.0-1.7) Vitamin B12 Level 464 pg/mL (247-911) 25-Hydroxy Vitamin D Total 5.3 ng/mL (30-100) Thyroid Stimulating Hormone (TSH) 4.228 uIU/mL (0.358-3.74) Free Thyroxine 0.75 ng/dL (0.76-1.46) Free Triiodothyronine (T3) pg/mL 0.94 pg/mL (2.18-3.98) Medications Active Scripts Medications Dose Route/Sig Max Daily Dose Days Date Category Carvedilol 3.125 Mg Tablet 1 Tab PO BID 09/21/14 Reported Tamsulosin Hcl 0.4 Mg Cap.er.24h 1 Cap PO DAILY 09/21/14 Reported Advair 250-50 Diskus (Fluticasone/Salmeterol) 1 Each Disk.w.dev 1 Puff IH BID 09/13/14 Reported Potassium Chloride 10 Meq Capsule.er 1 Cap PO DAILY 09/13/14 Reported Furosemide 20 Mg Tablet 20 Mg PO DAILY 09/13/14 Reported Slow-Mag (Magnesium Chloride) 71.5 Mg Tablet.dr 71.5 Mg PO BID 09/13/14 Reported Proair Hfa Inhaler (Albuterol Sulfate) 8.5 Gm Hfa.aer.ad 8.5 Puff IH PRN Q4-6HRS 09/13/14 Reported Aspir 81 (Aspirin) 81 Mg Tablet.dr 1 Tab PO DAILY 09/13/14 Reported Lisinopril 5 Mg Tablet 5 Mg PO DAILY 09/13/14 Reported Impression . IMPRESSION: 1. Progressive dyspnea, multifactorial secondary to underlying chronic obstructive pulmonary disease w ae and severe anemia.and new CHF/ moderate left effusion 2. Acute exacerbation of chronic obstructive pulmonary disease. 3. Abnormal CT revealing debris. CT of the chest revealing debris in the left lower lobe. Suspect mucus./ LLL pneumonia 4. Severe emphysema. 5. Severe protein malnutrition, present upon admission. 6. Positive occult stool. 7. Acute respiratory failure secondary to above. Plan . 1. Continue 02 titration. 2. Nebulized treatments. 3. taper steroids 4. Follow GI input. 5. speech eval done, dysphagia II diet 6. Dietary consultation for severe protein malnutrition. 7. Transfuse prn to maintain hemoglobin close to 7 g/dL. 8. No need for bronchoscopy at this time. 9. AVOID OVER SEDATION 10. PO abx 11. Extra diuresis today and repeat cxr later. May need thoracentesis/ ECHO , discussed w rn/ discussed w pt RAFAT CARMEN MD Feb 24, 2018 09:43
[2018-02-24] MEDS ORDERED: FUROSEMIDE 20 MG/2 ML VIAL. IVP ONE (09:45)
[2018-02-24] MEDS ORDERED: MAGNESIUM SULFATE 2GM 50 ML IV ONE (11:15)
[2018-02-24] MEDS ORDERED: ERGOCALCIFEROL (VITAMIN D2) 50,000 UNIT CAPSULE. PO SCH (11:20)
--- NOTE | 2018-02-24 11:23 | PDOC ---
Subjective: Subjective: Feeling better, not sure she wants to get up. Says eating and stooling, denies pain. Objective: Objective: Reviewed w/ RN - therapy will try to work with her again later, ate ~25% of breakfast,being screened for [place] [facility]. 1 stool charted yesterday. Vital Signs: Vital Signs Date Time Temp Pulse Resp B/P (MAP) Pulse Ox O2 Delivery O2 Flow Rate FiO2 02/24/18 08:48 116 147/107 02/24/18 08:01 96 Nasal Cannula 4.0 02/24/18 07:00 98.0 18 98.0 Labs: Laboratory Tests Test 02/24/18 05:00 White Blood Count 8.5 x10^3/uL Red Blood Count 4.12 x10^6/uL Hemoglobin 10.5 g/dL Hematocrit 32.9 % Mean Corpuscular Volume 80 fL Mean Corpuscular Hemoglobin 26 pg Mean Corpuscular Hemoglobin Concent 32 g/dL Red Cell Distribution Width 24.5 % Platelet Count 175 x10^3/uL Neutrophils (%) (Auto) 84 % Lymphocytes (%) (Auto) 3 % Monocytes (%) (Auto) 12 % Eosinophils (%) (Auto) 0 % Basophils (%) (Auto) 1 % Neutrophils # (Auto) 7.1 x10^3uL Lymphocytes # (Auto) 0.3 x10^3/uL Monocytes # (Auto) 1.0 x10^3/uL Eosinophils # (Auto) 0.0 x10^3/uL Basophils # (Auto) 0.0 x10^3/uL Sodium Level 131 mmol/L Potassium Level 4.7 mmol/L Chloride Level 94 mmol/L Carbon Dioxide Level 37 mmol/L Anion Gap 0 Blood Urea Nitrogen 12 mg/dL Creatinine 0.4 mg/dL Estimated GFR (Cockcroft-Gault) 196.3 BUN/Creatinine Ratio 30 Glucose Level 124 mg/dL Calcium Level 8.2 mg/dL Phosphorus Level 5.1 mg/dL Magnesium Level 1.7 mg/dL Iron Level 8 ug/dL Total Iron Binding Capacity 324 ug/dL Iron Saturation 2 % Ferritin 30 ng/mL Total Bilirubin 1.1 mg/dL Aspartate Amino Transf (AST/SGOT) 48 U/L Alanine Aminotransferase (ALT/SGPT) 29 U/L Alkaline Phosphatase 78 U/L Total Protein 5.8 g/dL Albumin 1.6 g/dL Albumin/Globulin Ratio 0.4 Vitamin B12 Level 464 pg/mL 25-Hydroxy Vitamin D Total 5.3 ng/mL Thyroid Stimulating Hormone (TSH) 4.228 uIU/mL Free Thyroxine 0.75 ng/dL Free Triiodothyronine (T3) pg/mL 0.94 pg/mL Imaging: [employer] Bedside Swallow Eval: No subtle or overt s/s aspiration noted across diet consistencies w/ limited total number of trials d/t pt refusal. Pt demo's prolonged oral A-P transport w / puree and regular solids and prolonged mastication w/ regular solids. Hyolaryngeal excursion is decreased to palpation. Risk of aspiration w/ current recommended modified diet appears low. See full [employer] BSE report for details. Impressions: Oropharyngeal dysphagia c/w decreased mental status, lethargy, and decreased generalized strength. Recommendations: Dysphagia II diet w/ thin/regular liquids. Will continue [employer] f/u for add'l evaluation and to ensure safety of PO intake. PE: GEN: NAD LUNGS: NC HEART: RRR ABD: S/ND/NT NEURO/PSYCH: A & O 3, flat but a little more perky today A/P: STEVE - stable Dyspnea, hyponatremia, hypothyroid -- Not interested in getting out of bed yet. Continue PO PPI. Has IV iron ordered. No UGI source, plan for outpt colonoscopy. BIANCA FONSECA Feb 24, 2018 11:23
[2018-02-24 11:30] VITALS: BP 146/101
[2018-02-24] MEDS: IRON SUCROSE COMPLEX 200 MG in IV NORMAL SALINE 100ML 100 ML IV SCH (11:59)
--- NOTE | 2018-02-24 13:16 | PDOC ---
PROGRESS NOTES Chief Complaint Chief Complaint generalized weakness with severe anemia left pleural effusions Debris in LLL Bronchus probable aspiration acute hypoxic resp failure Anemia, severe, 2/2 possible lower gib diastolic CHF Failure to Thrive in adult hypomagnesemia severe malnutrition hyponatremia confusion bl leg neurophathy vitd deficiency hypothyroidism iron deficiency plan: fu with gi, pulm on doxy, duoneb, did EGD non erosive gastritis, got 4u PRBC transfusion ADD SYNthroid, vitd, Mag nutrition consult swallow eval, on dysphagia 2 diet check echo on lasix 20mg daily left pleural effusion, pulm dced ivf, lasix 40mg iv x1 given. CXR repeat later today pt has low po intake gi xxp,. dc lovenox given + FOBT. wo active bleeding , hb stable, consider add it back if Hb cont stable. PTOT talked to JESSE, hope dc to SNF add venofer daily x5 check Head CT , neuro consult, EEG pending History of Present Illness History of Present Illness PT seen and examine Dw RN Resting w/NAD pt looks confused, knows in [facility] today, better. but still not know the days not willing to communicate, looks tired daily c/o bl leg pain 02/23 pt was found sitting in the car for 2ds, with buttucks skin tear, on portillo. she told me living in a house. as per JESSE , she lives alone, altho she told me living with mother and told nurse living with sister severe abnormal electrolytes, likely not taking care of herself for a long time , low Mag, low Na, low Vit D. But pt said eats ok, just not drink much. not willing to get out of bed with PTOT. NeED NC 4L Vitals Vitals Vital Signs Date Time Temp Pulse Resp B/P (MAP) Pulse Ox O2 Delivery O2 Flow Rate FiO2 02/24/18 11:47 Nasal Cannula 4.0 02/24/18 11:30 98.0 114 18 146/101 (116) 92 98.0 Physical Exam Physical Exam pt has dry skin B/L UE and LE confused bl hands symmetric weak General: Alert, Oriented X3 Heart: Regular rate, No murmurs Lungs: Other (decrease bs) Abdomen: No tenderness, No masses Extremities: No clubbing, No cyanosis Skin: No significant lesion, Other Labs LABS Laboratory Tests Test 02/24/18 05:00 White Blood Count 8.5 x10^3/uL (4.0-11.0) Red Blood Count 4.12 x10^6/uL (3.50-5.40) Hemoglobin 10.5 g/dL (12.0-15.5) Hematocrit 32.9 % (36.0-47.0) Mean Corpuscular Volume 80 fL (79-100) Mean Corpuscular Hemoglobin 26 pg (25-35) Mean Corpuscular Hemoglobin Concent 32 g/dL (31-37) Red Cell Distribution Width 24.5 % (11.5-14.5) Platelet Count 175 x10^3/uL (140-400) Neutrophils (%) (Auto) 84 % (31-73) Lymphocytes (%) (Auto) 3 % (24-48) Monocytes (%) (Auto) 12 % (0-9) Eosinophils (%) (Auto) 0 % (0-3) Basophils (%) (Auto) 1 % (0-3) Neutrophils # (Auto) 7.1 x10^3uL (1.8-7.7) Lymphocytes # (Auto) 0.3 x10^3/uL (1.0-4.8) Monocytes # (Auto) 1.0 x10^3/uL (0.0-1.1) Eosinophils # (Auto) 0.0 x10^3/uL (0.0-0.7) Basophils # (Auto) 0.0 x10^3/uL (0.0-0.2) Sodium Level 131 mmol/L (136-145) Potassium Level 4.7 mmol/L (3.5-5.1) Chloride Level 94 mmol/L (98-107) Carbon Dioxide Level 37 mmol/L (21-32) Anion Gap 0 (6-14) Blood Urea Nitrogen 12 mg/dL (7-20) Creatinine 0.4 mg/dL (0.6-1.0) Estimated GFR (Cockcroft-Gault) 196.3 BUN/Creatinine Ratio 30 (6-20) Glucose Level 124 mg/dL (70-99) Calcium Level 8.2 mg/dL (8.5-10.1) Phosphorus Level 5.1 mg/dL (2.6-4.7) Magnesium Level 1.7 mg/dL (1.8-2.4) Iron Level 8 ug/dL (50-170) Total Iron Binding Capacity 324 ug/dL (250-450) Iron Saturation 2 % (15-34) Ferritin 30 ng/mL (8-252) Total Bilirubin 1.1 mg/dL (0.2-1.0) Aspartate Amino Transf (AST/SGOT) 48 U/L (15-37) Alanine Aminotransferase (ALT/SGPT) 29 U/L (14-59) Alkaline Phosphatase 78 U/L (46-116) Total Protein 5.8 g/dL (6.4-8.2) Albumin 1.6 g/dL (3.4-5.0) Albumin/Globulin Ratio 0.4 (1.0-1.7) Vitamin B12 Level 464 pg/mL (247-911) 25-Hydroxy Vitamin D Total 5.3 ng/mL (30-100) Thyroid Stimulating Hormone (TSH) 4.228 uIU/mL (0.358-3.74) Free Thyroxine 0.75 ng/dL (0.76-1.46) Free Triiodothyronine (T3) pg/mL 0.94 pg/mL (2.18-3.98) Assessment and Plan Assessmemt and Plan Problems Medical Problems: (1) CHF (congestive heart failure) Status: Acute (2) Edema Status: Acute (3) Failure to thrive in adult Status: Acute (4) Heme positive stool Status: Acute (5) Hyponatremia Status: Acute (6) Hypoxemia Status: Acute (7) Sacral decubitus ulcer, stage III Status: Acute (8) Severe anemia Status: Acute Comment Review of Relevant I have reviewed the following items yao (where applicable) has been applied. Labs Laboratory Tests Test 02/23/18 05:39 02/24/18 05:00 White Blood Count 7.0 x10^3/uL (4.0-11.0) 8.5 x10^3/uL (4.0-11.0) Red Blood Count 4.16 x10^6/uL (3.50-5.40) 4.12 x10^6/uL (3.50-5.40) Hemoglobin 10.5 g/dL (12.0-15.5) 10.5 g/dL (12.0-15.5) Hematocrit 33.0 % (36.0-47.0) 32.9 % (36.0-47.0) Mean Corpuscular Volume 79 fL (79-100) 80 fL (79-100) Mean Corpuscular Hemoglobin 25 pg (25-35) 26 pg (25-35) Mean Corpuscular Hemoglobin Concent 32 g/dL (31-37) 32 g/dL (31-37) Red Cell Distribution Width 24.9 % (11.5-14.5) 24.5 % (11.5-14.5) Platelet Count 193 x10^3/uL (140-400) 175 x10^3/uL (140-400) Neutrophils (%) (Auto) 85 % (31-73) 84 % (31-73) Lymphocytes (%) (Auto) 4 % (24-48) 3 % (24-48) Monocytes (%) (Auto) 12 % (0-9) 12 % (0-9) Eosinophils (%) (Auto) 0 % (0-3) 0 % (0-3) Basophils (%) (Auto) 0 % (0-3) 1 % (0-3) Neutrophils # (Auto) 5.9 x10^3uL (1.8-7.7) 7.1 x10^3uL (1.8-7.7) Lymphocytes # (Auto) 0.3 x10^3/uL (1.0-4.8) 0.3 x10^3/uL (1.0-4.8) Monocytes # (Auto) 0.8 x10^3/uL (0.0-1.1) 1.0 x10^3/uL (0.0-1.1) Eosinophils # (Auto) 0.0 x10^3/uL (0.0-0.7) 0.0 x10^3/uL (0.0-0.7) Basophils # (Auto) 0.0 x10^3/uL (0.0-0.2) 0.0 x10^3/uL (0.0-0.2) Sodium Level 129 mmol/L (136-145) 131 mmol/L (136-145) Potassium Level 4.8 mmol/L (3.5-5.1) 4.7 mmol/L (3.5-5.1) Chloride Level 92 mmol/L (98-107) 94 mmol/L (98-107) Carbon Dioxide Level 36 mmol/L (21-32) 37 mmol/L (21-32) Anion Gap 1 (6-14) 0 (6-14) Blood Urea Nitrogen 11 mg/dL (7-20) 12 mg/dL (7-20) Creatinine 0.5 mg/dL (0.6-1.0) 0.4 mg/dL (0.6-1.0) Estimated GFR (Cockcroft-Gault) 151.8 196.3 BUN/Creatinine Ratio 22 (6-20) 30 (6-20) Glucose Level 122 mg/dL (70-99) 124 mg/dL (70-99) Calcium Level 8.1 mg/dL (8.5-10.1) 8.2 mg/dL (8.5-10.1) Total Bilirubin 1.3 mg/dL (0.2-1.0) 1.1 mg/dL (0.2-1.0) Aspartate Amino Transf (AST/SGOT) 24 U/L (15-37) 48 U/L (15-37) Alanine Aminotransferase (ALT/SGPT) 16 U/L (14-59) 29 U/L (14-59) Alkaline Phosphatase 70 U/L (46-116) 78 U/L (46-116) Total Protein 5.9 g/dL (6.4-8.2) 5.8 g/dL (6.4-8.2) Albumin 1.6 g/dL (3.4-5.0) 1.6 g/dL (3.4-5.0) Albumin/Globulin Ratio 0.4 (1.0-1.7) 0.4 (1.0-1.7) Vitamin B12 Level 496 pg/mL (247-911) 464 pg/mL (247-911) Phosphorus Level 5.1 mg/dL (2.6-4.7) Magnesium Level 1.7 mg/dL (1.8-2.4) Iron Level 8 ug/dL (50-170) Total Iron Binding Capacity 324 ug/dL (250-450) Iron Saturation 2 % (15-34) Ferritin 30 ng/mL (8-252) 25-Hydroxy Vitamin D Total 5.3 ng/mL (30-100) Thyroid Stimulating Hormone (TSH) 4.228 uIU/mL (0.358-3.74) Free Thyroxine 0.75 ng/dL (0.76-1.46) Free Triiodothyronine (T3) pg/mL 0.94 pg/mL (2.18-3.98) Laboratory Tests Test 02/24/18 05:00 White Blood Count 8.5 x10^3/uL (4.0-11.0) Red Blood Count 4.12 x10^6/uL (3.50-5.40) Hemoglobin 10.5 g/dL (12.0-15.5) Hematocrit 32.9 % (36.0-47.0) Mean Corpuscular Volume 80 fL (79-100) Mean Corpuscular Hemoglobin 26 pg (25-35) Mean Corpuscular Hemoglobin Concent 32 g/dL (31-37) Red Cell Distribution Width 24.5 % (11.5-14.5) Platelet Count 175 x10^3/uL (140-400) Neutrophils (%) (Auto) 84 % (31-73) Lymphocytes (%) (Auto) 3 % (24-48) Monocytes (%) (Auto) 12 % (0-9) Eosinophils (%) (Auto) 0 % (0-3) Basophils (%) (Auto) 1 % (0-3) Neutrophils # (Auto) 7.1 x10^3uL (1.8-7.7) Lymphocytes # (Auto) 0.3 x10^3/uL (1.0-4.8) Monocytes # (Auto) 1.0 x10^3/uL (0.0-1.1) Eosinophils # (Auto) 0.0 x10^3/uL (0.0-0.7) Basophils # (Auto) 0.0 x10^3/uL (0.0-0.2) Sodium Level 131 mmol/L (136-145) Potassium Level 4.7 mmol/L (3.5-5.1) Chloride Level 94 mmol/L (98-107) Carbon Dioxide Level 37 mmol/L (21-32) Anion Gap 0 (6-14) Blood Urea Nitrogen 12 mg/dL (7-20) Creatinine 0.4 mg/dL (0.6-1.0) Estimated GFR (Cockcroft-Gault) 196.3 BUN/Creatinine Ratio 30 (6-20) Glucose Level 124 mg/dL (70-99) Calcium Level 8.2 mg/dL (8.5-10.1) Phosphorus Level 5.1 mg/dL (2.6-4.7) Magnesium Level 1.7 mg/dL (1.8-2.4) Iron Level 8 ug/dL (50-170) Total Iron Binding Capacity 324 ug/dL (250-450) Iron Saturation 2 % (15-34) Ferritin 30 ng/mL (8-252) Total Bilirubin 1.1 mg/dL (0.2-1.0) Aspartate Amino Transf (AST/SGOT) 48 U/L (15-37) Alanine Aminotransferase (ALT/SGPT) 29 U/L (14-59) Alkaline Phosphatase 78 U/L (46-116) Total Protein 5.8 g/dL (6.4-8.2) Albumin 1.6 g/dL (3.4-5.0) Albumin/Globulin Ratio 0.4 (1.0-1.7) Vitamin B12 Level 464 pg/mL (247-911) 25-Hydroxy Vitamin D Total 5.3 ng/mL (30-100) Thyroid Stimulating Hormone (TSH) 4.228 uIU/mL (0.358-3.74) Free Thyroxine 0.75 ng/dL (0.76-1.46) Free Triiodothyronine (T3) pg/mL 0.94 pg/mL (2.18-3.98) Microbiology 02/18/18 Blood Culture - Final, Complete NO GROWTH AFTER 5 DAYS Medications Current Medications Iohexol (Omnipaque 300 Mg/ml) 75 ml 1X ONCE IV Last administered on at 23:00; Start 02/18/18 at 23:00; Stop 02/18/18 at 23:01; Status DC Info (CONTRAST GIVEN -- Rx MONITORING) 1 each PRN DAILY PRN MC SEE COMMENTS; Start 02/18/18 at 22:30; Stop 02/20/18 at 22:29; Status DC Furosemide (Lasix) 20 mg 1X ONCE IVP ; Start 02/19/18 at 01:30; Stop at 01:30; Status DC Furosemide (Lasix) 20 mg 1X ONCE IVP Last administered on 02/19/18at 05:51; Start 02/19/18 at 01:30; Stop 02/19/18 at 01:31; Status DC Influenza Virus Vaccine (Afluria Trivalent [id number] Syringe) 0.5 ml ONCE ONCE VAX IM Last administered on 02/19/18at 09:35; Start 02/19/18 at 09:00; Stop 02/19/18 at 09:01; Status DC Pantoprazole Sodium (PROTONIX VIAL for IV PUSH) 40 mg 1X ONCE IVP Last administered on 02/19/18at 09:33; Start 02/19/18 at 08:30; Stop 02/19/18 at 08 :32; Status DC Sodium Chloride 1,000 ml @ 100 mls/hr Q10H IV ; Start 02/19/18 at 08:45; Stop 02/19/18 at 09:41; Status DC Pantoprazole Sodium (PROTONIX VIAL for IV PUSH) 40 mg DAILYAC IVP Last administered on 02/23/18at 09:25; Start 02/19/18 at 11:30; Stop 02/23/18 at 11 :57; Status DC Amino Acids/ Glycerin/ Electrolytes 1,000 ml @ 75 mls/hr [id number] IV Last administered on 02/23/18at 05:02; Start 02/19/18 at 09:45; Stop 02/23/18 at 15 :11; Status DC Albuterol Sulfate (Ventolin Neb Soln) 2.5 mg RTQID NEB Last administered on at 11:46; Start 02/19/18 at 20:00 Albuterol Sulfate (Ventolin Neb Soln) 2.5 mg PRN Q2HR PRN NEB [id number]; Start 02/19/18 at 17:30 Methylprednisolone Sodium Succinate (SOLU-Medrol 125MG VIAL) 60 mg BID IV Last administered on 02/21/18at 09:20; Start 02/19/18 at 18:00; Stop 02/21/18 at 09 :29; Status DC Acetaminophen (Tylenol) 650 mg PRN Q6HRS PRN PO FEVER Last administered on 03/29at 22:52; Start 02/19/18 at 22:45 Potassium Chloride (Klor-Con) 40 meq 1X ONCE PO Last administered on at 11:15; Start 02/20/18 at 11:15; Stop 02/20/18 at 11:16; Status DC Ringer's Solution 1,000 ml @ 75 mls/hr [id number] IV ; Start 02/20/18 at 11:15; Stop 02/20/18 at 19:54; Status DC Propofol 20 ml @ As Directed STK-MED ONCE IV ; Start 02/20/18 at 11:51; Stop 02/20/18 at 11:52; Status DC Lidocaine HCl (Xylocaine-Mpf 2% Vial) 2 ml STK-MED ONCE .ROUTE ; Start at 11:52; Stop 02/20/18 at 11:53; Status DC Vitamin A/Vitamin D (Vitamin A & D Ointment) 1 sarah PRN Q1HR PRN TP SKIN PROTECTION Last administered on 02/21/18at 17:58; Start 02/20/18 at 15:00 Aspirin (Ecotrin) 81 mg DAILY PO Last administered on 02/24/18at 08:47; Start 02/20/18 at 16:00 Carvedilol (Coreg) 3.125 mg BIDWMEALS PO Last administered on 02/24/18at 08:48 ; Start 02/20/18 at 17:00 Furosemide (Lasix) 20 mg DAILY PO Last administered on 02/24/18at 08:48; Start 02/20/18 at 16:00 Potassium Chloride (Klor-Con) 10 meq [id number] PO Last administered on at 08:48; Start 02/21/18 at 08:00 Tamsulosin HCl (Flomax) 0.4 mg DAILY PO Last administered on 02/24/18at 08:46; Start 02/20/18 at 16:00 Non-Formulary Medication (Albuterol Sulfate (Proair Hfa Inhaler)) 8.5 puff PRN Q4-6HRS IH ; Start 02/20/18 at 15:30; Status UNV Budesonide (Pulmicort) 0.5 mg RTBID NEB Last administered on 02/24/18at 08:00; Start 02/20/18 at 20:00 Lisinopril (Prinivil) 5 mg DAILY PO Last administered on 02/24/18at 08:47; Start 02/20/18 at 16:00 Magnesium Chloride (Mag Delay) 64 mg BID PO Last administered on 02/24/18at 08: 47; Start 02/20/18 at 21:00 Methylprednisolone Sodium Succinate (SOLU-Medrol 40MG VIAL) 40 mg BID IV Last administered on 02/24/18at 08:48; Start 02/21/18 at 21:00; Stop 02/24/18 at 09 :56; Status DC Lorazepam (Ativan) 1 mg Q4HRS PRN IV Anxiety Last administered on 02/22/18at 08 :03; Start 02/22/18 at 07:45; Stop 02/22/18 at 13:46; Status DC Lorazepam (Ativan) 0.5 mg Q8HRS PRN IV Anxiety; Start 02/22/18 at 14:00; Stop 02/23/18 at 15:11; Status DC Doxycycline Hyclate (Vibra-Tab) 100 mg BID PO Last administered on 02/24/18at 08:47; Start 02/23/18 at 11:00 Lactobacillus Rhamnosus (Culturelle) 1 cap BID PO Last administered on at 08:48; Start 02/23/18 at 21:00 Pantoprazole Sodium (Protonix) 40 mg DAILYAC PO Last administered on at 08:48; Start 02/24/18 at 07:30 Sodium Chloride 1,000 ml @ 60 mls/hr [id number] IV Last administered on at 17:30; Start 02/23/18 at 15:15; Stop 02/24/18 at 10:16; Status DC Haloperidol Lactate (Haldol Inj) 1 mg PRN Q6HRS PRN IVP AGITATION; Start 02/23 at 15:15 Enoxaparin Sodium (Lovenox 40mg Syringe) 40 mg Q24H SQ ; Start 02/23/18 at 16: 00; Stop 02/24/18 at 10:23; Status DC Thiamine Mononitrate (Vitamin B-1) 100 mg DAILY PO Last administered on at 08:47; Start 02/23/18 at 21:00 Furosemide (Lasix) 40 mg 1X ONCE IVP Last administered on 02/24/18at 10:43; Start 02/24/18 at 09:45; Stop 02/24/18 at 09:47; Status DC Prednisone (Prednisone) 30 mg DAILY PO ; Start 02/25/18 at 09:00 Ergocalciferol (Vitamin D2) 50,000 unit WEEKLY PO Last administered on at 11:59; Start 02/24/18 at 11:20 Levothyroxine Sodium (Synthroid) 100 mcg DAILY06 PO ; Start 02/25/18 at 06:00 Magnesium Sulfate 50 ml @ 25 mls/hr 1X ONCE IV Last administered on at 11:58; Start 02/24/18 at 11:15; Stop 02/24/18 at 13:14 Magnesium Oxide (Magnesium Oxide) 400 mg DAILY PO ; Start 02/25/18 at 09:00 Iron Sucrose 200 mg/Sodium Chloride 110 ml @ 55 mls/hr DAILY IV Last administered on 02/24/18at 11:59; Start 02/24/18 at 11:30; Stop 02/28/18 at 10 :00 Active Scripts Active Reported Carvedilol 3.125 Mg Tablet 1 Tab PO BID Tamsulosin Hcl 0.4 Mg Cap.er.24h 1 Cap PO DAILY Advair 250-50 Diskus (Fluticasone/Salmeterol) 1 Each Disk.w.dev 1 Puff IH BID Potassium Chloride 10 Meq Capsule.er 1 Cap PO DAILY Furosemide 20 Mg Tablet 20 Mg PO DAILY Slow-Mag (Magnesium Chloride) 71.5 Mg Tablet. 71.5 Mg PO BID Proair Hfa Inhaler (Albuterol Sulfate) 8.5 Gm Hfa.aer.ad 8.5 Puff IH PRN Q4- 6HRS Aspir 81 (Aspirin) 81 Mg Tablet. 1 Tab PO DAILY Lisinopril 5 Mg Tablet 5 Mg PO DAILY Vitals/I & O Vital Sign - Last 24 Hours 02/23/18 02/23/18 02/23/18 02/23/18 15:00 15:15 17:29 19:41 Temp 98.9 97.9 98.9 97.9 Pulse 96 96 89 Resp 18 18 B/P (MAP) 121/71 (88) 121/71 108/69 (82) Pulse Ox 87 94 99 O2 Delivery Nasal Cannula Nasal Cannula Nasal Cannula O2 Flow Rate 3.0 2.0 3.0 02/23/18 02/23/18 02/23/18 02/24/18 19:50 20:00 23:16 03:52 Temp 98.0 98.0 Pulse 85 87 Resp 16 16 B/P (MAP) 109/68 (82) 139/88 (105) Pulse Ox 95 89 93 O2 Delivery Nasal Cannula Nasal Cannula Nasal Cannula Nasal Cannula O2 Flow Rate 2.0 2.0 3.0 4.0 02/24/18 02/24/18 02/24/18 02/24/18 07:00 08:00 08:01 08:47 Temp 98.0 98.0 Pulse 116 116 Resp 18 B/P (MAP) 147/107 (120) 147/107 Pulse Ox 89 96 O2 Delivery Nasal Cannula Nasal Cannula Nasal Cannula O2 Flow Rate 4.0 4.0 4.0 02/24/18 02/24/18 02/24/18 08:48 11:30 11:47 Temp 98.0 98.0 Pulse 116 114 Resp 18 B/P (MAP) 147/107 146/101 (116) Pulse Ox 92 O2 Delivery Nasal Cannula Nasal Cannula O2 Flow Rate 4.0 4.0 Intake and Output 02/23/18 02/23/18 02/24/18 15:00 23:00 07:00 Intake Total 100 ml 0 ml Output Total 650 ml 350 ml Balance -550 ml -350 ml CANDACE VALENTINE MD Feb 24, 2018 13:16
[2018-02-24] MEDS: VITS A & D/LANOLIN TOPICAL OINTMENT 56GM TUBE. TP PRN (14:00)
--- NOTE | 2018-02-24 15:22 | RAD ---
EXAM: Chest, single view. HISTORY: Congestive heart failure. COMPARISON: 02/22/2018 FINDINGS: A frontal view of the chest is obtained. There are stable small right and moderate left pleural effusions. There is stable pulmonary congestion. There is a nodular opacity overlying the right lower thorax due to a nipple shadow. There is a prominent cardiac silhouette. There is a left PICC with the tip in the superior cavoatrial junction. There is no pneumothorax. IMPRESSION: 1. Stable small right and moderate left pleural effusions. 2. Stable pulmonary congestion. 3. Stable cardiomegaly. Electronically signed by: Rosalinda Delarosa MD (02/24/2018 3:19 PM) [facility]
[2018-02-24 15:30] VITALS: BP 114/75
--- NOTE | 2018-02-24 16:39 | CARD ---
MR#: [id number] Date of Study: 02/24/2018 Ordering Physician: CANDACE VALENTINE, Referring Physician: CHADWICK COTTRELL Tech: Vicki Abraham RDCS APPROVED REPORT EXAM: Two-dimensional and M-mode echocardiogram with Doppler and color Doppler. Other Information Quality : Good INDICATION Congestive Heart Failure 2D DIMENSIONS RVDd3.9 (2.9-3.5cm)Left Atrium(2D)4.0 (1.6-4.0cm) IVSd0.8 (0.7-1.1cm)Aortic Root(2D)2.3 (2.0-3.7cm) LVDd4.5 (3.9-5.9cm)LVOT Diameter1.8 (1.8-2.4cm) PWd0.9 (0.7-1.1cm)RVOT Diameter2.1 cm LVDs3.1 (2.5-4.0cm)FS (%) 31.4 % SV54.1 mlLVEF(%)59.4 (>50%) Aortic Valve AoV Peak Eamon.130.9cm/sAoV VTI23.6cm AO Peak GR.6.9mmHgLVOT VTI 17.62cm AO Mean GR.4mmHgAVA (VTI)2.00cm2 Mitral Valve MV E Salynnrj96.0cm/sMV DECEL PKPO536mg MV A Acsxyioi64.6cm/sE/A Ratio1.3 TDI Lateral E' P. V7.85cm/sMedial E' P. V7.21cm/s E/Lateral E'8.9E/Medial E'9.7 Tricuspid Valve TR P. [id number]/sRAP [id number] TR Peak Gr.[id number] LEFT VENTRICLE The left ventricle is normal size. There is normal left ventricular wall thickness. The left ventricu lar systolic function is normal and the ejection fraction is within normal range. The Ejection Fracti on is 55-60%. There is a flattened septum consistent with right ventricle pressure overload. Tissue D oppler imaging reveals moderate left ventricular diastolic dysfunction. RIGHT VENTRICLE The right ventricle is severely dilated. RV Systolic function is mildly reduced. ATRIA The left atrium is mildly dilated. The right atrium is mildly dilated. Atrial septal aneurysm. AORTIC VALVE The aortic valve is calcified but opens well. Doppler and Color Flow revealed no significant aortic r egurgitation. There is no significant aortic valvular stenosis. MITRAL VALVE The mitral valve is calcified but opens well. There is no evidence of mitral valve prolapse. There is no mitral valve stenosis. Doppler and Color-flow revealed moderate mitral regurgitation. TRICUSPID VALVE The tricuspid valve is normal in structure and function. Doppler and Color Flow revealed severe/amberly ntial tricuspid regurgitation. There is severe pulmonary hypertension. The PA pressure was estimated at 73 mmHg. There is no tricuspid valve stenosis. PULMONIC VALVE Doppler and Color Flow revealed mild pulmonic valvular regurgitation. There is no pulmonic valvular s tenosis. GREAT VESSELS The aortic root is normal in size. The ascending aorta is not well seen. The IVC is normal in size an d collapses <50% with inspiration. PERICARDIAL EFFUSION There is moderate left pleural effusion. There is a trace circumferential pericardial effusion. Critical Notification Critical Value: No <Conclusion> The left ventricular systolic function is normal and the ejection fraction is within normal range. Th e Ejection Fraction is 55-60%. There is a flattened septum consistent with right ventricle pressure overload. The right ventricle is severely dilated. RV systolic function is mildly reduced. Atrial septal aneurysm. Doppler and Color-flow revealed moderate mitral regurgitation. Doppler and Color Flow revealed severe/torrential tricuspid regurgitation. There is severe pulmonary hypertension. The PA pressure was estimated at 73 mmHg. There is moderate left pleural effusion. Signed by : Lamine Cartagena, Electronically Approved : 02/24/2018 16:38:48
[2018-02-24] MEDS: CARVEDILOL 6.25 MG TABLET. PO SCH (17:27)
--- NOTE | 2018-02-24 18:46 | PDOC ---
PROGRESS NOTES Assessment Assessment Confusion. Metabolic encephalopathy. Toxic encephalopathy. Alcohol intoxication, ETOH 16. CHF. Anemia. GI bleeding. LE peripheral neuropathy. RECOMMENDATIONS/PLAN: Vit B1 100 mg daily. Treat medical diseases. EEG, unable to perform on her due to patched hair from hygiene issues. Alcohol abstinence. HISTORY OF THE PRESENT ILLNESS: 62-y-old female patient with above medical diseases and alcohol intoxication for admission. She has mental status changes and confusion, so neurology was requested for consultation. PMH: HTN, COPD, allergic rhinitis, tonsillectomy FH: Unknown. Social History: Smoke: <1 pack per day ALCOHOL: other (+ on screen, can't quantify) PAST SURGERY HISTORY: No major surgery recently. ALLERGY: Unknown MEDICATIONS: Refer to MAR REVIEW OF SYSTEMS: Constitutional: No malnutrition, weight loss, cachexia. Head: No traumatic brain or head injury. Skin: No edema, or rash. Ear: No infection. Eyes: No vision loss or color blindness. Nose: No bleeding or purulent discharges. Hearing: No hearing decrease. Neck: No injury. Breast: No history of cancer, masses,or discharges. Cardiac: CHF.. Pulmonary: COPD. GI:GI bleeding. Urinary/genital: UTI. Endocrinologic: No cousin face, craniofacial dysmorphism, polydactyly, goiter. Skeletomuscular: No muscular atrophy, deformity. Neurological: see HP. Psychiatric: Denies drug use/abuse. Otherwise, not [id number] review of systems. PHYSICAL EXAMINATION: General appearance is in no acute distress. HEENT: Normocephalic and nontraumatic. Eyes, nose, ears, and throat are unremarkable. Neck is supple. No lymphadenopathy. No crepitus. Cardiovascular: S1, S2, regular rate and rhythm. Pulmonary: Clear to auscultation bilaterally. Abdomen: Bowel sounds are positive. Abdomen is soft, nontender, and nondistended. Extremities: No rash, lesions, or edema. No restriction of range of motion NEUROLOGICAL EXAMINATION: Awake. Not oriented to time, but knew place and person. PERRL. EOMI. CN: no focal findings. Muscle tone: within normal. Muscle strength: 5- DTR: 2 Plantar reflex: Flexor response bilaterally Gait: not examined in bed. Sensory exam: no abnormal findings. No cerebellar signs elicited. F-T-N test fine. Objective Objective Vital Signs Date Time Temp Pulse Resp B/P (MAP) Pulse Ox O2 Delivery O2 Flow Rate FiO2 02/24/18 17:27 94 114/75 02/24/18 15:42 94 Nasal Cannula 4.0 02/24/18 15:30 98.4 18 98.4 Intake and Output 02/24/18 07:00 Intake Total 100 ml Output Total 1000 ml Balance -900 ml Intake Oral 100 ml Output Urine Total 1000 ml Vitals Signs Vitals VS - Last 72 Hours, by Label Date Time Temp Pulse Resp B/P (MAP) Pulse Ox O2 Delivery O2 Flow Rate FiO2 02/24/18 17:27 94 114/75 02/24/18 15:42 94 Nasal Cannula 4.0 02/24/18 15:30 98.4 94 18 114/75 (88) 92 Nasal Cannula 4.0 98.4 02/24/18 11:47 Nasal Cannula 4.0 02/24/18 11:30 98.0 114 18 146/101 (116) 92 Nasal Cannula 4.0 98.0 02/24/18 08:48 116 147/107 02/24/18 08:47 116 147/107 02/24/18 08:01 96 Nasal Cannula 4.0 02/24/18 08:00 Nasal Cannula 4.0 02/24/18 07:00 98.0 116 18 147/107 (120) 89 Nasal Cannula 4.0 98.0 02/24/18 03:52 98.0 87 16 139/88 (105) 93 Nasal Cannula 4.0 98.0 02/23/18 23:16 85 16 109/68 (82) 89 Nasal Cannula 3.0 02/23/18 20:00 Nasal Cannula 2.0 02/23/18 19:50 95 Nasal Cannula 2.0 02/23/18 19:41 97.9 89 18 108/69 (82) 99 Nasal Cannula 3.0 97.9 02/23/18 17:29 96 121/71 02/23/18 15:15 94 Nasal Cannula 2.0 02/23/18 15:00 98.9 96 18 121/71 (88) 87 Nasal Cannula 3.0 98.9 02/23/18 11:23 98 Nasal Cannula 3.0 02/23/18 11:00 99.4 80 20 127/73 (91) 98 Nasal Cannula 3.0 99.4 02/23/18 09:33 97 147/84 02/23/18 09:25 97 147/84 02/23/18 08:01 Nasal Cannula 3.0 02/23/18 08:00 Room Air 02/23/18 07:00 98.7 97 20 147/84 (105) 95 Nasal Cannula 3.0 98.7 Laboratory Laboratory Laboratory Tests Test 02/24/18 05:00 02/24/18 15:40 White Blood Count 8.5 x10^3/uL (4.0-11.0) Red Blood Count 4.12 x10^6/uL (3.50-5.40) Hemoglobin 10.5 g/dL (12.0-15.5) Hematocrit 32.9 % (36.0-47.0) Mean Corpuscular Volume 80 fL (79-100) Mean Corpuscular Hemoglobin 26 pg (25-35) Mean Corpuscular Hemoglobin Concent 32 g/dL (31-37) Red Cell Distribution Width 24.5 % (11.5-14.5) Platelet Count 175 x10^3/uL (140-400) Neutrophils (%) (Auto) 84 % (31-73) Lymphocytes (%) (Auto) 3 % (24-48) Monocytes (%) (Auto) 12 % (0-9) Eosinophils (%) (Auto) 0 % (0-3) Basophils (%) (Auto) 1 % (0-3) Neutrophils # (Auto) 7.1 x10^3uL (1.8-7.7) Lymphocytes # (Auto) 0.3 x10^3/uL (1.0-4.8) Monocytes # (Auto) 1.0 x10^3/uL (0.0-1.1) Eosinophils # (Auto) 0.0 x10^3/uL (0.0-0.7) Basophils # (Auto) 0.0 x10^3/uL (0.0-0.2) Sodium Level 131 mmol/L (136-145) Potassium Level 4.7 mmol/L (3.5-5.1) Chloride Level 94 mmol/L (98-107) Carbon Dioxide Level 37 mmol/L (21-32) Anion Gap 0 (6-14) Blood Urea Nitrogen 12 mg/dL (7-20) Creatinine 0.4 mg/dL (0.6-1.0) Estimated GFR (Cockcroft-Gault) 196.3 BUN/Creatinine Ratio 30 (6-20) Glucose Level 124 mg/dL (70-99) Calcium Level 8.2 mg/dL (8.5-10.1) Phosphorus Level 5.1 mg/dL (2.6-4.7) Magnesium Level 1.7 mg/dL (1.8-2.4) Iron Level 8 ug/dL (50-170) Total Iron Binding Capacity 324 ug/dL (250-450) Iron Saturation 2 % (15-34) Ferritin 30 ng/mL (8-252) Total Bilirubin 1.1 mg/dL (0.2-1.0) Aspartate Amino Transf (AST/SGOT) 48 U/L (15-37) Alanine Aminotransferase (ALT/SGPT) 29 U/L (14-59) Alkaline Phosphatase 78 U/L (46-116) Total Protein 5.8 g/dL (6.4-8.2) Albumin 1.6 g/dL (3.4-5.0) Albumin/Globulin Ratio 0.4 (1.0-1.7) Vitamin B12 Level 464 pg/mL (247-911) 25-Hydroxy Vitamin D Total 5.3 ng/mL (30-100) Thyroid Stimulating Hormone (TSH) 4.228 uIU/mL (0.358-3.74) Free Thyroxine 0.75 ng/dL (0.76-1.46) Free Triiodothyronine (T3) pg/mL 0.94 pg/mL (2.18-3.98) Ammonia 13 mcmol/L (11-34) Microbiology 02/18/18 Blood Culture - Final, Complete NO GROWTH AFTER 5 DAYS Medication Medications Current Medications Carvedilol (Coreg) 6.25 mg BIDWMEALS PO Last administered on 02/24/18at 17:27; Start 02/24/18 at 17:00 Ergocalciferol (Vitamin D2) 50,000 unit WEEKLY PO Last administered on at 11:59; Start 02/24/18 at 11:20 Ergocalciferol (Vitamin D2) 50,000 unit WEEKLY PO ; Start 02/25/18 at 09:00; Status UNV Furosemide (Lasix) 40 mg 1X ONCE IVP Last administered on 02/24/18at 10:43; Start 02/24/18 at 09:45; Stop 02/24/18 at 09:47; Status DC Iron Sucrose 200 mg/Sodium Chloride 110 ml @ 55 mls/hr DAILY IV Last administered on 02/24/18at 11:59; Start 02/24/18 at 11:30; Stop 02/28/18 at 10 :00 Lactobacillus Rhamnosus (Culturelle) 1 cap BID PO Last administered on at 08:48; Start 02/23/18 at 21:00 Levothyroxine Sodium (Synthroid) 100 mcg DAILY06 PO ; Start 02/25/18 at 06:00 Lisinopril (Prinivil) 10 mg DAILY PO ; Start 02/25/18 at 09:00 Magnesium Oxide (Magnesium Oxide) 400 mg DAILY PO ; Start 02/25/18 at 09:00 Magnesium Sulfate 50 ml @ 25 mls/hr 1X ONCE IV Last administered on at 11:58; Start 02/24/18 at 11:15; Stop 02/24/18 at 13:14; Status DC Pantoprazole Sodium (Protonix) 40 mg DAILYAC PO Last administered on at 08:48; Start 02/24/18 at 07:30 Prednisone (Prednisone) 30 mg DAILY PO ; Start 02/25/18 at 09:00 Thiamine Mononitrate (Vitamin B-1) 100 mg DAILY PO Last administered on at 08:47; Start 02/23/18 at 21:00 Comment Review of Relevant I have reviewed the following items yao (where applicable) has been applied. KAE QUARLES MD Feb 24, 2018 18:46
[2018-02-24 19:52] VITALS: BP 139/43
[2018-02-24 23:52] VITALS: BP 120/77
[2018-02-25] VITALS (8 sets, daily range): BP systolic 113–149; BP diastolic 63–96
[2018-02-25 06:06] LABS: BASO % 0 % (0-3); EOS % 0 % (0-3); HEMATOCRIT 31.5 % (36.0-47.0); HEMOGLOBIN 9.9 g/dL (12.0-15.5); LYMPH # 0.7 x10^3/uL (1.0-4.8); LYMPH % 10 % (24-48); MEAN CORPUSCULAR HEMOGLOBIN 25 pg (25-35); MEAN CORPUSCULAR HGB CONC 32 g/dL (31-37); MEAN CORPUSCULAR VOLUME 81 fL (79-100); MONO # 1.2 x10^3/uL (0.0-1.1); MONO % 18 % (0-9); NEUT # 4.8 x10^3uL (1.8-7.7); NEUT % 71 % (31-73); PLATELET COUNT 157 x10^3/uL (140-400); RED BLOOD COUNT 3.91 x10^6/uL (3.50-5.40); RED CELL DISTRIBUTION WIDTH 24.1 % (11.5-14.5); WHITE BLOOD COUNT 6.8 x10^3/uL (4.0-11.0)
[2018-02-25 06:15] LABS: ALBUMIN 1.7 g/dL (3.4-5.0); ALBUMIN/GLOBULIN RATIO 0.4 (1.0-1.7); CALCIUM 8.3 mg/dL (8.5-10.1); CREATININE 0.4 mg/dL (0.6-1.0); GFR 196.3; TOTAL PROTEIN 5.7 g/dL (6.4-8.2)
[2018-02-25] MEDS: LEVOTHYROXINE 100 MCG TABLET PO SCH (06:20)
[2018-02-25] MEDS: BUDESONIDE 0.5 MG/2 ML NEBU. NEB SCH ×2 (08:09→20:02)
[2018-02-25] MEDS: ALBUTEROL SULFATE 2.5 MG/3 ML NEBU. NEB SCH ×4 (08:09→20:03)
[2018-02-25] MEDS: IRON SUCROSE COMPLEX 200 MG in IV NORMAL SALINE 100ML 100 ML IV SCH (08:53)
[2018-02-25] MEDS: LACTOBACILLUS RHAMNOSUS GG 1 CAPSULE. PO SCH ×2 (08:54→21:48)
[2018-02-25] MEDS: predniSONE 10 MG TABLET PO SCH (08:55)
[2018-02-25] MEDS: ASPIRIN ENTERIC COATED 81 MG TABLET.DR. PO SCH (08:55)
[2018-02-25] MEDS: MAGNESIUM CHLORIDE ER 64 MG TABLET.ER PO SCH ×2 (08:55→21:48)
[2018-02-25] MEDS: PANTOPRAZOLE 40 MG TABLET.DR. PO SCH (08:56)
[2018-02-25] MEDS: DOXYCYCLINE HYCLATE 100 MG TABLET PO SCH ×2 (08:56→21:48)
[2018-02-25] MEDS: FUROSEMIDE 20 MG TABLET PO SCH (08:56)
[2018-02-25] MEDS: TAMSULOSIN 0.4 MG CAP.ER.24H. PO SCH (08:56)
[2018-02-25] MEDS: CARVEDILOL 6.25 MG TABLET. PO SCH ×2 (08:56→17:42)
[2018-02-25] MEDS: THIAMINE 100 MG TABLET. PO SCH (08:56)
[2018-02-25] MEDS: MAGNESIUM OXIDE 400 MG TABLET PO SCH (08:56)
[2018-02-25] MEDS: POTASSIUM CHLORIDE 10 MEQ TABLET.ER. PO SCH (08:57)
[2018-02-25] MEDS ORDERED: LISINOPRIL 5 MG TABLET. PO SCH (09:00)
[2018-02-25] MEDS ORDERED: ERGOCALCIFEROL (VITAMIN D2) 50,000 UNIT CAPSULE. PO SCH ×2 (09:00→17:00)
[2018-02-25 09:34] LABS: % LYMPHS 5 % (24-48); % MONOS 12 % (0-10); % SEGS 83 % (35-66)
--- NOTE | 2018-02-25 09:35 | PDOC ---
PULMONARY PROGRESS NOTES Subjective less coughing no increase soa Vitals Vital Signs Date Time Temp Pulse Resp B/P (MAP) Pulse Ox O2 Delivery O2 Flow Rate FiO2 02/25/18 08:56 108 149/96 02/25/18 08:10 88 Nasal Cannula 4.0 02/25/18 07:00 98.0 18 98.0 ROS: No Nausea, No Chest Pain, No Increase Cough General: Alert HEENT: Other (nc at perrl ) Lungs: Other (decrease bs) Cardiovascular: S1, S2 Abdomen: Soft, Non-tender Neuro Exam: Alert Extremities: No Edema Skin: Warm Labs Laboratory Tests Test 02/24/18 05:00 02/24/18 15:40 02/25/18 05:40 02/25/18 07:53 White Blood Count 8.5 x10^3/uL (4.0-11.0) 6.8 x10^3/uL (4.0-11.0) Red Blood Count 4.12 x10^6/uL (3.50-5.40) 3.91 x10^6/uL (3.50-5.40) Hemoglobin 10.5 g/dL (12.0-15.5) 9.9 g/dL (12.0-15.5) Hematocrit 32.9 % (36.0-47.0) 31.5 % (36.0-47.0) Mean Corpuscular Volume 80 fL (79-100) 81 fL (79-100) Mean Corpuscular Hemoglobin 26 pg (25-35) 25 pg (25-35) Mean Corpuscular Hemoglobin Concent 32 g/dL (31-37) 32 g/dL (31-37) Red Cell Distribution Width 24.5 % (11.5-14.5) 24.1 % (11.5-14.5) Platelet Count 175 x10^3/uL (140-400) 157 x10^3/uL (140-400) Neutrophils (%) (Auto) 84 % (31-73) 71 % (31-73) Lymphocytes (%) (Auto) 3 % (24-48) 10 % (24-48) Monocytes (%) (Auto) 12 % (0-9) 18 % (0-9) Eosinophils (%) (Auto) 0 % (0-3) 0 % (0-3) Basophils (%) (Auto) 1 % (0-3) 0 % (0-3) Neutrophils # (Auto) 7.1 x10^3uL (1.8-7.7) 4.8 x10^3uL (1.8-7.7) Lymphocytes # (Auto) 0.3 x10^3/uL (1.0-4.8) 0.7 x10^3/uL (1.0-4.8) Monocytes # (Auto) 1.0 x10^3/uL (0.0-1.1) 1.2 x10^3/uL (0.0-1.1) Eosinophils # (Auto) 0.0 x10^3/uL (0.0-0.7) 0.0 x10^3/uL (0.0-0.7) Basophils # (Auto) 0.0 x10^3/uL (0.0-0.2) 0.0 x10^3/uL (0.0-0.2) Sodium Level 131 mmol/L (136-145) 135 mmol/L (136-145) Potassium Level 4.7 mmol/L (3.5-5.1) 4.0 mmol/L (3.5-5.1) Chloride Level 94 mmol/L (98-107) 95 mmol/L (98-107) Carbon Dioxide Level 37 mmol/L (21-32) 40 mmol/L (21-32) Anion Gap 0 (6-14) 0 (6-14) Blood Urea Nitrogen 12 mg/dL (7-20) 9 mg/dL (7-20) Creatinine 0.4 mg/dL (0.6-1.0) 0.4 mg/dL (0.6-1.0) Estimated GFR (Cockcroft-Gault) 196.3 196.3 BUN/Creatinine Ratio 30 (6-20) 23 (6-20) Glucose Level 124 mg/dL (70-99) 84 mg/dL (70-99) Calcium Level 8.2 mg/dL (8.5-10.1) 8.3 mg/dL (8.5-10.1) Phosphorus Level 5.1 mg/dL (2.6-4.7) Magnesium Level 1.7 mg/dL (1.8-2.4) Iron Level 8 ug/dL (50-170) Total Iron Binding Capacity 324 ug/dL (250-450) Iron Saturation 2 % (15-34) Ferritin 30 ng/mL (8-252) Total Bilirubin 1.1 mg/dL (0.2-1.0) 1.0 mg/dL (0.2-1.0) Aspartate Amino Transf (AST/SGOT) 48 U/L (15-37) 56 U/L (15-37) Alanine Aminotransferase (ALT/SGPT) 29 U/L (14-59) 39 U/L (14-59) Alkaline Phosphatase 78 U/L (46-116) 88 U/L (46-116) Total Protein 5.8 g/dL (6.4-8.2) 5.7 g/dL (6.4-8.2) Albumin 1.6 g/dL (3.4-5.0) 1.7 g/dL (3.4-5.0) Albumin/Globulin Ratio 0.4 (1.0-1.7) 0.4 (1.0-1.7) Vitamin B12 Level 464 pg/mL (247-911) 25-Hydroxy Vitamin D Total 5.3 ng/mL (30-100) Thyroid Stimulating Hormone (TSH) 4.228 uIU/mL (0.358-3.74) Free Thyroxine 0.75 ng/dL (0.76-1.46) Free Triiodothyronine (T3) pg/mL 0.94 pg/mL (2.18-3.98) Ammonia 13 mcmol/L (11-34) Glucose (Fingerstick) 143 mg/dL (70-99) Laboratory Tests Test 02/24/18 15:40 02/25/18 05:40 02/25/18 07:53 Ammonia 13 mcmol/L (11-34) White Blood Count 6.8 x10^3/uL (4.0-11.0) Red Blood Count 3.91 x10^6/uL (3.50-5.40) Hemoglobin 9.9 g/dL (12.0-15.5) Hematocrit 31.5 % (36.0-47.0) Mean Corpuscular Volume 81 fL (79-100) Mean Corpuscular Hemoglobin 25 pg (25-35) Mean Corpuscular Hemoglobin Concent 32 g/dL (31-37) Red Cell Distribution Width 24.1 % (11.5-14.5) Platelet Count 157 x10^3/uL (140-400) Neutrophils (%) (Auto) 71 % (31-73) Lymphocytes (%) (Auto) 10 % (24-48) Monocytes (%) (Auto) 18 % (0-9) Eosinophils (%) (Auto) 0 % (0-3) Basophils (%) (Auto) 0 % (0-3) Neutrophils # (Auto) 4.8 x10^3uL (1.8-7.7) Lymphocytes # (Auto) 0.7 x10^3/uL (1.0-4.8) Monocytes # (Auto) 1.2 x10^3/uL (0.0-1.1) Eosinophils # (Auto) 0.0 x10^3/uL (0.0-0.7) Basophils # (Auto) 0.0 x10^3/uL (0.0-0.2) Sodium Level 135 mmol/L (136-145) Potassium Level 4.0 mmol/L (3.5-5.1) Chloride Level 95 mmol/L (98-107) Carbon Dioxide Level 40 mmol/L (21-32) Anion Gap 0 (6-14) Blood Urea Nitrogen 9 mg/dL (7-20) Creatinine 0.4 mg/dL (0.6-1.0) Estimated GFR (Cockcroft-Gault) 196.3 BUN/Creatinine Ratio 23 (6-20) Glucose Level 84 mg/dL (70-99) Calcium Level 8.3 mg/dL (8.5-10.1) Total Bilirubin 1.0 mg/dL (0.2-1.0) Aspartate Amino Transf (AST/SGOT) 56 U/L (15-37) Alanine Aminotransferase (ALT/SGPT) 39 U/L (14-59) Alkaline Phosphatase 88 U/L (46-116) Total Protein 5.7 g/dL (6.4-8.2) Albumin 1.7 g/dL (3.4-5.0) Albumin/Globulin Ratio 0.4 (1.0-1.7) Glucose (Fingerstick) 143 mg/dL (70-99) Medications Active Scripts Medications Dose Route/Sig Max Daily Dose Days Date Category Carvedilol 3.125 Mg Tablet 1 Tab PO BID 09/21/14 Reported Tamsulosin Hcl 0.4 Mg Cap.er.24h 1 Cap PO DAILY 09/21/14 Reported Advair 250-50 Diskus (Fluticasone/Salmeterol) 1 Each Disk.w.dev 1 Puff IH BID 09/13/14 Reported Potassium Chloride 10 Meq Capsule.er 1 Cap PO DAILY 09/13/14 Reported Furosemide 20 Mg Tablet 20 Mg PO DAILY 09/13/14 Reported Slow-Mag (Magnesium Chloride) 71.5 Mg Tablet. 71.5 Mg PO BID 09/13/14 Reported Proair Hfa Inhaler (Albuterol Sulfate) 8.5 Gm Hfa.aer.ad 8.5 Puff IH PRN Q4-6HRS 09/13/14 Reported Aspir 81 (Aspirin) 81 Mg Tablet. 1 Tab PO DAILY 09/13/14 Reported Lisinopril 5 Mg Tablet 5 Mg PO DAILY 09/13/14 Reported Impression . IMPRESSION: 1. Progressive dyspnea, multifactorial secondary to underlying chronic obstructive pulmonary disease w ae and severe anemia.and new CHF/ moderate left effusion, small right effusion 2. Acute exacerbation of chronic obstructive pulmonary disease. 3. Abnormal CT revealing debris. CT of the chest revealing debris in the left lower lobe. Suspect mucus./ LLL pneumonia 4. Severe emphysema. 5. Severe protein malnutrition, present upon admission. 6. Positive occult stool. 7. Acute respiratory failure secondary to above. Plan . 1. Continue 02 titration. 2. Nebulized treatments. 3. taper steroids 4. Follow GI input. 5. speech eval done, dysphagia II diet 6. Dietary consultation for severe protein malnutrition. 7. Transfuse prn to maintain hemoglobin close to 7 g/dL. 8. No need for bronchoscopy at this time. 9. AVOID OVER SEDATION 10. PO abx 11. s/p extra diuresis. repeat cxr 02/24 no sig change in left effusion .will benefit from thoracentesis. She agrees. R/B explained 12. Abnormal echo with severe Pulmonary HTN/ normal EF. Not the best candidate for invasive Rt/ Left heart cath , discussed w rn/ discussed w pt and RAFAT MAHAJAN MD Feb 25, 2018 09:35
[2018-02-25 09:36] LABS: ANISOCYTOSIS MOD; PLT ESTIMATE ADEQUATE (ADEQUATE); POLYCHROMASIA PRESENT
[2018-02-25 09:37] LABS: POIKILOCYTOSIS PRESENT; SCHISTOCYTES FEW
--- NOTE | 2018-02-25 11:43 | PDOC ---
Objective: Objective: Reviewed w/ RN - no GI concerns. Has been NPO for thoracentesis. Vital Signs: Vital Signs Date Time Temp Pulse Resp B/P (MAP) Pulse Ox O2 Delivery O2 Flow Rate FiO2 02/25/18 08:56 108 149/96 02/25/18 08:10 88 Nasal Cannula 4.0 02/25/18 07:00 98.0 18 98.0 Labs: Laboratory Tests Test 02/24/18 15:40 02/25/18 05:40 02/25/18 07:53 02/25/18 11:19 Ammonia 13 mcmol/L White Blood Count 6.8 x10^3/uL Red Blood Count 3.91 x10^6/uL Hemoglobin 9.9 g/dL Hematocrit 31.5 % Mean Corpuscular Volume 81 fL Mean Corpuscular Hemoglobin 25 pg Mean Corpuscular Hemoglobin Concent 32 g/dL Red Cell Distribution Width 24.1 % Platelet Count 157 x10^3/uL Neutrophils (%) (Auto) 71 % Lymphocytes (%) (Auto) 10 % Monocytes (%) (Auto) 18 % Eosinophils (%) (Auto) 0 % Basophils (%) (Auto) 0 % Neutrophils # (Auto) 4.8 x10^3uL Lymphocytes # (Auto) 0.7 x10^3/uL Monocytes # (Auto) 1.2 x10^3/uL Eosinophils # (Auto) 0.0 x10^3/uL Basophils # (Auto) 0.0 x10^3/uL Segmented Neutrophils % 83 % Lymphocytes % 5 % Monocytes % 12 % Platelet Estimate Adequate Polychromasia Present Poikilocytosis Present Basophilic Stippling Present Anisocytosis Mod Schistocytes Few Sodium Level 135 mmol/L Potassium Level 4.0 mmol/L Chloride Level 95 mmol/L Carbon Dioxide Level 40 mmol/L Anion Gap 0 Blood Urea Nitrogen 9 mg/dL Creatinine 0.4 mg/dL Estimated GFR (Cockcroft-Gault) 196.3 BUN/Creatinine Ratio 23 Glucose Level 84 mg/dL Calcium Level 8.3 mg/dL Total Bilirubin 1.0 mg/dL Aspartate Amino Transf (AST/SGOT) 56 U/L Alanine Aminotransferase (ALT/SGPT) 39 U/L Alkaline Phosphatase 88 U/L Total Protein 5.7 g/dL Albumin 1.7 g/dL Albumin/Globulin Ratio 0.4 Glucose (Fingerstick) 143 mg/dL 105 mg/dL PE: GEN: sitting on edge of bed w/ therapy NEURO/PSYCH: A & O 3 A/P: STEVE - stable Pleural effusions +alcohol -- Continue same per GI. BIANCA FONSECA Feb 25, 2018 11:43
--- NOTE | 2018-02-25 12:50 | PDOC ---
PROGRESS NOTES Chief Complaint Chief Complaint generalized weakness with severe anemia left pleural effusion Debris in LLL Bronchus probable aspiration, on dysphagia 1 diet acute hypoxic resp failure Anemia, severe, 2/2 possible lower gib diastolic CHF, right chf, severe PHTN Failure to Thrive in adult hypomagnesemia severe malnutrition hyponatremia confusion bl leg neurophathy vitd deficiency hypothyroidism iron deficiency plan: fu with gi, pulm on doxy, duoneb, did EGD non erosive gastritis, got 4u PRBC transfusion ADD SYNthroid, vitd, Mag nutrition consult swallow eval, on dysphagia 1 diet checked echo on lasix 20mg daily left pleural effusion, pulm dced ivf, lasix 40mg iv x1 given. CXR repeat later no improvement, thoracentesis today as per pulm pt has low po intake gi xxp,. dc lovenox given + FOBT. wo active bleeding , hb stable, consider add it back if Hb cont stable. PTOT talked to , hope dc to SNF add venofer daily x5 check Head CT , neuro consult, EEG cannot be done given pt's thick hair talked to pulm will get card consult for abnormal echo add NS 60cc/h given low po intake History of Present Illness History of Present Illness PT seen and examine Dw RN Resting w/NAD pt looks confused, knows in [facility] today, better. but still not know the days c/o bl leg pain 02/23 low po intake, but says" will eat what i like". pt was found sitting in the car for 2ds, with buttucks skin tear, on portillo. she told me living in a house. as per , she lives alone, altho she told me living with mother and told nurse living with sister severe abnormal electrolytes, likely not taking care of herself for a long time , low Mag, low Na, low Vit D. But pt said eats ok, just not drink much. not willing to get out of bed with PTOT. NeED NC 4L. left pleural effusion Vitals Vitals Vital Signs Date Time Temp Pulse Resp B/P (MAP) Pulse Ox O2 Delivery O2 Flow Rate FiO2 02/25/18 12:03 94 Nasal Cannula 4.0 02/25/18 11:00 98.0 96 18 113/68 (83) 98.0 Physical Exam Physical Exam pt has dry skin B/L UE and LE confused bl hands symmetric weak General: Alert, Oriented X3 Heart: Regular rate, No murmurs Lungs: Other (decrease bs) Abdomen: No tenderness, No masses Extremities: No clubbing, No cyanosis Skin: No significant lesion, Other Labs LABS Laboratory Tests Test 02/24/18 15:40 02/25/18 05:40 02/25/18 07:53 02/25/18 11:19 Ammonia 13 mcmol/L (11-34) White Blood Count 6.8 x10^3/uL (4.0-11.0) Red Blood Count 3.91 x10^6/uL (3.50-5.40) Hemoglobin 9.9 g/dL (12.0-15.5) Hematocrit 31.5 % (36.0-47.0) Mean Corpuscular Volume 81 fL (79-100) Mean Corpuscular Hemoglobin 25 pg (25-35) Mean Corpuscular Hemoglobin Concent 32 g/dL (31-37) Red Cell Distribution Width 24.1 % (11.5-14.5) Platelet Count 157 x10^3/uL (140-400) Neutrophils (%) (Auto) 71 % (31-73) Lymphocytes (%) (Auto) 10 % (24-48) Monocytes (%) (Auto) 18 % (0-9) Eosinophils (%) (Auto) 0 % (0-3) Basophils (%) (Auto) 0 % (0-3) Neutrophils # (Auto) 4.8 x10^3uL (1.8-7.7) Lymphocytes # (Auto) 0.7 x10^3/uL (1.0-4.8) Monocytes # (Auto) 1.2 x10^3/uL (0.0-1.1) Eosinophils # (Auto) 0.0 x10^3/uL (0.0-0.7) Basophils # (Auto) 0.0 x10^3/uL (0.0-0.2) Segmented Neutrophils % 83 % (35-66) Lymphocytes % 5 % (24-48) Monocytes % 12 % (0-10) Platelet Estimate Adequate (ADEQUATE) Polychromasia Present Poikilocytosis Present Basophilic Stippling Present Anisocytosis Mod Schistocytes Few Sodium Level 135 mmol/L (136-145) Potassium Level 4.0 mmol/L (3.5-5.1) Chloride Level 95 mmol/L (98-107) Carbon Dioxide Level 40 mmol/L (21-32) Anion Gap 0 (6-14) Blood Urea Nitrogen 9 mg/dL (7-20) Creatinine 0.4 mg/dL (0.6-1.0) Estimated GFR (Cockcroft-Gault) 196.3 BUN/Creatinine Ratio 23 (6-20) Glucose Level 84 mg/dL (70-99) Calcium Level 8.3 mg/dL (8.5-10.1) Total Bilirubin 1.0 mg/dL (0.2-1.0) Aspartate Amino Transf (AST/SGOT) 56 U/L (15-37) Alanine Aminotransferase (ALT/SGPT) 39 U/L (14-59) Alkaline Phosphatase 88 U/L (46-116) Total Protein 5.7 g/dL (6.4-8.2) Albumin 1.7 g/dL (3.4-5.0) Albumin/Globulin Ratio 0.4 (1.0-1.7) Glucose (Fingerstick) 143 mg/dL (70-99) 105 mg/dL (70-99) Assessment and Plan Assessmemt and Plan Problems Medical Problems: (1) CHF (congestive heart failure) Status: Acute (2) Edema Status: Acute (3) Failure to thrive in adult Status: Acute (4) Heme positive stool Status: Acute (5) Hyponatremia Status: Acute (6) Hypoxemia Status: Acute (7) Sacral decubitus ulcer, stage III Status: Acute (8) Severe anemia Status: Acute Comment Review of Relevant I have reviewed the following items yao (where applicable) has been applied. Labs Laboratory Tests Test 02/24/18 05:00 02/24/18 15:40 02/25/18 05:40 02/25/18 07:53 White Blood Count 8.5 x10^3/uL (4.0-11.0) 6.8 x10^3/uL (4.0-11.0) Red Blood Count 4.12 x10^6/uL (3.50-5.40) 3.91 x10^6/uL (3.50-5.40) Hemoglobin 10.5 g/dL (12.0-15.5) 9.9 g/dL (12.0-15.5) Hematocrit 32.9 % (36.0-47.0) 31.5 % (36.0-47.0) Mean Corpuscular Volume 80 fL (79-100) 81 fL (79-100) Mean Corpuscular Hemoglobin 26 pg (25-35) 25 pg (25-35) Mean Corpuscular Hemoglobin Concent 32 g/dL (31-37) 32 g/dL (31-37) Red Cell Distribution Width 24.5 % (11.5-14.5) 24.1 % (11.5-14.5) Platelet Count 175 x10^3/uL (140-400) 157 x10^3/uL (140-400) Neutrophils (%) (Auto) 84 % (31-73) 71 % (31-73) Lymphocytes (%) (Auto) 3 % (24-48) 10 % (24-48) Monocytes (%) (Auto) 12 % (0-9) 18 % (0-9) Eosinophils (%) (Auto) 0 % (0-3) 0 % (0-3) Basophils (%) (Auto) 1 % (0-3) 0 % (0-3) Neutrophils # (Auto) 7.1 x10^3uL (1.8-7.7) 4.8 x10^3uL (1.8-7.7) Lymphocytes # (Auto) 0.3 x10^3/uL (1.0-4.8) 0.7 x10^3/uL (1.0-4.8) Monocytes # (Auto) 1.0 x10^3/uL (0.0-1.1) 1.2 x10^3/uL (0.0-1.1) Eosinophils # (Auto) 0.0 x10^3/uL (0.0-0.7) 0.0 x10^3/uL (0.0-0.7) Basophils # (Auto) 0.0 x10^3/uL (0.0-0.2) 0.0 x10^3/uL (0.0-0.2) Sodium Level 131 mmol/L (136-145) 135 mmol/L (136-145) Potassium Level 4.7 mmol/L (3.5-5.1) 4.0 mmol/L (3.5-5.1) Chloride Level 94 mmol/L (98-107) 95 mmol/L (98-107) Carbon Dioxide Level 37 mmol/L (21-32) 40 mmol/L (21-32) Anion Gap 0 (6-14) 0 (6-14) Blood Urea Nitrogen 12 mg/dL (7-20) 9 mg/dL (7-20) Creatinine 0.4 mg/dL (0.6-1.0) 0.4 mg/dL (0.6-1.0) Estimated GFR (Cockcroft-Gault) 196.3 196.3 BUN/Creatinine Ratio 30 (6-20) 23 (6-20) Glucose Level 124 mg/dL (70-99) 84 mg/dL (70-99) Calcium Level 8.2 mg/dL (8.5-10.1) 8.3 mg/dL (8.5-10.1) Phosphorus Level 5.1 mg/dL (2.6-4.7) Magnesium Level 1.7 mg/dL (1.8-2.4) Iron Level 8 ug/dL (50-170) Total Iron Binding Capacity 324 ug/dL (250-450) Iron Saturation 2 % (15-34) Ferritin 30 ng/mL (8-252) Total Bilirubin 1.1 mg/dL (0.2-1.0) 1.0 mg/dL (0.2-1.0) Aspartate Amino Transf (AST/SGOT) 48 U/L (15-37) 56 U/L (15-37) Alanine Aminotransferase (ALT/SGPT) 29 U/L (14-59) 39 U/L (14-59) Alkaline Phosphatase 78 U/L (46-116) 88 U/L (46-116) Total Protein 5.8 g/dL (6.4-8.2) 5.7 g/dL (6.4-8.2) Albumin 1.6 g/dL (3.4-5.0) 1.7 g/dL (3.4-5.0) Albumin/Globulin Ratio 0.4 (1.0-1.7) 0.4 (1.0-1.7) Vitamin B12 Level 464 pg/mL (247-911) 25-Hydroxy Vitamin D Total 5.3 ng/mL (30-100) Thyroid Stimulating Hormone (TSH) 4.228 uIU/mL (0.358-3.74) Free Thyroxine 0.75 ng/dL (0.76-1.46) Free Triiodothyronine (T3) pg/mL 0.94 pg/mL (2.18-3.98) Ammonia 13 mcmol/L (11-34) Segmented Neutrophils % 83 % (35-66) Lymphocytes % 5 % (24-48) Monocytes % 12 % (0-10) Platelet Estimate Adequate (ADEQUATE) Polychromasia Present Poikilocytosis Present Basophilic Stippling Present Anisocytosis Mod Schistocytes Few Glucose (Fingerstick) 143 mg/dL (70-99) Test 02/25/18 11:19 Glucose (Fingerstick) 105 mg/dL (70-99) Laboratory Tests Test 02/24/18 15:40 02/25/18 05:40 02/25/18 07:53 02/25/18 11:19 Ammonia 13 mcmol/L (11-34) White Blood Count 6.8 x10^3/uL (4.0-11.0) Red Blood Count 3.91 x10^6/uL (3.50-5.40) Hemoglobin 9.9 g/dL (12.0-15.5) Hematocrit 31.5 % (36.0-47.0) Mean Corpuscular Volume 81 fL (79-100) Mean Corpuscular Hemoglobin 25 pg (25-35) Mean Corpuscular Hemoglobin Concent 32 g/dL (31-37) Red Cell Distribution Width 24.1 % (11.5-14.5) Platelet Count 157 x10^3/uL (140-400) Neutrophils (%) (Auto) 71 % (31-73) Lymphocytes (%) (Auto) 10 % (24-48) Monocytes (%) (Auto) 18 % (0-9) Eosinophils (%) (Auto) 0 % (0-3) Basophils (%) (Auto) 0 % (0-3) Neutrophils # (Auto) 4.8 x10^3uL (1.8-7.7) Lymphocytes # (Auto) 0.7 x10^3/uL (1.0-4.8) Monocytes # (Auto) 1.2 x10^3/uL (0.0-1.1) Eosinophils # (Auto) 0.0 x10^3/uL (0.0-0.7) Basophils # (Auto) 0.0 x10^3/uL (0.0-0.2) Segmented Neutrophils % 83 % (35-66) Lymphocytes % 5 % (24-48) Monocytes % 12 % (0-10) Platelet Estimate Adequate (ADEQUATE) Polychromasia Present Poikilocytosis Present Basophilic Stippling Present Anisocytosis Mod Schistocytes Few Sodium Level 135 mmol/L (136-145) Potassium Level 4.0 mmol/L (3.5-5.1) Chloride Level 95 mmol/L (98-107) Carbon Dioxide Level 40 mmol/L (21-32) Anion Gap 0 (6-14) Blood Urea Nitrogen 9 mg/dL (7-20) Creatinine 0.4 mg/dL (0.6-1.0) Estimated GFR (Cockcroft-Gault) 196.3 BUN/Creatinine Ratio 23 (6-20) Glucose Level 84 mg/dL (70-99) Calcium Level 8.3 mg/dL (8.5-10.1) Total Bilirubin 1.0 mg/dL (0.2-1.0) Aspartate Amino Transf (AST/SGOT) 56 U/L (15-37) Alanine Aminotransferase (ALT/SGPT) 39 U/L (14-59) Alkaline Phosphatase 88 U/L (46-116) Total Protein 5.7 g/dL (6.4-8.2) Albumin 1.7 g/dL (3.4-5.0) Albumin/Globulin Ratio 0.4 (1.0-1.7) Glucose (Fingerstick) 143 mg/dL (70-99) 105 mg/dL (70-99) Microbiology 02/18/18 Blood Culture - Final, Complete NO GROWTH AFTER 5 DAYS Medications Current Medications Iohexol (Omnipaque 300 Mg/ml) 75 ml 1X ONCE IV Last administered on at 23:00; Start 02/18/18 at 23:00; Stop 02/18/18 at 23:01; Status DC Info (CONTRAST GIVEN -- Rx MONITORING) 1 each PRN DAILY PRN MC SEE COMMENTS; Start 02/18/18 at 22:30; Stop 02/20/18 at 22:29; Status DC Furosemide (Lasix) 20 mg 1X ONCE IVP ; Start 02/19/18 at 01:30; Stop at 01:30; Status DC Furosemide (Lasix) 20 mg 1X ONCE IVP Last administered on 02/19/18at 05:51; Start 02/19/18 at 01:30; Stop 02/19/18 at 01:31; Status DC Influenza Virus Vaccine (Afluria Trivalent [id number] Syringe) 0.5 ml ONCE ONCE VAX IM Last administered on 02/19/18at 09:35; Start 02/19/18 at 09:00; Stop 02/19/18 at 09:01; Status DC Pantoprazole Sodium (PROTONIX VIAL for IV PUSH) 40 mg 1X ONCE IVP Last administered on 02/19/18at 09:33; Start 02/19/18 at 08:30; Stop 02/19/18 at 08 :32; Status DC Sodium Chloride 1,000 ml @ 100 mls/hr Q10H IV ; Start 02/19/18 at 08:45; Stop 02/19/18 at 09:41; Status DC Pantoprazole Sodium (PROTONIX VIAL for IV PUSH) 40 mg DAILYAC IVP Last administered on 02/23/18at 09:25; Start 02/19/18 at 11:30; Stop 02/23/18 at 11 :57; Status DC Amino Acids/ Glycerin/ Electrolytes 1,000 ml @ 75 mls/hr [id number] IV Last administered on 02/23/18at 05:02; Start 02/19/18 at 09:45; Stop 02/23/18 at 15 :11; Status DC Albuterol Sulfate (Ventolin Neb Soln) 2.5 mg RTQID NEB Last administered on at 12:03; Start 02/19/18 at 20:00 Albuterol Sulfate (Ventolin Neb Soln) 2.5 mg PRN Q2HR PRN NEB [id number]; Start 02/19/18 at 17:30 Methylprednisolone Sodium Succinate (SOLU-Medrol 125MG VIAL) 60 mg BID IV Last administered on 02/21/18at 09:20; Start 02/19/18 at 18:00; Stop 02/21/18 at 09 :29; Status DC Acetaminophen (Tylenol) 650 mg PRN Q6HRS PRN PO FEVER Last administered on 03/29at 22:52; Start 02/19/18 at 22:45 Potassium Chloride (Klor-Con) 40 meq 1X ONCE PO Last administered on at 11:15; Start 02/20/18 at 11:15; Stop 02/20/18 at 11:16; Status DC Ringer's Solution 1,000 ml @ 75 mls/hr [id number] IV ; Start 02/20/18 at 11:15; Stop 02/20/18 at 19:54; Status DC Propofol 20 ml @ As Directed STK-MED ONCE IV ; Start 02/20/18 at 11:51; Stop 02/20/18 at 11:52; Status DC Lidocaine HCl (Xylocaine-Mpf 2% Vial) 2 ml STK-MED ONCE .ROUTE ; Start at 11:52; Stop 02/20/18 at 11:53; Status DC Vitamin A/Vitamin D (Vitamin A & D Ointment) 1 sarah PRN Q1HR PRN TP SKIN PROTECTION Last administered on 02/24/18at 14:00; Start 02/20/18 at 15:00 Aspirin (Ecotrin) 81 mg DAILY PO Last administered on 02/25/18at 08:55; Start 02/20/18 at 16:00 Carvedilol (Coreg) 3.125 mg BIDWMEALS PO Last administered on 02/24/18at 08:48 ; Start 02/20/18 at 17:00; Stop 02/24/18 at 13:10; Status DC Furosemide (Lasix) 20 mg DAILY PO Last administered on 02/25/18at 08:56; Start 02/20/18 at 16:00 Potassium Chloride (Klor-Con) 10 meq [id number] PO Last administered on at 08:57; Start 02/21/18 at 08:00 Tamsulosin HCl (Flomax) 0.4 mg DAILY PO Last administered on 02/25/18at 08:56; Start 02/20/18 at 16:00 Non-Formulary Medication (Albuterol Sulfate (Proair Hfa Inhaler)) 8.5 puff PRN Q4-6HRS IH ; Start 02/20/18 at 15:30; Status UNV Budesonide (Pulmicort) 0.5 mg RTBID NEB Last administered on 02/25/18at 08:09; Start 02/20/18 at 20:00 Lisinopril (Prinivil) 5 mg DAILY PO Last administered on 02/24/18at 08:47; Start 02/20/18 at 16:00; Stop 02/24/18 at 13:11; Status DC Magnesium Chloride (Mag Delay) 64 mg BID PO Last administered on 02/25/18at 08: 55; Start 02/20/18 at 21:00 Methylprednisolone Sodium Succinate (SOLU-Medrol 40MG VIAL) 40 mg BID IV Last administered on 02/24/18at 08:48; Start 02/21/18 at 21:00; Stop 02/24/18 at 09 :56; Status DC Lorazepam (Ativan) 1 mg Q4HRS PRN IV Anxiety Last administered on 02/22/18at 08 :03; Start 02/22/18 at 07:45; Stop 02/22/18 at 13:46; Status DC Lorazepam (Ativan) 0.5 mg Q8HRS PRN IV Anxiety; Start 02/22/18 at 14:00; Stop 02/23/18 at 15:11; Status DC Doxycycline Hyclate (Vibra-Tab) 100 mg BID PO Last administered on 02/25/18at 08:56; Start 02/23/18 at 11:00 Lactobacillus Rhamnosus (Culturelle) 1 cap BID PO Last administered on at 08:54; Start 02/23/18 at 21:00 Pantoprazole Sodium (Protonix) 40 mg DAILYAC PO Last administered on at 08:56; Start 02/24/18 at 07:30 Sodium Chloride 1,000 ml @ 60 mls/hr [id number] IV Last administered on at 17:30; Start 02/23/18 at 15:15; Stop 02/24/18 at 10:16; Status DC Haloperidol Lactate (Haldol Inj) 1 mg PRN Q6HRS PRN IVP AGITATION; Start 02/23 at 15:15 Enoxaparin Sodium (Lovenox 40mg Syringe) 40 mg Q24H SQ ; Start 02/23/18 at 16: 00; Stop 02/24/18 at 10:23; Status DC Thiamine Mononitrate (Vitamin B-1) 100 mg DAILY PO Last administered on at 08:56; Start 02/23/18 at 21:00 Furosemide (Lasix) 40 mg 1X ONCE IVP Last administered on 02/24/18at 10:43; Start 02/24/18 at 09:45; Stop 02/24/18 at 09:47; Status DC Prednisone (Prednisone) 30 mg DAILY PO Last administered on 02/25/18at 08:55; Start 02/25/18 at 09:00 Ergocalciferol (Vitamin D2) 50,000 unit WEEKLY PO Last administered on at 11:59; Start 02/24/18 at 11:20 Levothyroxine Sodium (Synthroid) 100 mcg DAILY06 PO Last administered on at 06:20; Start 02/25/18 at 06:00 Magnesium Sulfate 50 ml @ 25 mls/hr 1X ONCE IV Last administered on at 11:58; Start 02/24/18 at 11:15; Stop 02/24/18 at 13:14; Status DC Magnesium Oxide (Magnesium Oxide) 400 mg DAILY PO Last administered on at 08:56; Start 02/25/18 at 09:00 Iron Sucrose 200 mg/Sodium Chloride 110 ml @ 55 mls/hr DAILY IV Last administered on 02/25/18at 08:53; Start 02/24/18 at 11:30; Stop 02/28/18 at 10 :00 Carvedilol (Coreg) 6.25 mg BIDWMEALS PO Last administered on 02/25/18at 08:56; Start 02/24/18 at 17:00 Lisinopril (Prinivil) 10 mg DAILY PO Last administered on 02/25/18at 08:55; Start 02/25/18 at 09:00 Ergocalciferol (Vitamin D2) 50,000 unit WEEKLY PO ; Start 02/25/18 at 09:00; Status UNV Sodium Chloride 1,000 ml @ 60 mls/hr [id number] IV ; Start 02/25/18 at 10:45 Active Scripts Active Reported Carvedilol 3.125 Mg Tablet 1 Tab PO BID Tamsulosin Hcl 0.4 Mg Cap.er.24h 1 Cap PO DAILY Advair 250-50 Diskus (Fluticasone/Salmeterol) 1 Each Disk.w.dev 1 Puff IH BID Potassium Chloride 10 Meq Capsule.er 1 Cap PO DAILY Furosemide 20 Mg Tablet 20 Mg PO DAILY Slow-Mag (Magnesium Chloride) 71.5 Mg Tablet. 71.5 Mg PO BID Proair Hfa Inhaler (Albuterol Sulfate) 8.5 Gm Hfa.aer.ad 8.5 Puff IH PRN Q4- 6HRS Aspir 81 (Aspirin) 81 Mg Tablet. 1 Tab PO DAILY Lisinopril 5 Mg Tablet 5 Mg PO DAILY Vitals/I & O Vital Sign - Last 24 Hours 02/24/18 02/24/18 02/24/18 02/24/18 15:30 15:42 17:27 19:52 Temp 98.4 97.9 98.4 97.9 Pulse 94 94 76 Resp 18 16 B/P (MAP) 114/75 (88) 114/75 139/43 (75) Pulse Ox 92 94 99 O2 Delivery Nasal Cannula Nasal Cannula Nasal Cannula O2 Flow Rate 4.0 4.0 2.0 02/24/18 02/24/18 02/24/18 02/25/18 20:00 20:14 23:52 03:00 Temp 98.1 98.1 98.1 98.1 Pulse 88 87 Resp 16 16 B/P (MAP) 120/77 (91) 132/82 (99) Pulse Ox 94 94 96 O2 Delivery Nasal Cannula Nasal Cannula Nasal Cannula Nasal Cannula O2 Flow Rate 4.0 4.0 2.0 2.0 02/25/18 02/25/18 02/25/18 02/25/18 07:00 08:10 08:55 08:56 Temp 98.0 98.0 Pulse 108 108 108 Resp 18 B/P (MAP) 149/96 (113) 149/96 149/96 Pulse Ox 75 88 O2 Delivery Room Air Nasal Cannula O2 Flow Rate 4.0 02/25/18 02/25/18 11:00 12:03 Temp 98.0 98.0 Pulse 96 Resp 18 B/P (MAP) 113/68 (83) Pulse Ox 88 94 O2 Delivery Room Air Nasal Cannula O2 Flow Rate 4.0 Intake and Output 02/24/18 02/24/18 02/25/18 15:00 23:00 07:00 Intake Total 120 ml 150 ml Output Total 1800 ml 1000 ml Balance -1680 ml -850 ml CANDACE VALENTINE MD Feb 25, 2018 12:50
--- NOTE | 2018-02-25 13:38 | PDOC2 ---
CARDIAC CONSULT DATE OF CONSULT Date of Consult DATE: 02/25/18 TIME: 13:19 REASON FOR CONSULT Reason for Consult: Abnormal echo REFERRING PHYSICIAN Referring Physician: Joana SOURCE Source: Chart review, Patient HISTORY OF PRESENT ILLNESS HISTORY OF PRESENT ILLNESS This is a 62 yo AA female admitted for progressive weakness and leg swelling. She has been refusing rehab therapy and does not want to got to SNU or rehab facility. Her mobility has been limited and was noted to be in the car for 2 days sitting in her feces and urine. She was seen last in our office in 2015 and although her EF has improved to when she was noted prior at 20% her health appears to have been steadily declining with continued alcoholism noting that she drinks about a cup of whiskey daily. Her leg swelling has improved and it is unclear if she has been compliant with her medications. She has severe valvular regurgitation, COPD and pulmonary HTN which are all unchanged from her previous imaging. She denies any chest pain, recent falls or syncope. Currently she is compensated denying any SOA. PAST MEDICAL HISTORY Cardiovascular: CAD (mild CAD vian [facility] 2014), CHF (NICM past EF 20% now at 55%) , HTN, Valve insufficiency (severe MR and TR) Pulmonary: COPD, Pneumonia, Other (severe pulmonary HTN) CENTRAL NERVOUS SYSTEM: Periperal neuropathy GI: GERD, GI bleed Heme/Onc: Anemia NOS (Fe def) Psych: No pertinent hx, Other (hx of heavy alcoholism) Musculoskeletal: Osteoarthritis Rheumatologic: No pertinent hx Infectious disease: No pertinent hx ENT: Allergic Rhinitis Renal/: No pertinent hx Endocrine: Hypothyroidism Dermatology: No pertinent hx PAST SURGICAL HISTORY Past Surgical History: Tonsillectomy, Other ([facility]) SOCIAL HISTORY Smoke: <1 pack per day ALCOHOL: heavy Drugs: None Lives: Alone (?) CURRENT MEDICATIONS CURRENT MEDICATIONS Current Medications Medications (Trade) Dose Ordered Sig/Nu Route PRN Reason Start Time Stop Time Status Last Admin Dose Admin Prednisone (Prednisone) 30 mg DAILY PO 02/25/18 09:00 02/25/18 08:55 Levothyroxine Sodium (Synthroid) 100 mcg DAILY06 PO 02/25/18 06:00 02/25/18 06:20 Magnesium Oxide (Magnesium Oxide) 400 mg DAILY PO 02/25/18 09:00 02/25/18 08:56 Carvedilol (Coreg) 6.25 mg BIDWMEALS PO 02/24/18 17:00 02/25/18 08:56 Lisinopril (Prinivil) 10 mg DAILY PO 02/25/18 09:00 02/25/18 08:55 ALLERGIES ALLERGIES: Coded Allergies: naproxen (Verified Allergy, Intermediate, 02/20/18) ROS Review of System limited, poor recollection PHYSICAL EXAM General: Alert, Cooperative, No acute distress HEENT: Atraumatic, Mucous membr. moist/pink Lungs: Other (diminished with basilar crackles) Heart: Regular rate (SR), Other (4-5/6 diffuse sytolic murmur ) Abdomen: Soft, No tenderness Extremities: No cyanosis, Other (trace to 1+ bilateral LE pitting edema) Skin: No breakdown, No significant lesion Neuro: Normal speech, Sensation intact Psych/Mental Status: Mental status NL, Other (flat affect) MUSCULOSKELETAL: Osteoarthritic changes both hands VITALS VITALS Vital Signs Date Time Temp Pulse Resp B/P (MAP) Pulse Ox O2 Delivery O2 Flow Rate FiO2 02/25/18 12:54 93 8 134/76 (95) 92 Nasal Cannula 4.0 02/25/18 11:00 98.0 98.0 LABS Lab: Laboratory Tests Test 02/24/18 15:40 02/25/18 05:40 02/25/18 07:53 02/25/18 11:19 Ammonia 13 mcmol/L (11-34) White Blood Count 6.8 x10^3/uL (4.0-11.0) Red Blood Count 3.91 x10^6/uL (3.50-5.40) Hemoglobin 9.9 g/dL (12.0-15.5) Hematocrit 31.5 % (36.0-47.0) Mean Corpuscular Volume 81 fL (79-100) Mean Corpuscular Hemoglobin 25 pg (25-35) Mean Corpuscular Hemoglobin Concent 32 g/dL (31-37) Red Cell Distribution Width 24.1 % (11.5-14.5) Platelet Count 157 x10^3/uL (140-400) Neutrophils (%) (Auto) 71 % (31-73) Lymphocytes (%) (Auto) 10 % (24-48) Monocytes (%) (Auto) 18 % (0-9) Eosinophils (%) (Auto) 0 % (0-3) Basophils (%) (Auto) 0 % (0-3) Neutrophils # (Auto) 4.8 x10^3uL (1.8-7.7) Lymphocytes # (Auto) 0.7 x10^3/uL (1.0-4.8) Monocytes # (Auto) 1.2 x10^3/uL (0.0-1.1) Eosinophils # (Auto) 0.0 x10^3/uL (0.0-0.7) Basophils # (Auto) 0.0 x10^3/uL (0.0-0.2) Segmented Neutrophils % 83 % (35-66) Lymphocytes % 5 % (24-48) Monocytes % 12 % (0-10) Platelet Estimate Adequate (ADEQUATE) Polychromasia Present Poikilocytosis Present Basophilic Stippling Present Anisocytosis Mod Schistocytes Few Sodium Level 135 mmol/L (136-145) Potassium Level 4.0 mmol/L (3.5-5.1) Chloride Level 95 mmol/L (98-107) Carbon Dioxide Level 40 mmol/L (21-32) Anion Gap 0 (6-14) Blood Urea Nitrogen 9 mg/dL (7-20) Creatinine 0.4 mg/dL (0.6-1.0) Estimated GFR (Cockcroft-Gault) 196.3 BUN/Creatinine Ratio 23 (6-20) Glucose Level 84 mg/dL (70-99) Calcium Level 8.3 mg/dL (8.5-10.1) Total Bilirubin 1.0 mg/dL (0.2-1.0) Aspartate Amino Transf (AST/SGOT) 56 U/L (15-37) Alanine Aminotransferase (ALT/SGPT) 39 U/L (14-59) Alkaline Phosphatase 88 U/L (46-116) Total Protein 5.7 g/dL (6.4-8.2) Albumin 1.7 g/dL (3.4-5.0) Albumin/Globulin Ratio 0.4 (1.0-1.7) Glucose (Fingerstick) 143 mg/dL (70-99) 105 mg/dL (70-99) ECHOCARDIOGRAM ECHOCARDIOGRAM <Conclusion> The left ventricular systolic function is normal and the ejection fraction is within normal range. The Ejection Fraction is 55-60%. There is a flattened septum consistent with right ventricle pressure overload. The right ventricle is severely dilated. RV systolic function is mildly reduced. Atrial septal aneurysm. Doppler and Color-flow revealed moderate mitral regurgitation. Doppler and Color Flow revealed severe/torrential tricuspid regurgitation. There is severe pulmonary hypertension. The PA pressure was estimated at 73 mmHg. There is moderate left pleural effusion. DATE: 02/24/18 1638 HEART CATH HEART CATH Findings. Aortic root pressure of 122/70. Coronaries. Left Main. The left main had no lesions. Left anterior descending. The LAD was a moderate size vessel with normal distribution. It had no lesions. Left circumflex. The left circumflex was a small nondominant vessel with proximal 10-15% lesion. Right coronary artery. The right coronary was a moderate size dominant vessel. It had no lesions. <Conclusion> Minimum coronary artery disease with a 10-15% lesion in the left circumflex vessel. DATE: 09/21/14 1049 ASSESSMENT/PLAN ASSESSMENT/PLAN 1. FTT/Cachexia/protein malnutrition/weakness 2. Abnormal TTE: these changes are known as noted below. 3. Acute on chronic respiratory failure: multifactorial as noted below 4. AECOPD with associated PNA/pleural effusion: post thoracentesis 5. Secondary severe pulmonary HTN/cor pulmonale 6. Valvular insufficiency: Severe TR/moderate MR 7. GI bleed: initial Hgb 4.9 post transfusion, currently 9.9 slowly decreasing. S/P EGD with gastritis. GI following 8. Acute on chronic diastolic CHF; compensated 9. Hx of NICM with mild CAD: past EF 20% with significant improvement to 55% 10. HTN: controlled 11. Alcoholism: 1 cup of whiskey daily per pt 12. Tobaccoism 13. ETOH Dementia Recommendations 1. Although her EF has significantly improved, she is a poor candidate for any valvular surgery given her continued ETOH use, FTT, and severe pulmonary issues and noncompliance, 2. Continue with current regimen. Would be cautious in regards to diurese given the unpredictability of her PO intake. 3. Has refused rehab. Poor buttermilk drier operator prognosis. Recommend palliative care to address goals of care. Secondary prevention. No further cardiac recommendation. 4. ETOH withdrawal protocol per PCP. ETOH and smoking cessation RE WALLIS STEREOPLOTTER OPERATOR Feb 25, 2018 13:38
--- NOTE | 2018-02-25 15:29 | PDOC ---
PROGRESS NOTES Assessment Assessment Confusion. Metabolic encephalopathy. Toxic encephalopathy. Alcohol intoxication, ETOH 16. CHF. Anemia. GI bleeding. Vit D deficiency, severe. LE peripheral neuropathy. RECOMMENDATIONS/PLAN: Vit B1 100 mg daily. Vit D2 50,000 units weekly. Calcium supplement. Treat medical diseases. EEG, unable to perform on her due to patched hair from hygiene issues. Alcohol abstinence. Lab: see orders. OT/PT. HISTORY OF THE PRESENT ILLNESS: 62-y-old female patient with above medical diseases and alcohol intoxication for admission. She has mental status changes and confusion, so neurology was requested for consultation. PMH: HTN, COPD, allergic rhinitis, tonsillectomy FH: Unknown. Social History: Smoke: <1 pack per day ALCOHOL: other (+ on screen, can't quantify) PAST SURGERY HISTORY: No major surgery recently. ALLERGY: Unknown MEDICATIONS: Refer to MAR REVIEW OF SYSTEMS: Constitutional: No malnutrition, weight loss, cachexia. Head: No traumatic brain or head injury. Skin: No edema, or rash. Ear: No infection. Eyes: No vision loss or color blindness. Nose: No bleeding or purulent discharges. Hearing: No hearing decrease. Neck: No injury. Breast: No history of cancer, masses,or discharges. Cardiac: CHF.. Pulmonary: COPD. GI:GI bleeding. Urinary/genital: UTI. Endocrinologic: No cousin face, craniofacial dysmorphism, polydactyly, goiter. Skeletomuscular: No muscular atrophy, deformity. Neurological: see HP. Psychiatric: Denies drug use/abuse. Otherwise, not [id number] review of systems. PHYSICAL EXAMINATION: General appearance is in no acute distress. HEENT: Normocephalic and nontraumatic. Eyes, nose, ears, and throat are unremarkable. Neck is supple. No lymphadenopathy. No crepitus. Cardiovascular: S1, S2, regular rate and rhythm. Pulmonary: Clear to auscultation bilaterally. Abdomen: Bowel sounds are positive. Abdomen is soft, nontender, and nondistended. Extremities: No rash, lesions, or edema. No restriction of range of motion NEUROLOGICAL EXAMINATION: Awake. Not oriented to time, but knew place and person. PERRL. EOMI. CN: no focal findings. Muscle tone: within normal. Muscle strength: 4 DTR: 2- UE, 1 at knee. Plantar reflex: Flexor response bilaterally Gait: not examined in bed. Sensory exam: no abnormal findings. No cerebellar signs elicited. F-T-N test fine. Objective Objective Vital Signs Date Time Temp Pulse Resp B/P (MAP) Pulse Ox O2 Delivery O2 Flow Rate FiO2 02/25/18 15:13 91 Nasal Cannula 3.0 02/25/18 12:54 93 8 134/76 (95) 02/25/18 11:00 98.0 98.0 Intake and Output 02/25/18 07:00 Intake Total 270 ml Output Total 2800 ml Balance -2530 ml Intake Oral 270 ml Output Urine Total 2800 ml Vitals Signs Vitals VS - Last 72 Hours, by Label Date Time Temp Pulse Resp B/P (MAP) Pulse Ox O2 Delivery O2 Flow Rate FiO2 02/25/18 15:13 91 Nasal Cannula 3.0 02/25/18 12:54 93 8 134/76 (95) 92 Nasal Cannula 4.0 02/25/18 12:45 91 20 127/65 (85) 92 Nasal Cannula 4.0 02/25/18 12:03 94 Nasal Cannula 4.0 02/25/18 11:00 98.0 96 18 113/68 (83) 88 Room Air 98.0 02/25/18 08:56 108 149/96 02/25/18 08:55 108 149/96 02/25/18 08:10 88 Nasal Cannula 4.0 02/25/18 08:00 Nasal Cannula 4.0 02/25/18 07:00 98.0 108 18 149/96 (113) 75 Room Air 98.0 02/25/18 03:00 98.1 87 16 132/82 (99) 96 Nasal Cannula 2.0 98.1 02/24/18 23:52 98.1 88 16 120/77 (91) 94 Nasal Cannula 2.0 98.1 02/24/18 20:14 94 Nasal Cannula 4.0 02/24/18 20:00 Nasal Cannula 4.0 02/24/18 19:52 97.9 76 16 139/43 (75) 99 Nasal Cannula 2.0 97.9 02/24/18 17:27 94 114/75 02/24/18 15:42 94 Nasal Cannula 4.0 02/24/18 15:30 98.4 94 18 114/75 (88) 92 Nasal Cannula 4.0 98.4 02/24/18 11:47 Nasal Cannula 4.0 02/24/18 11:30 98.0 114 18 146/101 (116) 92 Nasal Cannula 4.0 98.0 02/24/18 08:48 116 147/107 02/24/18 08:47 116 147/107 02/24/18 08:01 96 Nasal Cannula 4.0 02/24/18 08:00 Nasal Cannula 4.0 02/24/18 07:00 98.0 116 18 147/107 (120) 89 Nasal Cannula 4.0 98.0 Laboratory Laboratory Laboratory Tests Test 02/24/18 15:40 02/25/18 05:40 02/25/18 07:53 02/25/18 11:19 Ammonia 13 mcmol/L (11-34) White Blood Count 6.8 x10^3/uL (4.0-11.0) Red Blood Count 3.91 x10^6/uL (3.50-5.40) Hemoglobin 9.9 g/dL (12.0-15.5) Hematocrit 31.5 % (36.0-47.0) Mean Corpuscular Volume 81 fL (79-100) Mean Corpuscular Hemoglobin 25 pg (25-35) Mean Corpuscular Hemoglobin Concent 32 g/dL (31-37) Red Cell Distribution Width 24.1 % (11.5-14.5) Platelet Count 157 x10^3/uL (140-400) Neutrophils (%) (Auto) 71 % (31-73) Lymphocytes (%) (Auto) 10 % (24-48) Monocytes (%) (Auto) 18 % (0-9) Eosinophils (%) (Auto) 0 % (0-3) Basophils (%) (Auto) 0 % (0-3) Neutrophils # (Auto) 4.8 x10^3uL (1.8-7.7) Lymphocytes # (Auto) 0.7 x10^3/uL (1.0-4.8) Monocytes # (Auto) 1.2 x10^3/uL (0.0-1.1) Eosinophils # (Auto) 0.0 x10^3/uL (0.0-0.7) Basophils # (Auto) 0.0 x10^3/uL (0.0-0.2) Segmented Neutrophils % 83 % (35-66) Lymphocytes % 5 % (24-48) Monocytes % 12 % (0-10) Platelet Estimate Adequate (ADEQUATE) Polychromasia Present Poikilocytosis Present Basophilic Stippling Present Anisocytosis Mod Schistocytes Few Sodium Level 135 mmol/L (136-145) Potassium Level 4.0 mmol/L (3.5-5.1) Chloride Level 95 mmol/L (98-107) Carbon Dioxide Level 40 mmol/L (21-32) Anion Gap 0 (6-14) Blood Urea Nitrogen 9 mg/dL (7-20) Creatinine 0.4 mg/dL (0.6-1.0) Estimated GFR (Cockcroft-Gault) 196.3 BUN/Creatinine Ratio 23 (6-20) Glucose Level 84 mg/dL (70-99) Calcium Level 8.3 mg/dL (8.5-10.1) Total Bilirubin 1.0 mg/dL (0.2-1.0) Aspartate Amino Transf (AST/SGOT) 56 U/L (15-37) Alanine Aminotransferase (ALT/SGPT) 39 U/L (14-59) Alkaline Phosphatase 88 U/L (46-116) Total Protein 5.7 g/dL (6.4-8.2) Albumin 1.7 g/dL (3.4-5.0) Albumin/Globulin Ratio 0.4 (1.0-1.7) Glucose (Fingerstick) 143 mg/dL (70-99) 105 mg/dL (70-99) Microbiology 02/18/18 Blood Culture - Final, Complete NO GROWTH AFTER 5 DAYS Medication Medications Current Medications Calcium Carbonate/ Glycine (Oscal) 500 mg BID PO ; Start 02/25/18 at 16:00; Status UNV Carvedilol (Coreg) 6.25 mg BIDWMEALS PO Last administered on 02/25/18at 08:56; Start 02/24/18 at 17:00 Ergocalciferol (Vitamin D2) 50,000 unit WEEKLY PO ; Start 02/25/18 at 09:00; Status UNV Ergocalciferol (Vitamin D2) 50,000 unit WEEKLY PO ; Start 02/25/18 at 16:00; Status UNV Levothyroxine Sodium (Synthroid) 100 mcg DAILY06 PO Last administered on at 06:20; Start 02/25/18 at 06:00 Lisinopril (Prinivil) 10 mg DAILY PO Last administered on 02/25/18at 08:55; Start 02/25/18 at 09:00 Magnesium Oxide (Magnesium Oxide) 400 mg DAILY PO Last administered on at 08:56; Start 02/25/18 at 09:00 Prednisone (Prednisone) 30 mg DAILY PO Last administered on 02/25/18at 08:55; Start 02/25/18 at 09:00 Sodium Chloride 1,000 ml @ 60 mls/hr [id number] IV ; Start 02/25/18 at 10:45 Comment Review of Relevant I have reviewed the following items yao (where applicable) has been applied. KAE QUARLES MD Feb 25, 2018 15:29
--- NOTE | 2018-02-25 15:40 | RAD ---
Examination: Single frontal view of the chest HISTORY: History of post thoracentesis COMPARISON: 02/24/2018 FINDINGS: Low lung volumes and technique accentuates heart size and pulmonary vascularity. Left-sided PICC line is unchanged. Interval decrease in left-sided pleural effusion likely postthoracentesis. Residual small bilateral pleural effusions are identified.. Moderate prominent appearing bilateral interstitial lung markings likely congestive changes. Bibasilar lung airspace opacities likely atelectasis or infiltrates.No evidence of pneumothorax identified. IMPRESSION: 1. Interval decrease in left-sided pleural effusion likely postthoracentesis.The bilateral pleural effusions identified with bibasilar lung airspace opacities likely atelectasis or infiltrates. 2. Moderate congestive changes. 3. No evidence of pneumothorax. Electronically signed by: Nino Riggs MD (02/25/2018 3:37 PM) [id number]
--- NOTE | 2018-02-25 16:23 | CARD ---
MR#: [id number] Date of Study: 02/25/2018 Ordering Physician: KEVIN HALEY, Referring Physician: CHADWICK COTTRELL, Tech: Jeannette Bob APPROVED REPORT EXAM: Two-dimensional and M-mode echocardiogram with Doppler and color Doppler. Other Information Quality : ExcellentHR: 96bpm Rhythm : NSR INDICATION Bubble Study Echo Enhancing Agent Indication: Rule Out Septal Defect Agent/Amount Used: Agitated Saline 8mL ATRIA Injection of bubbles documented an interatrial shunt. Interatrial septum aneurysmal. GREAT VESSELS na PERICARDIAL EFFUSION There is no evidence of significant pericardial effusion. Critical Notification Critical Value: No <Conclusion> Limited echo with bubble study. Aneurysmal interatrial septum with bubble study positive for interatrial shunt. Signed by : Matthew Phillip, Electronically Approved : 02/25/2018 16:22:37
[2018-02-25] MEDS: IV NORMAL SALINE 1000ML BAG 1,000 ML IV SCH (17:43)
[2018-02-25] MEDS: CALCIUM CARBONATE 500 MG TABLET PO SCH (21:48)
[2018-02-26 03:00] VITALS: BP 122/83
[2018-02-26] MEDS: IV NORMAL SALINE 1000ML BAG 1,000 ML IV SCH (05:52)
[2018-02-26] MEDS: LEVOTHYROXINE 100 MCG TABLET PO SCH (05:53)
[2018-02-26 06:10] LABS: BASO % 0 % (0-3); EOS % 1 % (0-3); HEMATOCRIT 30.9 % (36.0-47.0); HEMOGLOBIN 9.9 g/dL (12.0-15.5); LYMPH # 0.4 x10^3/uL (1.0-4.8); LYMPH % 6 % (24-48); MEAN CORPUSCULAR HEMOGLOBIN 26 pg (25-35); MEAN CORPUSCULAR HGB CONC 32 g/dL (31-37); MEAN CORPUSCULAR VOLUME 81 fL (79-100); MONO # 0.9 x10^3/uL (0.0-1.1); MONO % 16 % (0-9); NEUT # 4.4 x10^3uL (1.8-7.7); NEUT % 77 % (31-73); PLATELET COUNT 153 x10^3/uL (140-400); RED BLOOD COUNT 3.84 x10^6/uL (3.50-5.40); WHITE BLOOD COUNT 5.7 x10^3/uL (4.0-11.0)
[2018-02-26 06:41] LABS: ALBUMIN 1.6 g/dL (3.4-5.0); ALBUMIN/GLOBULIN RATIO 0.4 (1.0-1.7); CREATININE 0.4 mg/dL (0.6-1.0); GFR 196.3; POTASSIUM 3.7 mmol/L (3.5-5.1); TOTAL BILIRUBIN 0.9 mg/dL (0.2-1.0); TOTAL PROTEIN 5.6 g/dL (6.4-8.2)
[2018-02-26 07:15] VITALS: BP 119/78
[2018-02-26] MEDS: TAMSULOSIN 0.4 MG CAP.ER.24H. PO SCH (08:29)
[2018-02-26] MEDS: LISINOPRIL 10 MG TABLET PO SCH (08:30)
[2018-02-26] MEDS: THIAMINE 100 MG TABLET. PO SCH (08:30)
[2018-02-26] MEDS: LACTOBACILLUS RHAMNOSUS GG 1 CAPSULE. PO SCH ×2 (08:30→21:38)
[2018-02-26] MEDS: PANTOPRAZOLE 40 MG TABLET.DR. PO SCH (08:30)
[2018-02-26] MEDS: MAGNESIUM OXIDE 400 MG TABLET PO SCH (08:30)
[2018-02-26] MEDS: MAGNESIUM CHLORIDE ER 64 MG TABLET.ER PO SCH ×2 (08:30→21:37)
[2018-02-26] MEDS: CALCIUM CARBONATE 500 MG TABLET PO SCH ×2 (08:30→21:37)
[2018-02-26] MEDS: DOXYCYCLINE HYCLATE 100 MG TABLET PO SCH ×2 (08:30→21:37)
[2018-02-26] MEDS: POTASSIUM CHLORIDE 10 MEQ TABLET.ER. PO SCH (08:31)
[2018-02-26] MEDS: predniSONE 10 MG TABLET PO SCH (08:31)
[2018-02-26] MEDS: FUROSEMIDE 20 MG TABLET PO SCH (08:32)
[2018-02-26] MEDS: CARVEDILOL 6.25 MG TABLET. PO SCH ×2 (08:32→16:57)
[2018-02-26] MEDS: ASPIRIN ENTERIC COATED 81 MG TABLET.DR. PO SCH (08:32)
[2018-02-26] MEDS: BUDESONIDE 0.5 MG/2 ML NEBU. NEB SCH ×2 (08:41→20:32)
[2018-02-26] MEDS: ALBUTEROL SULFATE 2.5 MG/3 ML NEBU. NEB SCH ×4 (08:41→20:32)
[2018-02-26] MEDS: IRON SUCROSE COMPLEX 200 MG in IV NORMAL SALINE 100ML 100 ML IV SCH (09:32)
[2018-02-26] MEDS ORDERED: BARIUM SULFATE 40% (APPLE) 148 GM PWD. PO ONE (10:30)
[2018-02-26 11:02] VITALS: BP 107/72
--- NOTE | 2018-02-26 11:34 | RAD ---
Ultrasound Guided Thoracentesis, left side Indication: 52-year-old with left pleural effusion Sedation: Local anesthesia only Sterility: The procedure was performed in its entirety using appropriate elements of sterile technique. Technique and Findings: Following informed consent, the patient was prepped and draped in the usual sterile fashion. Ultrasound interrogation of the area of interest was performed revealing the presence of a pleural fluid collection. 1% Lidocaine was used to achieve local anesthesia over the area of interest. A small dermatotomy was made and a 5F [id number] catheter was advanced under ultrasound guidance into the pleural space ids485 cc's of thin yellow fluid was removed. The catheter was then removed and hemostasis was achieved with manual compression. Impression: US thoracentesis as described.
--- NOTE | 2018-02-26 12:42 | PDOC ---
PULMONARY PROGRESS NOTES Subjective less coughing no increase soa s/p left thoracentesis 02/25 Vitals Vital Signs Date Time Temp Pulse Resp B/P (MAP) Pulse Ox O2 Delivery O2 Flow Rate FiO2 02/26/18 11:54 Nasal Cannula 3.0 02/26/18 11:02 98.5 87 18 107/72 (84) 93 98.5 ROS: No Nausea, No Chest Pain, No Increase Cough General: Alert, No acute distress HEENT: Other (nc at perrl ) Lungs: Other (decrease bs) Cardiovascular: S1, S2 Abdomen: Soft, Non-tender Neuro Exam: Alert Extremities: No Edema Skin: Warm Labs Laboratory Tests Test 02/24/18 15:40 02/25/18 05:40 02/25/18 07:53 02/25/18 11:19 Ammonia 13 mcmol/L (11-34) White Blood Count 6.8 x10^3/uL (4.0-11.0) Red Blood Count 3.91 x10^6/uL (3.50-5.40) Hemoglobin 9.9 g/dL (12.0-15.5) Hematocrit 31.5 % (36.0-47.0) Mean Corpuscular Volume 81 fL (79-100) Mean Corpuscular Hemoglobin 25 pg (25-35) Mean Corpuscular Hemoglobin Concent 32 g/dL (31-37) Red Cell Distribution Width 24.1 % (11.5-14.5) Platelet Count 157 x10^3/uL (140-400) Neutrophils (%) (Auto) 71 % (31-73) Lymphocytes (%) (Auto) 10 % (24-48) Monocytes (%) (Auto) 18 % (0-9) Eosinophils (%) (Auto) 0 % (0-3) Basophils (%) (Auto) 0 % (0-3) Neutrophils # (Auto) 4.8 x10^3uL (1.8-7.7) Lymphocytes # (Auto) 0.7 x10^3/uL (1.0-4.8) Monocytes # (Auto) 1.2 x10^3/uL (0.0-1.1) Eosinophils # (Auto) 0.0 x10^3/uL (0.0-0.7) Basophils # (Auto) 0.0 x10^3/uL (0.0-0.2) Segmented Neutrophils % 83 % (35-66) Lymphocytes % 5 % (24-48) Monocytes % 12 % (0-10) Platelet Estimate Adequate (ADEQUATE) Polychromasia Present Poikilocytosis Present Basophilic Stippling Present Anisocytosis Mod Schistocytes Few Sodium Level 135 mmol/L (136-145) Potassium Level 4.0 mmol/L (3.5-5.1) Chloride Level 95 mmol/L (98-107) Carbon Dioxide Level 40 mmol/L (21-32) Anion Gap 0 (6-14) Blood Urea Nitrogen 9 mg/dL (7-20) Creatinine 0.4 mg/dL (0.6-1.0) Estimated GFR (Cockcroft-Gault) 196.3 BUN/Creatinine Ratio 23 (6-20) Glucose Level 84 mg/dL (70-99) Calcium Level 8.3 mg/dL (8.5-10.1) Total Bilirubin 1.0 mg/dL (0.2-1.0) Aspartate Amino Transf (AST/SGOT) 56 U/L (15-37) Alanine Aminotransferase (ALT/SGPT) 39 U/L (14-59) Alkaline Phosphatase 88 U/L (46-116) Creatine Kinase 17 U/L (26-192) Total Protein 5.7 g/dL (6.4-8.2) Albumin 1.7 g/dL (3.4-5.0) Albumin/Globulin Ratio 0.4 (1.0-1.7) Glucose (Fingerstick) 143 mg/dL (70-99) 105 mg/dL (70-99) Test 02/25/18 12:50 02/25/18 16:35 02/25/18 21:27 02/26/18 06:00 Body Fluid Total Protein 1.7 g/dL (.) Body Fluid Lactate Dehydrogenase 124 IU/L (.) Glucose (Fingerstick) 117 mg/dL (70-99) 130 mg/dL (70-99) White Blood Count 5.7 x10^3/uL (4.0-11.0) Red Blood Count 3.84 x10^6/uL (3.50-5.40) Hemoglobin 9.9 g/dL (12.0-15.5) Hematocrit 30.9 % (36.0-47.0) Mean Corpuscular Volume 81 fL (79-100) Mean Corpuscular Hemoglobin 26 pg (25-35) Mean Corpuscular Hemoglobin Concent 32 g/dL (31-37) Red Cell Distribution Width 24.0 % (11.5-14.5) Platelet Count 153 x10^3/uL (140-400) Neutrophils (%) (Auto) 77 % (31-73) Lymphocytes (%) (Auto) 6 % (24-48) Monocytes (%) (Auto) 16 % (0-9) Eosinophils (%) (Auto) 1 % (0-3) Basophils (%) (Auto) 0 % (0-3) Neutrophils # (Auto) 4.4 x10^3uL (1.8-7.7) Lymphocytes # (Auto) 0.4 x10^3/uL (1.0-4.8) Monocytes # (Auto) 0.9 x10^3/uL (0.0-1.1) Eosinophils # (Auto) 0.0 x10^3/uL (0.0-0.7) Basophils # (Auto) 0.0 x10^3/uL (0.0-0.2) Sodium Level 140 mmol/L (136-145) Potassium Level 3.7 mmol/L (3.5-5.1) Chloride Level 100 mmol/L (98-107) Carbon Dioxide Level 40 mmol/L (21-32) Anion Gap 0 (6-14) Blood Urea Nitrogen 5 mg/dL (7-20) Creatinine 0.4 mg/dL (0.6-1.0) Estimated GFR (Cockcroft-Gault) 196.3 BUN/Creatinine Ratio 13 (6-20) Glucose Level 90 mg/dL (70-99) Calcium Level 8.0 mg/dL (8.5-10.1) Total Bilirubin 0.9 mg/dL (0.2-1.0) Aspartate Amino Transf (AST/SGOT) 37 U/L (15-37) Alanine Aminotransferase (ALT/SGPT) 30 U/L (14-59) Alkaline Phosphatase 87 U/L (46-116) Total Protein 5.6 g/dL (6.4-8.2) Albumin 1.6 g/dL (3.4-5.0) Albumin/Globulin Ratio 0.4 (1.0-1.7) Laboratory Tests Test 02/25/18 12:50 02/25/18 16:35 02/25/18 21:27 02/26/18 06:00 Body Fluid Total Protein 1.7 g/dL (.) Body Fluid Lactate Dehydrogenase 124 IU/L (.) Glucose (Fingerstick) 117 mg/dL (70-99) 130 mg/dL (70-99) White Blood Count 5.7 x10^3/uL (4.0-11.0) Red Blood Count 3.84 x10^6/uL (3.50-5.40) Hemoglobin 9.9 g/dL (12.0-15.5) Hematocrit 30.9 % (36.0-47.0) Mean Corpuscular Volume 81 fL (79-100) Mean Corpuscular Hemoglobin 26 pg (25-35) Mean Corpuscular Hemoglobin Concent 32 g/dL (31-37) Red Cell Distribution Width 24.0 % (11.5-14.5) Platelet Count 153 x10^3/uL (140-400) Neutrophils (%) (Auto) 77 % (31-73) Lymphocytes (%) (Auto) 6 % (24-48) Monocytes (%) (Auto) 16 % (0-9) Eosinophils (%) (Auto) 1 % (0-3) Basophils (%) (Auto) 0 % (0-3) Neutrophils # (Auto) 4.4 x10^3uL (1.8-7.7) Lymphocytes # (Auto) 0.4 x10^3/uL (1.0-4.8) Monocytes # (Auto) 0.9 x10^3/uL (0.0-1.1) Eosinophils # (Auto) 0.0 x10^3/uL (0.0-0.7) Basophils # (Auto) 0.0 x10^3/uL (0.0-0.2) Sodium Level 140 mmol/L (136-145) Potassium Level 3.7 mmol/L (3.5-5.1) Chloride Level 100 mmol/L (98-107) Carbon Dioxide Level 40 mmol/L (21-32) Anion Gap 0 (6-14) Blood Urea Nitrogen 5 mg/dL (7-20) Creatinine 0.4 mg/dL (0.6-1.0) Estimated GFR (Cockcroft-Gault) 196.3 BUN/Creatinine Ratio 13 (6-20) Glucose Level 90 mg/dL (70-99) Calcium Level 8.0 mg/dL (8.5-10.1) Total Bilirubin 0.9 mg/dL (0.2-1.0) Aspartate Amino Transf (AST/SGOT) 37 U/L (15-37) Alanine Aminotransferase (ALT/SGPT) 30 U/L (14-59) Alkaline Phosphatase 87 U/L (46-116) Total Protein 5.6 g/dL (6.4-8.2) Albumin 1.6 g/dL (3.4-5.0) Albumin/Globulin Ratio 0.4 (1.0-1.7) Medications Active Scripts Medications Dose Route/Sig Max Daily Dose Days Date Category Carvedilol 3.125 Mg Tablet 1 Tab PO BID 09/21/14 Reported Tamsulosin Hcl 0.4 Mg Cap.er.24h 1 Cap PO DAILY 09/21/14 Reported Advair 250-50 Diskus (Fluticasone/Salmeterol) 1 Each Disk.w.dev 1 Puff IH BID 09/13/14 Reported Potassium Chloride 10 Meq Capsule.er 1 Cap PO DAILY 09/13/14 Reported Furosemide 20 Mg Tablet 20 Mg PO DAILY 09/13/14 Reported Slow-Mag (Magnesium Chloride) 71.5 Mg Tablet.dr 71.5 Mg PO BID 09/13/14 Reported Proair Hfa Inhaler (Albuterol Sulfate) 8.5 Gm Hfa.aer.ad 8.5 Puff IH PRN Q4-6HRS 09/13/14 Reported Aspir 81 (Aspirin) 81 Mg Tablet.dr 1 Tab PO DAILY 09/13/14 Reported Lisinopril 5 Mg Tablet 5 Mg PO DAILY 09/13/14 Reported Impression . 1. Progressive dyspnea, multifactorial secondary to underlying chronic obstructive pulmonary disease w ae and severe anemia.and new CHF/ moderate left effusion, small right effusion 2. Acute exacerbation of chronic obstructive pulmonary disease. 3. Abnormal CT revealing debris. CT of the chest revealing debris in the left lower lobe. Suspect mucus./ LLL pneumonia 4. Severe emphysema. 5. Severe protein malnutrition, present upon admission. 6. Positive occult stool. 7. Acute respiratory failure secondary to above. 8. Dysphagia Plan . 1. Continue 02 titration. s/p left thoracentesis 02/25/ transudate/ suspect due to low oncotic pressure 2. Nebulized treatments. 3. taper steroids 4. Follow GI input. 5. speech eval done, dysphagia II diet/ VS today 6. Dietary consultation for severe protein malnutrition. 7. Transfuse prn to maintain hemoglobin close to 7 g/dL. 8. No need for bronchoscopy at this time. 9. AVOID OVER SEDATION 10. PO abx 11. Abnormal echo with severe Pulmonary HTN/ normal EF. Not the best candidate for invasive Rt/ Left heart cath , discussed w rn/ discussed w pt RAFAT CARMEN MD Feb 26, 2018 12:42
--- NOTE | 2018-02-26 13:50 | PDOC ---
Subjective: Subjective: Doing pretty good she reckons. Going to eat some lunch but food doesn't look that appetizing. Objective: Vital Signs: Vital Signs Date Time Temp Pulse Resp B/P (MAP) Pulse Ox O2 Delivery O2 Flow Rate FiO2 02/26/18 11:54 Nasal Cannula 3.0 02/26/18 11:02 98.5 87 18 107/72 (84) 93 98.5 Labs: Laboratory Tests Test 02/25/18 16:35 02/25/18 21:27 02/26/18 06:00 Glucose (Fingerstick) 117 mg/dL 130 mg/dL White Blood Count 5.7 x10^3/uL Red Blood Count 3.84 x10^6/uL Hemoglobin 9.9 g/dL Hematocrit 30.9 % Mean Corpuscular Volume 81 fL Mean Corpuscular Hemoglobin 26 pg Mean Corpuscular Hemoglobin Concent 32 g/dL Red Cell Distribution Width 24.0 % Platelet Count 153 x10^3/uL Neutrophils (%) (Auto) 77 % Lymphocytes (%) (Auto) 6 % Monocytes (%) (Auto) 16 % Eosinophils (%) (Auto) 1 % Basophils (%) (Auto) 0 % Neutrophils # (Auto) 4.4 x10^3uL Lymphocytes # (Auto) 0.4 x10^3/uL Monocytes # (Auto) 0.9 x10^3/uL Eosinophils # (Auto) 0.0 x10^3/uL Basophils # (Auto) 0.0 x10^3/uL Sodium Level 140 mmol/L Potassium Level 3.7 mmol/L Chloride Level 100 mmol/L Carbon Dioxide Level 40 mmol/L Anion Gap 0 Blood Urea Nitrogen 5 mg/dL Creatinine 0.4 mg/dL Estimated GFR (Cockcroft-Gault) 196.3 BUN/Creatinine Ratio 13 Glucose Level 90 mg/dL Calcium Level 8.0 mg/dL Total Bilirubin 0.9 mg/dL Aspartate Amino Transf (AST/SGOT) 37 U/L Alanine Aminotransferase (ALT/SGPT) 30 U/L Alkaline Phosphatase 87 U/L Total Protein 5.6 g/dL Albumin 1.6 g/dL Albumin/Globulin Ratio 0.4 Imaging: Echo <Conclusion> Limited echo with bubble study. Aneurysmal interatrial septum with bubble study positive for interatrial shunt. PE: GEN: NAD LUNGS: CTAB HEART: RRR ABD: S/ND/NT NEURO/PSYCH: A & O 3 - brighter today A/P: STEVE - stable, plans for outpt colonoscopy Pleural effusions s/p thoracentesis Pulmonary hypertension, cardiomyopathy -- Plans for videoswallow today. BIANCA FONSECA Feb 26, 2018 13:50 ROCHELLE BOYD MD Feb 26, 2018 13:55
--- NOTE | 2018-02-26 14:13 | PATHOLOGY ---
Note [facility] Accession Number: [id number] TESTS RESULT FLAG UNITS REF RANGE LAB Clinician Provided Cytology Information No. of containers..01 Other (Miscellaneous) Source: LT PLERUAL FLUID DIAGNOSIS: LT PLERUAL FLUID NEGATIVE FOR MALIGNANT CELLS. MESOTHELIAL CELLS ARE PRESENT. THIS INTERPRETATION INCLUDES EVALUATION OF A CELL BLOCK. Signed out by: 02 Isidoro Escobar MD, Pathologist NPI- [id number] Performed by: Antonieta Trevino, Biomedical Engineer ([facility]) Gross description: 01 30ML, YELLOW, CLOUDY /LCS FLAG LEGEND: L-Low Normal,H-High Normal,LL-Alert Low,HH-Alert High <-Panic Low,>-Panic High,A-Abnormal,AA-Critical Abnormal Performed at: [address] [place] [address] Jordan Orta MD, 02 [facility] [address] [place] [address] Isidoro Escobar MD, Specimen Comment: A courtesy copy of this report has been sent to Specimen Comment: [phone]. Specimen Comment: Report sent to Performed at: [address], [place], [place] [id number] MD Jordan Orta MD Phone: [phone]
--- NOTE | 2018-02-26 14:15 | PDOC ---
PROGRESS NOTES Chief Complaint Chief Complaint generalized weakness with severe anemia left pleural effusion Debris in LLL Bronchus probable aspiration, on dysphagia 1 diet acute hypoxic resp failure Anemia, severe, 2/2 possible lower gib diastolic CHF, right chf, severe PHTN Failure to Thrive in adult hypomagnesemia severe malnutrition hyponatremia confusion bl leg neurophathy vitd deficiency hypothyroidism iron deficiency intraatrial shunt on Echo plan: fu with gi, pulm, card on doxy, duoneb, did EGD non erosive gastritis, got 4u PRBC transfusion ADD SYNthroid, vitd, Mag nutrition consult swallow eval, on dysphagia 1 diet, videoswallow eval today checked echo on lasix 20mg daily left pleural effusion, pulm dced ivf, lasix 40mg iv x1 given. CXR repeat later no improvement, thoracentesis 02/25 pt has low po intake ,slightly better gi xxp,. dc lovenox given + FOBT. wo active bleeding , hb stable, consider add it back if Hb cont stable. PTOT talked to SW, hope dc to SNF, but pt refused for now add venofer daily x5 check Head CT , neuro consult, EEG cannot be done given pt's thick hair add NS 60cc/h given low po intake hope pt will agree to snf or walks a little bit and dc soon History of Present Illness History of Present Illness PT seen and examine Dw RN Resting w/NAD pt looks confused, knows in [facility] today, better. but still not know the days c/o bl leg pain 02/23 low po intake, but says" will eat what i like". slightly better at 50% today, dysphagia 1 diet pt was found sitting in the car for 2ds, with buttucks skin tear, on portillo. she told me living in a house. she told me living with mother and told nurse living with sister severe abnormal electrolytes, likely not taking care of herself for a long time , low Mag, low Na, low Vit D. But pt said eats ok, just not drink much. not willing to get out of bed with PTOT. NeED NC 3l, POST thoracentesis for left side pleural effusion 02/25 not cooperating with PTOT , bed always, up to chair today. refuse rehab Vitals Vitals Vital Signs Date Time Temp Pulse Resp B/P (MAP) Pulse Ox O2 Delivery O2 Flow Rate FiO2 02/26/18 11:54 Nasal Cannula 3.0 02/26/18 11:02 98.5 87 18 107/72 (84) 93 98.5 Physical Exam Physical Exam pt has dry skin B/L UE and LE confused bl hands symmetric weak General: Alert, Cooperative, No acute distress Heart: Regular rate (SR), Other (4-5/6 diffuse sytolic murmur ) Lungs: Other (decrease bs) Abdomen: Soft, No tenderness Extremities: No cyanosis, Other (trace to 1+ bilateral LE pitting edema) Skin: No breakdown, No significant lesion Labs LABS Laboratory Tests Test 02/25/18 16:35 02/25/18 21:27 02/26/18 06:00 Glucose (Fingerstick) 117 mg/dL (70-99) 130 mg/dL (70-99) White Blood Count 5.7 x10^3/uL (4.0-11.0) Red Blood Count 3.84 x10^6/uL (3.50-5.40) Hemoglobin 9.9 g/dL (12.0-15.5) Hematocrit 30.9 % (36.0-47.0) Mean Corpuscular Volume 81 fL (79-100) Mean Corpuscular Hemoglobin 26 pg (25-35) Mean Corpuscular Hemoglobin Concent 32 g/dL (31-37) Red Cell Distribution Width 24.0 % (11.5-14.5) Platelet Count 153 x10^3/uL (140-400) Neutrophils (%) (Auto) 77 % (31-73) Lymphocytes (%) (Auto) 6 % (24-48) Monocytes (%) (Auto) 16 % (0-9) Eosinophils (%) (Auto) 1 % (0-3) Basophils (%) (Auto) 0 % (0-3) Neutrophils # (Auto) 4.4 x10^3uL (1.8-7.7) Lymphocytes # (Auto) 0.4 x10^3/uL (1.0-4.8) Monocytes # (Auto) 0.9 x10^3/uL (0.0-1.1) Eosinophils # (Auto) 0.0 x10^3/uL (0.0-0.7) Basophils # (Auto) 0.0 x10^3/uL (0.0-0.2) Sodium Level 140 mmol/L (136-145) Potassium Level 3.7 mmol/L (3.5-5.1) Chloride Level 100 mmol/L (98-107) Carbon Dioxide Level 40 mmol/L (21-32) Anion Gap 0 (6-14) Blood Urea Nitrogen 5 mg/dL (7-20) Creatinine 0.4 mg/dL (0.6-1.0) Estimated GFR (Cockcroft-Gault) 196.3 BUN/Creatinine Ratio 13 (6-20) Glucose Level 90 mg/dL (70-99) Calcium Level 8.0 mg/dL (8.5-10.1) Total Bilirubin 0.9 mg/dL (0.2-1.0) Aspartate Amino Transf (AST/SGOT) 37 U/L (15-37) Alanine Aminotransferase (ALT/SGPT) 30 U/L (14-59) Alkaline Phosphatase 87 U/L (46-116) Total Protein 5.6 g/dL (6.4-8.2) Albumin 1.6 g/dL (3.4-5.0) Albumin/Globulin Ratio 0.4 (1.0-1.7) Assessment and Plan Assessmemt and Plan Problems Medical Problems: (1) CHF (congestive heart failure) Status: Acute (2) Edema Status: Acute (3) Failure to thrive in adult Status: Acute (4) Heme positive stool Status: Acute (5) Hyponatremia Status: Acute (6) Hypoxemia Status: Acute (7) Sacral decubitus ulcer, stage III Status: Acute (8) Severe anemia Status: Acute Comment Review of Relevant I have reviewed the following items yao (where applicable) has been applied. Labs Laboratory Tests Test 02/24/18 15:40 02/25/18 05:40 02/25/18 07:53 02/25/18 11:19 Ammonia 13 mcmol/L (11-34) White Blood Count 6.8 x10^3/uL (4.0-11.0) Red Blood Count 3.91 x10^6/uL (3.50-5.40) Hemoglobin 9.9 g/dL (12.0-15.5) Hematocrit 31.5 % (36.0-47.0) Mean Corpuscular Volume 81 fL (79-100) Mean Corpuscular Hemoglobin 25 pg (25-35) Mean Corpuscular Hemoglobin Concent 32 g/dL (31-37) Red Cell Distribution Width 24.1 % (11.5-14.5) Platelet Count 157 x10^3/uL (140-400) Neutrophils (%) (Auto) 71 % (31-73) Lymphocytes (%) (Auto) 10 % (24-48) Monocytes (%) (Auto) 18 % (0-9) Eosinophils (%) (Auto) 0 % (0-3) Basophils (%) (Auto) 0 % (0-3) Neutrophils # (Auto) 4.8 x10^3uL (1.8-7.7) Lymphocytes # (Auto) 0.7 x10^3/uL (1.0-4.8) Monocytes # (Auto) 1.2 x10^3/uL (0.0-1.1) Eosinophils # (Auto) 0.0 x10^3/uL (0.0-0.7) Basophils # (Auto) 0.0 x10^3/uL (0.0-0.2) Segmented Neutrophils % 83 % (35-66) Lymphocytes % 5 % (24-48) Monocytes % 12 % (0-10) Platelet Estimate Adequate (ADEQUATE) Polychromasia Present Poikilocytosis Present Basophilic Stippling Present Anisocytosis Mod Schistocytes Few Sodium Level 135 mmol/L (136-145) Potassium Level 4.0 mmol/L (3.5-5.1) Chloride Level 95 mmol/L (98-107) Carbon Dioxide Level 40 mmol/L (21-32) Anion Gap 0 (6-14) Blood Urea Nitrogen 9 mg/dL (7-20) Creatinine 0.4 mg/dL (0.6-1.0) Estimated GFR (Cockcroft-Gault) 196.3 BUN/Creatinine Ratio 23 (6-20) Glucose Level 84 mg/dL (70-99) Calcium Level 8.3 mg/dL (8.5-10.1) Total Bilirubin 1.0 mg/dL (0.2-1.0) Aspartate Amino Transf (AST/SGOT) 56 U/L (15-37) Alanine Aminotransferase (ALT/SGPT) 39 U/L (14-59) Alkaline Phosphatase 88 U/L (46-116) Creatine Kinase 17 U/L (26-192) Total Protein 5.7 g/dL (6.4-8.2) Albumin 1.7 g/dL (3.4-5.0) Albumin/Globulin Ratio 0.4 (1.0-1.7) Glucose (Fingerstick) 143 mg/dL (70-99) 105 mg/dL (70-99) Test 02/25/18 12:50 02/25/18 16:35 02/25/18 21:27 02/26/18 06:00 Body Fluid Total Protein 1.7 g/dL (.) Body Fluid Lactate Dehydrogenase 124 IU/L (.) Glucose (Fingerstick) 117 mg/dL (70-99) 130 mg/dL (70-99) White Blood Count 5.7 x10^3/uL (4.0-11.0) Red Blood Count 3.84 x10^6/uL (3.50-5.40) Hemoglobin 9.9 g/dL (12.0-15.5) Hematocrit 30.9 % (36.0-47.0) Mean Corpuscular Volume 81 fL (79-100) Mean Corpuscular Hemoglobin 26 pg (25-35) Mean Corpuscular Hemoglobin Concent 32 g/dL (31-37) Red Cell Distribution Width 24.0 % (11.5-14.5) Platelet Count 153 x10^3/uL (140-400) Neutrophils (%) (Auto) 77 % (31-73) Lymphocytes (%) (Auto) 6 % (24-48) Monocytes (%) (Auto) 16 % (0-9) Eosinophils (%) (Auto) 1 % (0-3) Basophils (%) (Auto) 0 % (0-3) Neutrophils # (Auto) 4.4 x10^3uL (1.8-7.7) Lymphocytes # (Auto) 0.4 x10^3/uL (1.0-4.8) Monocytes # (Auto) 0.9 x10^3/uL (0.0-1.1) Eosinophils # (Auto) 0.0 x10^3/uL (0.0-0.7) Basophils # (Auto) 0.0 x10^3/uL (0.0-0.2) Sodium Level 140 mmol/L (136-145) Potassium Level 3.7 mmol/L (3.5-5.1) Chloride Level 100 mmol/L (98-107) Carbon Dioxide Level 40 mmol/L (21-32) Anion Gap 0 (6-14) Blood Urea Nitrogen 5 mg/dL (7-20) Creatinine 0.4 mg/dL (0.6-1.0) Estimated GFR (Cockcroft-Gault) 196.3 BUN/Creatinine Ratio 13 (6-20) Glucose Level 90 mg/dL (70-99) Calcium Level 8.0 mg/dL (8.5-10.1) Total Bilirubin 0.9 mg/dL (0.2-1.0) Aspartate Amino Transf (AST/SGOT) 37 U/L (15-37) Alanine Aminotransferase (ALT/SGPT) 30 U/L (14-59) Alkaline Phosphatase 87 U/L (46-116) Total Protein 5.6 g/dL (6.4-8.2) Albumin 1.6 g/dL (3.4-5.0) Albumin/Globulin Ratio 0.4 (1.0-1.7) Laboratory Tests Test 02/25/18 16:35 02/25/18 21:27 02/26/18 06:00 Glucose (Fingerstick) 117 mg/dL (70-99) 130 mg/dL (70-99) White Blood Count 5.7 x10^3/uL (4.0-11.0) Red Blood Count 3.84 x10^6/uL (3.50-5.40) Hemoglobin 9.9 g/dL (12.0-15.5) Hematocrit 30.9 % (36.0-47.0) Mean Corpuscular Volume 81 fL (79-100) Mean Corpuscular Hemoglobin 26 pg (25-35) Mean Corpuscular Hemoglobin Concent 32 g/dL (31-37) Red Cell Distribution Width 24.0 % (11.5-14.5) Platelet Count 153 x10^3/uL (140-400) Neutrophils (%) (Auto) 77 % (31-73) Lymphocytes (%) (Auto) 6 % (24-48) Monocytes (%) (Auto) 16 % (0-9) Eosinophils (%) (Auto) 1 % (0-3) Basophils (%) (Auto) 0 % (0-3) Neutrophils # (Auto) 4.4 x10^3uL (1.8-7.7) Lymphocytes # (Auto) 0.4 x10^3/uL (1.0-4.8) Monocytes # (Auto) 0.9 x10^3/uL (0.0-1.1) Eosinophils # (Auto) 0.0 x10^3/uL (0.0-0.7) Basophils # (Auto) 0.0 x10^3/uL (0.0-0.2) Sodium Level 140 mmol/L (136-145) Potassium Level 3.7 mmol/L (3.5-5.1) Chloride Level 100 mmol/L (98-107) Carbon Dioxide Level 40 mmol/L (21-32) Anion Gap 0 (6-14) Blood Urea Nitrogen 5 mg/dL (7-20) Creatinine 0.4 mg/dL (0.6-1.0) Estimated GFR (Cockcroft-Gault) 196.3 BUN/Creatinine Ratio 13 (6-20) Glucose Level 90 mg/dL (70-99) Calcium Level 8.0 mg/dL (8.5-10.1) Total Bilirubin 0.9 mg/dL (0.2-1.0) Aspartate Amino Transf (AST/SGOT) 37 U/L (15-37) Alanine Aminotransferase (ALT/SGPT) 30 U/L (14-59) Alkaline Phosphatase 87 U/L (46-116) Total Protein 5.6 g/dL (6.4-8.2) Albumin 1.6 g/dL (3.4-5.0) Albumin/Globulin Ratio 0.4 (1.0-1.7) Microbiology 02/18/18 Blood Culture - Final, Complete NO GROWTH AFTER 5 DAYS Medications Current Medications Iohexol (Omnipaque 300 Mg/ml) 75 ml 1X ONCE IV Last administered on at 23:00; Start 02/18/18 at 23:00; Stop 02/18/18 at 23:01; Status DC Info (CONTRAST GIVEN -- Rx MONITORING) 1 each PRN DAILY PRN MC SEE COMMENTS; Start 02/18/18 at 22:30; Stop 02/20/18 at 22:29; Status DC Furosemide (Lasix) 20 mg 1X ONCE IVP ; Start 02/19/18 at 01:30; Stop at 01:30; Status DC Furosemide (Lasix) 20 mg 1X ONCE IVP Last administered on 02/19/18at 05:51; Start 02/19/18 at 01:30; Stop 02/19/18 at 01:31; Status DC Influenza Virus Vaccine (Afluria Trivalent [id number] Syringe) 0.5 ml ONCE ONCE VAX IM Last administered on 02/19/18at 09:35; Start 02/19/18 at 09:00; Stop 02/19/18 at 09:01; Status DC Pantoprazole Sodium (PROTONIX VIAL for IV PUSH) 40 mg 1X ONCE IVP Last administered on 02/19/18at 09:33; Start 02/19/18 at 08:30; Stop 02/19/18 at 08 :32; Status DC Sodium Chloride 1,000 ml @ 100 mls/hr Q10H IV ; Start 02/19/18 at 08:45; Stop 02/19/18 at 09:41; Status DC Pantoprazole Sodium (PROTONIX VIAL for IV PUSH) 40 mg DAILYAC IVP Last administered on 02/23/18at 09:25; Start 02/19/18 at 11:30; Stop 02/23/18 at 11 :57; Status DC Amino Acids/ Glycerin/ Electrolytes 1,000 ml @ 75 mls/hr [id number] IV Last administered on 02/23/18at 05:02; Start 02/19/18 at 09:45; Stop 02/23/18 at 15 :11; Status DC Albuterol Sulfate (Ventolin Neb Soln) 2.5 mg RTQID NEB Last administered on at 11:50; Start 02/19/18 at 20:00 Albuterol Sulfate (Ventolin Neb Soln) 2.5 mg PRN Q2HR PRN NEB [id number]; Start 02/19/18 at 17:30 Methylprednisolone Sodium Succinate (SOLU-Medrol 125MG VIAL) 60 mg BID IV Last administered on 02/21/18at 09:20; Start 02/19/18 at 18:00; Stop 02/21/18 at 09 :29; Status DC Acetaminophen (Tylenol) 650 mg PRN Q6HRS PRN PO FEVER Last administered on 03/29at 22:52; Start 02/19/18 at 22:45 Potassium Chloride (Klor-Con) 40 meq 1X ONCE PO Last administered on at 11:15; Start 02/20/18 at 11:15; Stop 02/20/18 at 11:16; Status DC Ringer's Solution 1,000 ml @ 75 mls/hr [id number] IV ; Start 02/20/18 at 11:15; Stop 02/20/18 at 19:54; Status DC Propofol 20 ml @ As Directed STK-MED ONCE IV ; Start 02/20/18 at 11:51; Stop 02/20/18 at 11:52; Status DC Lidocaine HCl (Xylocaine-Mpf 2% Vial) 2 ml STK-MED ONCE .ROUTE ; Start at 11:52; Stop 02/20/18 at 11:53; Status DC Vitamin A/Vitamin D (Vitamin A & D Ointment) 1 sarah PRN Q1HR PRN TP SKIN PROTECTION Last administered on 02/24/18at 14:00; Start 02/20/18 at 15:00 Aspirin (Ecotrin) 81 mg DAILY PO Last administered on 02/26/18at 08:32; Start 02/20/18 at 16:00 Carvedilol (Coreg) 3.125 mg BIDWMEALS PO Last administered on 02/24/18at 08:48 ; Start 02/20/18 at 17:00; Stop 02/24/18 at 13:10; Status DC Furosemide (Lasix) 20 mg DAILY PO Last administered on 02/26/18at 08:32; Start 02/20/18 at 16:00 Potassium Chloride (Klor-Con) 10 meq [id number] PO Last administered on at 08:31; Start 02/21/18 at 08:00 Tamsulosin HCl (Flomax) 0.4 mg DAILY PO Last administered on 02/26/18at 08:29; Start 02/20/18 at 16:00 Non-Formulary Medication (Albuterol Sulfate (Proair Hfa Inhaler)) 8.5 puff PRN Q4-6HRS IH ; Start 02/20/18 at 15:30; Status UNV Budesonide (Pulmicort) 0.5 mg RTBID NEB Last administered on 02/26/18at 08:41; Start 02/20/18 at 20:00 Lisinopril (Prinivil) 5 mg DAILY PO Last administered on 02/24/18at 08:47; Start 02/20/18 at 16:00; Stop 02/24/18 at 13:11; Status DC Magnesium Chloride (Mag Delay) 64 mg BID PO Last administered on 02/26/18at 08: 30; Start 02/20/18 at 21:00 Methylprednisolone Sodium Succinate (SOLU-Medrol 40MG VIAL) 40 mg BID IV Last administered on 02/24/18at 08:48; Start 02/21/18 at 21:00; Stop 02/24/18 at 09 :56; Status DC Lorazepam (Ativan) 1 mg Q4HRS PRN IV Anxiety Last administered on 02/22/18at 08 :03; Start 02/22/18 at 07:45; Stop 02/22/18 at 13:46; Status DC Lorazepam (Ativan) 0.5 mg Q8HRS PRN IV Anxiety; Start 02/22/18 at 14:00; Stop 02/23/18 at 15:11; Status DC Doxycycline Hyclate (Vibra-Tab) 100 mg BID PO Last administered on 02/26/18at 08:30; Start 02/23/18 at 11:00 Lactobacillus Rhamnosus (Culturelle) 1 cap BID PO Last administered on at 08:30; Start 02/23/18 at 21:00 Pantoprazole Sodium (Protonix) 40 mg DAILYAC PO Last administered on at 08:30; Start 02/24/18 at 07:30 Sodium Chloride 1,000 ml @ 60 mls/hr [id number] IV Last administered on at 17:30; Start 02/23/18 at 15:15; Stop 02/24/18 at 10:16; Status DC Haloperidol Lactate (Haldol Inj) 1 mg PRN Q6HRS PRN IVP AGITATION; Start 02/23 at 15:15 Enoxaparin Sodium (Lovenox 40mg Syringe) 40 mg Q24H SQ ; Start 02/23/18 at 16: 00; Stop 02/24/18 at 10:23; Status DC Thiamine Mononitrate (Vitamin B-1) 100 mg DAILY PO Last administered on at 08:30; Start 02/23/18 at 21:00 Furosemide (Lasix) 40 mg 1X ONCE IVP Last administered on 02/24/18at 10:43; Start 02/24/18 at 09:45; Stop 02/24/18 at 09:47; Status DC Prednisone (Prednisone) 30 mg DAILY PO Last administered on 02/26/18at 08:31; Start 02/25/18 at 09:00 Ergocalciferol (Vitamin D2) 50,000 unit WEEKLY PO Last administered on at 11:59; Start 02/24/18 at 11:20; Stop 02/25/18 at 19:27; Status DC Levothyroxine Sodium (Synthroid) 100 mcg DAILY06 PO Last administered on at 05:53; Start 02/25/18 at 06:00 Magnesium Sulfate 50 ml @ 25 mls/hr 1X ONCE IV Last administered on at 11:58; Start 02/24/18 at 11:15; Stop 02/24/18 at 13:14; Status DC Magnesium Oxide (Magnesium Oxide) 400 mg DAILY PO Last administered on at 08:30; Start 02/25/18 at 09:00 Iron Sucrose 200 mg/Sodium Chloride 110 ml @ 55 mls/hr DAILY IV Last administered on 02/26/18at 09:32; Start 02/24/18 at 11:30; Stop 02/28/18 at 10 :00 Carvedilol (Coreg) 6.25 mg BIDWMEALS PO Last administered on 02/26/18at 08:32; Start 02/24/18 at 17:00 Lisinopril (Prinivil) 10 mg DAILY PO Last administered on 02/25/18at 08:55; Start 02/25/18 at 09:00; Stop 02/25/18 at 19:28; Status DC Ergocalciferol (Vitamin D2) 50,000 unit WEEKLY PO ; Start 02/25/18 at 09:00; Status UNV Sodium Chloride 1,000 ml @ 60 mls/hr [id number] IV Last administered on at 05:52; Start 02/25/18 at 10:45 Ergocalciferol (Vitamin D2) 50,000 unit WEEKLY PO Last administered on at 17:42; Start 02/25/18 at 17:00 Calcium Carbonate/ Glycine (Oscal) 500 mg BID PO Last administered on at 08:30; Start 02/25/18 at 21:00 Lisinopril (Prinivil) 10 mg DAILY PO Last administered on 02/26/18at 08:30; Start 02/26/18 at 09:00 Barium Sulfate (Varibar Thin Liquid Apple) 148 gm 1X ONCE PO Last administered on 02/26/18at 13:46; Start 02/26/18 at 10:30; Stop 02/26/18 at 10 :31; Status DC Active Scripts Active Reported Carvedilol 3.125 Mg Tablet 1 Tab PO BID Tamsulosin Hcl 0.4 Mg Cap.er.24h 1 Cap PO DAILY Advair 250-50 Diskus (Fluticasone/Salmeterol) 1 Each Disk.w.dev 1 Puff IH BID Potassium Chloride 10 Meq Capsule.er 1 Cap PO DAILY Furosemide 20 Mg Tablet 20 Mg PO DAILY Slow-Mag (Magnesium Chloride) 71.5 Mg Tablet. 71.5 Mg PO BID Proair Hfa Inhaler (Albuterol Sulfate) 8.5 Gm Hfa.aer.ad 8.5 Puff IH PRN Q4- 6HRS Aspir 81 (Aspirin) 81 Mg Tablet. 1 Tab PO DAILY Lisinopril 5 Mg Tablet 5 Mg PO DAILY Vitals/I & O Vital Sign - Last 24 Hours 02/25/18 02/25/18 02/25/18 02/25/18 15:00 15:13 17:42 20:00 Temp 98.0 98.0 Pulse 87 87 Resp 18 B/P (MAP) 120/72 (88) 120/72 Pulse Ox 100 91 O2 Delivery Nasal Cannula Nasal Cannula O2 Flow Rate 3.0 4.0 02/25/18 02/25/18 02/25/18 02/25/18 20:05 20:05 23:00 23:44 Temp 99.6 98.2 99.6 98.2 Pulse 99 79 Resp 18 18 B/P (MAP) 131/63 (85) 117/73 (88) Pulse Ox 97 97 94 O2 Delivery Nasal Cannula Nasal Cannula Room Air Room Air O2 Flow Rate 3.0 3.0 02/26/18 02/26/18 02/26/18 02/26/18 03:00 07:15 08:00 08:30 Temp 98.2 98.6 98.2 98.6 Pulse 87 79 79 Resp 18 16 B/P (MAP) 122/83 (96) 119/78 (92) 119/78 Pulse Ox 92 95 O2 Delivery Nasal Cannula Nasal Cannula Nasal Cannula O2 Flow Rate 2.0 2.0 3.0 02/26/18 02/26/18 02/26/18 02/26/18 08:32 08:46 08:47 11:02 Temp 98.5 98.5 Pulse 79 87 Resp 18 B/P (MAP) 119/78 107/72 (84) Pulse Ox 97 97 93 O2 Delivery Nasal Cannula Nasal Cannula Nasal Cannula O2 Flow Rate 3.0 3.0 2.0 02/26/18 11:54 O2 Delivery Nasal Cannula O2 Flow Rate 3.0 Intake and Output 02/25/18 02/25/18 02/26/18 15:00 23:00 07:00 Intake Total 1300 ml 240 ml Output Total 650 ml 1800 ml 1000 ml Balance -650 ml -500 ml -760 ml CANDACE VALENTINE MD Feb 26, 2018 14:15
--- NOTE | 2018-02-26 14:21 | RAD ---
Video dysphagia study, 02/26/2018: HISTORY: Aspiration The swallowing mechanism was examined fluoroscopically in the lateral projection while the patient ingested a variety of food materials mixed with barium. 2.3 minutes of fluoroscopy time was utilized. The patient demonstrated delayed oral transit with the thicker materials and barium coated solids. Once initiated the pharyngeal peristalsis was good. No significant laryngeal penetration or aspiration occurred when swallowing the thin liquids, thickened materials or barium coated solids. The majority of the barium bolus passes normally through the cervical esophagus. IMPRESSION: No evidence of aspiration. Electronically signed by: Kranthi Leon MD (02/26/2018 2:18 PM) [facility]
[2018-02-26 14:54] VITALS: BP 111/71
--- NOTE | 2018-02-26 19:15 | PDOC ---
PROGRESS NOTES Assessment Assessment Confusion. Metabolic encephalopathy. Toxic encephalopathy. Alcohol intoxication, ETOH 16. CHF. Anemia. GI bleeding. Vit D deficiency, severe. LE peripheral neuropathy. RECOMMENDATIONS/PLAN: Vit B1 100 mg daily. Vit D2 50,000 units weekly. Calcium supplement. Treat medical diseases. EEG, unable to perform on her due to patched hair from hygiene issues. Alcohol abstinence. OT/PT. HISTORY OF THE PRESENT ILLNESS: 62-y-old female patient with above medical diseases and alcohol intoxication for admission. She has mental status changes and confusion, so neurology was requested for consultation. PMH: HTN, COPD, allergic rhinitis, tonsillectomy FH: Unknown. Social History: Smoke: <1 pack per day ALCOHOL: other (+ on screen, can't quantify) PAST SURGERY HISTORY: No major surgery recently. ALLERGY: Unknown MEDICATIONS: Refer to MAR REVIEW OF SYSTEMS: Constitutional: No malnutrition, weight loss, cachexia. Head: No traumatic brain or head injury. Skin: No edema, or rash. Ear: No infection. Eyes: No vision loss or color blindness. Nose: No bleeding or purulent discharges. Hearing: No hearing decrease. Neck: No injury. Breast: No history of cancer, masses,or discharges. Cardiac: CHF.. Pulmonary: COPD. GI:GI bleeding. Urinary/genital: UTI. Endocrinologic: No cousin face, craniofacial dysmorphism, polydactyly, goiter. Skeletomuscular: No muscular atrophy, deformity. Neurological: see HP. Psychiatric: Denies drug use/abuse. Otherwise, not [id number] review of systems. PHYSICAL EXAMINATION: General appearance is in no acute distress. HEENT: Normocephalic and nontraumatic. Eyes, nose, ears, and throat are unremarkable. Neck is supple. No lymphadenopathy. No crepitus. Cardiovascular: S1, S2, regular rate and rhythm. Pulmonary: Clear to auscultation bilaterally. Abdomen: Bowel sounds are positive. Abdomen is soft, nontender, and nondistended. Extremities: No rash, lesions, or edema. No restriction of range of motion NEUROLOGICAL EXAMINATION: Awake. Not oriented to time, but knew place and person. PERRL. EOMI. CN: no focal findings. Muscle tone: within normal. Muscle strength: 4 DTR: 2- UE, 1 at knee. Plantar reflex: Flexor response bilaterally Gait: not examined in bed. Sensory exam: no abnormal findings. No cerebellar signs elicited. F-T-N test fine. Objective Objective Vital Signs Date Time Temp Pulse Resp B/P (MAP) Pulse Ox O2 Delivery O2 Flow Rate FiO2 02/26/18 16:57 71 111/71 02/26/18 16:02 Nasal Cannula 3.0 02/26/18 14:54 98.3 16 95 98.3 Intake and Output 02/26/18 07:00 Intake Total 1540 ml Output Total 3450 ml Balance -1910 ml Intake Oral 1540 ml Output Urine Total 2800 ml Other 650 ml # Voids 2 Vitals Signs Vitals VS - Last 72 Hours, by Label Date Time Temp Pulse Resp B/P (MAP) Pulse Ox O2 Delivery O2 Flow Rate FiO2 02/26/18 16:57 71 111/71 02/26/18 16:02 Nasal Cannula 3.0 02/26/18 14:54 98.3 71 16 111/71 (84) 95 Nasal Cannula 2.0 98.3 02/26/18 11:54 Nasal Cannula 3.0 02/26/18 11:02 98.5 87 18 107/72 (84) 93 Nasal Cannula 2.0 98.5 02/26/18 08:47 97 Nasal Cannula 3.0 02/26/18 08:46 97 Nasal Cannula 3.0 02/26/18 08:32 79 119/78 02/26/18 08:30 79 119/78 02/26/18 08:00 Nasal Cannula 3.0 02/26/18 07:15 98.6 79 16 119/78 (92) 95 Nasal Cannula 2.0 98.6 02/26/18 03:00 98.2 87 18 122/83 (96) 92 Nasal Cannula 2.0 98.2 02/25/18 23:44 98.2 79 18 117/73 (88) 94 Room Air 98.2 02/25/18 23:00 99.6 99 18 131/63 (85) Room Air 99.6 02/25/18 20:05 97 Nasal Cannula 3.0 02/25/18 20:05 97 Nasal Cannula 3.0 02/25/18 20:00 Nasal Cannula 4.0 02/25/18 17:42 87 120/72 02/25/18 15:13 91 Nasal Cannula 3.0 02/25/18 15:00 98.0 87 18 120/72 (88) 100 98.0 02/25/18 12:54 93 8 134/76 (95) 92 Nasal Cannula 4.0 02/25/18 12:45 91 20 127/65 (85) 92 Nasal Cannula 4.0 02/25/18 12:03 94 Nasal Cannula 4.0 02/25/18 11:00 98.0 96 18 113/68 (83) 88 Room Air 98.0 02/25/18 08:56 108 149/96 02/25/18 08:55 108 149/96 02/25/18 08:10 88 Nasal Cannula 4.0 02/25/18 08:00 Nasal Cannula 4.0 02/25/18 07:00 98.0 108 18 149/96 (113) 75 Room Air 98.0 Laboratory Laboratory Laboratory Tests Test 02/25/18 21:27 02/26/18 06:00 Glucose (Fingerstick) 130 mg/dL (70-99) White Blood Count 5.7 x10^3/uL (4.0-11.0) Red Blood Count 3.84 x10^6/uL (3.50-5.40) Hemoglobin 9.9 g/dL (12.0-15.5) Hematocrit 30.9 % (36.0-47.0) Mean Corpuscular Volume 81 fL (79-100) Mean Corpuscular Hemoglobin 26 pg (25-35) Mean Corpuscular Hemoglobin Concent 32 g/dL (31-37) Red Cell Distribution Width 24.0 % (11.5-14.5) Platelet Count 153 x10^3/uL (140-400) Neutrophils (%) (Auto) 77 % (31-73) Lymphocytes (%) (Auto) 6 % (24-48) Monocytes (%) (Auto) 16 % (0-9) Eosinophils (%) (Auto) 1 % (0-3) Basophils (%) (Auto) 0 % (0-3) Neutrophils # (Auto) 4.4 x10^3uL (1.8-7.7) Lymphocytes # (Auto) 0.4 x10^3/uL (1.0-4.8) Monocytes # (Auto) 0.9 x10^3/uL (0.0-1.1) Eosinophils # (Auto) 0.0 x10^3/uL (0.0-0.7) Basophils # (Auto) 0.0 x10^3/uL (0.0-0.2) Sodium Level 140 mmol/L (136-145) Potassium Level 3.7 mmol/L (3.5-5.1) Chloride Level 100 mmol/L (98-107) Carbon Dioxide Level 40 mmol/L (21-32) Anion Gap 0 (6-14) Blood Urea Nitrogen 5 mg/dL (7-20) Creatinine 0.4 mg/dL (0.6-1.0) Estimated GFR (Cockcroft-Gault) 196.3 BUN/Creatinine Ratio 13 (6-20) Glucose Level 90 mg/dL (70-99) Calcium Level 8.0 mg/dL (8.5-10.1) Total Bilirubin 0.9 mg/dL (0.2-1.0) Aspartate Amino Transf (AST/SGOT) 37 U/L (15-37) Alanine Aminotransferase (ALT/SGPT) 30 U/L (14-59) Alkaline Phosphatase 87 U/L (46-116) Total Protein 5.6 g/dL (6.4-8.2) Albumin 1.6 g/dL (3.4-5.0) Albumin/Globulin Ratio 0.4 (1.0-1.7) Microbiology 02/18/18 Blood Culture - Final, Complete NO GROWTH AFTER 5 DAYS 02/25/18 Anaerobic/Aerobic Culture, Resulted Pending 02/25/18 Anaerobic Culture Result 1 (JAMES), Resulted Pending 02/25/18 Aerobic Culture, Resulted Pending 02/25/18 Aerobic Culture Result 1 (JAMES), Resulted Pending 02/25/18 Gram Stain - Final, Resulted 02/25/18 Gram Stain Result 1 (JAMES) - Final, Resulted 02/25/18 Gram Stain Result 2 (JAMES) - Final, Resulted Medication Medications Current Medications Barium Sulfate (Varibar Thin Liquid Apple) 148 gm 1X ONCE PO Last administered on 02/26/18at 13:46; Start 02/26/18 at 10:30; Stop 02/26/18 at 10 :31; Status DC Calcium Carbonate/ Glycine (Oscal) 500 mg BID PO Last administered on at 08:30; Start 02/25/18 at 21:00 Lisinopril (Prinivil) 10 mg DAILY PO Last administered on 02/26/18at 08:30; Start 02/26/18 at 09:00 Comment Review of Relevant I have reviewed the following items yao (where applicable) has been applied. KAE QUARLES MD Feb 26, 2018 19:14
[2018-02-26 19:50] VITALS: BP 128/74
[2018-02-26 23:30] VITALS: BP 124/79
[2018-02-27] MEDS: VITS A & D/LANOLIN TOPICAL OINTMENT 56GM TUBE. TP PRN
[2018-02-27] MEDS: IV NORMAL SALINE 1000ML BAG 1,000 ML IV SCH ×2 (01:30→12:45)
[2018-02-27 03:19] VITALS: BP 124/79
[2018-02-27 04:42] LABS: BASO % 0 % (0-3); EOS % 1 % (0-3); HEMATOCRIT 31.1 % (36.0-47.0); HEMOGLOBIN 9.9 g/dL (12.0-15.5); LYMPH # 0.7 x10^3/uL (1.0-4.8); LYMPH % 11 % (24-48); MEAN CORPUSCULAR HEMOGLOBIN 26 pg (25-35); MEAN CORPUSCULAR HGB CONC 32 g/dL (31-37); MEAN CORPUSCULAR VOLUME 82 fL (79-100); MONO # 1.1 x10^3/uL (0.0-1.1); MONO % 17 % (0-9); NEUT # 4.4 x10^3uL (1.8-7.7); NEUT % 71 % (31-73); PLATELET COUNT 149 x10^3/uL (140-400); RED BLOOD COUNT 3.79 x10^6/uL (3.50-5.40); RED CELL DISTRIBUTION WIDTH 23.5 % (11.5-14.5); WHITE BLOOD COUNT 6.2 x10^3/uL (4.0-11.0)
[2018-02-27 05:12] LABS: ALBUMIN 1.7 g/dL (3.4-5.0); ALBUMIN/GLOBULIN RATIO 0.4 (1.0-1.7); CREATININE 0.5 mg/dL (0.6-1.0); GFR 151.8; POTASSIUM 4.1 mmol/L (3.5-5.1); TOTAL BILIRUBIN 0.9 mg/dL (0.2-1.0); TOTAL PROTEIN 5.5 g/dL (6.4-8.2)
[2018-02-27] MEDS: LEVOTHYROXINE 100 MCG TABLET PO SCH (06:09)
[2018-02-27 07:00] VITALS: BP 116/85
[2018-02-27] MEDS: BUDESONIDE 0.5 MG/2 ML NEBU. NEB SCH (07:41)
[2018-02-27] MEDS: ALBUTEROL SULFATE 2.5 MG/3 ML NEBU. NEB SCH ×3 (07:41→16:47)
[2018-02-27] MEDS: TAMSULOSIN 0.4 MG CAP.ER.24H. PO SCH (08:18)
[2018-02-27] MEDS: LACTOBACILLUS RHAMNOSUS GG 1 CAPSULE. PO SCH (08:18)
[2018-02-27] MEDS: LISINOPRIL 10 MG TABLET PO SCH (08:18)
[2018-02-27] MEDS: DOXYCYCLINE HYCLATE 100 MG TABLET PO SCH (08:19)
[2018-02-27] MEDS: CALCIUM CARBONATE 500 MG TABLET PO SCH (08:19)
[2018-02-27] MEDS: PANTOPRAZOLE 40 MG TABLET.DR. PO SCH (08:19)
[2018-02-27] MEDS: predniSONE 10 MG TABLET PO SCH (08:19)
[2018-02-27] MEDS: FUROSEMIDE 20 MG TABLET PO SCH (08:19)
[2018-02-27] MEDS: POTASSIUM CHLORIDE 10 MEQ TABLET.ER. PO SCH (08:20)
[2018-02-27] MEDS: MAGNESIUM CHLORIDE ER 64 MG TABLET.ER PO SCH (08:20)
[2018-02-27] MEDS: THIAMINE 100 MG TABLET. PO SCH (08:20)
[2018-02-27] MEDS: ASPIRIN ENTERIC COATED 81 MG TABLET.DR. PO SCH (08:21)
[2018-02-27] MEDS: CARVEDILOL 6.25 MG TABLET. PO SCH ×2 (08:21→18:14)
[2018-02-27] MEDS: MAGNESIUM OXIDE 400 MG TABLET PO SCH (08:23)
[2018-02-27] MEDS: IRON SUCROSE COMPLEX 200 MG in IV NORMAL SALINE 100ML 100 ML IV SCH (08:23)
[2018-02-27 11:00] VITALS: BP 114/71
--- NOTE | 2018-02-27 11:05 | PDOC ---
PULMONARY PROGRESS NOTES Subjective less coughing no increase soa s/p left thoracentesis 02/25 Vitals Vital Signs Date Time Temp Pulse Resp B/P (MAP) Pulse Ox O2 Delivery O2 Flow Rate FiO2 02/27/18 08:21 80 116/85 02/27/18 08:00 Nasal Cannula 3.0 02/27/18 07:45 98 02/27/18 07:00 97.6 16 97.6 ROS: No Nausea, No Chest Pain, No Increase Cough General: Alert, No acute distress HEENT: Other (nc at perrl ) Lungs: Other (decrease bs) Cardiovascular: S1, S2 Abdomen: Soft, Non-tender Neuro Exam: Alert Extremities: No Edema Skin: Warm Labs Laboratory Tests Test 02/25/18 11:19 02/25/18 12:50 02/25/18 16:35 02/25/18 21:27 Glucose (Fingerstick) 105 mg/dL (70-99) 117 mg/dL (70-99) 130 mg/dL (70-99) Body Fluid Total Protein 1.7 g/dL (.) Body Fluid Lactate Dehydrogenase 124 IU/L (.) Test 02/26/18 06:00 02/27/18 04:00 White Blood Count 5.7 x10^3/uL (4.0-11.0) 6.2 x10^3/uL (4.0-11.0) Red Blood Count 3.84 x10^6/uL (3.50-5.40) 3.79 x10^6/uL (3.50-5.40) Hemoglobin 9.9 g/dL (12.0-15.5) 9.9 g/dL (12.0-15.5) Hematocrit 30.9 % (36.0-47.0) 31.1 % (36.0-47.0) Mean Corpuscular Volume 81 fL (79-100) 82 fL (79-100) Mean Corpuscular Hemoglobin 26 pg (25-35) 26 pg (25-35) Mean Corpuscular Hemoglobin Concent 32 g/dL (31-37) 32 g/dL (31-37) Red Cell Distribution Width 24.0 % (11.5-14.5) 23.5 % (11.5-14.5) Platelet Count 153 x10^3/uL (140-400) 149 x10^3/uL (140-400) Neutrophils (%) (Auto) 77 % (31-73) 71 % (31-73) Lymphocytes (%) (Auto) 6 % (24-48) 11 % (24-48) Monocytes (%) (Auto) 16 % (0-9) 17 % (0-9) Eosinophils (%) (Auto) 1 % (0-3) 1 % (0-3) Basophils (%) (Auto) 0 % (0-3) 0 % (0-3) Neutrophils # (Auto) 4.4 x10^3uL (1.8-7.7) 4.4 x10^3uL (1.8-7.7) Lymphocytes # (Auto) 0.4 x10^3/uL (1.0-4.8) 0.7 x10^3/uL (1.0-4.8) Monocytes # (Auto) 0.9 x10^3/uL (0.0-1.1) 1.1 x10^3/uL (0.0-1.1) Eosinophils # (Auto) 0.0 x10^3/uL (0.0-0.7) 0.0 x10^3/uL (0.0-0.7) Basophils # (Auto) 0.0 x10^3/uL (0.0-0.2) 0.0 x10^3/uL (0.0-0.2) Sodium Level 140 mmol/L (136-145) 141 mmol/L (136-145) Potassium Level 3.7 mmol/L (3.5-5.1) 4.1 mmol/L (3.5-5.1) Chloride Level 100 mmol/L (98-107) 101 mmol/L (98-107) Carbon Dioxide Level 40 mmol/L (21-32) 37 mmol/L (21-32) Anion Gap 0 (6-14) 3 (6-14) Blood Urea Nitrogen 5 mg/dL (7-20) 5 mg/dL (7-20) Creatinine 0.4 mg/dL (0.6-1.0) 0.5 mg/dL (0.6-1.0) Estimated GFR (Cockcroft-Gault) 196.3 151.8 BUN/Creatinine Ratio 13 (6-20) 10 (6-20) Glucose Level 90 mg/dL (70-99) 81 mg/dL (70-99) Calcium Level 8.0 mg/dL (8.5-10.1) 8.0 mg/dL (8.5-10.1) Total Bilirubin 0.9 mg/dL (0.2-1.0) 0.9 mg/dL (0.2-1.0) Aspartate Amino Transf (AST/SGOT) 37 U/L (15-37) 31 U/L (15-37) Alanine Aminotransferase (ALT/SGPT) 30 U/L (14-59) 27 U/L (14-59) Alkaline Phosphatase 87 U/L (46-116) 94 U/L (46-116) Total Protein 5.6 g/dL (6.4-8.2) 5.5 g/dL (6.4-8.2) Albumin 1.6 g/dL (3.4-5.0) 1.7 g/dL (3.4-5.0) Albumin/Globulin Ratio 0.4 (1.0-1.7) 0.4 (1.0-1.7) Magnesium Level 1.9 mg/dL (1.8-2.4) Laboratory Tests Test 02/27/18 04:00 White Blood Count 6.2 x10^3/uL (4.0-11.0) Red Blood Count 3.79 x10^6/uL (3.50-5.40) Hemoglobin 9.9 g/dL (12.0-15.5) Hematocrit 31.1 % (36.0-47.0) Mean Corpuscular Volume 82 fL (79-100) Mean Corpuscular Hemoglobin 26 pg (25-35) Mean Corpuscular Hemoglobin Concent 32 g/dL (31-37) Red Cell Distribution Width 23.5 % (11.5-14.5) Platelet Count 149 x10^3/uL (140-400) Neutrophils (%) (Auto) 71 % (31-73) Lymphocytes (%) (Auto) 11 % (24-48) Monocytes (%) (Auto) 17 % (0-9) Eosinophils (%) (Auto) 1 % (0-3) Basophils (%) (Auto) 0 % (0-3) Neutrophils # (Auto) 4.4 x10^3uL (1.8-7.7) Lymphocytes # (Auto) 0.7 x10^3/uL (1.0-4.8) Monocytes # (Auto) 1.1 x10^3/uL (0.0-1.1) Eosinophils # (Auto) 0.0 x10^3/uL (0.0-0.7) Basophils # (Auto) 0.0 x10^3/uL (0.0-0.2) Sodium Level 141 mmol/L (136-145) Potassium Level 4.1 mmol/L (3.5-5.1) Chloride Level 101 mmol/L (98-107) Carbon Dioxide Level 37 mmol/L (21-32) Anion Gap 3 (6-14) Blood Urea Nitrogen 5 mg/dL (7-20) Creatinine 0.5 mg/dL (0.6-1.0) Estimated GFR (Cockcroft-Gault) 151.8 BUN/Creatinine Ratio 10 (6-20) Glucose Level 81 mg/dL (70-99) Calcium Level 8.0 mg/dL (8.5-10.1) Magnesium Level 1.9 mg/dL (1.8-2.4) Total Bilirubin 0.9 mg/dL (0.2-1.0) Aspartate Amino Transf (AST/SGOT) 31 U/L (15-37) Alanine Aminotransferase (ALT/SGPT) 27 U/L (14-59) Alkaline Phosphatase 94 U/L (46-116) Total Protein 5.5 g/dL (6.4-8.2) Albumin 1.7 g/dL (3.4-5.0) Albumin/Globulin Ratio 0.4 (1.0-1.7) Medications Active Scripts Medications Dose Route/Sig Max Daily Dose Days Date Category Carvedilol 3.125 Mg Tablet 1 Tab PO BID 09/21/14 Reported Tamsulosin Hcl 0.4 Mg Cap.er.24h 1 Cap PO DAILY 09/21/14 Reported Advair 250-50 Diskus (Fluticasone/Salmeterol) 1 Each Disk.w.dev 1 Puff IH BID 09/13/14 Reported Potassium Chloride 10 Meq Capsule.er 1 Cap PO DAILY 09/13/14 Reported Furosemide 20 Mg Tablet 20 Mg PO DAILY 09/13/14 Reported Slow-Mag (Magnesium Chloride) 71.5 Mg Tablet. 71.5 Mg PO BID 09/13/14 Reported Proair Hfa Inhaler (Albuterol Sulfate) 8.5 Gm Hfa.aer.ad 8.5 Puff IH PRN Q4-6HRS 09/13/14 Reported Aspir 81 (Aspirin) 81 Mg Tablet. 1 Tab PO DAILY 09/13/14 Reported Lisinopril 5 Mg Tablet 5 Mg PO DAILY 09/13/14 Reported Impression . 1. Progressive dyspnea, multifactorial secondary to underlying chronic obstructive pulmonary disease w ae and severe anemia.and new CHF/ moderate left effusion, small right effusion 2. Acute exacerbation of chronic obstructive pulmonary disease. 3. Abnormal CT revealing debris. CT of the chest revealing debris in the left lower lobe. Suspect mucus./ LLL pneumonia 4. Severe emphysema. 5. Severe protein malnutrition, present upon admission. 6. Positive occult stool. 7. Acute respiratory failure secondary to above. 8. Dysphagia Plan . 1. Continue 02 titration. s/p left thoracentesis 02/25/ transudate/ suspect due to low oncotic pressure 2. Nebulized treatments. 3. taper steroids 4. Follow GI input. 5. speech eval done, dysphagia II diet/ VS done 6. Dietary consultation for severe protein malnutrition. 7. Transfuse prn to maintain hemoglobin close to 7 g/dL. 8. No need for bronchoscopy at this time. 9. AVOID OVER SEDATION 10. PO abx 11. Abnormal echo with severe Pulmonary HTN/ normal EF. Not the best candidate for invasive Rt/ Left heart cath , discussed w rn/ discussed w pt/ ok with skill care RAFAT CARMEN MD Feb 27, 2018 11:05
--- NOTE | 2018-02-27 11:41 | PDOC ---
PROGRESS NOTES Chief Complaint Chief Complaint generalized weakness with severe anemia left pleural effusion s/p thoracentesis transudate Debris in LLL Bronchus probable aspiration, on dysphagia 2 diet acute hypoxic resp failure Anemia, severe, 2/2 possible lower gib diastolic CHF, right chf, severe PHTN, TR MR Failure to Thrive in adult hypomagnesemia severe malnutrition hyponatremia confusion bl leg neurophathy vitd deficiency hypothyroidism iron deficiency intraatrial shunt on Echo plan: fu with gi, pulm, card on doxy, duoneb, taper steroid as per pulm did EGD non erosive gastritis, got 4u PRBC transfusion ADD SYNthroid, vitd, Mag nutrition consult swallow eval, on dysphagia 2 diet, videoswallow neg aspiration checked echo on lasix 20mg daily left pleural effusion, pulm dced ivf, lasix 40mg iv x1 given. CXR repeat later no improvement, thoracentesis 02/25, transudate pt has low po intake ,slightly better gi xxp,. dc lovenox given + FOBT. wo active bleeding , hb stable, consider add it back if Hb cont stable. PTOT talked to SW, hope dc to SNF, but pt refused for now add venofer daily x5 check Head CT neg for stroke , neuro consulted, EEG cannot be done given pt's thick hair add NS 60cc/h given low po intake viki fu with rehab . remove portillo History of Present Illness History of Present Illness PT seen and examine Guero RN Resting w/NAD pt looks confused, knows in [facility] today, better. but still not know the days c/o bl leg pain 02/23 low po intake, but says" will eat what i like". slightly better at 50% today, dysphagia 1 diet pt was found sitting in the car for 2ds, with buttucks skin tear, on portillo. she told me living in a house. she told me living with mother and told nurse living with sister severe abnormal electrolytes, likely not taking care of herself for a long time , low Mag, low Na, low Vit D. But pt said eats ok, just not drink much. not willing to get out of bed with PTOT. NeED NC 3l, POST thoracentesis for left side pleural effusion 02/25, transudate not cooperating with PTOT , bed always, up to chair today. agree rehab 02/27 Vitals Vitals Vital Signs Date Time Temp Pulse Resp B/P (MAP) Pulse Ox O2 Delivery O2 Flow Rate FiO2 02/27/18 08:21 80 116/85 02/27/18 08:00 Nasal Cannula 3.0 02/27/18 07:45 98 02/27/18 07:00 97.6 16 97.6 Physical Exam Physical Exam pt has dry skin B/L UE and LE confused bl hands symmetric weak General: Alert, Cooperative, No acute distress Heart: Regular rate (SR), Other (4-5/6 diffuse sytolic murmur ) Lungs: Other (decrease bs) Abdomen: Soft, No tenderness Extremities: No cyanosis, Other (trace to 1+ bilateral LE pitting edema) Skin: No breakdown, No significant lesion Labs LABS Laboratory Tests Test 02/27/18 04:00 White Blood Count 6.2 x10^3/uL (4.0-11.0) Red Blood Count 3.79 x10^6/uL (3.50-5.40) Hemoglobin 9.9 g/dL (12.0-15.5) Hematocrit 31.1 % (36.0-47.0) Mean Corpuscular Volume 82 fL (79-100) Mean Corpuscular Hemoglobin 26 pg (25-35) Mean Corpuscular Hemoglobin Concent 32 g/dL (31-37) Red Cell Distribution Width 23.5 % (11.5-14.5) Platelet Count 149 x10^3/uL (140-400) Neutrophils (%) (Auto) 71 % (31-73) Lymphocytes (%) (Auto) 11 % (24-48) Monocytes (%) (Auto) 17 % (0-9) Eosinophils (%) (Auto) 1 % (0-3) Basophils (%) (Auto) 0 % (0-3) Neutrophils # (Auto) 4.4 x10^3uL (1.8-7.7) Lymphocytes # (Auto) 0.7 x10^3/uL (1.0-4.8) Monocytes # (Auto) 1.1 x10^3/uL (0.0-1.1) Eosinophils # (Auto) 0.0 x10^3/uL (0.0-0.7) Basophils # (Auto) 0.0 x10^3/uL (0.0-0.2) Sodium Level 141 mmol/L (136-145) Potassium Level 4.1 mmol/L (3.5-5.1) Chloride Level 101 mmol/L (98-107) Carbon Dioxide Level 37 mmol/L (21-32) Anion Gap 3 (6-14) Blood Urea Nitrogen 5 mg/dL (7-20) Creatinine 0.5 mg/dL (0.6-1.0) Estimated GFR (Cockcroft-Gault) 151.8 BUN/Creatinine Ratio 10 (6-20) Glucose Level 81 mg/dL (70-99) Calcium Level 8.0 mg/dL (8.5-10.1) Magnesium Level 1.9 mg/dL (1.8-2.4) Total Bilirubin 0.9 mg/dL (0.2-1.0) Aspartate Amino Transf (AST/SGOT) 31 U/L (15-37) Alanine Aminotransferase (ALT/SGPT) 27 U/L (14-59) Alkaline Phosphatase 94 U/L (46-116) Total Protein 5.5 g/dL (6.4-8.2) Albumin 1.7 g/dL (3.4-5.0) Albumin/Globulin Ratio 0.4 (1.0-1.7) Assessment and Plan Assessmemt and Plan Problems Medical Problems: (1) CHF (congestive heart failure) Status: Acute (2) Edema Status: Acute (3) Failure to thrive in adult Status: Acute (4) Heme positive stool Status: Acute (5) Hyponatremia Status: Acute (6) Hypoxemia Status: Acute (7) Sacral decubitus ulcer, stage III Status: Acute (8) Severe anemia Status: Acute Comment Review of Relevant I have reviewed the following items yao (where applicable) has been applied. Labs Laboratory Tests Test 02/25/18 12:50 02/25/18 16:35 02/25/18 21:27 02/26/18 06:00 Body Fluid Total Protein 1.7 g/dL (.) Body Fluid Lactate Dehydrogenase 124 IU/L (.) Glucose (Fingerstick) 117 mg/dL (70-99) 130 mg/dL (70-99) White Blood Count 5.7 x10^3/uL (4.0-11.0) Red Blood Count 3.84 x10^6/uL (3.50-5.40) Hemoglobin 9.9 g/dL (12.0-15.5) Hematocrit 30.9 % (36.0-47.0) Mean Corpuscular Volume 81 fL (79-100) Mean Corpuscular Hemoglobin 26 pg (25-35) Mean Corpuscular Hemoglobin Concent 32 g/dL (31-37) Red Cell Distribution Width 24.0 % (11.5-14.5) Platelet Count 153 x10^3/uL (140-400) Neutrophils (%) (Auto) 77 % (31-73) Lymphocytes (%) (Auto) 6 % (24-48) Monocytes (%) (Auto) 16 % (0-9) Eosinophils (%) (Auto) 1 % (0-3) Basophils (%) (Auto) 0 % (0-3) Neutrophils # (Auto) 4.4 x10^3uL (1.8-7.7) Lymphocytes # (Auto) 0.4 x10^3/uL (1.0-4.8) Monocytes # (Auto) 0.9 x10^3/uL (0.0-1.1) Eosinophils # (Auto) 0.0 x10^3/uL (0.0-0.7) Basophils # (Auto) 0.0 x10^3/uL (0.0-0.2) Sodium Level 140 mmol/L (136-145) Potassium Level 3.7 mmol/L (3.5-5.1) Chloride Level 100 mmol/L (98-107) Carbon Dioxide Level 40 mmol/L (21-32) Anion Gap 0 (6-14) Blood Urea Nitrogen 5 mg/dL (7-20) Creatinine 0.4 mg/dL (0.6-1.0) Estimated GFR (Cockcroft-Gault) 196.3 BUN/Creatinine Ratio 13 (6-20) Glucose Level 90 mg/dL (70-99) Calcium Level 8.0 mg/dL (8.5-10.1) Total Bilirubin 0.9 mg/dL (0.2-1.0) Aspartate Amino Transf (AST/SGOT) 37 U/L (15-37) Alanine Aminotransferase (ALT/SGPT) 30 U/L (14-59) Alkaline Phosphatase 87 U/L (46-116) Total Protein 5.6 g/dL (6.4-8.2) Albumin 1.6 g/dL (3.4-5.0) Albumin/Globulin Ratio 0.4 (1.0-1.7) Test 02/27/18 04:00 White Blood Count 6.2 x10^3/uL (4.0-11.0) Red Blood Count 3.79 x10^6/uL (3.50-5.40) Hemoglobin 9.9 g/dL (12.0-15.5) Hematocrit 31.1 % (36.0-47.0) Mean Corpuscular Volume 82 fL (79-100) Mean Corpuscular Hemoglobin 26 pg (25-35) Mean Corpuscular Hemoglobin Concent 32 g/dL (31-37) Red Cell Distribution Width 23.5 % (11.5-14.5) Platelet Count 149 x10^3/uL (140-400) Neutrophils (%) (Auto) 71 % (31-73) Lymphocytes (%) (Auto) 11 % (24-48) Monocytes (%) (Auto) 17 % (0-9) Eosinophils (%) (Auto) 1 % (0-3) Basophils (%) (Auto) 0 % (0-3) Neutrophils # (Auto) 4.4 x10^3uL (1.8-7.7) Lymphocytes # (Auto) 0.7 x10^3/uL (1.0-4.8) Monocytes # (Auto) 1.1 x10^3/uL (0.0-1.1) Eosinophils # (Auto) 0.0 x10^3/uL (0.0-0.7) Basophils # (Auto) 0.0 x10^3/uL (0.0-0.2) Sodium Level 141 mmol/L (136-145) Potassium Level 4.1 mmol/L (3.5-5.1) Chloride Level 101 mmol/L (98-107) Carbon Dioxide Level 37 mmol/L (21-32) Anion Gap 3 (6-14) Blood Urea Nitrogen 5 mg/dL (7-20) Creatinine 0.5 mg/dL (0.6-1.0) Estimated GFR (Cockcroft-Gault) 151.8 BUN/Creatinine Ratio 10 (6-20) Glucose Level 81 mg/dL (70-99) Calcium Level 8.0 mg/dL (8.5-10.1) Magnesium Level 1.9 mg/dL (1.8-2.4) Total Bilirubin 0.9 mg/dL (0.2-1.0) Aspartate Amino Transf (AST/SGOT) 31 U/L (15-37) Alanine Aminotransferase (ALT/SGPT) 27 U/L (14-59) Alkaline Phosphatase 94 U/L (46-116) Total Protein 5.5 g/dL (6.4-8.2) Albumin 1.7 g/dL (3.4-5.0) Albumin/Globulin Ratio 0.4 (1.0-1.7) Laboratory Tests Test 02/27/18 04:00 White Blood Count 6.2 x10^3/uL (4.0-11.0) Red Blood Count 3.79 x10^6/uL (3.50-5.40) Hemoglobin 9.9 g/dL (12.0-15.5) Hematocrit 31.1 % (36.0-47.0) Mean Corpuscular Volume 82 fL (79-100) Mean Corpuscular Hemoglobin 26 pg (25-35) Mean Corpuscular Hemoglobin Concent 32 g/dL (31-37) Red Cell Distribution Width 23.5 % (11.5-14.5) Platelet Count 149 x10^3/uL (140-400) Neutrophils (%) (Auto) 71 % (31-73) Lymphocytes (%) (Auto) 11 % (24-48) Monocytes (%) (Auto) 17 % (0-9) Eosinophils (%) (Auto) 1 % (0-3) Basophils (%) (Auto) 0 % (0-3) Neutrophils # (Auto) 4.4 x10^3uL (1.8-7.7) Lymphocytes # (Auto) 0.7 x10^3/uL (1.0-4.8) Monocytes # (Auto) 1.1 x10^3/uL (0.0-1.1) Eosinophils # (Auto) 0.0 x10^3/uL (0.0-0.7) Basophils # (Auto) 0.0 x10^3/uL (0.0-0.2) Sodium Level 141 mmol/L (136-145) Potassium Level 4.1 mmol/L (3.5-5.1) Chloride Level 101 mmol/L (98-107) Carbon Dioxide Level 37 mmol/L (21-32) Anion Gap 3 (6-14) Blood Urea Nitrogen 5 mg/dL (7-20) Creatinine 0.5 mg/dL (0.6-1.0) Estimated GFR (Cockcroft-Gault) 151.8 BUN/Creatinine Ratio 10 (6-20) Glucose Level 81 mg/dL (70-99) Calcium Level 8.0 mg/dL (8.5-10.1) Magnesium Level 1.9 mg/dL (1.8-2.4) Total Bilirubin 0.9 mg/dL (0.2-1.0) Aspartate Amino Transf (AST/SGOT) 31 U/L (15-37) Alanine Aminotransferase (ALT/SGPT) 27 U/L (14-59) Alkaline Phosphatase 94 U/L (46-116) Total Protein 5.5 g/dL (6.4-8.2) Albumin 1.7 g/dL (3.4-5.0) Albumin/Globulin Ratio 0.4 (1.0-1.7) Microbiology 02/18/18 Blood Culture - Final, Complete NO GROWTH AFTER 5 DAYS 02/25/18 Anaerobic/Aerobic Culture, Resulted Pending 02/25/18 Anaerobic Culture Result 1 (JAMES), Resulted Pending 02/25/18 Aerobic Culture, Resulted Pending 02/25/18 Aerobic Culture Result 1 (JAMES), Resulted Pending 02/25/18 Gram Stain - Final, Resulted 02/25/18 Gram Stain Result 1 (JAMES) - Final, Resulted 02/25/18 Gram Stain Result 2 (JAMES) - Final, Resulted Medications Current Medications Iohexol (Omnipaque 300 Mg/ml) 75 ml 1X ONCE IV Last administered on at 23:00; Start 02/18/18 at 23:00; Stop 02/18/18 at 23:01; Status DC Info (CONTRAST GIVEN -- Rx MONITORING) 1 each PRN DAILY PRN MC SEE COMMENTS; Start 02/18/18 at 22:30; Stop 02/20/18 at 22:29; Status DC Furosemide (Lasix) 20 mg 1X ONCE IVP ; Start 02/19/18 at 01:30; Stop at 01:30; Status DC Furosemide (Lasix) 20 mg 1X ONCE IVP Last administered on 02/19/18at 05:51; Start 02/19/18 at 01:30; Stop 02/19/18 at 01:31; Status DC Influenza Virus Vaccine (Afluria Trivalent 3781-4257 Syringe) 0.5 ml ONCE ONCE VAX IM Last administered on 02/19/18at 09:35; Start 02/19/18 at 09:00; Stop 02/19/18 at 09:01; Status DC Pantoprazole Sodium (PROTONIX VIAL for IV PUSH) 40 mg 1X ONCE IVP Last administered on 02/19/18at 09:33; Start 02/19/18 at 08:30; Stop 02/19/18 at 08 :32; Status DC Sodium Chloride 1,000 ml @ 100 mls/hr Q10H IV ; Start 02/19/18 at 08:45; Stop 02/19/18 at 09:41; Status DC Pantoprazole Sodium (PROTONIX VIAL for IV PUSH) 40 mg DAILYAC IVP Last administered on 02/23/18at 09:25; Start 02/19/18 at 11:30; Stop 02/23/18 at 11 :57; Status DC Amino Acids/ Glycerin/ Electrolytes 1,000 ml @ 75 mls/hr [id number] IV Last administered on 02/23/18at 05:02; Start 02/19/18 at 09:45; Stop 02/23/18 at 15 :11; Status DC Albuterol Sulfate (Ventolin Neb Soln) 2.5 mg RTQID NEB Last administered on at 07:41; Start 02/19/18 at 20:00 Albuterol Sulfate (Ventolin Neb Soln) 2.5 mg PRN Q2HR PRN NEB [id number]; Start 02/19/18 at 17:30 Methylprednisolone Sodium Succinate (SOLU-Medrol 125MG VIAL) 60 mg BID IV Last administered on 02/21/18at 09:20; Start 02/19/18 at 18:00; Stop 02/21/18 at 09 :29; Status DC Acetaminophen (Tylenol) 650 mg PRN Q6HRS PRN PO FEVER Last administered on 03/29at 22:52; Start 02/19/18 at 22:45 Potassium Chloride (Klor-Con) 40 meq 1X ONCE PO Last administered on at 11:15; Start 02/20/18 at 11:15; Stop 02/20/18 at 11:16; Status DC Ringer's Solution 1,000 ml @ 75 mls/hr [id number] IV ; Start 02/20/18 at 11:15; Stop 02/20/18 at 19:54; Status DC Propofol 20 ml @ As Directed STK-MED ONCE IV ; Start 02/20/18 at 11:51; Stop 02/20/18 at 11:52; Status DC Lidocaine HCl (Xylocaine-Mpf 2% Vial) 2 ml STK-MED ONCE .ROUTE ; Start at 11:52; Stop 02/20/18 at 11:53; Status DC Vitamin A/Vitamin D (Vitamin A & D Ointment) 1 sarah PRN Q1HR PRN TP SKIN PROTECTION Last administered on 02/27/18at 00:00; Start 02/20/18 at 15:00 Aspirin (Ecotrin) 81 mg DAILY PO Last administered on 02/27/18at 08:21; Start 02/20/18 at 16:00 Carvedilol (Coreg) 3.125 mg BIDWMEALS PO Last administered on 02/24/18at 08:48 ; Start 02/20/18 at 17:00; Stop 02/24/18 at 13:10; Status DC Furosemide (Lasix) 20 mg DAILY PO Last administered on 02/27/18at 08:19; Start 02/20/18 at 16:00 Potassium Chloride (Klor-Con) 10 meq DAILYWBKFT PO Last administered on at 08:20; Start 02/21/18 at 08:00 Tamsulosin HCl (Flomax) 0.4 mg DAILY PO Last administered on 02/27/18at 08:18; Start 02/20/18 at 16:00 Non-Formulary Medication (Albuterol Sulfate (Proair Hfa Inhaler)) 8.5 puff PRN Q4-6HRS IH ; Start 02/20/18 at 15:30; Status UNV Budesonide (Pulmicort) 0.5 mg RTBID NEB Last administered on 02/27/18at 07:41; Start 02/20/18 at 20:00 Lisinopril (Prinivil) 5 mg DAILY PO Last administered on 02/24/18at 08:47; Start 02/20/18 at 16:00; Stop 02/24/18 at 13:11; Status DC Magnesium Chloride (Mag Delay) 64 mg BID PO Last administered on 02/27/18at 08: 20; Start 02/20/18 at 21:00 Methylprednisolone Sodium Succinate (SOLU-Medrol 40MG VIAL) 40 mg BID IV Last administered on 02/24/18at 08:48; Start 02/21/18 at 21:00; Stop 02/24/18 at 09 :56; Status DC Lorazepam (Ativan) 1 mg Q4HRS PRN IV Anxiety Last administered on 02/22/18at 08 :03; Start 02/22/18 at 07:45; Stop 02/22/18 at 13:46; Status DC Lorazepam (Ativan) 0.5 mg Q8HRS PRN IV Anxiety; Start 02/22/18 at 14:00; Stop 02/23/18 at 15:11; Status DC Doxycycline Hyclate (Vibra-Tab) 100 mg BID PO Last administered on 02/27/18at 08:19; Start 02/23/18 at 11:00 Lactobacillus Rhamnosus (Culturelle) 1 cap BID PO Last administered on at 08:18; Start 02/23/18 at 21:00 Pantoprazole Sodium (Protonix) 40 mg DAILYAC PO Last administered on at 08:19; Start 02/24/18 at 07:30 Sodium Chloride 1,000 ml @ 60 mls/hr [id number] IV Last administered on at 17:30; Start 02/23/18 at 15:15; Stop 02/24/18 at 10:16; Status DC Haloperidol Lactate (Haldol Inj) 1 mg PRN Q6HRS PRN IVP AGITATION; Start 02/23 at 15:15 Enoxaparin Sodium (Lovenox 40mg Syringe) 40 mg Q24H SQ ; Start 02/23/18 at 16: 00; Stop 02/24/18 at 10:23; Status DC Thiamine Mononitrate (Vitamin B-1) 100 mg DAILY PO Last administered on at 08:20; Start 02/23/18 at 21:00 Furosemide (Lasix) 40 mg 1X ONCE IVP Last administered on 02/24/18at 10:43; Start 02/24/18 at 09:45; Stop 02/24/18 at 09:47; Status DC Prednisone (Prednisone) 30 mg DAILY PO Last administered on 02/27/18at 08:19; Start 02/25/18 at 09:00 Ergocalciferol (Vitamin D2) 50,000 unit WEEKLY PO Last administered on at 11:59; Start 02/24/18 at 11:20; Stop 02/25/18 at 19:27; Status DC Levothyroxine Sodium (Synthroid) 100 mcg DAILY06 PO Last administered on at 06:09; Start 02/25/18 at 06:00 Magnesium Sulfate 50 ml @ 25 mls/hr 1X ONCE IV Last administered on at 11:58; Start 02/24/18 at 11:15; Stop 02/24/18 at 13:14; Status DC Magnesium Oxide (Magnesium Oxide) 400 mg DAILY PO Last administered on at 08:23; Start 02/25/18 at 09:00 Iron Sucrose 200 mg/Sodium Chloride 110 ml @ 55 mls/hr DAILY IV Last administered on 02/27/18at 08:23; Start 02/24/18 at 11:30; Stop 02/28/18 at 10 :00 Carvedilol (Coreg) 6.25 mg BIDWMEALS PO Last administered on 02/27/18at 08:21; Start 02/24/18 at 17:00 Lisinopril (Prinivil) 10 mg DAILY PO Last administered on 02/25/18at 08:55; Start 02/25/18 at 09:00; Stop 02/25/18 at 19:28; Status DC Ergocalciferol (Vitamin D2) 50,000 unit WEEKLY PO ; Start 02/25/18 at 09:00; Status UNV Sodium Chloride 1,000 ml @ 60 mls/hr [id number] IV Last administered on at 01:30; Start 02/25/18 at 10:45 Ergocalciferol (Vitamin D2) 50,000 unit WEEKLY PO Last administered on at 17:42; Start 02/25/18 at 17:00 Calcium Carbonate/ Glycine (Oscal) 500 mg BID PO Last administered on at 08:19; Start 02/25/18 at 21:00 Lisinopril (Prinivil) 10 mg DAILY PO Last administered on 02/27/18at 08:18; Start 02/26/18 at 09:00 Barium Sulfate (Varibar Thin Liquid Apple) 148 gm 1X ONCE PO Last administered on 02/26/18at 13:46; Start 02/26/18 at 10:30; Stop 02/26/18 at 10 :31; Status DC Active Scripts Active Reported Carvedilol 3.125 Mg Tablet 1 Tab PO BID Tamsulosin Hcl 0.4 Mg Cap.er.24h 1 Cap PO DAILY Advair 250-50 Diskus (Fluticasone/Salmeterol) 1 Each Disk.w.dev 1 Puff IH BID Potassium Chloride 10 Meq Capsule.er 1 Cap PO DAILY Furosemide 20 Mg Tablet 20 Mg PO DAILY Slow-Mag (Magnesium Chloride) 71.5 Mg Tablet. 71.5 Mg PO BID Proair Hfa Inhaler (Albuterol Sulfate) 8.5 Gm Hfa.aer.ad 8.5 Puff IH PRN Q4- 6HRS Aspir 81 (Aspirin) 81 Mg Tablet. 1 Tab PO DAILY Lisinopril 5 Mg Tablet 5 Mg PO DAILY Vitals/I & O Vital Sign - Last 24 Hours 02/26/18 02/26/18 02/26/18 02/26/18 11:54 14:54 16:02 16:57 Temp 98.3 98.3 Pulse 71 71 Resp 16 B/P (MAP) 111/71 (84) 111/71 Pulse Ox 95 O2 Delivery Nasal Cannula Nasal Cannula Nasal Cannula O2 Flow Rate 3.0 2.0 3.0 02/26/18 02/26/18 02/26/18 02/26/18 19:50 20:00 20:35 20:36 Temp 98.0 98.0 Pulse 77 Resp 16 B/P (MAP) 128/74 (92) Pulse Ox 95 99 99 O2 Delivery Nasal Cannula Nasal Cannula Nasal Cannula Nasal Cannula O2 Flow Rate 2.0 3.0 3.0 3.0 02/26/18 02/27/18 02/27/1802/27/18 23:30 03:19 07:00 07:44 Temp 98.4 98.8 97.6 98.4 98.8 97.6 Pulse 74 84 80 Resp 16 16 16 B/P (MAP) 124/79 (94) 124/79 (94) 116/85 (95) Pulse Ox 93 91 89 98 O2 Delivery Room Air Nasal Cannula Nasal Cannula Nasal Cannula O2 Flow Rate 2.0 2.0 3.0 02/27/18 02/27/18 02/27/18 02/27/18 07:45 08:00 08:18 08:21 Pulse 80 80 B/P (MAP) 116/85 116/85 Pulse Ox 98 O2 Delivery Nasal Cannula Nasal Cannula O2 Flow Rate 3.0 3.0 Intake and Output 02/26/18 02/26/18 02/27/18 15:00 23:00 07:00 Intake Total 240 ml 480 ml Output Total 1150 ml 850 ml Balance -910 ml -370 ml CANDACE VALENTINE MD Feb 27, 2018 11:41
--- NOTE | 2018-02-27 14:48 | PDOC3 ---
Discharge Summary [facility] Date of Admission: Feb 18, 2018 Discharge Date: Feb 27, 2018 Admitting Diagnosis generalized weakness with severe anemia left pleural effusion s/p thoracentesis transudate Debris in LLL Bronchus probable aspiration, on dysphagia 2 diet acute hypoxic resp failure Anemia, severe, 2/2 possible lower gib diastolic CHF, right chf, severe PHTN, TR MR Failure to Thrive in adult hypomagnesemia severe malnutrition hyponatremia confusion bl leg neurophathy vitd deficiency hypothyroidism iron deficiency intraatrial shunt on Echo Final Diagnosis CONSULTS pulm card gi Brief Hospital Course Ms. Abraham is a 62 old F, with h/o HTN, likely alcholism was found in the car for 2 days, very weak to get out. pt was confused when admitted, severe anemia Hb 4, stable with 4u PRBC transfusion, EGD SHOWED non erosive gastritis, + FOBT but no active bleeding, iron low, get iv iron repletion. pt likely has not been taking care of herself for a long time, told different story to different staff, cannot find family member, refused to do PTOT and rehab, finally agree to go to rehab today. only sit to chair so far. pt also has sob, was found left side pleural effusion and got thoracentesis, sob better, still on NC 3L. has low po intake, low Mag, Na , severe malnutrition. Echo done, some abnormality as above, card consulted, no intervention. Pt denies alcoholism, ETOH level [address] neg. neuro consulted, cannot do EEG given hair issues. dc to rehab for PTOT. dc time 35min. pt has dry skin B/L UE and LE bl hands symmetric weak looks weak, not communicate much. General: Alert, Cooperative, No acute distress Heart: Regular rate (SR), Other (4-5/6 diffuse sytolic murmur ) Lungs: Other (decrease bs) Abdomen: Soft, No tenderness Extremities: No cyanosis, Other (trace to 1+ bilateral LE pitting edema) Skin: decubitus has a few superficial open ulcer, looks clean. Patient History: Unknown Disposition rehab CONDITION AT DISCHARGE: Improved Scheduled Albuterol Sulfate (Proair Hfa Inhaler), 8.5 PUFF IH PRN Q4-6HRS, (Reported) Aspirin (Aspir 81), 1 TAB PO DAILY, (Reported) Carvedilol (Carvedilol), 6.25 MG PO BIDWMEALS Doxycycline Hyclate (Doxycycline Hyclate), 100 MG PO BID Ergocalciferol (Vitamin D2) (Vitamin D2), 50,000 UNIT PO WEEKLY Ferrous Sulfate (Feosol), 325 MG PO DAILYWBKFT Fluticasone/Salmeterol (Advair 250-50 Diskus), 1 PUFF IH BID, (Reported) Furosemide (Furosemide), 20 MG PO DAILY, (Reported) Levothyroxine Sodium (Synthroid), 100 MCG PO DAILY06 Lisinopril (Lisinopril), 5 MG PO DAILY, (Reported) Magnesium Chloride (Slow-Mag), 71.5 MG PO BID, (Reported) Potassium Chloride (Potassium Chloride), 1 CAP PO DAILY, (Reported) Thiamine Mononitrate (Vitamin B-1), 100 MG PO DAILY [Pantoprazole], 40 MG PO DAILYAC Discontinued Medications Carvedilol (Carvedilol), 1 TAB PO BID, (Reported) Tamsulosin Hcl (Tamsulosin Hcl), 1 CAP PO DAILY, (Reported) CANDACE VALENTINE MD Feb 27, 2018 14:48
[2018-02-27] MEDS ORDERED: DOXY100T PO (14:50)
[2018-02-27] MEDS ORDERED: LEVO100T PO (14:50)
[2018-02-27] MEDS ORDERED: Pantoprazole PO (14:50)
[2018-02-27] MEDS ORDERED: FERR325T72 PO (14:50)
[2018-02-27] MEDS ORDERED: THIA100T22 PO (14:50)
[2018-02-27] MEDS ORDERED: CARV6.252 PO (14:50)
[2018-02-27] MEDS ORDERED: ERGO500027 PO (14:50)
--- NOTE | 2018-02-27 14:52 | DISCH ---
DISCHARGE DISCHARGE INFORMATION: DISCHARGE DATE: Feb 27, 2018 FINAL DIAGNOSIS Problems Medical Problems: (1) CHF (congestive heart failure) Status: Acute (2) Edema Status: Acute (3) Failure to thrive in adult Status: Acute (4) Heme positive stool Status: Acute (5) Hyponatremia Status: Acute (6) Hypoxemia Status: Acute (7) Sacral decubitus ulcer, stage III Status: Acute (8) Severe anemia Status: Acute CONDITION ON DISCHARGE: Stable CODE STATUS: Code Status: Full [facility]CI: SNF STAY <30 DAYS: Yes POST DISCHARGE ORDERS: ACTIVITY ORDERS: Activity as tolerated WEIGHT BEARING STATUS: No restrictions DIET AFTER DISCHARGE: dysphagia 2 diet OTHER WOUND INSTRUCTIONS: decubitus wound OTHER ORDERS: encourage to eat and ambulate CHECKS AFTER DISCHARGE: CHECKS AFTER DISCHARGE: Check blood press - daily FOLLOW-UP: PHYSICIAN FOLLOW-UP: follow up with GI for outpt colonoscopy TREATMENT/EQUIPMENT ORDERS: ADAPTIVE EQUIPMENT NEEDED: None RESPIRATORY EQUIPMENT NEEDED: Oxygen Physical Therapy For: Evalulation/Treatment Occupational Therapy For: Evaluation/Treatment DISCHARGE MEDICATIONS: Home Meds Active Scripts Ergocalciferol (Vitamin D2) (VITAMIN D2) 50,000 Unit Capsule, 85361 UNIT PO WEEKLY for 30 Days, #30 CAP Prov:CANDACE VALENTINE MD 02/27/18 Thiamine Mononitrate (VITAMIN B-1) 100 Mg Tablet, 100 MG PO DAILY for 30 Days, # 30 TAB Prov:CANDACE VALENTINE MD 02/27/18 Levothyroxine Sodium (SYNTHROID) 100 Mcg Tablet, 100 MCG PO DAILY06 for 30 Days , #30 TAB Prov:CANDACE VALENTINE MD 02/27/18 [Pantoprazole] 40 MG TABLET.DR Harper Conflict Check, 40 MG PO DAILYAC for 30 Days Prov:CANDACE VALENTINE MD 02/27/18 Carvedilol (CARVEDILOL) 6.25 Mg Tablet, 6.25 MG PO BIDWMEALS for 30 Days, #60 TAB Prov:CANDACE VALENTINE MD 02/27/18 Ferrous Sulfate (FEOSOL) 325 Mg Tablet, 325 MG PO DAILYWBKFT for 30 Days, #30 TAB Prov:CANDACE VALENTINE MD 02/27/18 Doxycycline Hyclate (DOXYCYCLINE HYCLATE) 100 Mg Tablet, 100 MG PO BID for 3 Days, #6 TAB Prov:CANDACE VALENTINE MD 10/19/18 Reported Medications Fluticasone/Salmeterol (ADVAIR 250-50 DISKUS) 1 Each Disk.w.dev, 1 PUFF IH BID, #3 INHALER 3 Refills 09/13/14 Potassium Chloride (POTASSIUM CHLORIDE) 10 Meq Capsule.er, 1 CAP PO DAILY, #30 CAP 5 Refills 09/13/14 Furosemide (FUROSEMIDE) 20 Mg Tablet, 20 MG PO DAILY, TAB 09/13/14 Magnesium Chloride (SLOW-MAG) 71.5 Mg Tablet.dr, 71.5 MG PO BID 09/13/14 Albuterol Sulfate (PROAIR HFA INHALER) 8.5 Gm Hfa.aer.ad, 8.5 PUFF IH PRN Q4- 6HRS, #1 INHALER 09/13/14 Aspirin (ASPIR 81) 81 Mg Tablet.dr, 1 TAB PO DAILY, #30 TAB 5 Refills 09/13/14 Lisinopril (LISINOPRIL) 5 Mg Tablet, 5 MG PO DAILY for FOR HYPERTENSION, #30 TAB 0 Refills 09/13/14 Discontinued Reported Medications Carvedilol (CARVEDILOL) 3.125 Mg Tablet, 1 TAB PO BID, #180 TAB 3 Refills 09/21/14 Tamsulosin Hcl (TAMSULOSIN HCL) 0.4 Mg Cap.er.24h, 1 CAP PO DAILY, #90 CAP 3 Refills 09/21/14 CANDACE VALENTINE MD Feb 27, 2018 14:52
[2018-02-27 15:00] VITALS: BP 129/83
[2018-02-27] MEDS ORDERED: FERROUS SULFATE 325 MG TABLET. PO SCH (15:00)
--- NOTE | 2018-02-27 16:40 | PDOC ---
Subjective: Subjective: Pt is feeling well today. She denies nausea, vomiting, or abdominal pain. She was able to eat breakfast this morning. Her bowels are moving well. She plans on being discharged this evening. Objective: Vital Signs: Vital Signs Date Time Temp Pulse Resp B/P (MAP) Pulse Ox O2 Delivery O2 Flow Rate FiO2 02/27/18 11:43 Nasal Cannula 3.0 02/27/18 11:00 98.5 83 16 114/71 (85) 94 98.5 Labs: Laboratory Tests Test 02/27/18 04:00 White Blood Count 6.2 x10^3/uL Red Blood Count 3.79 x10^6/uL Hemoglobin 9.9 g/dL Hematocrit 31.1 % Mean Corpuscular Volume 82 fL Mean Corpuscular Hemoglobin 26 pg Mean Corpuscular Hemoglobin Concent 32 g/dL Red Cell Distribution Width 23.5 % Platelet Count 149 x10^3/uL Neutrophils (%) (Auto) 71 % Lymphocytes (%) (Auto) 11 % Monocytes (%) (Auto) 17 % Eosinophils (%) (Auto) 1 % Basophils (%) (Auto) 0 % Neutrophils # (Auto) 4.4 x10^3uL Lymphocytes # (Auto) 0.7 x10^3/uL Monocytes # (Auto) 1.1 x10^3/uL Eosinophils # (Auto) 0.0 x10^3/uL Basophils # (Auto) 0.0 x10^3/uL Sodium Level 141 mmol/L Potassium Level 4.1 mmol/L Chloride Level 101 mmol/L Carbon Dioxide Level 37 mmol/L Anion Gap 3 Blood Urea Nitrogen 5 mg/dL Creatinine 0.5 mg/dL Estimated GFR (Cockcroft-Gault) 151.8 BUN/Creatinine Ratio 10 Glucose Level 81 mg/dL Calcium Level 8.0 mg/dL Magnesium Level 1.9 mg/dL Total Bilirubin 0.9 mg/dL Aspartate Amino Transf (AST/SGOT) 31 U/L Alanine Aminotransferase (ALT/SGPT) 27 U/L Alkaline Phosphatase 94 U/L Total Protein 5.5 g/dL Albumin 1.7 g/dL Albumin/Globulin Ratio 0.4 Current Medications Medications (Trade) Dose Ordered Sig/Nu Route PRN Reason Start Time Stop Time Status Last Admin Dose Admin Iohexol (Omnipaque 300 Mg/ml) 75 ml 1X ONCE IV 02/18/18 23:00 02/18/18 23:01 DC 02/18/18 23:00 Info (CONTRAST GIVEN -- Rx MONITORING) 1 each PRN DAILY PRN MC SEE COMMENTS 02/18/18 22:30 02/20/18 22:29 DC Furosemide (Lasix) 20 mg 1X ONCE IVP 02/19/18 01:30 02/19/18 01:30 DC Furosemide (Lasix) 20 mg 1X ONCE IVP 02/19/18 01:30 02/19/18 01:31 DC 02/19/18 05:51 Influenza Virus Vaccine (Afluria Trivalent [id number] Syringe) 0.5 ml ONCE ONCE VAX IM 02/19/18 09:00 02/19/18 09:01 DC 02/19/18 09:35 Pantoprazole Sodium (PROTONIX VIAL for IV PUSH) 40 mg 1X ONCE IVP 02/19/18 08:30 02/19/18 08:32 DC 02/19/18 09:33 Sodium Chloride 1,000 ml @ 100 mls/hr Q10H IV 02/19/18 08:45 02/19/18 09:41 DC Pantoprazole Sodium (PROTONIX VIAL for IV PUSH) 40 mg DAILYAC IVP 02/19/18 11:30 02/23/18 11:57 DC 02/23/18 09:25 Amino Acids/ Glycerin/ Electrolytes 1,000 ml @ 75 mls/hr [id number] IV 02/19/18 09:45 02/23/18 15:11 DC 02/23/18 05:02 Albuterol Sulfate (Ventolin Neb Soln) 2.5 mg RTQID NEB 02/19/18 20:00 02/27/18 11:41 Albuterol Sulfate (Ventolin Neb Soln) 2.5 mg PRN Q2HR PRN NEB [id number] 02/19/18 17:30 Methylprednisolone Sodium Succinate (SOLU-Medrol 125MG VIAL) 60 mg BID IV 02/19/18 18:00 02/21/18 09:29 DC 02/21/18 09:20 Acetaminophen (Tylenol) 650 mg PRN Q6HRS PRN PO FEVER 02/19/18 22:45 02/19/18 22:52 Potassium Chloride (Klor-Con) 40 meq 1X ONCE PO 02/20/18 11:15 02/20/18 11:16 DC 02/20/18 11:15 Ringer's Solution 1,000 ml @ 75 mls/hr [id number] IV 02/20/18 11:15 02/20/18 19:54 DC Propofol 20 ml @ As Directed STK-MED ONCE IV 02/20/18 11:51 02/20/18 11:52 DC Lidocaine HCl (Xylocaine-Mpf 2% Vial) 2 ml STK-MED ONCE .ROUTE 02/20/18 11:52 02/20/18 11:53 DC Vitamin A/Vitamin D (Vitamin A & D Ointment) 1 sarah PRN Q1HR PRN TP SKIN PROTECTION 02/20/18 15:00 02/27/18 00:00 Aspirin (Ecotrin) 81 mg DAILY PO 02/20/18 16:00 02/27/18 08:21 Carvedilol (Coreg) 3.125 mg BIDWMEALS PO 02/20/18 17:00 02/24/18 13:10 DC 02/24/18 08:48 Furosemide (Lasix) 20 mg DAILY PO 02/20/18 16:00 02/27/18 08:19 Potassium Chloride (Klor-Con) 10 meq DAILYWBKFT PO 02/21/18 08:00 02/27/18 08:20 Tamsulosin HCl (Flomax) 0.4 mg DAILY PO 02/20/18 16:00 02/27/18 08:18 Non-Formulary Medication (Albuterol Sulfate (Proair Hfa Inhaler)) 8.5 puff PRN Q4-6HRS IH 02/20/18 15:30 UNV Budesonide (Pulmicort) 0.5 mg RTBID NEB 02/20/18 20:00 02/27/18 07:41 Lisinopril (Prinivil) 5 mg DAILY PO 02/20/18 16:00 02/24/18 13:11 DC 02/24/18 08:47 Magnesium Chloride (Mag Delay) 64 mg BID PO 02/20/18 21:00 02/27/18 08:20 Methylprednisolone Sodium Succinate (SOLU-Medrol 40MG VIAL) 40 mg BID IV 02/21/18 21:00 02/24/18 09:56 DC 02/24/18 08:48 Lorazepam (Ativan) 1 mg Q4HRS PRN IV Anxiety 02/22/18 07:45 02/22/18 13:46 DC 02/22/18 08:03 Lorazepam (Ativan) 0.5 mg Q8HRS PRN IV Anxiety 02/22/18 14:00 02/23/18 15:11 DC Doxycycline Hyclate (Vibra-Tab) 100 mg BID PO 02/23/18 11:00 02/27/18 08:19 Lactobacillus Rhamnosus (Culturelle) 1 cap BID PO 02/23/18 21:00 02/27/18 08:18 Pantoprazole Sodium (Protonix) 40 mg DAILYAC PO 02/24/18 07:30 02/27/18 08:19 Sodium Chloride 1,000 ml @ 60 mls/hr [id number] IV 02/23/18 15:15 02/24/18 10:16 DC 02/23/18 17:30 Haloperidol Lactate (Haldol Inj) 1 mg PRN Q6HRS PRN IVP AGITATION 02/23/18 15:15 Enoxaparin Sodium (Lovenox 40mg Syringe) 40 mg Q24H SQ 02/23/18 16:00 02/24/18 10:23 DC Thiamine Mononitrate (Vitamin B-1) 100 mg DAILY PO 02/23/18 21:00 02/27/18 08:20 Furosemide (Lasix) 40 mg 1X ONCE IVP 02/24/18 09:45 02/24/18 09:47 DC 02/24/18 10:43 Prednisone (Prednisone) 30 mg DAILY PO 02/25/18 09:00 02/27/18 08:19 Ergocalciferol (Vitamin D2) 50,000 unit WEEKLY PO 02/24/18 11:20 02/25/18 19:27 DC 02/24/18 11:59 Levothyroxine Sodium (Synthroid) 100 mcg DAILY06 PO 02/25/18 06:00 02/27/18 06:09 Magnesium Sulfate 50 ml @ 25 mls/hr 1X ONCE IV 02/24/18 11:15 02/24/18 13:14 DC 02/24/18 11:58 Magnesium Oxide (Magnesium Oxide) 400 mg DAILY PO 02/25/18 09:00 02/27/18 08:23 Iron Sucrose 200 mg/Sodium Chloride 110 ml @ 55 mls/hr DAILY IV 02/24/18 11:30 02/28/18 10:00 02/27/18 08:23 Carvedilol (Coreg) 6.25 mg BIDWMEALS PO 02/24/18 17:00 02/27/18 08:21 Lisinopril (Prinivil) 10 mg DAILY PO 02/25/18 09:00 02/25/18 19:28 DC 02/25/18 08:55 Ergocalciferol (Vitamin D2) 50,000 unit WEEKLY PO 02/25/18 09:00 UNV Sodium Chloride 1,000 ml @ 60 mls/hr [id number] IV 02/25/18 10:45 02/27/18 01:30 Ergocalciferol (Vitamin D2) 50,000 unit WEEKLY PO 02/25/18 17:00 02/25/18 17:42 Calcium Carbonate/ Glycine (Oscal) 500 mg BID PO 02/25/18 21:00 02/27/18 08:19 Lisinopril (Prinivil) 10 mg DAILY PO 02/26/18 09:00 02/27/18 08:18 Barium Sulfate (Varibar Thin Liquid Apple) 148 gm 1X ONCE PO 02/26/18 10:30 02/26/18 10:31 DC 02/26/18 13:46 Ferrous Sulfate (Feosol) 325 mg DAILYWBKFT PO 02/27/18 15:00 Imaging: Video swallow study 02/26/18 IMPRESSION: No evidence of aspiration. PE: GEN: NAD HEENT: Atraumatic, PERRLA LUNGS: CTAB HEART: RRR, no murmurs ABD: NABS, S/ND/NT, no masses EXTREMITY: No edema SKIN: No rashes, no jaundice NEURO/PSYCH: A & O 3 A/P: STEVE - stable, plans for outpt colonoscopy Pleural effusions s/p thoracentesis Pulmonary hypertension, cardiomyopathy Video swallow study- normal Plan for discharge today WES COYNE Feb 27, 2018 16:40
--- NOTE | 2018-02-27 17:12 | PDOC ---
PROGRESS NOTES Assessment Assessment Confusion. Metabolic encephalopathy. Toxic encephalopathy. Alcohol intoxication, ETOH 16. CHF. Anemia. GI bleeding. Vit D deficiency, severe. LE peripheral neuropathy. RECOMMENDATIONS/PLAN: Vit B1 100 mg daily. Vit D2 50,000 units weekly. Calcium supplement. Blood transfusion. Treat medical diseases. EEG, unable to perform on her due to patched hair from hygiene issues. Alcohol abstinence. OT/PT. HISTORY OF THE PRESENT ILLNESS: 62-y-old female patient with above medical diseases and alcohol intoxication for admission. She has mental status changes and confusion, so neurology was requested for consultation. PMH: HTN, COPD, allergic rhinitis, tonsillectomy FH: Unknown. Social History: Smoke: <1 pack per day ALCOHOL: other (+ on screen, can't quantify) PAST SURGERY HISTORY: No major surgery recently. ALLERGY: Unknown MEDICATIONS: Refer to MAR REVIEW OF SYSTEMS: Constitutional: No malnutrition, weight loss, cachexia. Head: No traumatic brain or head injury. Skin: No edema, or rash. Ear: No infection. Eyes: No vision loss or color blindness. Nose: No bleeding or purulent discharges. Hearing: No hearing decrease. Neck: No injury. Breast: No history of cancer, masses,or discharges. Cardiac: CHF.. Pulmonary: COPD. GI:GI bleeding. Urinary/genital: UTI. Endocrinologic: No cousin face, craniofacial dysmorphism, polydactyly, goiter. Skeletomuscular: No muscular atrophy, deformity. Neurological: see HP. Psychiatric: Denies drug use/abuse. Otherwise, not [id number] review of systems. PHYSICAL EXAMINATION: General appearance is in no acute distress. HEENT: Normocephalic and nontraumatic. Eyes, nose, ears, and throat are unremarkable. Neck is supple. No lymphadenopathy. No crepitus. Cardiovascular: S1, S2, regular rate and rhythm. Pulmonary: Clear to auscultation bilaterally. Abdomen: Bowel sounds are positive. Abdomen is soft, nontender, and nondistended. Extremities: No rash, lesions, or edema. No restriction of range of motion NEUROLOGICAL EXAMINATION: Awake. Not oriented to time, but knew place and person. PERRL. EOMI. CN: no focal findings. Muscle tone: within normal. Muscle strength: 4 DTR: 2- UE, 1 at knee. Plantar reflex: Flexor response bilaterally Gait: not examined in bed. Sensory exam: no abnormal findings. No cerebellar signs elicited. F-T-N test fine. Objective Objective Vital Signs Date Time Temp Pulse Resp B/P (MAP) Pulse Ox O2 Delivery O2 Flow Rate FiO2 02/27/18 16:48 Nasal Cannula 3.0 02/27/18 15:00 98.2 75 16 129/83 (98) 93 98.2 Intake and Output 02/27/18 07:00 Intake Total 720 ml Output Total 2000 ml Balance -1280 ml Intake Oral 720 ml Output Urine Total 2000 ml Vitals Signs Vitals VS - Last 72 Hours, by Label Date Time Temp Pulse Resp B/P (MAP) Pulse Ox O2 Delivery O2 Flow Rate FiO2 02/27/18 16:48 Nasal Cannula 3.0 02/27/18 15:00 98.2 75 16 129/83 (98) 93 Nasal Cannula 2.0 98.2 02/27/18 11:43 Nasal Cannula 3.0 02/27/18 11:00 98.5 83 16 114/71 (85) 94 Nasal Cannula 2.0 98.5 02/27/18 08:21 80 116/85 02/27/18 08:18 80 116/85 02/27/18 08:00 Nasal Cannula 3.0 02/27/18 07:45 98 Nasal Cannula 3.0 02/27/18 07:44 98 Nasal Cannula 3.0 02/27/18 07:00 97.6 80 16 116/85 (95) 89 Nasal Cannula 2.0 97.6 02/27/18 03:19 98.8 84 16 124/79 (94) 91 Nasal Cannula 2.0 98.8 02/26/18 23:30 98.4 74 16 124/79 (94) 93 Room Air 98.4 02/26/18 20:36 99 Nasal Cannula 3.0 02/26/18 20:35 99 Nasal Cannula 3.0 02/26/18 20:00 Nasal Cannula 3.0 02/26/18 19:50 98.0 77 16 128/74 (92) 95 Nasal Cannula 2.0 98.0 02/26/18 16:57 71 111/71 02/26/18 16:02 Nasal Cannula 3.0 02/26/18 14:54 98.3 71 16 111/71 (84) 95 Nasal Cannula 2.0 98.3 02/26/18 11:54 Nasal Cannula 3.0 02/26/18 11:02 98.5 87 18 107/72 (84) 93 Nasal Cannula 2.0 98.5 02/26/18 08:47 97 Nasal Cannula 3.0 02/26/18 08:46 97 Nasal Cannula 3.0 02/26/18 08:32 79 119/78 02/26/18 08:30 79 119/78 02/26/18 08:00 Nasal Cannula 3.0 02/26/18 07:15 98.6 79 16 119/78 (92) 95 Nasal Cannula 2.0 98.6 Laboratory Laboratory Laboratory Tests Test 02/27/18 04:00 White Blood Count 6.2 x10^3/uL (4.0-11.0) Red Blood Count 3.79 x10^6/uL (3.50-5.40) Hemoglobin 9.9 g/dL (12.0-15.5) Hematocrit 31.1 % (36.0-47.0) Mean Corpuscular Volume 82 fL (79-100) Mean Corpuscular Hemoglobin 26 pg (25-35) Mean Corpuscular Hemoglobin Concent 32 g/dL (31-37) Red Cell Distribution Width 23.5 % (11.5-14.5) Platelet Count 149 x10^3/uL (140-400) Neutrophils (%) (Auto) 71 % (31-73) Lymphocytes (%) (Auto) 11 % (24-48) Monocytes (%) (Auto) 17 % (0-9) Eosinophils (%) (Auto) 1 % (0-3) Basophils (%) (Auto) 0 % (0-3) Neutrophils # (Auto) 4.4 x10^3uL (1.8-7.7) Lymphocytes # (Auto) 0.7 x10^3/uL (1.0-4.8) Monocytes # (Auto) 1.1 x10^3/uL (0.0-1.1) Eosinophils # (Auto) 0.0 x10^3/uL (0.0-0.7) Basophils # (Auto) 0.0 x10^3/uL (0.0-0.2) Sodium Level 141 mmol/L (136-145) Potassium Level 4.1 mmol/L (3.5-5.1) Chloride Level 101 mmol/L (98-107) Carbon Dioxide Level 37 mmol/L (21-32) Anion Gap 3 (6-14) Blood Urea Nitrogen 5 mg/dL (7-20) Creatinine 0.5 mg/dL (0.6-1.0) Estimated GFR (Cockcroft-Gault) 151.8 BUN/Creatinine Ratio 10 (6-20) Glucose Level 81 mg/dL (70-99) Calcium Level 8.0 mg/dL (8.5-10.1) Magnesium Level 1.9 mg/dL (1.8-2.4) Total Bilirubin 0.9 mg/dL (0.2-1.0) Aspartate Amino Transf (AST/SGOT) 31 U/L (15-37) Alanine Aminotransferase (ALT/SGPT) 27 U/L (14-59) Alkaline Phosphatase 94 U/L (46-116) Total Protein 5.5 g/dL (6.4-8.2) Albumin 1.7 g/dL (3.4-5.0) Albumin/Globulin Ratio 0.4 (1.0-1.7) Microbiology 02/18/18 Blood Culture - Final, Complete NO GROWTH AFTER 5 DAYS 02/25/18 Anaerobic/Aerobic Culture, Resulted Pending 02/25/18 Anaerobic Culture Result 1 (JAMES), Resulted Pending 02/25/18 Aerobic Culture, Resulted Pending 02/25/18 Aerobic Culture Result 1 (JAMES), Resulted Pending 02/25/18 Gram Stain - Final, Resulted 02/25/18 Gram Stain Result 1 (JAMES) - Final, Resulted 02/25/18 Gram Stain Result 2 (JAMES) - Final, Resulted Medication Medications Current Medications Ferrous Sulfate (Feosol) 325 mg DAILYWBKFT PO ; Start 02/27/18 at 15:00 Comment Review of Relevant I have reviewed the following items yao (where applicable) has been applied. KAE QUARLES MD Feb 27, 2018 17:12
[2018-02-27 18:14] VITALS: BP 129/83
== END 2018-02-27 18:47 | DRG 177 ==
LOC: ER 18:00 → 5 SOUTH 21:45
PROVIDERS: ADMIT Internal Medicine; ATTEND Internal Medicine
PROC: 0DJ08ZZ Inspection of Upper Intestinal Tract, Via Natural or Artificial Opening Endoscopic (ICD-10-PCS; principal; 2018-02-18)
PROC: 30233N1 Transfusion of Nonautologous Red Blood Cells into Peripheral Vein, Percutaneous Approach (ICD-10-PCS; 2018-02-18)
PROC: 0W9B3ZZ Drainage of Left Pleural Cavity, Percutaneous Approach (ICD-10-PCS; 2018-02-18)
PROC: 0HBRXZZ Excision of Toe Nail, External Approach (ICD-10-PCS; 2018-02-23)
PROC: 0HBRXZZ Excision of Toe Nail, External Approach (ICD-10-PCS; 2018-02-23)
PROC: 0HBRXZZ Excision of Toe Nail, External Approach (ICD-10-PCS; 2018-02-23)
PROC: 0HBRXZZ Excision of Toe Nail, External Approach (ICD-10-PCS; 2018-02-23)
PROC: 0HBRXZZ Excision of Toe Nail, External Approach (ICD-10-PCS; 2018-02-23)
PROC: 0HBRXZZ Excision of Toe Nail, External Approach (ICD-10-PCS; 2018-02-23)
PROC: 0HBRXZZ Excision of Toe Nail, External Approach (ICD-10-PCS; 2018-02-23)
PROC: 0HBRXZZ Excision of Toe Nail, External Approach (ICD-10-PCS; 2018-02-23)
PROC: 0HBRXZZ Excision of Toe Nail, External Approach (ICD-10-PCS; 2018-02-23)
DX: J69.0 Pneumonitis due to inhalation of food and vomit (principal); I50.43 Acute on chronic combined systolic (congestive) and diastolic (congestive) heart failure; J96.01 Acute respiratory failure with hypoxia; E43 Unspecified severe protein-calorie malnutrition; L89.153 Pressure ulcer of sacral region, stage 3; G92 Toxic encephalopathy; J96.21 Acute and chronic respiratory failure with hypoxia; K29.71 Gastritis, unspecified, with bleeding; E87.1 Hypo-osmolality and hyponatremia; J44.0 Chronic obstructive pulmonary disease with (acute) lower respiratory infection; J44.1 Chronic obstructive pulmonary disease with (acute) exacerbation; B35.1 Tinea unguium; D50.0 Iron deficiency anemia secondary to blood loss (chronic); E03.9 Hypothyroidism, unspecified; E83.42 Hypomagnesemia; F10.229 Alcohol dependence with intoxication, unspecified; F17.210 Nicotine dependence, cigarettes, uncomplicated; G62.9 Polyneuropathy, unspecified; I11.0 Hypertensive heart disease with heart failure; I25.10 Atherosclerotic heart disease of native coronary artery without angina pectoris; I25.5 Ischemic cardiomyopathy; I27.29 Other secondary pulmonary hypertension; I27.81 Cor pulmonale (chronic); M19.90 Unspecified osteoarthritis, unspecified site; J30.9 Allergic rhinitis, unspecified; K21.9 Gastro-esophageal reflux disease without esophagitis; L60.0 Ingrowing nail; L60.1 Onycholysis; R62.7 Adult failure to thrive; Z82.49 Family history of ischemic heart disease and other diseases of the circulatory system; Z90.49 Acquired absence of other specified parts of digestive tract; Z88.8 Allergy status to other drugs, medicaments and biological substances; Z68.23 Body mass index [BMI] 23.0-23.9, adult; Z79.899 Other long term (current) drug therapy
CPT/HCPCS: 99285; C8924; 32555; 36415; 36569; 36600; 43235; 70450; 71045; 71275; 74230; 80048; 80053; 80307; 81001; 82140; 82274; 82306; 82550; 82607; 82728; 82805; 82962; 83540; 83550; 83605; 83615; 83690; 83735; 83880; 84100; 84157; 84439; 84443; 84481; 84484; 85007; 85025; 85027; 85379; 85610; 85730; 86850; 86870; 86900; 86901; 86922; 87040; 87071; 87075; 88112; 88305; 90471; 90756; 93005; 93306; 93970; 94640; 94760; 96374; C9113; G0480; J1756; J1940; J2001; J2060; J2704; J2920; J2930; J3475; J7030; J7512; J7613; J7626; P9016; Q9967; 92526; 92610; 92611; 97530; 97535; G0479; Q2035